=== PATIENT | female | born 2000 | race Caucasian/White ===

== ENCOUNTER 2022-06-19 21:09 | Emergency (ER) | payer MEDICAID, SELFPAY ==
[2022-06-19 21:15] VITALS: BP 120/84; PULSE 79; RESP 18; TEMP 36.2; O2SAT 97
--- NOTE | 2022-06-19 21:30 | DI.CT_ITS ---
Exam(s) CT HEAD WO EXAM: CT HEAD WO CLINICAL HISTORY: headache TECHNIQUE: COMPARISON: CT CT HEAD WO from 06/20/2022 FINDINGS: Noncontrast CT examination was performed at approximately 2200 hours followed by repeat noncontrast C T at 0400 hours. Initial examination showed question of discordant gaze although this may be artifac tual. Initial examine also showed question of left cerebellar hypodensity on thick cut images althou gh thin cut images do not show this abnormality. Follow-up CT shows normal concordance of gaze and n o evidence of intracranial hemorrhage, mass effect, or midline shift. Orbital and temporal bone structures appear intact. Mastoid air cells and visualized paranasal sinus es are clear. IMPRESSION: No evidence of acute intracranial process. RADIATION DOSE DELIVERED: 736.39mGy.cm Total DLP !Error CTDIvol RADIATION OPTIMIZATION: All CT scans at this facility use at least one of these dose optimization te chniques: automated exposure control; mA and/or kV adjustment per patient size (includes targeted exa ms where dose is matched to clinical indication); or iterative reconstruction.
--- NOTE | 2022-06-19 21:33 | ED.GENADUL_ITS ---
Discharge Plan Disposition Patient Disposition: HOME Condition: Stable Discharge Details Clinical Impression: Migraine Primary Care Provider: Luisito Messina ED Provider: Frederick Dias Home Meds and New Rx's Prescriptions: Continued clonazepam 1 mg Tablet 1 mg PO PRN PRN albuterol 90 mcg/actuation Aerosol 90 mcg INHALATION DAILY Discharge Instructions Instructions: Migraine Headache (ED) Additional Instructions: you had no evidence of bleeding on your second cat scan follow up with your primary care provider within a week if you feel more ill, have fevers or persistent vomiting return to the emergency department Medical Decision Making 22 yo female who denies chronic medical problems comes in with right side headache for a month. She states it started when her pcp put her on 90mg of cymbalta. She took the medicine and had headache and felt weakness and anxious, went to [facility] and diagnosed with med reaction and d/c'd. she has stopped the cymbalta but has continued to have a right sided headache, and has a history of migraines when she was younger. She has also had some visual changes including seeing floaters intermittent, seeing waves and double vision. She saw optho who did not find a structural abnormality with the eyes and so is scheduled to have an MRI at some point she is not sure when. She denies any fevers, chills, neck stiffness. She localizes the pain to the right parietal region. Her vision is 20/30 in both eyes, perrl, no afferent pupilarry defect, no conjunctival injection. no focal motor or sensation deficits, CN ii-xii intact. Suspect complex migraine but could also be MS. Will treat with compazine and toradol and given one month of symptoms obtain ct head to evaluate for space occupying lesion. She states headache slowly worsened not thunderclap so doubt subarachnoid hemorrhage. pt feels better, labs unremarkable, ct per vrad shows likely artifact in the left cerebellum but can't exclude sah. Also discordant gaze which is chronic for her. She remains stable, discussed findings with pt and though clinical suspicion for SAH is low she is willing to have a [address] repeat head ct negative, patient sleeping on reassessment. Discussed results with pt, suspect complex migraine but advised to f/u with pcp for mri and further testing and management, return precautions given Differential Diagnosis Differential Diagnosis: complex migraine, MS Imaging Data Radiologic Study: Attestation: I personally reviewed and interpreted this imaging study as follows: Imaging: CT Scan My impression: IMPRESSION: 1. Series 3, image 18 demonstrates a linear focus of hyperdensity in the left cerebellum. This is favored to represent artifact. However, a small focus of subarachnoid hemorrhage is not entirelyexcluded. Given the patient's history of headache, if there is concern for blood products, a 6 hour follow-up head CT scan is recommended Radiologic Study #2: Attestation: I personally reviewed and interpreted this imaging study as follows: Imaging: CT Scan Radiologist's impression: IMPRESSION: 1. No acute intracranial abnormality. 2. Area of previously noted irregularity in the left cerebellum likely artifactual. If persistent clinical concern for hemorrhage or other acute intracranial abnormality, consider MRI further evaluation. Lab Data Lab results reviewed: Yes I reviewed the patient's lab results. HPI General Mode of arrival: ambulatory . Date/Time Provider Initiated Documentation: 06/19/22 21:09 . Limitations to Documentation: no limitations . Information obtained by: patient and family . History of Present Illness 22 year old F presents to the emergency department with the chief complaint of headache, described as moderate, Patient started experiencing this month(s) (1) and it has been constant. No relieving factors improve symptom(s), No exacerbating factors reported . Patient notes other (vision changes). Patient did receive the following treatments prior to arrival, NSAID Related Data Home Medications Medication Instructions Recorded Confirmed albuterol 90 mcg/actuation aerosol 90 mcg inhalation DAILY 06/19/22 06/19/22 inhaler clonazepam 1 mg tablet 1 mg PO PRN PRN 06/19/22 06/19/22 Allergies Allergy/AdvReac Type Severity Reaction Status Date / Time No Known Allergies Allergy Unverified 06/19/22 21:33 General Stated Complaint: Headache ALEXX: 3 Review of Systems All systems reviewed & are unremarkable except as noted in HPI and below Constitutional Constitutional: Denies chills, Denies fever(s) and Denies weakness Eyes Eyes: Denies loss of vision Cardiovascular Cardiovascular: Denies chest pain and Denies dyspnea Respiratory Respiratory: Denies cough and Denies dyspnea Gastrointestinal Gastrointestinal: Denies abdominal pain, Denies nausea and Denies vomiting Musculoskeletal Musculoskeletal: Denies joint swelling Neurologic Neurologic: Denies loss of vision and Denies weakness PFSH All Active Problems (Updated 06/20/22 @ 05:00 by Frederick Dias MD) Migraine (Chronic) Social History Smoking/Tobacco Use Status: Never Smoking risk assessment performed?: Yes Alcohol Intake: never Do you feel safe at home: Yes Do you feel safe in your relationship?: Yes Exam Const General: no acute distress Orientation: alert HENMT Head: normal to inspection Ears: external ears normal General nose exam: external nose normal Mouth: moist mucous membranes Eyes General: appearance normal, both eyes and all related structures Neck Neck: normal visual inspection Resp Effort & Inspection: normal respiratory effort and able to speak in complete sentences Cardio Rate: regular rate Skin General skin exam: no rashes or lesions noted Neuro General: patient alert and patient oriented x3 Extrem General: normal to inspection Psych Mental Status: mental status grossly normal Course Vital Signs Vital signs: Vital Signs Temperature 36.2 C L 06/19/22 21:15 Pulse 79 06/19/22 21:15 Respiratory Rate 18 06/19/22 21:15 Blood Pressure 120/84 06/19/22 21:15 Pulse Oximetry 97 06/19/22 21:15 Temperature 36.2 C L 06/19/22 21:15 Temperature Source Temporal Artery Scan 06/19/22 21:15 Pulse 79 06/19/22 21:15 Respiratory Rate 18 06/19/22 21:15 Respiratory Effort Non-Labored 06/19/22 21:23 Blood Pressure 120/84 06/19/22 21:15 Blood Pressure Position Sitting 06/19/22 21:15 Pulse Oximetry 97 06/19/22 21:15 Oxygen Delivery Method Room Air 06/19/22 21:15 Oxygen Flow Rate 0 06/19/22 21:15 Pain Level 5 06/19/22 21:15
[2022-06-19 21:58] LABS: Abs Immature Grans 0.03 10^3/uL (0.0-0.06); Absolute Basophil Count 0.03 10^3/uL (0.0-0.2); Absolute Eosinophil Count 0.14 10^3/uL (0.0-0.7); Absolute Monocyte Count 0.57 10^3/uL (0.1-0.8); Absolute Neutrophil Count 7.23 10^3/uL (1.2-6.7); Basophils % 0.3; Eosinophils % 1.3; HCT 40.3 % (36.0-46.0); HGB 12.6 g/dL (11.2-15.7); Immature Grans % 0.3; Lymphocytes % 23.1; MCH 27.6 pg (27.0-33.0); MCHC 31.3 % (32.0-36.0); MCV 88 fL (80-95); MPV 10.2 fL (8.0-11.0); Monocytes % 5.5; Neutrophils % 69.5; Platelet Count 262 10^3/uL (130-400); RBC 4.57 10^6/uL (3.93-5.22); RDW 12.7 % (11.7-14.6); RDW-SD 40.8 fL
[2022-06-19] MEDS: Ketorolac 15 MG/ML VIAL IVP (21:59)
[2022-06-19] MEDS: Normal Saline 1,000 ML 1000 ML IV (22:00)
[2022-06-19 22:12] LABS: ALT 26 U/L (14-59); AST 15 U/L (15-37); Albumin 3.8 g/dL (3.4-5.0); Alkaline Phosphatase 83 U/L (46-116); Anion Gap 4.7 mmol/L (3-11); BUN 11 mg/dL (7-18); Bilirubin, Total 0.4 mg/dL (0.2-1.0); CO2 31.3 mmol/L (21.0-32.0); CREATININE 0.8 mg/dL (0.55-1.02); Calcium 9.2 mg/dL (8.5-10.1); Chloride 105 mmol/L (98-107); Glucose 97 mg/dL (74-106); Potassium 3.7 mmol/L (3.5-5.1); Sodium 141 mmol/L (136-145); Total Protein 7.6 g/dL (6.4-8.2)
--- NOTE | 2022-06-19 23:27 | DI.VRAD_ITS ---
Addendum created by Flor Solo MD on 06/19/2022 11:32:53 PM EDT: THIS REPORT CONTAINS FINDINGS THAT MAY BE CRITICAL TO PATIENT CARE. The findings were verbally communicated via telephone conference with Frederick Dias at 11:32 PM EDT on 06/19/2022. The findings were acknowledged and understood. Initial report created on 06/19/2022 11:27:19 PM EDT: PROCEDURE INFORMATION: Exam: CT Head Without Contrast Exam date and time: 06/19/2022 10:29 PM Age: 22 years old Clinical indication: Headache; Other: Right sided, pain in confucianist/forehead TECHNIQUE: Imaging protocol: Computed tomography of the head without contrast. Radiation optimization: All CT scans at this facility use at least one of these dose optimization techniques: automated exposure control; mA and/or kV adjustment per patient size (includes targeted exams where dose is matched to clinical indication); or iterative reconstruction. COMPARISON: No relevant prior studies available. FINDINGS: Brain: Series 3, image 18 demonstrates a linear focus of hyperdensity in the left cerebellum. This is favored to represent artifact. However, a small focus of subarachnoid hemorrhage is not entirely excluded. Given the patient's history of headache, if there is concern for blood products, a 6 hour follow-up head CT scan is recommended. Cerebral ventricles: No ventriculomegaly. Paranasal sinuses: No fluid levels. Mastoid air cells: Visualized mastoid air cells are well aerated. Bones/joints: Unremarkable. No acute fracture. Soft tissues: There is a discordant gaze with the right eye pointing laterally with respect to the left on series 3. Clinical correlation recommended. IMPRESSION: 1. Series 3, image 18 demonstrates a linear focus of hyperdensity in the left cerebellum. This is favored to represent artifact. However, a small focus of subarachnoid hemorrhage is not entirely excluded. Given the patient's history of headache, if there is concern for blood products, a 6 hour follow-up head CT scan is recommended. 2. There is a discordant gaze with the right eye pointing laterally with respect to the left on series 3. Clinical correlation recommended. Other findings/details as above. Dictated and Authenticated by: Flor Solo MD. Ordering:BEATRIS Mack MD
--- NOTE | 2022-06-20 04:54 | DI.VRAD_ITS ---
PROCEDURE INFORMATION: Exam: CT Head Without Contrast Exam date and time: 06/20/2022 4:22 AM Age: 22 years old Clinical indication: Other: 6 hour f/u per radiologist; Headache; Additional info: Headache, ? bleed on first CT TECHNIQUE: Imaging protocol: Computed tomography of the head without contrast. Radiation optimization: All CT scans at this facility use at least one of these dose optimization techniques: automated exposure control; mA and/or kV adjustment per patient size (includes targeted exams where dose is matched to clinical indication); or iterative reconstruction. Other technique: STROKE PROTOCOL was implemented. COMPARISON: CT HEAD WO 06/19/2022 10:29 PM FINDINGS: Brain: No acute hemorrhage identified. Area of previously noted irregularity in the left cerebellum likely artifactual. No large territorial areas of hypoattenuation concerning for ischemic infarct identified. No intracranial mass effect. Cerebral ventricles: The ventricles are within normal limits. Paranasal sinuses: The visualized sinuses are unremarkable. Mastoid air cells: The visualized mastoid air cells are well aerated. Bones/joints: The osseous structures are intact. Soft tissues: Unremarkable. IMPRESSION: 1. No acute intracranial abnormality. 2. Area of previously noted irregularity in the left cerebellum likely artifactual. If persistent clinical concern for hemorrhage or other acute intracranial abnormality, consider MRI further evaluation. ASSESSMENT: ASPECTS ([place] Stroke Program Early CT Score) is 10. Dictated and Authenticated by: Berny Torres MD. Ordering:BEATRIS Mack MD
== END 2022-06-20 05:17 | disposition home or self-care (01) ==
PROVIDERS: Emergency Provider Emergency Medicine; PCP Nurse Practitioner Family
DX: G43.909 Migraine, unspecified, not intractable, without status migrainosus (principal); H53.8 Other visual disturbances
CPT/HCPCS: 36415; 80053; 81025; 96361; 96374; 99284; 70450; 85025; 99283; J1885

== ENCOUNTER 2022-07-19 17:23 | Emergency (ER) | payer MEDICAID, SELFPAY ==
[2022-07-19 17:37] VITALS: BP 116/74; PULSE 90; RESP 18; TEMP 36.8; O2SAT 98
--- NOTE | 2022-07-19 18:41 | ED.GENADUL_ITS ---
Discharge Plan Disposition Patient Disposition: STILL A PATIENT Condition: Stable Discharge Details Clinical Impression: Headache, Nausea, Viral URI Primary Care Provider: Luisito Messina ED Provider: Helene Juarez Home Meds and New Rx's Prescriptions: No Action fluticasone propionate 110 mcg/actuation HFA aerosol inhaler 1 puff inhalation BID ibuprofen 600 mg tablet 600 mg PO Q6H PRN Mirena 20 mcg/24 hours (7 yrs) 52 mg intrauterine device 1 device intrauterine ONCE Rx Instructions: as a single dose loratadine [Allergy Relief (loratadine)] 10 mg tablet 10 mg PO DAILY omeprazole 40 mg capsule,delayed release(DR/EC) 40 mg PO DAILY clonazepam 1 mg Tablet 1 mg PO PRN PRN albuterol 90 mcg/actuation Aerosol 90 mcg INHALATION DAILY gabapentin 300 mg Capsule 300 mg PO HS Medical Decision Making 1814 -- 22-year-old female with a history of migraines, GERD, asthma, anxiety presents with left ear pain, difficulty swallowing, nasal congestion, headache, nausea for the past few days. She states her headache and nausea is bothering her most now. She denies any fever or currently any shortness of breath. Vitals within normal limits. Patient appears comfortable and nontoxic. She is speaking in full sentences without apparent distress. There is no drooling, trismus or submandibular swelling. Airway intact. Normal oropharynx. Left TM with effusion but no erythema. Right frontal and maxillary sinus tenderness. Lungs are clear bilaterally. No meningeal signs. No focal deficits. Differential diagnosis includes viral URI, COVID, migraine. History and presentation does not appear consistent with subarachnoid hemorrhage or menin gitis and do not see an indication for CT head imaging and patient is agreeable. Records note that patient had a CT head on 06/20/2022 which was unremarkable and patient agreed she would rather hold on exposure to radiation at this time. Will place an IV, bolus IV fluids, screening labs, IV Decadron, Tylenol, Toradol, Zofran, send out COVID swab and reassess. 1929 -- Pt was significantly anxious after IV placement due to bleeding around IV site and questioning whether she wants IV to remain in place. Initial IV unsuccessful and second attempt successful with bleeding around site. IV is se cured and appears functional and intact. Patient is now agreeable to IV fluids and meds. 1999 -- Case endorsed to Dr. June to reassess after meds. Medical Records Medical records reviewed: Yes I reviewed the patient's medical records. HPI General Mode of arrival: ambulatory . Date/Time Provider Initiated Documentation: 07/19/22 17:43 . Limitations to Documentation: no limitations . Information obtained by: patient . HPI Narrative: Patient is a 22-year-old female with a history of migraines who presents with left ear pain, sensation of throat tightness and difficulty swallowing, headache, facial pain, nasal congestion and nausea for the past 2 days. Patient states her headache feels similar to her usual migraine. She describes the headache as frontal and occipital and aching. She does admit to photophobia. She has not taken any medication for pain. She states 2 days ago she started with left ear pain but denies any decreased hearing or drainage from her left ear. She states she has been drinking water but has been eating less than usual and feels she may be dehydrated. She denies any significant sore throat or coughing. She states last night she felt she was short of breath but does admit to history of anxiety and denies any shortness of breath at present. She denies any fever, chest pain, abdominal pain, vomiting or diarrhea. She denies any known exposure to COVID. She states she took an at home COVID test today which was negative. Related Data Home Medications Medication Instructions Recorded Confirmed albuterol 90 mcg/actuation aerosol 90 mcg inhalation DAILY 06/19/22 07/19/22 inhaler clonazepam 1 mg tablet 1 mg PO PRN PRN 06/19/22 07/19/22 fluticasone propionate 110 1 puff inhalation BID 07/12/22 07/19/22 mcg/actuation HFA aerosol inhaler ibuprofen 600 mg tablet 600 mg PO Q6H PRN 07/12/22 07/19/22 levonorgestrel 20 mcg/24 hours (7 1 device intrauterine ONCE 07/12/22 07/19/22 yrs) 52 mg intrauterine device (Mirena) loratadine 10 mg tablet (Allergy 10 mg PO DAILY 07/12/22 07/19/22 Relief (loratadine)) omeprazole 40 mg capsule,delayed 40 mg PO DAILY 07/12/22 07/19/22 release gabapentin 300 mg capsule 300 mg PO HS 07/19/22 07/19/22 Allergies Allergy/AdvReac Type Severity Reaction Status Date / Time duloxetine [From Cymbalta] Allergy Severe Verified 07/12/22 09:58 grass pollen-perennial rye, Allergy Verified 07/12/22 09:50 standar pollen extracts Allergy Verified 07/12/22 09:50 General Stated Complaint: GenMedical ALEXX: 3 Review of Systems All systems reviewed & are unremarkable except as noted in HPI and below Constitutional Constitutional: Denies chills, Denies excessive sweating, Denies fatigue, Denies fever(s), Denies weakness and Denies weight loss Eyes Eyes: Reports system reviewed and no additional complaints, except as documented and Denies blurry vision ENT Ears, Nose, Mouth, and Throat: Denies vertigo, Denies dizziness, Denies otalgia, Denies nasal congestion, Denies sore throat and Denies throat swelling Cardiovascular Cardiovascular: Denies chest pain, Denies syncope, Denies rapid heart rate and Denies dyspnea Respiratory Respiratory: Denies chest congestion, Denies cough, Denies pain on inspiration and Denies dyspnea Gastrointestinal Gastrointestinal: Denies abdominal pain, Denies diarrhea and Denies vomiting Genitourinary Genitourinary: Denies hematuria, Denies dysuria and Denies flank pain Musculoskeletal Musculoskeletal: Denies back pain and Denies joint swelling Integumentary/Breasts Skin/Breast: Denies lesions and Denies rash Neurologic Neurologic: Denies behavioral changes, Denies confusion, Denies vertigo, Denies dizziness, Denies syncope, Denies localized weakness and Denies weakness Psychiatric Psychiatric: Denies behavioral changes, Denies confusion and Denies depression Endocrine Endocrine: Denies excessive sweating and Denies fatigue Hematologic/Lymphatic Hematologic/Lymphatic: Denies easy bruising and Denies lymphadenopathy Allergic/Immunologic Allergic/Immunologic: Denies throat swelling PFSH All Active Problems (Updated 07/19/22 @ 19:43 by Helene Juarez DO) Headache (Acute) Nausea (Acute) Viral URI (Acute) Migraine (Chronic) Medical History (Updated 07/19/22 @ 19:43 by Helene Juarez DO) Allergic rhinitis Alopecia Anemia Anxiety Asthma Cluster headache Double vision GERD (gastroesophageal reflux disease) Idiopathic scoliosis Inflammatory dermatosis Low back pain Menorrhagia Non-suppurative otitis media Pediculosis capitis Right upper quadrant pain Temporomandibular joint disorder Surgical History (Updated 07/12/22 @ 09:48 by Kandi Gaming) H/O Spinal surgery Hx laparoscopic cholecystectomy 08/09/2021 Family History (Updated 07/12/22 @ 09:50 by Kandi Gaming) Mother Breast cancer Father Diabetes Social History Smoking/Tobacco Use Status: Never Smoking risk assessment performed?: Yes Alcohol Intake: never Drug use: Never Substance use type: does not use Do you feel safe at home: Yes Do you feel safe in your relationship?: Yes Exam Const General: cooperative and healthy appearing Orientation: alert, awake and oriented x3 HENMT Head: normal to inspection Ears: hearing grossly normal bilaterally, external ears normal and TM abnormal with fluid behind the TM on the left General nose exam: external nose normal Face and sinus: normal facial exam and sinus tenderness frontal (right) and maxillary (frontal) Mouth: oral mucosae normal Teeth and gingiva: dentition normal Throat: posterior oropharynx normal Eyes General: appearance normal, both eyes and all related structures Eyelids: eyelids normal Pupils: PERRL EOM: EOM intact bilaterally Neck Neck: normal visual inspection Lymphatic: no lymphadenopathy noted Chest Chest: normal inspection of the chest Resp Effort & Inspection: normal respiratory effort and able to speak in complete sentences Auscultation: clear to auscultation bilaterally Cardio Rate: regular rate Rhythm: regular rhythm GI Inspection: normal to inspection Palpation: soft, not firm, no guarding, no hepatosplenomegaly, no masses and nontender Auscultation: normal bowel sounds Skin General skin exam: no rashes or lesions noted Neuro General: patient alert, patient awake, patient oriented x3, moves all extremities and no meningeal signs Cognition: normal cognition Speech: speech normal Gait: normal gait Motor: muscle tone normal throughout and strength 5/5 throughout Sensory Exam: no sensory deficits noted Extrem General: normal to inspection, full ROM and capillary refill normal Psych Appearance: grossly normal Mental Status: mental status grossly normal Speech and Movement: speech and movement normal Affect: normal affect Thought Process: normal Course Vital Signs Vital signs: Vital Signs Temperature 98.3 F 07/19/22 17:37 Pulse 90 07/19/22 17:37 Respiratory Rate 18 07/19/22 17:37 Blood Pressure 116/74 07/19/22 17:37 Pulse Oximetry 98 07/19/22 17:37 Temperature 98.3 F 07/19/22 17:37 Temperature Source Temporal Artery Scan 07/19/22 17:37 Pulse 90 07/19/22 17:37 Respiratory Rate 18 07/19/22 17:37 Respiratory Effort Non-Labored 07/19/22 17:40 Blood Pressure 116/74 07/19/22 17:37 Blood Pressure Position Sitting 07/19/22 17:37 Pulse Oximetry 98 07/19/22 17:37 Oxygen Delivery Method Room Air 07/19/22 17:37 Oxygen Flow Rate 0 07/19/22 17:37 Pain Level 5 07/19/22 17:37 Sign Out Sign Out Data: Sign Out Comment: Likely viral upper respiratory infection and associated migraine. Follow-up on patient response to medication and final disposition. If no improvement, consider additional IV fluids. Send out COVID swab obtained. Last updated by Helene Juarez DO at 07/19/22 19:49
[2022-07-19] MEDS: Normal Saline 1,000 ML 1000 ML IV (19:35)
[2022-07-19] MEDS: Dexamethasone 10 MG/ML VIAL IVP (19:40)
[2022-07-19] MEDS: Ketorolac 30 MG/ML VIAL IVP (19:43)
[2022-07-19] MEDS: diphenhydrAMINE 50 MG/ML VIAL 25 MG IVP (19:45)
[2022-07-19] MEDS: Prochlorperazine 10 MG/2 ML VIAL IVP (19:50)
[2022-07-19] MEDS: ACETAMINOPHEN 1,000 MG/100 ML BTL 400 MG IVPB (19:55)
[2022-07-19 20:31] VITALS: BP 114/77; PULSE 85; RESP 16; O2SAT 100
[2022-07-19 20:32] VITALS: RESP 16
--- NOTE | 2022-07-19 20:43 | W.EDPROG ---
Date of service: 07/19/22 Time of Service: 20:49 Medical Decision Making Patient signed out pending reevaluation after medications and fluids for migraine headache. Patient does report headache improved but she feels anxious and weird. May likely be related to combination of medications she received, specifically prochlorperazine and diphenhydramine. Vital signs are normal. She is neurologically nonfocal and intact. COVID swab is pending. Patient instructed to go home get some sleep and continue hydrating. Follow-up with primary care next couple of days if not improving. Return precautions provided. Exam Narrative Exam Narrative: Const: WDWN female in NAD. HEENT: NC/AT. Neck: Supple. Trachea midline. Lungs: Normal respiratory effort. Neuro: A+O x 3. Normal speech, mentation, gait. Cranial nerves II - XII grossly intact. No gross motor or sensory deficit. Ext: No C/C/E. Sign Out Sign Out Data: Sign Out Comment: Likely viral upper respiratory infection and associated migraine. Follow-up on patient response to medication and final disposition. If no improvement, consider additional IV fluids. Send out COVID swab obtained. Last updated by Helene Juarez DO at 07/19/22 19:49 Discharge Plan Disposition Patient Disposition: HOME Condition: Improving Discharge Details Clinical Impression: Headache, Nausea, Viral URI Primary Care Provider: Luisito Messina ED Provider: Jose June Home Meds and New Rx's Prescriptions: No Action fluticasone propionate 110 mcg/actuation HFA aerosol inhaler 1 puff inhalation BID ibuprofen 600 mg tablet 600 mg PO Q6H PRN Mirena 20 mcg/24 hours (7 yrs) 52 mg intrauterine device 1 device intrauterine ONCE Rx Instructions: as a single dose loratadine [Allergy Relief (loratadine)] 10 mg tablet 10 mg PO DAILY omeprazole 40 mg capsule,delayed release(DR/EC) 40 mg PO DAILY clonazepam 1 mg Tablet 1 mg PO PRN PRN albuterol 90 mcg/actuation Aerosol 90 mcg INHALATION DAILY gabapentin 300 mg Capsule 300 mg PO HS Discharge Instructions Instructions: Migraine Headache (ED), Upper Respiratory Infection (ED) Additional Instructions: You were seen and evaluated and felt to have viral URI with COVID swab pending with associated migraine headache with improvement after fluids and medications. Anxiety that you are feeling likely related to combination of some of the medications and should resolve over time. Recommend home for sleep and hydration, follow-up with PCP 2 to 3 days if not improving. Return to ED for severe worsening headache, focal neurologic changes, mental status changes, fever, persistent vomiting, chest pain, shortness of breath, or other concerns.
[2022-07-21 12:20] LABS: COVID-19 RT-PCR UVMMC Result Negative (Negative)
== END 2022-07-19 21:02 | disposition home or self-care (01) ==
PROVIDERS: Physician Assistant; Emergency Provider Emergency Medicine; PCP Nurse Practitioner Family
DX: J06.9 Acute upper respiratory infection, unspecified (principal); B97.89 Other viral agents as the cause of diseases classified elsewhere; Z20.822 Contact with and (suspected) exposure to COVID-19; G43.909 Migraine, unspecified, not intractable, without status migrainosus; H73.892 Other specified disorders of tympanic membrane, left ear; Z32.02 Encounter for pregnancy test, result negative
CPT/HCPCS: 81025; 96361; 96374; 96375; 99284; U0003; J0131; J0780; J1100; J1200; J1885

== ENCOUNTER 2022-09-07 14:48 | Outpatient (REF) | payer MEDICARE, MEDICAID, SELFPAY ==
[2022-09-07 19:46] LABS: Abs Immature Grans 0.01 10^3/uL (0.0-0.06); Absolute Basophil Count 0.03 10^3/uL (0.0-0.2); Absolute Lymphocyte Count 1.84 10^3/uL (1.2-3.4); Absolute Monocyte Count 0.38 10^3/uL (0.1-0.8); Absolute Neutrophil Count 3.95 10^3/uL (1.2-6.7); Basophils % 0.5; Eosinophils % 1.6; HCT 41.8 % (36.0-46.0); HGB 13.2 g/dL (11.2-15.7); Immature Grans % 0.2; Lymphocytes % 29.2; MCH 27.2 pg (27.0-33.0); MCHC 31.6 % (32.0-36.0); MCV 86 fL (80-95); Neutrophils % 62.5; Platelet Count 281 10^3/uL (130-400); RBC 4.85 10^6/uL (3.93-5.22); RDW 12.8 % (11.7-14.6); RDW-SD 40.1 fL; WBC 6.31 10^3/uL (4.4-10.8)
[2022-09-07 20:01] LABS: ALT 17 U/L (14-59); AST 19 U/L (15-37); Alkaline Phosphatase 78 U/L (46-116); Anion Gap 8.3 mmol/L (3-11); BUN 9 mg/dL (7-18); Bilirubin, Total 0.7 mg/dL (0.2-1.0); CO2 27.7 mmol/L (21.0-32.0); CREATININE 0.7 mg/dL (0.55-1.02); Calcium 9.3 mg/dL (8.5-10.1); Chloride 104 mmol/L (98-107); Glucose 87 mg/dL (74-106); Potassium 3.9 mmol/L (3.5-5.1); Sodium 140 mmol/L (136-145)
== END 2022-09-07 14:49 | disposition home or self-care (01) ==
LOC: NCHCN 14:48
PROVIDERS: PCP Nurse Practitioner Family; Visit Provider Nurse Practitioner Family
DX: R10.84 Generalized abdominal pain (principal)
CPT/HCPCS: 80053; 85025

== ENCOUNTER 2022-09-15 14:53 | Outpatient (REF) | payer MEDICARE, MEDICAID, SELFPAY ==
[2022-09-15 14:57] LABS: Bilirubin Small (Negative); Blood Negative (Negative); Clarity Clear (Clear); Glucose Negative (Negative); Ketones 15 mg/dL (Negative); Leukocyte Esterase Negative (Negative); Nitrite Negative (Negative); Specific Gravity >= 1.030 (1.005-1.025)
[2022-09-15 17:58] LABS: Abs Immature Grans 0.02 10^3/uL (0.0-0.06); Absolute Basophil Count 0.03 10^3/uL (0.0-0.2); Absolute Eosinophil Count 0.09 10^3/uL (0.0-0.7); Absolute Lymphocyte Count 1.94 10^3/uL (1.2-3.4); Absolute Monocyte Count 0.35 10^3/uL (0.1-0.8); Absolute Neutrophil Count 4.01 10^3/uL (1.2-6.7); Basophils % 0.5; Eosinophils % 1.4; HCT 41.3 % (36.0-46.0); HGB 12.8 g/dL (11.2-15.7); Immature Grans % 0.3; Lymphocytes % 30.1; MCH 27.1 pg (27.0-33.0); MCV 87 fL (80-95); MPV 10.2 fL (8.0-11.0); Monocytes % 5.4; Neutrophils % 62.3; Platelet Count 258 10^3/uL (130-400); RBC 4.73 10^6/uL (3.93-5.22); RDW 12.6 % (11.7-14.6); RDW-SD 40.1 fL; WBC 6.44 10^3/uL (4.4-10.8)
[2022-09-15 18:20] LABS: Amylase 53 U/L (25-115); Lipase 81 U/L (73-393)
[2022-09-15 21:22] LABS: ALT 18 U/L (14-59); AST 17 U/L (15-37); Albumin 4.1 g/dL (3.4-5.0); Alkaline Phosphatase 78 U/L (46-116); Anion Gap 8.1 mmol/L (3-11); BUN 9 mg/dL (7-18); Bilirubin, Total 0.8 mg/dL (0.2-1.0); CO2 27.9 mmol/L (21.0-32.0); CREATININE 0.7 mg/dL (0.55-1.02); Calcium 9.4 mg/dL (8.5-10.1); Chloride 104 mmol/L (98-107); Glucose 84 mg/dL (74-106); Potassium 3.8 mmol/L (3.5-5.1); Sodium 140 mmol/L (136-145); Total Protein 7.5 g/dL (6.4-8.2)
== END 2022-09-15 14:54 | disposition home or self-care (01) ==
LOC: NCHCN 14:53
PROVIDERS: PCP Nurse Practitioner Family; Visit Provider Nurse Practitioner Family
DX: R10.84 Generalized abdominal pain (principal); R39.89 Other symptoms and signs involving the genitourinary system; R82.998 Other abnormal findings in urine
CPT/HCPCS: 80053; 83690; 81003; 82150; 85025

== ENCOUNTER 2022-11-09 18:02 | Emergency (ER) | payer MEDICARE, MEDICAID, SELFPAY ==
[2022-11-09 18:06] VITALS: BP 119/66; PULSE 86; RESP 18; TEMP 37.5; O2SAT 99
[2022-11-09 18:19] VITALS: RESP 16
[2022-11-09] MEDS: Lidocaine 5% Patch 1 PATCH TP (20:10)
--- NOTE | 2022-11-09 20:20 | ED.GENADUL_ITS ---
Discharge Plan Disposition Patient Disposition: Home Condition: Stable Discharge Details Clinical Impression: Lumbar spine strain Primary Care Provider: OSCAR GRAY ED Provider: Stewart Vazquez Home Meds and New Rx's Prescriptions: New diclofenac potassium 50 mg tablet 50 mg PO TID PRN (Reason: pain) Qty: 15 0RF Continued fluticasone propionate [Flonase Allergy Relief] 50 mcg/actuation spray,suspension 2 spray intranasal DAILY 30 Days Qty: 16 6RF Rx Instructions: administer into each nostril Mirena 20 mcg/24 hours (7 yrs) 52 mg intrauterine device 1 device intrauterine ONCE Rx Instructions: as a single dose clonazepam 1 mg Tablet 0.25 mg PO PRN PRN albuterol 90 mcg/actuation Aerosol 90 mcg INHALATION DAILY Discharge Instructions Instructions: Low Back Strain (ED) Additional Instructions: If you develop any new or significant worsening of your symptoms feel free to return to the emergency department for reassessment. Otherwise minimize any heavy lifting bending or twisting motions and slowly advance your activity as tolerated by pain if not improving in the next 1 to 2 weeks please follow-up with your primary care provider for reassessment Referrals: OSCAR GRAY [Primary Care Provider] - 2 weeks Discharge Data Discharge Date/Time-TO BE ENTERED AT DEPARTURE: 11/09/22 20:43 Medical Decision Making Patient here for back pain. Patient unaware of any specific cause of event. Patient has severe and almost debilitating health anxiety and started researching back pain and emergent causes. That seems to have made symptoms worse . Physical exam is benign and I see no emergent findings. Patient has no findings of serious or emergent back pain. Patient is at LOW risk for ABDOMINAL AORTIC ANEURYSM, CAUDA EQUINA SYNDROME, EPIDURAL MASS LESION, SPINAL STENOSIS, OR HERNIATED DISK CAUSING SEVERE STENOSIS, thus I consider the discharge disposition reasonable. We have discussed the diagnosis and risks, and we agree with discharging home to follow-up with their primary doctor. We also discussed returning to the Emergency Department immediately if new or worsening symptoms occur. We have discussed the symptoms which are most concerning (e.g., saddle anesthesia, urinary or bowel incontinence or retention, changing or worsening pain) that necessitate immediate return. After discussion of diagnosis and plan of care patient has no further needs, questions, or concerns and states clear understanding to return to the emergency department for any worsening symptoms. This documentation was generated using Dragon dictation system, please disregard any oddities of phrase or misspellings. HPI General Mode of arrival: ambulatory . Date/Time Provider Initiated Documentation: 11/09/22 18:16 . Limitations to Documentation: no limitations . Information obtained by: patient, family and RN notes reviewed . History of P resent Illness 22 year old F presents to the emergency department with the chief complaint of Back pain, described as moderate, with intensity rated at 5. Quality is described as aching and sharp, and is localized to the back. Patient extremity. Patient started experiencing this day(s) (2) and it has been constant. No relieving factors improve symptom(s), Movement worsens symptoms . Patient notes no other symptoms.. Patient did receive the following treatments prior to arrival, NSAID Related Data Home Medications Medication Instructions Recorded Confirmed albuterol 90 mcg/actuation aerosol 90 mcg inhalation DAILY 06/19/22 11/09/22 inhaler clonazepam 1 mg tablet 0.25 mg PO PRN PRN 06/19/22 11/09/22 levonorgestrel 20 mcg/24 hours (8 1 device intrauterine ONCE 07/12/22 11/09/22 yrs) 52 mg intrauterine device (Mirena) fluticasone propionate 50 2 spray intranasal DAILY 30 days 07/28/22 11/09/22 mcg/actuation nasal #16 grams spray,suspension (Flonase Allergy Relief) diclofenac potassium 50 mg tablet 50 mg PO TID PRN pain #15 tabs 11/09/22 Previous Rx's Medication Instructions Recorded fluticasone propionate 50 2 spray intranasal DAILY 30 days 07/28/22 mcg/actuation nasal #16 grams spray,suspension (Flonase Allergy Relief) diclofenac potassium 50 mg tablet 50 mg PO TID PRN pain #15 tabs 11/09/22 Allergies Allergy/AdvReac Type Severity Reaction Status Date / Time duloxetine [From Cymbalta] Allergy Severe Verified 11/09/22 18:24 grass pollen-perennial rye, Allergy Verified 11/09/22 18:24 standar pollen extracts Allergy Verified 11/09/22 18:24 General Stated Complaint: GenMedical ALEXX: 3 Review of Systems Constitutional Constitutional: Denies chills and Denies fever(s) Cardiovascular Cardiovascular: Denies chest pain and Denies dyspnea on exertion Respiratory Respiratory: Denies cough and Denies dyspnea on exertion Gastrointestinal Gastrointestinal: Denies abdominal pain, Denies change in bowel habits, Denies diarrhea, Denies nausea and Denies vomiting Genitourinary Genitourinary: Denies urinary incontinence Musculoskeletal Musculoskeletal: Reports as per HPI, Reports back pain, Denies numbness and Denies tingling Neurologic Neurologic: Denies numbness and Denies tingling PFSH All Active Problems (Updated 11/09/22 @ 20:22 by Stewart Vazquez NP) Lumbar spine strain (Acute) Medical History Allergic rhinitis Alopecia Anemia Anxiety Asthma Cluster headache Double vision GERD (gastroesophageal reflux disease) Idiopathic scoliosis Inflammatory dermatosis Low back pain Menorrhagia Non-suppurative otitis media Pediculosis capitis Right upper quadrant pain Temporomandibular joint disorder Surgical History H/O Spinal surgery Hx laparoscopic cholecystectomy 08/09/2021 Family History Mother Breast cancer Father Diabetes Social History Smoking/Tobacco Use Status: Never Smoking risk assessment performed?: Yes Alcohol Intake: never Drug use: Never Substance use type: does not use Do you feel safe at home: Yes Do you feel safe in your relationship?: Yes Exam Const General: cooperative and no acute distress Orientation: alert, awake and oriented x3 Neck Neck: normal visual inspection, full ROM and no meningeal signs Resp Effort & Inspection: normal respiratory effort Auscultation: clear to auscultation bilaterally Cardio Rate: regular rate Rhythm: regular rhythm Heart Sounds: S1 normal and S2 normal GI Rectal Exam - female: visual inspection normal and normal sphincter tone External Female Exam: normal external appearance and other (Normal sensation to peritoneum) Back/Spine/Pelvis Thoracic/Lumbar Spine: pain with thoraco-lumbar ROM and thoraco-lumbar ROM limited Pelvis: no pain with anterior-posterior compression, no pain with lateral compression, buttock tenderness on the right and sciatic notch tenderness on the right Neuro General: patient alert, patient awake and patient oriented x3 DTR's: Rt Patellar: 2+, Lt Patellar: 2+, Rt Ankle: 2+ and Lt Ankle: 2+ Extrem Right lower extremity: hip/thigh Details: normal to inspection, knee Details: normal to inspection and lower leg Details: normal to inspection Course Vital Signs Vital signs: Vital Signs Temperature 37.5 C 11/09/22 18:06 Pulse 86 11/09/22 18:06 Respiratory Rate 18 11/09/22 18:06 Blood Pressure 119/66 11/09/22 18:06 Pulse Oximetry 99 11/09/22 18:06 Temperature 37.5 C 11/09/22 18:06 Temperature Source Tympanic 11/09/22 18:06 Pulse 86 11/09/22 18:06 Respiratory Rate 16 11/09/22 18:19 Respiratory Effort Non-Labored 11/09/22 18:19 Respiratory Depth Normal 11/09/22 18:19 Blood Pressure 119/66 11/09/22 18:06 Blood Pressure Position Supine 11/09/22 18:06 Pulse Oximetry 99 11/09/22 18:06 Oxygen Delivery Method Room Air 11/09/22 18:06 Oxygen Flow Rate 0 11/09/22 18:06 Pain Level 5 11/09/22 18:06 Lab/Test Results Lab/Test Results: POC- Test(urine) Negative
[2022-11-09] MEDS: Cyclobenzaprine 10 MG TAB, 3 TABS/BTL PO (20:27)
== END 2022-11-09 20:43 | disposition home or self-care (01) ==
PROVIDERS: Emergency Provider Nurse Practitioner Family; PCP Nurse Practitioner Family
DX: S39.012A Strain of muscle, fascia and tendon of lower back, initial encounter (principal); J45.909 Unspecified asthma, uncomplicated; Z79.899 Other long term (current) drug therapy; X58.XXXA Exposure to other specified factors, initial encounter
CPT/HCPCS: 81025; 99283; 99284

== ENCOUNTER 2023-01-10 19:56 | Emergency (ER) | payer MEDICARE, MEDICAID, SELFPAY ==
[2023-01-10] VITALS (22 sets, daily range): BP systolic 102–153; BP diastolic 47–135; PULSE 74–114; RESP 12–33; TEMP 37.1; O2SAT 97–100
--- NOTE | 2023-01-10 20:30 | DI.CT_ITS ---
Exam(s) CT HEAD WO EXAM: CT HEAD WO CLINICAL HISTORY: HEadache, weakness. TECHNIQUE: Imaging Protocol: Axial computed tomography images with coronal and sagittal reformatted images were created and reviewed COMPARISON: CT CT HEAD WO from 06/20/2022 FINDINGS: Ventricles and Extra axial spaces: Normal in size and morphology for the patient's age. Hemorrhage: None. Cerebral parenchyma: Normal. Midline shift: None. Brainstem/Cerebellum: Normal. Calvarium: Normal. Visualized Paranasal sinuses/Mastoids: Clear. Soft Tissues: Unremarkable. IMPRESSION: No acute intracranial process. RADIATION DOSE DELIVERED: 1,352.45mGy.cm Total DLP DATA REPOSITORY: All CT scans at this facility are submitted to the National Radiology Data Registry (NRDR) Dose Index Registry (DIR) with the [employer] (ACR). RADIATION OPTIMIZATION: All CT scans at this facility use at least one of these dose optimization te chniques: automated exposure control; mA and/or kV adjustment per patient size (includes targeted exa ms where dose is matched to clinical indication); or iterative reconstruction.
--- NOTE | 2023-01-10 20:42 | ED.GENADUL_ITS ---
Discharge Plan Disposition Patient Disposition: Home Condition: Improving Discharge Details Chief Complaint: GenMedical Clinical Impression: Dysesthesia of face Primary Care Provider: OSCAR GRAY ED Provider: Michele Maloney Discharge Instructions Additional Instructions: Home to rest this evening. Your CAT scan of the head did not show acute intracranial abnormality. Continue small, frequent sips of fluids to maintain hydration. Please follow-up with neurology at [facility] as planned. Return to the emergency department for any acute concern. Medical Decision Making 22-year-old female presents from home with her mother. States she has had 1 week of intermittent episodes of right face/arm/leg tingling. Has had a mild headache associated with this. Left AMA from the [facility] after 2- hour wait previously in the week. Mother states that they have an appointment with neurology this at [facility]. Patient has a history of migraine headaches, anxiety. Has been trialed on and off Cymbalta as well as clonazepam. Currently on no medications. Today her vital signs are reassuring. Note of postural tachycardia with approximate 25 point rise when standing. She does not have evidence of neurologic deficit on my exam. Differential gnosis would include sinusitis, intracranial mass, dehydration, electrolyte abnormality, globus hystericus, anxiety. Patient was given 1 L fluid, 1.5 mg of Ativan, referred for laboratory testing and CT scan of the head. Patient's laboratories are reassuring. CT scan of the head without acute intracranial abnormality. She is improved following fluids and anxiolytic. She has freestanding follow-up in neurology clinic. She is stable and improving at this time. [facility] General Mode of arrival: ambulatory . Date/Time Provider Initiated Documentation: 01/10/23 20:24 . Limitations to Documentation: no limitations . Information obtained by: patient and family . History of Present Illness 22 year old F presents to the emergency department with the chief complaint of Mild headache, history of migraines, right body dysaesthesia, described as mild and similar to prior episodes, and is localized to the face, right, upper extremity and lower extremity. Patient started experiencing this day(s) and it has been intermittent. No relieving factors improve symptom(s), No exacerbating factors reported . Patient notes headaches; denies chest pain, cough, fever/chills, seizure, syncope and weakness. Patient did receive the following treatments prior to arrival, none Related Data Allergies Allergy/AdvReac Type Severity Reaction Status Date / Time duloxetine [From Cymbalta] Allergy Severe Verified 01/10/23 20:11 grass pollen-perennial rye, Allergy Verified 01/10/23 20:11 standar pollen extracts Allergy Verified 01/10/23 20:11 Iodinated Contrast Media AdvReac Intermediate Skin Rash Unverified 01/10/23 20:21 General Stated Complaint: GenMedical ALEXX: 3 Review of Systems Narrative: Tightness in her throat, anxious. No recent febrile illness and denies cough, fever, chills, urinary changes. States they have pending follow up with neurology at [facility]. 8 systems were reviewed and otherwise negative. No difficulty with gait, no weakness. PFSH All Active Problems (Updated 01/10/23 @ 22:49 by Michele Maloney MD) Dysesthesia of face (Acute) Medical History Allergic rhinitis Alopecia Anemia Anxiety Asthma Cluster headache Double vision GERD (gastroesophageal reflux disease) Idiopathic scoliosis Inflammatory dermatosis Low back pain Menorrhagia Non-suppurative otitis media Pediculosis capitis Right upper quadrant pain Temporomandibular joint disorder Surgical History H/O Spinal surgery Hx laparoscopic cholecystectomy 08/09/2021 Family History Mother Breast cancer Father Diabetes Social History Smoking/Tobacco Use Status: Never Smoking risk assessment performed?: Yes Alcohol Intake: never Drug use: Never Substance use type: does not use Do you feel safe at home: Yes Do you feel safe in your relationship?: Yes Exam Narrative Exam Narrative: GEN: awake, alert, oriented 3. Pleasant, well groomed, interactive. HEAD: Normocephalic, atraumatic ENT: Mucous membranes moist, oropharynx unremarkable, External ear exam unremarkable EYES: PERRL, EOMI NECK: Full ROM, no DAVE, no menigismus CHEST/RESP: Nontender, clear to auscultation bilateral, no wheeze/rhonchi/rales CARDIOVASCULAR: RRR, no murmur, rub virgilio. 2+ Rad pulse bilateral ABDOMEN: Soft, nontender, no mass. +Bowel sounds EXT: Full ROM, no edema, no rash Neuro: Grossly normal neurologic exam, conversant, interactive. Cranial nerves II through XII are intact. [id number] intact. Romberg is negative. Normal motor and sensory function of both upper extremities including distribution of radial/median/ulnar nerves. Psych: Speech fluent, thoughts congruent, affect normal Course Vital Signs Vital signs: Vital Signs Temperature 37.1 C 01/10/23 20:05 Pulse 102 H 01/10/23 20:05 Respiratory Rate 24 01/10/23 20:05 Blood Pressure 133/80 01/10/23 20:05 Pulse Oximetry 99 01/10/23 20:05 Temperature 37.1 C 01/10/23 20:05 Temperature Source Temporal Artery Scan 01/10/23 20:05 Pulse 102 H 01/10/23 20:05 Respiratory Rate 24 01/10/23 20:05 Respiratory Effort Normal 01/10/23 20:10 Respiratory Depth Normal 01/10/23 20:10 Respiratory Pattern Normal 01/10/23 20:10 Blood Pressure 133/80 01/10/23 20:05 Blood Pressure Position Sitting 01/10/23 20:05 Pulse Oximetry 99 01/10/23 20:05 Oxygen Delivery Method Room Air 01/10/23 20:05 Oxygen Flow Rate 0 01/10/23 20:05
[2023-01-10] MEDS: Normal Saline 1,000 ML 1000 ML IV (20:45)
[2023-01-10 20:56] LABS: Abs Immature Grans 0.03 10^3/uL (0.0-0.06); Absolute Basophil Count 0.04 10^3/uL (0.0-0.2); Absolute Eosinophil Count 0.15 10^3/uL (0.0-0.7); Absolute Monocyte Count 0.54 10^3/uL (0.1-0.8); Absolute Neutrophil Count 6.62 10^3/uL (1.2-6.7); Basophils % 0.4; Eosinophils % 1.5; HCT 44.4 % (36.0-46.0); HGB 13.8 g/dL (11.2-15.7); Immature Grans % 0.3; Lymphocytes % 23.8; MCH 27.5 pg (27.0-33.0); MCHC 31.1 % (32.0-36.0); MCV 88 fL (80-95); MPV 10.4 fL (8.0-11.0); Monocytes % 5.6; Neutrophils % 68.4; Platelet Count 296 10^3/uL (130-400); RBC 5.02 10^6/uL (3.93-5.22); RDW 12.7 % (11.7-14.6); RDW-SD 41.5 fL; WBC 9.68 10^3/uL (4.4-10.8)
[2023-01-10] MEDS: LORazepam 0.5 MG TAB PO (21:08)
[2023-01-10 21:15] LABS: ALT 18 U/L (14-59); AST 11 U/L (15-37); Albumin 4.1 g/dL (3.4-5.0); Alkaline Phosphatase 96 U/L (46-116); Anion Gap 6.5 mmol/L (3-11); BUN 13 mg/dL (7-18); Bilirubin, Total 0.6 mg/dL (0.2-1.0); CO2 30.5 mmol/L (21.0-32.0); CREATININE 0.9 mg/dL (0.55-1.02); Calcium 9.3 mg/dL (8.5-10.1); Chloride 105 mmol/L (98-107); Estimated GFR 93.86 (mL/min/1.73m2); Glucose 87 mg/dL (74-106); Magnesium 1.9 mg/dL (1.8-2.4); Potassium 3.7 mmol/L (3.5-5.1); Sodium 142 mmol/L (136-145); Total Protein 8.3 g/dL (6.4-8.2)
[2023-01-10 21:38] LABS: Bilirubin Negative (Negative); Blood Negative (Negative); Clarity Sl Cloudy (Clear); Glucose Negative (Negative); Ketones Negative (Negative); Leukocyte Esterase Negative (Negative); Nitrite Negative (Negative); pH 8.5 (5-8)
--- NOTE | 2023-01-10 21:59 | DI.VRAD_ITS ---
PROCEDURE INFORMATION: Exam: CT Head Without Contrast Exam date and time: 01/10/2023 9:34 PM Age: 22 years old Clinical indication: Patient HX: Headache, weakness, TECHNIQUE: Imaging protocol: Computed tomography of the head without contrast. Radiation optimization: All CT scans at this facility use at least one of these dose optimization techniques: automated exposure control; mA and/or kV adjustment per patient size (includes targeted exams where dose is matched to clinical indication); or iterative reconstruction. COMPARISON: CT HEAD WO 06/20/2022 4:22 AM FINDINGS: Brain: Mild volume loss. No hemorrhage. Unremarkable white matter. No mass effect. Cerebral ventricles: No ventriculomegaly. Paranasal sinuses: Visualized sinuses are unremarkable. No fluid levels. Mastoid air cells: Visualized mastoid air cells are well aerated. Bones/joints: Unremarkable. No acute fracture. Soft tissues: Unremarkable. IMPRESSION: No acute intracranial abnormality. Dictated and Authenticated by: Luke Rivera MD. Ordering:MARY JANE Bautista MD
== END 2023-01-10 23:02 | disposition home or self-care (01) ==
PROVIDERS: Emergency Provider Emergency Medicine; PCP Nurse Practitioner Family
DX: R20.8 Other disturbances of skin sensation (principal); J45.909 Unspecified asthma, uncomplicated
CPT/HCPCS: 80053; 81025; 96361; 96374; 99284; 70450; 81003; 83735; 85025

== ENCOUNTER 2023-01-15 21:44 | Emergency (ER) | payer MEDICARE, MEDICAID, SELFPAY ==
[2023-01-15 21:48] VITALS: BP 122/74; PULSE 99; RESP 18; TEMP 36.9; O2SAT 98
--- NOTE | 2023-01-15 22:00 | RT.EKG_ITS ---
APPROVED REPORT Exam: Resting ECG Reason for Exam: Chest pain Patient Location: E HR:83 bpm ECG Measurements Heart Rate 83 AXIS DC 159 P 16 QRSd 77 QRS 14 QT 347 T -9 QTc 408 Conclusion Sinus rhythm...normal P axis, V-rate 60- 99 Borderline T abnormalities, diffuse leads...T flat/neg I have reviewed and interpreted ECG and agree with software generated interpretation.
--- NOTE | 2023-01-15 22:32 | ED.GENADUL_ITS ---
Discharge Plan Disposition Patient Disposition: Home Condition: Good Discharge Details Chief Complaint: GenMedical Clinical Impression: Tingling of right upper extremity, Heart palpitations, Fatigue, Trigeminal neuralgia Primary Care Provider: Sandip Ko ED Provider: Jackson Serrano Discharge Instructions Instructions: Paresthesia (ED) Additional Instructions: At this time your physical exam, EKG, and bedside ultrasound were all very reassuring. In regards to your facial tingling, I suspect there is mild irritation to your facial nerve. I would further discuss with your neurologist potentially restarting your gabapentin as this may be helpful. In regards to the tingling in your arm, please stretch your right neck and massage your right neck 2-3 times per day to help decrease the stress and strain on those muscle groups which I suspect is causing mild early thoracic outlet syndrome and nerve impingement. Please discuss with your neurologist potentially restarting your amitriptyline and venlafaxine. Please start taking the magnesium and riboflavin as prescribed by your neurologist. Please follow-up at your scheduled appointment tomorrow. Please drink 10 to 12 cups of water per day, as I do suspect mild dehydration is a component of your symptoms. If you notice any worsening of your symptoms, or any new symptoms such as vomiting, diarrhea, fever, chills, shortness of breath, chest pain, numbness, weakness, or fainting , please return immediately to the emergency department for reevaluation. Please follow up with your primary care provider as soon as possible for reassessment and reevaluation. As always, it was a pleasure participating in your medical care today. Referrals: [facility] [ [facility] STAFF PHYSICIAN] - Medical Decision Making 22-year-old female with a past medical history of scoliosis with multiple surgeries, migraines, anxiety, and depression, who presents today for recheck. Patient was seen by neurology at [facility] on 12/22/2022, with complaint of floaters, tingling in her right face, and increased anxiety. At that time it was recommended that she restart her venlafaxine, amitriptyline, magnesium and riboflavin. She has not done this yet. She was then seen here in the emergency department on 01/10/2023 which was 5 days ago. She had tingling in her right face at that time, and had a CT scan of the head and face which was negative for acute process. She was discharged with recommended outpatient neurology follow- up that had already been started. She does have a neurology appointment scheduled for tomorrow morning on Monday. She presents today for complaints of continued right face tingling, occasional right arm tingling and subjective weakness, and intermittent palpitations. The symptoms have been going on for the last 1.5 weeks, including when she was seen on her last visit here. In regards to the facial burning sensation she states that it comes and goes, it is made better with ice, it is over the distribution of the facial nerve. No other focal aggravating or relieving factors except she has noticed very clearly that it is worsened when she has anxiety or panic. In regards to the right arm and neck it also seems to be related to similar scenarios. She is right-hand dominant. Regards to her palpitations it is very intermittent and occasional. Not persistent, she denies any syncope. Review of systems is negative for fever, chills, profound weight loss, chest pain, shortness of breath, significant vision changes or severe headache. No family history in first- degree relatives of brain tumors. She did have a grandparent that had what sounds to be a benign brain tumor. Patient denies any family history of autoimmune conditions, including lupus or MS. She denies any drug use. She denies any trauma. She denies any recent vaccination, recent tick bite this fall or this summer, or rash to suggest shingles. She has not had chickenpox, but she has had her chickenpox vaccine. Patient also does complain of mild fatigue. She also states that she has been sleeping notably inconsistently, but will then take naps throughout the day and then not sleep at night because of this. No other complaints at this time. No other modifying factors. Physical exam demonstrates a notably well-appearing female. No evidence of wasting of the thenar eminence, no evidence of severe thoracic outlet syndrome. No focal neurologic deficits. No evidence of rash over the face, or suggestion of shingles, coronary syndrome, or Reilly's palsy. Symptoms inconsistent with a Pancoast tumor clinically. CT scan of the head reviewed and is negative. She has also had previous MRIs that were performed which were negative in an outpatient setting at [facility]. EKG is benign. In regards to her facial symptoms I suspect that there is a mild aspect of trigeminal neuralgia. She has been on gabapentin before and this may be beneficial moving forward. Family would like to discuss it with neurology prior to starting secondary to the concern for potential other medication interactions if she is to restart her amitriptyline and venlafaxine as recommended. I think this is reasonable. In regards to her arm I suspect there is a component of may be early thoracic outlet syndrome. Recommend daily/3 times per day stretching exercises of the right neck and shoulder area. No indication for emergent imaging at this time, but she will need follow-up with her PCP if symptoms do not improve. In regards to her fatigue it appears consistent with notably disrupted sleep patterns, h owever we did discuss other etiologies including thyroid dysfunction. Through shared decision-making process patient would like to hold off on additional IV/blood access as she states she does not like needles and did have a recent IV when she was here just a few days ago. She instead will prefer to follow-up with neurology to see if they have any additional blood work that they want and then get blood then. Patient otherwise looks notably stable. No clinical evidence of acute life-threatening etiology, no focal neurologic deficit to suggest acute intracranial neck or chest abnormality requiring additional emergent imaging at this time clinically. Patient will follow-up with her neurologist tomorrow at her scheduled appointment. Discussed red flags for which to return. I have extensively reviewed the treatment plan and discharge instructions with the patient and their family. I have addressed all patient concerns at this time. The patient and family was made aware of what symptoms to monitor for that would warrant a return to the emergency department. Discussed the plan with the patient and family, they demonstrate verbal understanding and agreement with our assessment and plan at this time. The documentation in this chart was dictated using [employer] dictation software. Please excuse any dictation errors. HPI General Date/Time Provider Initiated Documentation: 01/15/23 21:45 . HPI Narrative: 22-year-old female with a past medical history of scoliosis with multiple surgeries, migraines, anxiety, and depression, who presents today for recheck. Patient was seen by neurology at [facility] on 12/22/2022, with complaint of floaters, tingling in her right face, and increased anxiety. At that time it was recommended that she restart her venlafaxine, amitriptyline, magnesium and riboflavin. She has not done this yet. She was then seen here in the emergency department on 01/10/2023 which was 5 days ago. She had tingling in her right face at that time, and had a CT scan of the head and face which was negative for acute process. She was discharged with recommended outpatient neurology follow- up that had already been started. She does have a neurology appointment scheduled for tomorrow morning on Monday. She presents today for complaints of continued right face tingling, occasional right arm tingling and subjective weakness, and intermittent palpitations. The symptoms have been going on for the last 1.5 weeks, including when she was seen on her last visit here. In regards to the facial burning sensation she states that it comes and goes, it is made better with ice, it is over the distribution of the facial nerve. No other focal aggravating or relieving factors except she has noticed very clearly that it is worsened when she has anxiety or panic. In regards to the right arm and neck it also seems to be related to similar scenarios. She is right-hand dominant. Regards to her palpitations it is very intermittent and occasional. Not persistent, she denies any syncope. Review of systems is negative for fever, chills, profound weight loss, chest pain, shortness of breath, significant vision changes or severe headache. No family history in first- degree relatives of brain tumors. She did have a grandparent that had what sounds to be a benign brain tumor. Patient denies any family history of autoimmune conditions, including lupus or MS. She denies any drug use. She denies any trauma. She denies any recent vaccination, recent tick bite this fall or this summer, or rash to suggest shingles. She has not had chickenpox, but she has had her chickenpox vaccine. Patient also does complain of mild fatigue. She also states that she has been sleeping notably inconsistently, but will then take naps throughout the day and then not sleep at night because of this. No other complaints at this time. No other modifying factors. Related Data Allergies Allergy/AdvReac Type Severity Reaction Status Date / Time duloxetine [From Cymbalta] Allergy Severe Verified 01/10/23 20:11 grass pollen-perennial rye, Allergy Verified 01/10/23 20:11 standar pollen extracts Allergy Verified 01/10/23 20:11 Iodinated Contrast Media AdvReac Intermediate Skin Rash Unverified 01/10/23 20:21 General Stated Complaint: GenMedical ALEXX: 3 Review of Systems All systems reviewed & are unremarkable except as noted in HPI and below PFSH All Active Problems (Updated 01/15/23 @ 22:48 by Jackson Serrano DO) Dysesthesia of face (Acute) Tingling of right upper extremity (Acute) Heart palpitations (Acute) Fatigue (Acute) Trigeminal neuralgia (Acute) Medical History Allergic rhinitis Alopecia Anemia Anxiety Asthma Cluster headache Double vision GERD (gastroesophageal reflux disease) Idiopathic scoliosis Inflammatory dermatosis Low back pain Menorrhagia Non-suppurative otitis media Pediculosis capitis Right upper quadrant pain Temporomandibular joint disorder Surgical History H/O Spinal surgery Hx laparoscopic cholecystectomy 08/09/2021 Family History Mother Breast cancer Father Diabetes Social History Smoking/Tobacco Use Status: Never Smoking risk assessment performed?: Yes Alcohol Intake: never Drug use: Never Substance use type: does not use Do you feel safe at home: Yes Do you feel safe in your relationship?: Yes Exam Narrative Exam Narrative: 1.Const: Well-nourished, Well-developed, appearing stated age 2.Eyes: PERRL, no conjunctival injection, and symmetrical lids. 3.ENT: Atraumatic external nose and ears. Dry MM. Neck: Symmetric, trachea midline, No thyromegaly. No evidence of rash, otitis media, facial asymmetry, or other abnormality, cranial nerves II through XII are all intact. Visual exam is intact. No hyperesthesias on the right side of the face. No evidence of mass. No palpable tender temporal artery. 4.CVS: +S1/S2, No murmurs or gallops. Peripheral pulses 2+ and equal in all extremities. Brisk capillary refill in all extremities. 5.RESP: Unlabored respiratory effort. Clear to auscultation bilaterally. No wheezes rales or rhonchi 6.GI: Soft, Nontender/Nondistended, No hepatosplenomegaly. No guarding or rebound. 7.MSK: Normocephalic/Atraumatic, Extremities w/o deformity or ttp No cyanosis or clubbing, Normal movement of all extremities. Patient does demonstrate notable tenseness for her right neck musculature. No mass. No evidence of increased venous congestion. No JVD. 8.Skin: Warm, Dry. No rashes or lesions. 9.Neuro: sole cementer II-XII grossly intact. Sensation grossly intact, no focal neurologic deficits. All 6 cardinal planes of vision are fully intact. No evidence of rotatory or vertical nystagmus. The patient demonstrated a normal [id number], good dexterity. There was no evidence of dysdiadochokinesia. Patient was able to ambulate without difficulty. There was no wide-based gait. Romberg testing was normal. [id number] testing was normal. Sensation was intact bilaterally as well as muscle strength bilaterally for all extremities. Patient was able to verbalize butter cup with no slurring, or miss pronunciation. 10.Psych: (AAO) x3. Appropriate mood and affect Course Vital Signs Vital signs: Vital Signs Temperature 36.9 C 01/15/23 21:48 Pulse 99 H 01/15/23 21:48 Respiratory Rate 18 01/15/23 21:48 Blood Pressure 122/74 01/15/23 21:48 Pulse Oximetry 98 01/15/23 21:48 Temperature 36.9 C 01/15/23 21:48 Temperature Source Temporal Artery Scan 01/15/23 21:48 Pulse 99 H 01/15/23 21:48 Respiratory Rate 18 01/15/23 21:48 Respiratory Effort Normal, Non-Labored 01/15/23 21:58 Respiratory Depth Normal 01/15/23 21:55 Respiratory Pattern Normal 01/15/23 21:55 Blood Pressure 122/74 01/15/23 21:48 Blood Pressure Position Sitting 01/15/23 21:48 Pulse Oximetry 98 01/15/23 21:48 Oxygen Delivery Method Room Air 01/15/23 21:48 Oxygen Flow Rate 0 01/15/23 21:48 Pain Level 4 01/15/23 21:48
== END 2023-01-15 22:42 | disposition home or self-care (01) ==
PROVIDERS: Emergency Provider Student in an Organized Health Care Education/Training Program; PCP Family Medicine
DX: R20.2 Paresthesia of skin (principal); R53.1 Weakness; R00.2 Palpitations; G50.0 Trigeminal neuralgia; R07.9 Chest pain, unspecified
CPT/HCPCS: 93005; 93308; 99284; 93010

== ENCOUNTER 2023-02-02 22:31 | Emergency (ER) | payer MEDICARE, MEDICAID, SELFPAY ==
[2023-02-02 22:34] VITALS: BP 106/61; PULSE 103; RESP 18; TEMP 37; O2SAT 97
--- NOTE | 2023-02-02 23:00 | RT.EKG_ITS ---
APPROVED REPORT Exam: Resting ECG Reason for Exam: chest pain Patient Location: E HR:93 bpm ECG Measurements Heart Rate 93 AXIS [place] 146 P 20 QRSd 76 QRS 14 QT 332 T 2 QTc 412 Conclusion Sinus rhythm...normal P axis, V-rate 60- 99 sinus rhythm, norml axis, normal intervals, non ischemic
--- NOTE | 2023-02-02 23:00 | DI.RAD_ITS ---
Exam(s) XR CHEST 2V PA LATERAL EXAM: XR CHEST 2V PA LATERAL CLINICAL HISTORY: chest pain TECHNIQUE: 2D digital imaging was performed of the chest. Two images were obtained. PA and lateral views were obtained. COMPARISON: No exams were available for comparison FINDINGS: MEDIASTINUM: Normal. HEART: Normal. PULMONARY VASCULATURE: Normal. LUNGS: Clear. PLEURAL SPACE: No pleural effusion or pneumothorax. BONE:Within normal limits for the patient's age. Posterior spinal rods are seen the length of the th oracic and upper lumbar spine. OTHER FINDINGS:Normal. IMPRESSION: No acute pulmonary findings. DATA REPOSITORY: RADIATION DOSE DELIVERED:
--- NOTE | 2023-02-02 23:02 | ED.GENADUL_ITS ---
Discharge Plan Disposition Patient Disposition: Home Condition: Stable Discharge Details Chief Complaint: GenMedical Clinical Impression: Paresthesia Primary Care Provider: Sandip Ko ED Provider: Harshal Casper Home Meds and New Rx's Prescriptions: No Action clonidine 0.2 mg/24 hr Patch Weekly See Rx Instructions .ROUTE .COMPLEX Rx Instructions: 0.2 mg transdermally Discharge Instructions Instructions: Paresthesia (ED) Additional Instructions: Please follow-up with your primary care physician and neurologist. Medical Decision Making 22-year-old female presents with intermittent paresthesias of bilateral upper and lower extremities, intermittent anterior chest pain, fatigue over the past week. Negative COVID test at home. Mother endorses that she has also been urinating more frequently. Alert oriented interactive no neurodeficits. Consider hypothyroidism versus prediabetes with peripheral neuropathy versus electrolyte abnormality versus less likely ACS versus anxiety versus connective tissue disorder versus vasospasm. Will obtain basic labs EKG chest x-ray urinalysis urine test thyroid studies. Patient has an appointment with [facility] neurology within the coming weeks. Will encourage close follow-up. Likely discharge home with follow-up 00: 31 patient resting comfortably no acute distress. Labs and imaging unremarkable. Patient has close follow-up. HPI General Date/Time Provider Initiated Documentation: 02/02/23 22:32 . HPI Narrative: 22-year-old female presents with over 1 week of tingling paresthesias of bilateral upper extremities and lower extremities, sensation of feeling cold and then occasionally feeling hot, fatigue and intermittent anterior chest pain. Related Data Home Medications Medication Instructions Recorded Confirmed clonidine 0.2 mg/24 hr weekly See Rx Instructions .Route .COMPLEX 02/02/23 02/02/23 transdermal patch Allergies Allergy/AdvReac Type Severity Reaction Status Date / Time duloxetine [From Cymbalta] Allergy Severe Verified 01/10/23 20:11 grass pollen-perennial rye, Allergy Verified 01/10/23 20:11 standar pollen extracts Allergy Verified 01/10/23 20:11 Iodinated Contrast Media AdvReac Intermediate Skin Rash Unverified 01/10/23 20:21 General Stated Complaint: GenMedical ALEXX: 4 Review of Systems Narrative: Review of Systems Constitutional: Fatigue Eyes: negative ENT: negative Cardiovascular: Chest pain Respiratory: negative Gastrointestinal: negative : negative Musculoskeletal: negative Skin: negative Neurologic: Paresthesias Psych: negative PFSH All Active Problems (Updated 02/03/23 @ 00:31 by Harshal Casper MD) Dysesthesia of face (Acute) Tingling of right upper extremity (Acute) Heart palpitations (Acute) Fatigue (Acute) Trigeminal neuralgia (Acute) Paresthesia (Acute) Medical History Allergic rhinitis Alopecia Anemia Anxiety Asthma Cluster headache Double vision GERD (gastroesophageal reflux disease) Idiopathic scoliosis Inflammatory dermatosis Low back pain Menorrhagia Non-suppurative otitis media Pediculosis capitis Right upper quadrant pain Temporomandibular joint disorder Surgical History H/O Spinal surgery Hx laparoscopic cholecystectomy 08/09/2021 Family History Mother Breast cancer Father Diabetes Social History Smoking/Tobacco Use Status: Never Smoking risk assessment performed?: Yes Alcohol Intake: never Drug use: Never Substance use type: does not use Do you feel safe at home: Yes Do you feel safe in your relationship?: Yes Exam Narrative Exam Narrative: Physical Examination General: alert, awake, cooperative, resting comfortably, no acute distress HEENT: normocephalic, atraumatic; PERRL, EOM intact, conjunctiva normal; no nasal discharge; moist mucous membranes, oral and pharyngeal mucosa normal, tolerating secretions Neck: supple, trachea midline; full ROM Chest: normal to inspection Respiratory: normal respiratory effort, speaking in full sentences, clear to auscultation, no wheezing, rales or rhonchi Cardiac: regular rate, regular rhythm, S1S2 intact, no murmurs rubs or gallops GI: abdomen soft, non-tender, non-distended; no palpable mass or hepatosplenomegaly Skin: no lesions, rashes or trauma appreciated Neuro: AAOx3, normal speech, moving all extremities Psych: Appropriate mood and affect Course Vital Signs Vital signs: Vital Signs Temperature 37.0 C 02/02/23 22:34 Pulse 103 H 02/02/23 22:34 Respiratory Rate 18 02/02/23 22:34 Blood Pressure 106/61 02/02/23 22:34 Pulse Oximetry 97 02/02/23 22:34 Temperature 37.0 C 02/02/23 22:34 Temperature Source Temporal Artery Scan 02/02/23 22:34 Pulse 103 H 02/02/23 22:34 Respiratory Rate 18 02/02/23 22:34 Blood Pressure 106/61 02/02/23 22:34 Blood Pressure Position Sitting 02/02/23 22:34 Pulse Oximetry 97 02/02/23 22:34 Oxygen Delivery Method Room Air 02/02/23 22:34 Oxygen Flow Rate 0 02/02/23 22:34 Pain Level 4 02/02/23 22:34
[2023-02-02 23:21] LABS: Abs Immature Grans 0.03 10^3/uL (0.0-0.06); Absolute Basophil Count 0.04 10^3/uL (0.0-0.2); Absolute Eosinophil Count 0.12 10^3/uL (0.0-0.7); Absolute Lymphocyte Count 2.77 10^3/uL (1.2-3.4); Absolute Monocyte Count 0.57 10^3/uL (0.1-0.8); Absolute Neutrophil Count 7.41 10^3/uL (1.2-6.7); Basophils % 0.4; Eosinophils % 1.1; HCT 41.9 % (36.0-46.0); HGB 13.2 g/dL (11.2-15.7); Immature Grans % 0.3; Lymphocytes % 25.3; MCHC 31.5 % (32.0-36.0); MCV 86 fL (80-95); MPV 9.9 fL (8.0-11.0); Monocytes % 5.2; Neutrophils % 67.7; Platelet Count 301 10^3/uL (130-400); RBC 4.88 10^6/uL (3.93-5.22); RDW 12.5 % (11.7-14.6); RDW-SD 38.8 fL; WBC 10.95 10^3/uL (4.4-10.8)
[2023-02-02 23:30] LABS: Magnesium 1.8 mg/dL (1.8-2.4)
[2023-02-02 23:32] VITALS: RESP 18
[2023-02-02 23:33] LABS: Bilirubin Negative (Negative); Blood Negative (Negative); Clarity Clear (Clear); Glucose Negative (Negative); Ketones Negative (Negative); Leukocyte Esterase Negative (Negative); Nitrite Negative (Negative); Specific Gravity >= 1.030 (1.005-1.025)
[2023-02-02 23:44] LABS: ALT 12 U/L (14-59); AST 9 U/L (15-37); Albumin 3.9 g/dL (3.4-5.0); Alkaline Phosphatase 96 U/L (46-116); Anion Gap 6.4 mmol/L (3-11); BUN 17 mg/dL (7-18); Bilirubin, Total 0.4 mg/dL (0.2-1.0); CO2 28.6 mmol/L (21.0-32.0); CREATININE 0.8 mg/dL (0.55-1.02); Calcium 9.1 mg/dL (8.5-10.1); Chloride 102 mmol/L (98-107); Estimated GFR 108.11 (mL/min/1.73m2); Glucose 89 mg/dL (74-106); Potassium 3.5 mmol/L (3.5-5.1); Sodium 137 mmol/L (136-145); TSH (W/Ref FT4) 1.76 uIU/mL (0.36-3.74); Total Protein 8.3 g/dL (6.4-8.2)
--- NOTE | 2023-02-03 00:25 | DI.VRAD_ITS ---
PROCEDURE INFORMATION: Exam: XR Chest Exam date and time: 02/02/2023 11:37 PM Age: 22 years old Clinical indication: Chest wall pain; Prior surgery; Surgery date: 6+ months; Surgery type: Scoliosis; Additional info: Chest pain TECHNIQUE: Imaging protocol: Radiologic exam of the chest. Views: 2 views. COMPARISON: No relevant prior studies available. FINDINGS: Lungs: Lungs are adequately inflated and symmetric. No focal consolidation or pulmonary edema. Pleural spaces: No pleural effusion. No pneumothorax. Heart/Mediastinum: Cardiomediastinal contours within normal limits. Bones/joints: Prior extensive fixation of the thoracic spine. No discrete or displaced fracture. IMPRESSION: No acute findings. Dictated and Authenticated by: Francisco De León MD. Ordering:LUCIEN Caputo MD
[2023-02-03 00:44] VITALS: PULSE 85; RESP 18; O2SAT 98
== END 2023-02-03 00:46 | disposition home or self-care (01) ==
PROVIDERS: Emergency Provider Emergency Medicine; PCP Family Medicine
DX: R20.2 Paresthesia of skin (principal); R07.89 Other chest pain; J45.909 Unspecified asthma, uncomplicated; R53.83 Other fatigue
CPT/HCPCS: 80053; 81025; 93005; 99283; 71046; 81003; 83735; 84443; 85025; 93010; 99285

== ENCOUNTER 2023-02-13 18:22 | Emergency (ER) | payer MEDICARE, MEDICAID, SELFPAY ==
--- NOTE | 2023-02-13 18:15 | RT.EKG_ITS ---
APPROVED REPORT Exam: Resting ECG Reason for Exam: LIGHTHEADED Patient Location: E HR:80 bpm ECG Measurements Heart Rate 80 AXIS [place] 151 P 19 QRSd 73 QRS 14 QT 346 T -12 QTc 398 Conclusion Sinus rhythm...normal P axis, V-rate 60- 99 Borderline T abnormalities, diffuse leads...T flat/neg
[2023-02-13 18:28] VITALS: BP 112/62; PULSE 80; RESP 20; TEMP 36.5; O2SAT 97
--- NOTE | 2023-02-13 19:08 | W.ED.GENAD ---
Discharge Plan Disposition Patient Disposition: Home Discharge Details Clinical Impression: Tingling of right upper extremity, Heart palpitations, Fatigue, Paresthesia, Anxiety Primary Care Provider: Sandip Ko ED Provider: Ranjana Hedrick Discharge Instructions Instructions: Anxiety (ED) Additional Instructions: Your exam is reassuring here today. The work-up you have had completed here historically as well as the work-up you have had through your neurology team has been most concerned for anxiety driving a lot of your symptoms. I encourage you to begin the medications that you have been previously prescribed including the vitamin B12, magnesium and low-dose amitriptyline. Please keep your upcoming appointments. Please call your therapist tomorrow to schedule follow-up appointment as soon as possible. Please encourage hydration. Please consider beginning volunteering, part-time job or other ways to be active and get out of the house more involved in your community. If you develop any new or worsening symptoms please seek care urgently once again. Referrals: Sandip Ko [Primary Care Provider] - Discharge Data Discharge Date/Time-TO BE ENTERED AT DEPARTURE: 02/13/23 21:02 Medical Decision Making Patient is a pleasant 22 year old female, brought in by mom, with several c/c, all intermittent, including facial numbness, BUE weakness, fatigue, dizziness and several others. These are all transient with no precipitating factors. She reports that she has had multiple work-ups including [place] possible [place] other [place] [facility] [place] She is also been seen here multiple times and has had imaging as well as laboratory evaluation. All of these have been nondiagnostic. This year she was seen here for variations of the same 3 times. She is also been seen at [facility] and [facility]. Per patient and mom, the general consensus is that the patient suffering from anxiety. They have tried to encourage her to begin her anxiety lytics once again but she has been hesitant to because if poor reaction she had to Cymbalta last year. States that she has a large amount of medical anxiety because of this medication issue as well as having multiple surgeries for idiopathic scoliosis going up. Her reporting now and does not sound to be off of what she has been endorsing when she has been here previously. No acute change in this. Patient's not currently working, spends most of her time at home. Has not seen her therapist in a while. Is not endorsing suicidal ideations. On exam, patient appears nontoxic. She is no neurologic deficits at this time. Moving well. She is not having any hypotension. Patient is not having any increased symptoms when she goes from sitting to standing position. I had a lengthy chat with patient and mom regarding recurrent symptoms. I do feel the patient would benefit from being more involved socially as well as having more hobbies. Encouraged involvement, advised that she abstain from googling her medical symptoms as well. She self admits that she has been looking into her symptoms and can perceverate which then increases her anxiety. Patient, mom and I had a long chat around workup and plan. Her POC was negative. She has had MRI recently, has had several laboratory evaluations, CT scan. At this time, there is not an emergent change in her symptoms or evalution that must be completed tonight based on her continued chornic sytmpoms. They would like to hold off on further evalution today. She does not have acute neurologic deficit or significant change in symptoms from previous visits. After shared decision making, patient and mom would like to hold off on furtheer evaluation. Would like to be d/c to home with plan for her to engage with PCP, therapist, psychologist. Mom is helping to get her involved in local animal prison. We discussed again the prior suggestion by [place] [facility] [place] [place] to begin her medications. She is hestitant to begin but believes that she is ready to begin B12, magnesium supplementation. She has low does Amitryptiline, is going to consider that more. She is aware that she may return at any time for continued care, further evaluation. Return precautions discussion. All of her quesitons and concerns were addressed, she is in agreement with this plan. [facility] General Date/Time Provider Initiated Documentation: 02/13/23 18:24. Limitations to Documentation: no limitations. Information obtained by: patient, family, RN notes reviewed and old records reviewed. History of Present Illness 22 year old F presents to the emergency department with the chief complaint of several concerns including tingling, weakness, lightheadedness, anxiety, described as moderate and similar to prior episodes, and is localized to the face, chest, left, right, upper extremity and lower extremity. Patient started experiencing this month(s) and it has been intermittent. No relieving factors improve symptom(s), No exacerbating factors reported . Patient did receive the following treatments prior to arrival, none Related Data Allergies Allergy/AdvReac Type Severity Reaction Status Date / Time duloxetine [From Cymbalta] Allergy Severe Verified 02/13/23 18:38 grass pollen-perennial rye, Allergy Verified 02/13/23 18:38 standar pollen extracts Allergy Verified 02/13/23 18:38 Iodinated Contrast Media AdvReac Intermediate Skin Rash Unverified 02/13/23 18:38 General Stated Complaint: Dizzy/Sync ALEXX: 4 Review of Systems Constitutional Constitutional: Reports as per HPI, Denies chills, Denies fever(s) and Denies headache(s) Eyes Eyes: Denies change in vision ENT Ears, Nose, Mouth, and Throat: Denies headache(s) Cardiovascular Cardiovascular: Reports as per HPI, Denies dyspnea and Denies dyspnea on exertion Respiratory Respiratory: Reports as per HPI, Denies chest congestion, Denies cough, Denies dyspnea and Denies dyspnea on exertion Gastrointestinal Gastrointestinal: Reports as per HPI, Denies abdominal pain, Denies diarrhea, Denies nausea and Denies vomiting Musculoskeletal Musculoskeletal: Reports as per HPI and Denies back pain Integumentary/Breasts Skin/Breast: Reports as per HPI and Denies rash Neurologic Neurologic: Reports as per HPI and Denies headache(s) PFSH All Active Problems (Updated 02/13/23 @ 20:32 by HENOK Barbosa) Tingling of right upper extremity (Acute) Heart palpitations (Acute) Fatigue (Acute) Trigeminal neuralgia (Acute) Paresthesia (Acute) Anxiety (Chronic) Medical History Allergic rhinitis Alopecia Anemia Anxiety Asthma Cluster headache Double vision GERD (gastroesophageal reflux disease) Idiopathic scoliosis Inflammatory dermatosis Low back pain Menorrhagia Non-suppurative otitis media Pediculosis capitis Right upper quadrant pain Temporomandibular joint disorder Surgical History H/O Spinal surgery Hx laparoscopic cholecystectomy 08/09/2021 Family History Mother Breast cancer Father Diabetes Social History Smoking/Tobacco Use Status: Never Smoking risk assessment performed?: Yes Alcohol Intake: never Drug use: Never Substance use type: does not use Do you feel safe at home: Yes Do you feel safe in your relationship?: Yes Exam Const General: cooperative, healthy appearing, comfortable (playing on phone), no acute distress and well developed Nutritional Appearance: well nourished and overweight Orientation: alert, awake and oriented x3 HENMT Head: normal to inspection Ears: hearing grossly normal bilaterally General nose exam: external nose normal Mouth: moist mucous membranes Throat: posterior oropharynx normal Eyes General: appearance normal, both eyes and all related structures Alignment and Position: alignment normal Periorbital: periorbital findings normal Eyelids: eyelids normal Sclera: sclerae normal Cornea: corneas normal Pupils: PERRL EOM: EOM intact bilaterally Neck Neck: normal visual inspection and full ROM Chest Chest: no crepitus Resp Effort & Inspection: normal respiratory effort, able to speak in complete sentences and no respiratory distress Cardio Rate: regular rate Rhythm: regular rhythm Heart Sounds: S1 normal and S2 normal Back/Spine/Pelvis Thoracic/Lumbar Spine: No thoracic and lumbar spine normal to inspection (large surgical incision) Skin General skin exam: no rashes or lesions noted Trauma: no lacerations or abrasions Neuro General: patient alert, patient awake and patient oriented x3 Cranial Nerves: CN's II-XI intact bilaterally Cognition: normal cognition Speech: speech normal Gait: normal gait Motor: muscle tone normal throughout, strength 5/5 throughout, no pronator drift, no movement abnormalities noted and no fasciculations Sensory Exam: no sensory deficits noted Coordination: [id number] test normal and [id number] test normal Extrem General: normal to inspection and normal gait Psych Appearance: grossly normal and well kempt Mental Status: mental status grossly normal Speech and Movement: speech and movement normal Course Vital Signs Vital signs: Vital Signs Temperature 36.5 C 02/13/23 18:28 Pulse 80 02/13/23 18:28 Respiratory Rate 20 02/13/23 18:28 Blood Pressure 112/62 02/13/23 18:28 Pulse Oximetry 97 02/13/23 18:28 Temperature 36.5 C 02/13/23 18:28 Temperature Source Temporal Artery Scan 02/13/23 18:28 Pulse 80 02/13/23 18:28 Respiratory Rate 20 02/13/23 18:28 Blood Pressure 112/62 02/13/23 18:28 Blood Pressure Position Sitting 02/13/23 18:28 Pulse Oximetry 97 02/13/23 18:28 Oxygen Delivery Method Room Air 02/13/23 18:28 Oxygen Flow Rate 0 02/13/23 18:28 Pain Level 0 02/13/23 18:28
== END 2023-02-13 21:02 | disposition home or self-care (01) ==
PROVIDERS: Emergency Provider Physician Assistant; PCP Family Medicine
DX: R00.2 Palpitations (principal); R53.83 Other fatigue; R20.2 Paresthesia of skin; F41.9 Anxiety disorder, unspecified; R42 Dizziness and giddiness
CPT/HCPCS: 81025; 93005; 99282; 93010

== ENCOUNTER 2023-02-25 17:09 | Emergency (ER) | payer MEDICARE, MEDICAID, SELFPAY ==
[2023-02-25 17:15] VITALS: BP 93/71; PULSE 92; RESP 15; TEMP 36.4; O2SAT 98
--- NOTE | 2023-02-25 17:58 | ED.GENADUL_ITS ---
Discharge Plan Disposition Patient Disposition: Home Condition: Stable Discharge Details Clinical Impression: Memory changes Primary Care Provider: Sandip Ko ED Provider: Frederick Dias Home Meds and New Rx's Prescriptions: No Action No Known Home Meds Discharge Instructions Additional Instructions: your blood work does not show concerning findings at this time follow up with your primary care provider within 1 week [facility] services can be reached at [phone] if you feel more ill, have severe pain or persistent vomiting return to the emergency department Medical Decision Making 22 yo female with chronic issues with intermittent chest pain, memory issues, who has had numerous studies including MRIs which have been negative, comes in with cc of a year of intermittent brain fog and pressure sensation in the head. She denies fevers, chills, neck stiffness. She is anxious on exam but stable in no distress speaking clearly. She has a normal gait, no focal motor or sensation deficits, CN II-XII intact with clear speech. Unclear etilogy for her symptoms, offered to treat as possible atypical migraine but she declined. Will check cbc, cmp , tsh. She has no findings on history or exam to suggest intracranial hemorrhage or supplier relationship director infection, no meningismus, so do not feel imaging of the head indicated labs unremarkable, she is stable, no si/hi, discussed with her that I suspect this is likely underlying mental health as the cause of her symptoms primarily anxiety. Offered [facility] eval but she declined and will reach out to them herself, no si/hi so feel this is reasonable, advised to f/u with her pcp Differential Diagnosis Differential Diagnosis: anxiety, electrolyte abnormality, somatoform disorder Medical Records Medical records reviewed: Yes I reviewed the patient's medical records. Lab Data Lab results reviewed: Yes I reviewed the patient's lab results. HPI General Mode of arrival: ambulatory . Date/Time Provider Initiated Documentation: 02/25/23 17:12 . Limitations to Documentation: no limitations . Information obtained by: patient . History of Present Illness 22 year old F presents to the emergency department with the chief complaint of brain fog, described as moderate, Patient started experiencing this year(s) (1) and it has been intermittent. No relieving factors improve symptom(s), No exacerbating factors reported . Patient notes denies fever/chills. Patient did receive the following treatments prior to arrival, none Related Data Home Medications Medication Instructions Recorded Confirmed Unknown [No Known Home Meds] 02/25/23 02/25/23 Allergies Allergy/AdvReac Type Severity Reaction Status Date / Time duloxetine [From Cymbalta] Allergy Severe Verified 02/25/23 18:40 grass pollen-perennial rye, Allergy Verified 02/25/23 18:40 standar pollen extracts Allergy Verified 02/25/23 18:40 Iodinated Contrast Media AdvReac Intermediate Skin Rash Unverified 02/25/23 18:40 General Stated Complaint: Headache ALEXX: 4 Review of Systems All systems reviewed & are unremarkable except as noted in HPI and below Constitutional Constitutional: Denies chills and Denies fever(s) Cardiovascular Cardiovascular: Denies chest pain and Denies dyspnea Respiratory Respiratory: Denies cough and Denies dyspnea Gastrointestinal Gastrointestinal: Denies abdominal pain, Denies nausea and Denies vomiting Genitourinary Genitourinary: Denies dysuria Integumentary/Breasts Skin/Breast: Denies rash Psychiatric Psychiatric: Denies depression PFSH All Active Problems (Updated 02/25/23 @ 18:39 by Frederick Dias MD) Paresthesia (Acute) Anxiety (Chronic) Memory changes (Acute) Medical History Allergic rhinitis Alopecia Anemia Anxiety Asthma Cluster headache Double vision GERD (gastroesophageal reflux disease) Idiopathic scoliosis Inflammatory dermatosis Low back pain Menorrhagia Non-suppurative otitis media Pediculosis capitis Right upper quadrant pain Temporomandibular joint disorder Surgical History H/O Spinal surgery Hx laparoscopic cholecystectomy 08/09/2021 Family History Mother Breast cancer Father Diabetes Social History Smoking/Tobacco Use Status: Never Smoking risk assessment performed?: Yes Alcohol Intake: never Drug use: Never Substance use type: does not use Do you feel safe at home: Yes Do you feel safe in your relationship?: Yes Exam Const General: no acute distress and anxious Orientation: alert HENMT Head: normal to inspection Ears: external ears normal General nose exam: external nose normal Mouth: moist mucous membranes Eyes General: appearance normal, both eyes and all related structures Neck Neck: normal visual inspection Resp Effort & Inspection: normal respiratory effort and able to speak in complete sentences Cardio Rate: regular rate Skin General skin exam: no rashes or lesions noted Neuro General: patient alert and patient oriented x3 Cranial Nerves: CN's II-XI intact bilaterally Cognition: normal cognition Speech: speech normal Gait: normal gait Extrem General: normal to inspection Psych Mental Status: mental status grossly normal Course Vital Signs Vital signs: Vital Signs Temperature 36.4 C L 02/25/23 17:15 Pulse 92 H 02/25/23 17:15 Respiratory Rate 15 02/25/23 17:15 Blood Pressure 93/71 L 02/25/23 17:15 Pulse Oximetry 98 02/25/23 17:15 Temperature 36.4 C L 02/25/23 17:15 Temperature Source Oral 02/25/23 17:15 Pulse 92 H 02/25/23 17:15 Respiratory Rate 15 02/25/23 17:15 Blood Pressure 93/71 L 02/25/23 17:15 Blood Pressure Position Sitting 02/25/23 17:15 Pulse Oximetry 98 02/25/23 17:15 Oxygen Delivery Method Room Air 02/25/23 17:15 Oxygen Flow Rate 0 02/25/23 17:15 Pain Level 2 02/25/23 17:15
[2023-02-25 18:24] LABS: ALT 16 U/L (14-59); AST 21 U/L (15-37); Albumin 3.9 g/dL (3.4-5.0); Alkaline Phosphatase 85 U/L (46-116); Anion Gap 6.3 mmol/L (3-11); BUN 10 mg/dL (7-18); Bilirubin, Total 0.6 mg/dL (0.2-1.0); CO2 29.7 mmol/L (21.0-32.0); CREATININE 0.7 mg/dL (0.55-1.02); Calcium 9.4 mg/dL (8.5-10.1); Chloride 105 mmol/L (98-107); Glucose 104 mg/dL (74-106); Sodium 141 mmol/L (136-145)
[2023-02-25 18:33] LABS: TSH (W/Ref FT4) 0.93 uIU/mL (0.36-3.74)
[2023-02-25 18:35] LABS: Abs Immature Grans 0.02 10^3/uL (0.0-0.06); Absolute Basophil Count 0.02 10^3/uL (0.0-0.2); Absolute Lymphocyte Count 2.03 10^3/uL (1.2-3.4); Absolute Monocyte Count 0.42 10^3/uL (0.1-0.8); Absolute Neutrophil Count 6.16 10^3/uL (1.2-6.7); Basophils % 0.2; Eosinophils % 1.1; HCT 41.7 % (36.0-46.0); HGB 13.5 g/dL (11.2-15.7); Immature Grans % 0.2; Lymphocytes % 23.2; MCH 27.4 pg (27.0-33.0); MCHC 32.4 % (32.0-36.0); MCV 85 fL (80-95); MPV 9.8 fL (8.0-11.0); Monocytes % 4.8; Neutrophils % 70.5; Platelet Count 290 10^3/uL (130-400); RBC 4.92 10^6/uL (3.93-5.22); RDW 12.5 % (11.7-14.6); RDW-SD 38.3 fL; WBC 8.75 10^3/uL (4.4-10.8)
[2023-02-25 18:41] LABS: Bilirubin Negative (Negative); Blood Negative (Negative); Clarity Clear (Clear); Glucose Negative (Negative); Ketones Negative (Negative); Leukocyte Esterase Trace (Negative); Nitrite Negative (Negative); Specific Gravity 1.025 (1.005-1.025)
[2023-02-25 18:49] LABS: Bacteria Rare HPF (Negative); Crystals Negative HPF (Negative); Epithelial Cells Many HPF (Negative); Mucus Moderate (Negative); RBC Negative HPF (0-2)
[2023-02-25 18:50] LABS: C & S Indicated? No; Casts Negative LPF (Negative)
== END 2023-02-25 19:14 | disposition home or self-care (01) ==
PROVIDERS: Emergency Provider Emergency Medicine; PCP Family Medicine
DX: R41.3 Other amnesia (principal); R07.9 Chest pain, unspecified; G89.29 Other chronic pain; F41.9 Anxiety disorder, unspecified
CPT/HCPCS: 36415; 80053; 81025; 99283; 81003; 81015; 83735; 84443; 85025; 99284

== ENCOUNTER 2023-04-06 22:30 | Emergency (ER) | payer MEDICARE, MEDICAID, SELFPAY ==
[2023-04-06 22:34] VITALS: BP 124/70; PULSE 86; RESP 20; TEMP 36.8; O2SAT 100
--- OUTSIDE RECORDS SUMMARY | 2023-04-06 22:39 | XMS_ITS | Continuity of Care Document ---
Author Name Unknown Organization [facility] Address [address] [place] [address] Care Team Providers Care Shafting Cleaner Name Role Phone Luisito Messina Primary Care Physician [phone] [facility]counter [facility] Date(s): 10/15/22 - 10/15/[address] [address] Discharge Disposition: Home or Self Care Attending Physician: Jimmy Burt MD Admitting Physician: Jimmy Burt MD Allergies, Adverse Reactions, Alerts Substance Reaction Severity Status GRASS POLLEN-PERENNIAL RYE A ctive POLLEN EXTRACTS Unknown Active Cymbalta Headaches Nausea Vision changs Vertigo Blurry vision Hot flash Dialated pupils Severe Active Assessment and Plan Future Appointments Functional Status 10/15/22 Family Member Travel History No recent t ravel Recent Travel History No recent travel Other exposure to Infectious Disease Non e Immunizations Given and Recorded Vaccine Date Status Refusal Reason SARS-CoV-2 (COVID-19) mRNA-1883 vaccine 11/11/21 R ecorded influenza virus vaccine, live 1 10/29/19 Recorded influenza virus vaccine, live 09/14/18 Recorded meningococcal conjugate vaccine 09/14/18 Recorded meningococcal conjugate vaccine 02/10/15 Recorded HPV, unspecified formulation 02/02/17 Recorded HPV, unspecified formulation 07/28/16 Recorded influenza virus vaccine, inactivated 01/06/15 Clarence rded influenza virus vaccine, inactivated 11/21/12 Clarence rded influenza virus vaccine, inactivated 08/18/11 Clarence rded influenza virus vaccine, inactivated 09/23/10 Clarence rded influenza virus vaccine, inactivated 11/28/08 Clarence rded influenza virus vaccine, inactivated 09/29/08 Clarence rded tetanus/diphth/pertuss (Tdap) adult/adol 04/19/13 Recorded varicella virus vaccine 05/07/10 Recorded varicella virus vaccine 05/06/03 Recorded poliovirus vaccine, inactivated 04/20/07 Recorded poliovirus vaccine, inactivated 10/10/03 Recorded poliovirus vaccine, inactivated 02 Recorded poliovirus vaccine, inactivated 02 Recorded measles/mumps/rubella/varicella vaccine 04/20/07 R ecorded diphtheria/pertussis, acellular/tetanus 04/20/07 R ecorded diphtheria/pertussis, acellular/tetanus 07/22/03 R ecorded diphtheria/pertussis, acellular/tetanus 02 R ecorded diphtheria/pertussis, acellular/tetanus 02 R ecorded diphtheria/pertussis, acellular/tetanus 02 R ecorded pneumococcal 7-valent vaccine 10/10/03 Recorded pneumococcal 7-valent vaccine 03/21/03 Recorded pneumococcal 7-valent vaccine 02 Recorded pneumococcal 7-valent vaccine 02 Recorded haemophilus b conjugate (HbOC) vaccine 07/22/03 Re corded haemophilus b conjugate (HbOC) vaccine 02 Re corded haemophilus b conjugate (HbOC) vaccine 02 Re corded haemophilus b conjugate (HbOC) vaccine 02 Re corded measles/mumps/rubella virus vaccine 05/06/03 Recor ded hepatitis B pediatric vaccine 03/21/03 Recorded hepatitis B pediatric vaccine 02 Recorded hepatitis B pediatric vaccine 02 Recorded 1Result Comment: Tolerated well Medications Cepacol Extra Strength Sore Throat and Cough Mixed Saxena 7.5 mg-5 mg oral lozenge 1 lozenges, Oral, every 4 hr, # 18 EA, 0 Refill(s), Pharmacy: [facility], 160.02, cm, 09/13/22 21:01:00 EDT, Height/Length Dosing, 78.02, kg, 09/13/22 21:01:00 EDT, Weight Dosing Start Date: 10/14/22 Status: Ordered Claritin 10 mg oral tablet 10 mg = 1 tab, Oral, Daily, 0 Refill(s) Start Date: 04/04/22 Status: Ordered Flovent HFA 110 mcg/inh inhalation aerosol 1 puff, Inhale, BID, for 90 days, # 1 EA, 2 Refill(s), Pharmacy: [facility], 160, cm, 07/03/22 15:09:00 EDT, Height/Length Dosing, 78, kg, 07/03/22 15:09:00 EDT, Weight Dosing Start Date: 07/14/22 Status: Ordered hydrOXYzine hydrochloride 25 mg oral tablet 25 mg = 1 tab, Oral, Daily, # 30 tab, 0 Refill(s) Start Date: 08/15/22 Status: Ordered Mirena 52 mg intrauteral device 52 mg 1 EA, Intrauteral, As Directed, 20 mcg/24 hours (7 yrs), 0 Refill(s) Start Date: 04/04/22 Status: Ordered Mucinex 600 mg oral tablet, extended release 600 mg = 1 tab, Oral, every 12 hr, # 28 tab, 0 Refill(s), Pharmacy: [facility], 160.02, cm, 09/13/22 21:01:00 EDT, Height/Length Dosing, 78.02, kg, 09/13/22 21:01:00 EDT, Weight Dosing Start Date: 10/14/22 Stop Date: 10/28/22 Status: Ordered omeprazole 40 mg oral delayed release capsule 40 mg = 1 cap, Oral, Daily, for 30 days, # 90 cap, 3 Refill(s), Pharmacy: [facility] Start Date: 05/12/22 Status: Ordered ProAir HFA 90 mcg/inh inhalation aerosol 180 mcg 2 puffs, Inhale, As Directed, Take every 4-6 hours as needed for 30 days, # 18 g, 2 Refill(s), Pharmacy: [facility], 160, cm, 07/03/22 15:09:00 EDT, Height/Length Dosing, 78, kg, 07/03/22 15:09:00 EDT, Weight Dosing Start Date: 07/14/22 Status: Ordered Tylenol Extra Strength 500 mg oral tablet 500 mg = 1 tab, Oral, every 4 hr, PRN as needed for fever, # 24 tab, 0 Refill(s), Pharmacy: [facility], 160.02, cm, 09/13/22 21:01:00 EDT, Height/Length Dosing, 78.02, kg, 09/13/22 21:01:00EDT, Weight Dosing Start Date: 10/14/22 Status: Ordered venlafaxine 37.5 mg oral capsule, extended release 37.5 mg = 1 cap, Oral, Daily Start Date: 08/15/22 Status: Ordered Problem List Condition Confirmation Course Effective Dates Status Health Status Informant Acute non-suppurative otitis media- serous Confirmed Active Allergic rhinitis Confirmed Active Alopecia Confirmed Active Anemia Confirmed Active Anxiety Confirmed Active Asthma Confirmed 08/19/19 Active Chronic sinusitis Confirmed Active Cluster headache Confirmed 07/15/18 Active Constipation Confirmed Active Double vision Confirmed Active Gastroesophageal reflux disease Confirmed Active Idiopathic scoliosis Confirmed Active Low back pain Confirmed Active Menorrhagia Confirmed Active Migraine Confirmed 09/14/18 Active Migraines Confirmed Active Right upper quadrant pain Confirmed Active Clinical sinusitis Confirmed Active Temporomandibular joint disorder Confirmed Active Procedures Procedure Date Related Diagnosis Body Site Status Laparoscopic cholecystectomy 08/08/21 Completed Procedure on spine 1 08/18/13 Comp leted Operative procedure on spine 2 01/19/12 Completed Procedure on spine 3 06/21/08 Comp leted 1removal of growing rods/segmental posterior spinal fusion 2Lengthening of growing spinal instrumentation with exchange of instrumentation [facility]. 3debridement Vital Signs Most recent to oldest [Reference Range]: 1 Temperature Temporal Artery [36-38 Deg C ] 36.4 Deg C (10/15/22 1:53 PM) Peripheral Pulse Rate [60-100 bpm] 85 bp m (10/15/22 1:53 PM) Respiratory Rate [12-24 br/min] 18 br/mi n (10/15/22 1:53 PM) Blood Pressure [90-140/60-90 mmHg] 106/7 8mmHg (10/15/22 1:53 PM) Weight Dosing 79.00 kg (10/15/22 2:02 PM) Weight Estimated 79.00 kg (10/15/22 1:53 PM) Height/Length Dosing 158.000 cm (10/15/22 2:02 PM) Height/Length Estimated 158.000 cm (10/15/22 1:53 PM) Social History Social History Type Response Smoking Status Smoking tobacco use: Never tobacco user;Never entered on: 06/22/22 Sex Female Physician Emergency department Note * Michael Hooper MD: PERFORM Event Display: ED Note Physician Authored Date: [id number] ALIVIA WALKER :2000 Age:22 years Sex:Female Visit Date:10/15/2022 Primary Care Physician: Luisito Messina SUPERVISOR SAWING [employer] ASSEMBLY HPI 22-year-old female with significant medical history (noted below) presents for evaluation of approximately 3 days of mild foggy headedness, fatigue, and a poorly characterized sensation of dizziness.Patient notes that the remainder of the household have URI type symptoms with cough, sore throat, and nasal congestion/discharge. Patient endorses mild nausea but continues to take p.o. well. No recent head or neck trauma, no chiropractic manipulation. ?? Recent medical records reviewed and notable for: 1.??Office visit on 10/14/2022 with diagnosis of a URI with cough.??Patient prescribed Tylenol, Cepacol, and Mucinex. 2.??Office visit date 10/04/2022, OB evaluation of pressure while sitting.??Patient diagnosed with perineal pain without a clear gynecological cause. 3.??Office visit dated 09/26/2022 notable for evaluation of stomach and back pain, diagnosis of anxiety, low back pain likely due to deconditioning and severe scoliosis, constipation, and migraine. 4.??Office visit dated 09/19/2022 with EQUIPMENT MAINTENANCE ENGINEER, patient with unremarkable examination diagnosed withpain of female genitalia. 5.??Office visit dated 09/14/2022, OB evaluated and had an unremarkable physical exam for evaluation of pelvic discomfort. 6.??ER visit 09/13/2022, diagnosed with abdominal pain. 7.??Multiple outpatient and ER visits noted through 2021. ?? M/S/F/SocHx notable for:??Alopecia, anemia, anxiety, chronic sinusitis, cluster headaches, constipation, double vision, GERD, low back pain, migraines, TMJ disorder; remainder reviewed with patient and in chart.? ROS: Negative constitutional, eye, cardiovascular, pulmonary, GI, , MSK, skin, neurologic, psychiatric, endocrine unless noted in the HPI. ?? Exam HR 85, RR 18, BP 106/78, T 36.4?C, SaO2 99% on room air. Gen:??Pleasant, non-toxic appearing, resting comfortably. HEENT: NC, AT, PEERL, EOMI. Resp: Clear to auscultation bilaterally, normal work of breathing, no accessory muscle usage. Card: Regular rate and rhythm with no murmurs, rubs, or gallops, extremities warm and well perfused.?? GI: Non-tender to palpation throughout all quadrants, non-distended, no rebound or guarding. : No suprapubic tenderness to palpation. MSK: No visible deformities, strength and tone without visually appreciable deficit. Skin: Normal color with no visible lesions. Neuro: alert and oriented?3, no facial asymmetry, no gaze preference, no slurring of speech. CN II-III: pupils equal and reactive (4->2mm bilaterally); III, IV, : EOMI, V1-V3: sensation to touch bilaterally intact; VII: no facial asymmetry (frown / smile); VIII: no nystagmus; X: phonationintact, uvula midline; XI: trapezius 5/5 bilaterally, XII: tongue midline. Cerebellar: no pronator drift, efdyrd-bv-hyzf testing without dysmetria bilaterally. Gait: Ambulatory with a normal narrow based nonantalgic gait. Psych: Pleasant, however unusual mood and affect.. ?? MDM Previous chart, nursing note, labs, imaging, and vitals reviewed.?? A:??22-year-old female with significant medical history (noted below) presents for evaluation of approximately 3 days of mild foggy headedness, fatigue, and a poorly characterized sensation of dizziness. ?? Evaluation: Overall symptoms are strongly suggestive of a mild viral infection with brain fog, poorly described dizziness, and mild nausea as well as fatigue likely secondary to inflammatory cytokines, this is congruent with the remainder of the household having URIs at the present time. Recommend supportive care and watchful waiting at home, return to care if symptoms worsen. ?? The above evaluation is without features suggestive of meningitis, encephalitis, BPPV, posterior circulation CVA, cerebrovascular injury, M??ni??re's disease, tumor, idiopathic intracranial hypertension, or further acute clinically significant DIETITIAN CHIEF process. ?? Impression: Malaise. Electronically Signed on 10/15/22 02:24 PM Michael Hooper MD Emergency department Discharge instructions * Michael Hooper MD: PERFORM Event Display: ED Discharge Information Authored Date: [id number] ALIVIA WALKER :2000 Age:22 years Sex:Female Visit Date:10/15/2022 Primary Care Physician: Luisito Messina SUPERVISOR [employer]WING [employer] ASSEMBLY Discharge Instructions We would like to thank you for allowing us to assist you with your healthcare needs. The following includes patient education materials and information regarding your injury/illness. ?? You were seen at [facility] for evaluation for evaluation of??mild nausea, brain fog, dizziness, and fatigue. At the time of your evaluation your symptoms are tentatively believed to be due to a viral infection. Your symptoms should gradually resolve over the next 7 to 14 days. Should your symptoms worsen please return to the emergency department. Should your symptoms fail to significantly improve after 1 week, please follow-up with your primary care physician.??Please read and follow all of the instructions below. When calling for follow-up care, please make the office aware that this follow- up is from your recent emergency room visit.? Your care today was limited to identifying and treating emergent medical problems only. Many peoplehave subtle differences in their test results that require follow up with their outpatient physician(s) to correctly determine if this represents a normal variation or concerning abnormality with respect to your specific health.??The care given to you today was limited to identifying and treating emergent medical problems - you need to request a copy of all of your medical records from today's visit and follow up with your outpatient physician(s) to review both today's visit and your overall health. If you have any new symptoms or if you are at all concerned about your health please return immediately to the emergency department. ?? Prescriptions: If you are uninsured or have financial difficulties with filling your prescription(s), you may consider using a free pharmacy discount service such as GoodRx ([employer]) or [employer] ([employer]). These services allow you to search for a medication on your phone (or computer) and obtain a coupon that usually has a significant discount from the list [place] at a pharmacy. Your physician does not have a financial relationship with either of these services. You may also wish to speak with your physician to determine if lower cost prescriptions are possible. ?? Viral Syndrome You are believed to have a viral infection of the respiratory tract. These infections may cause chills, fever, cough, headache, body aches, and sore throat. Depending upon the virus, you may have mild to more severe symptoms. The worst symptoms typically last a 2-5 days. Cough and fatigue may continue for as long as 7 to 10 days. Viral respiratory infections are highly contagious. Symptoms will not be reduced or improved by taking an antibiotic. Antibiotics are medications that kill bacteria, not viruses. Rarely these infections can lead to an infection of the sinuses, lungs, or middle ear. However antibiotics at this point in your illness antibiotics will not help prevent these uncommon complications.? Home Care Instructions:?Care for viral infections will not shorten your illness but can help reduce your symptoms. ?Please stay well hydrated and attempt to get plenty of sleep. ?You may take both ibuprofen and acetaminophen as directed on the bottle for relief of fever, chills, and muscle aches.?If you have a severe cough you may take an [id number] cough medication containing dextromethorphan. ?Continue to cover your cough and wash your hands often. ?Read the package instructions and warnings on any medication that you are taking. ?? Return to the Emergency Department if you have: ?Fast breathing, trouble breathing, or shortness of breath ?Bluish or crowder skin color?Not drinking enough fluids?Severe or persistent vomiting?Not waking up or not interacting?Pain or pressure in the chest or abdomen?Sudden dizziness?Confusion?Or if you are otherwise concerned about your health ?? Please follow-up your primary care provider or return to the emergency department if: ?Your symptoms fail to improve over the next 4-5 days. ?Your symptoms improve but then significantly worsen - this may be a sign of a bacterial infection which will need to be treated. You are otherwise concerned about your health. You make take over the counter Acetaminophen (Tylenol) and Ibuprofen (Motrin or Aleve) as directed below for relief of pain.?Take 600 mg of ibuprofen (three 200 mg tablets) with a glass of water every 6-8 hours as neededfor pain or fever. Do not take if you have ulcers, GI bleeding, are , or are allergic to ibuprofen. ?Take 1,000 mg of acetaminophen (two 500 mg tablets) with a glass of water every 6-8 hours as needed for pain. Do not take if you are allergic to acetaminophen. If you have liver disease, please reduce your dose to a maximum of 2,000 mg per day. ?You can take these medications at the same time or on separate schedules.?Do not take for more than 10 days. ?Do not take with alcohol or other acetaminophen containing medications.?This medication may cause a mildly upset stomach, if so take it with a small snack. Stop takingit if you have persistent abdominal pain, heartburn, or any stomach pain. Do not take this medication if you have known ulcers.?Please read the warnings at the end of this document regarding these medications.? IBUPROFEN WARNING: This drug may infrequently cause serious (rarely fatal) bleeding from the stomach or intestines. Also, related drugs rarely have caused blood clots to form, resulting in heart attacks and strokes. This medication might also rarely cause similar problems. Talk to your doctor or pharmacist about the benefits and risks of treatment, as well as other possible medication choices. Ifyou notice any of the following rare but very serious side effects, stop taking ibuprofen and seek immediate medical attention: black stools, persistent stomach/abdominal pain, vomit that looks like coffee grounds, chest pain, weakness on one side of the body, sudden vision changes, slurred speech.? IBUPROFEN SIDE EFFECTS: Upset stomach, nausea, vomiting, heartburn, headache, diarrhea, constipation, drowsiness, and dizziness may occur. If any of these effects persist or worsen, notify your doctor or pharmacist promptly. If your doctor has directed you to use this medication, remember that he or she has judged that the benefit to you is greater than the risk of side effects. Many people usingthis medication do not have serious side effects. Tell your doctor immediately if any of these serious side effects occur: stomach pain, swelling of the hands or feet, sudden or unexplained weight gain, ringing in the ears (tinnitus). Tell your doctor immediately if any of these unlikely but serious side effects occur: vision changes, rapid or pounding heartbeat, easy bruising or bleeding, difficult/painful swallowing. Tell your doctor immediately if any of these highly unlikely but very serious side effects occur: change in amount of urine, severe headache, very stiff neck, mental/mood changes, persistent sore throat or fever. This drug may rarely cause serious (possibly fatal) liver disease. If you notice any of the following highly unlikely but very serious side effects, stop taking ibuprofen and consult your doctor or pharmacist immediately: yellowing eyes and skin, dark urine, unusual/extreme tiredness. An allergic reaction to this drug is unlikely, but seek immediate medical attention if it occurs. Symptoms of an allergic reaction include: rash, itching/swelling (especially ofthe face/tongue/throat), severe dizziness, trouble breathing. This is not a complete list of possible side effects.? ACETAMINOPHEN SIDE EFFECTS: This drug usually has no side effects. If you do not have liver problems, the maximum dose of acetaminophen for adults is 4 grams per day (4000 milligrams). Taking more than the maximum daily amount may cause serious (possibly fatal) liver damage. Get medical help right away if you have any of the following symptoms of liver damage: persistent nausea/vomiting, extreme tiredness, stomach/abdominal pain, yellowing eyes/skin, dark urine. If you have liver problems, consult your doctor or pharmacist for a safe dosage of this medication. A very serious allergic reactionto this drug is rare. However, get medical help right away if you notice any symptoms of a serious allergic reaction, including: rash, itching/swelling (especially of the face/tongue/throat), severe dizziness, trouble breathing. This is not a complete list of possible side effects. If you notice other effects not listed above, contact your doctor or pharmacist. ?? DRUG INTERACTIONS: Your healthcare professionals (e.g., doctor or pharmacist) may already be aware of any possible drug interactions and may be monitoring you for it. Do not start, stop or change thedosage of any medicine before checking with them first. This drug should not be used with the following medications because very serious interactions may occur: cidofovir, ketorolac. If you are currently using any of these medications listed above, tell your doctor or pharmacist before starting ibuprofen. Before using this medication, tell your doctor or pharmacist of all prescription and nonprescription/herbal products you may use, especially of: anti-platelet drugs (e.g., cilostazol, clopidogrel), oral bisphosphonates (e.g., alendronate), other medications for arthritis (e.g., aspirin, methotrexate), blood thinners (e.g., enoxaparin, heparin, warfarin), corticosteroids (e.g., prednisone), cyclosporine, desmopressin, high blood pressure drugs (including IDALIA inhibitors such as captopril, angiotensin II receptor antagonists such as losartan, and beta-blockers such as metoprolol), lithium, pemetrexed, water pills (diuretics such as furosemide, hydrochlorothiazide, triamterene). Check all prescription and nonprescription medicine labels carefully for other pain/fever drugs (NSAIDs such as aspirin, celecoxib, naproxen). These drugs are similar to ibuprofen, so taking one of these drugs while also taking ibuprofen may increase your risk of side effects. Consult your doctor or pharmacist for more details. However, if your doctor has prescribed low doses of aspirin to prevent heart attack or stroke (usually at dosages of 81-325 milligrams a day), you should continue to take theaspirin. Daily use of ibuprofen may decrease aspirin's ability to prevent heart attack/stroke. Talkto your doctor about using a different medication (e.g., acetaminophen) to treat pain/fever. If youmust take ibuprofen, talk to your doctor about possibly taking immediate-release aspirin (not enteric-coated) while also taking the ibuprofen dose apart from your aspirin dose. Do not increase your daily dose of aspirin or change the way you take aspirin/other medications without your doctor's approval. This document does not contain all possible interactions. Therefore, before using this product, tell your doctor or pharmacist of all the products you use. Keep a list of all your medications with you, and share the list with your doctor and pharmacist. ?? Discharge Vitals Temperature??(Temporal Artery) 97.5 ??F (36.4 ??C) Heart Rate??(Peripheral) 85 Respiratory Rate?? 18 Blood Pressure?? 106/78?? Height?? 62.20 in (158.000 cm) Weight??(Estimated) 174.20 lb (79.00 kg) Allergies Cymbalta??(Headaches, Nausea, Vision changs, Vertigo, Blurry vision, Hot flash, Dialated pupils) POLLEN EXTRACTS GRASS POLLEN-PERENNIAL RYE What to Do Next Upcoming Scheduled Appointments Monday 9:20 AM EST ?? You were treated today on an emergency basis; it may be julio to contact your primary care provider to notify them of your visit today. You may have been referred to your regular doctor or a specialist, please follow up as instructed. If your condition worsens or you can't get in to see the doctor, contact the Emergency Department. Medications What How Much When Instructions Next Dose Unchanged acetaminophen (Tylenol Extra Strength 500 mg oral tablet) 1 tab Oral (given by mouth) Every 4 hours as needed for as needed for fever Unchanged albuterol (ProAir HFA 90 mcg/ inh inhalation aerosol) 2 Puffs Inhale (breathe in) As Directed Take every 4-6 hours as needed for 30 days ?? Unchanged benzocaine-dextromethorphan (Cepacol Extra Strength Sore Throat and Cough Mixed Saxena 7.5mg-5 mg oral lozenge) 1 Lozenges Oral (given by mouth) Every 4 hours Unchanged fluticasone (Flovent HFA 110 mcg/ inh inhalation aerosol) 1 puff Inhale (breathe in) 2 times a day for 90 days ?? Unchanged guaiFENesin (Mucinex 600 mg oral tablet, extended release) 1 tab Oral (given by mouth) Every 12 hours Duration: 14 Days Unchanged hydrOXYzine (hydrOXYzine hydrochloride 25 mg oral tablet) 1 tab Oral (given by mouth) Every day Unchanged levonorgestrel (Mirena 52 mg intrauteral device) 1 Each Intrauteral As Directed 20 mcg/ 24 hours (7 yrs) ?? Unchanged loratadine (Claritin 10 mg oral tablet) 1 tab Oral (given by mouth) Every day Unchanged omeprazole (omeprazole 40 mg oral delayed release capsule) 1 Capsules Oral (given by mouth) Every day for 30 days ?? Unchanged venlafaxine (venlafaxine 37.5 mg oral capsule, extended release) 1 Capsules Oral (given by mouth) Every day Patient/Fibreglass Laminator Signature Patient Name:ALIVIA WALKER I have received this information and my questions have been answered. Patient/Fibreglass Laminator Name: Patient/Fibreglass Laminator Signature: Relationship to Patient: Witness Name/Signature: Date: Electronically Signed on: 10/15/2022 14:24 ESTSigned by:MICHAEL Patient Care team information Personnel Name: Luisito Messina NP Address: Address: [address] [address]- [place]
--- OUTSIDE RECORDS SUMMARY | 2023-04-06 22:39 | XMS_ITS | Continuity of Care Document ---
Author Name Unknown Organization [facility] Address [address] [place] [address] Care Team Providers Care Map Colorer Name Role Phone Sandip Ko Primary Care Physician Encounter ON [facility] OF [facility] Date(s): 03/11/23 - 03/12/[address] [address] Encounter Diagnosis Paresthesia(Discharge Diagnosis) - 03/11/23 Vision changes(Discharge Diagnosis) - 03/11/23 Discharge Disposition: Home or Self Care Attending Physician: Lani Barahona MD Admitting Physician: Lani Barahona MD Allergies, Adverse Reactions, Alerts Substance Reaction Severity Status GRASS POLLEN-PERENNIAL RYE A ctive POLLEN EXTRACTS Unknown Active Cymbalta Headaches Nausea Vision changs Vertigo Blurry vision Hot flash Dialated pupils Severe Active Assessment and Plan Diagnostic Tests Pending * HIV 1/2 Ag and Ab, 4th Generation UV 03/12/23 * Tick-Borne Panel PCR, [facility] 03/12/23 * Generic Orderable [facility] 03/12/23 Future Scheduled Tests Laboratory* Hemoglobin A1c 01/20/23 Functional Status 03/11/23 Other exposure to Infectious Disease Non e Immunizations Given and Recorded Vaccine Date Status Refusal Reason SARS-CoV-2 (COVID-19) mRNA-1273 vaccine 11/11/21 R ecorded influenza virus vaccine, [...] 02 Recorded 1Result Comment: Tolerated well Medications acetaminophen 500 mg oral tablet 1 Refill(s), as needed., 0 Refill(s) Start Date: 01/16/23 Status: Ordered Flovent HFA 110 mcg/inh inhalation aerosol 1 puff, Inhale, BID, for 90 days, # 1 EA, 2 Refill(s), Pharmacy: [id number], 160, cm, 07/03/22 15:09:00 EDT, Height/Length Dosing, 78, kg, 07/03/22 15:09:00 EDT, Weight Dosing Start Date: 07/14/22 Status: Ordered hydrOXYzine hydrochloride 25 mg oral tablet 25 mg = 1 tab, Oral, Daily, # 30 tab, 0 Refill(s) Start Date: 08/15/22 Status: Ordered loratadine 10 mg oral tablet Oral, 10 Unknown, 1 Refill(s), Take 10 mg by mouth as needed., 0 Refill(s) Start Date: 01/16/23 Status: Ordered Mirena 52 mg intrauteral device 52 mg 1 EA, Intrauteral, As Directed, 20 mcg/24 hours (7 yrs), 0 Refill(s) Start Date: 04/04/22 Status: Ordered montelukast 10 mg oral tablet Oral, 10 Unknown, 1 Refill(s), Take 10 mg by mouth., 0 Refill(s) Start Date: 01/16/23 Status: Ordered omeprazole 40 mg oral delayed release capsule 40 mg = 1 cap, Oral, Daily, for 30 days, # 90 cap, 3 Refill(s), Pharmacy: [id number] Start Date: 05/12/22 Status: Ordered ondansetron 4 mg oral tablet 4 mg = 1 tab, Oral, every 8 hr, # 10 tab, 0 Refill(s), Pharmacy: [id number], 160.02, cm, 12/14/22 16:13:00 EST, Height/Length Dosing, 79.39, kg, 12/14/22 16:13:00 EST, Weight Dosing Start Date: 12/19/22 Status: Ordered ProAir HFA 90 mcg/inh inhalation aerosol 180 mcg 2 puffs, Inhale, As Directed, Take every 4-6 hours as needed for 30 days, # 18 g, 2 Refill(s), Pharmacy: [id number], 160, cm, 07/03/22 15:09:00 EDT, Height/Length Dosing, 78, kg, 07/03/22 15:09:00 EDT, Weight Dosing Start Date: 07/14/22 Status: Ordered Problem List Condition Confirmation Course Effective Dates Status Health Status Informant Acute non-suppurative otitis media- serous Confirmed Active Allergic rhinitis Confirmed Active Alopecia Confirmed Active Anemia Confirmed Active Anxiety Confirmed Active Asthma Confirmed 08/19/19 Active Chronic sinusitis Confirmed Active Cluster headache Confirmed 07/15/18 Active Constipation Confirmed Active Depressive disorder Confirmed 02/04/21 Active Double vision Confirmed Active Gastroesophageal reflux disease Confirmed Active Idiopathic scoliosis Confirmed Active Low back pain Confirmed Active Menorrhagia Confirmed Active Migraine Confirmed 09/14/18 Active Migraines Confirmed Active Right upper quadrant pain Confirmed Active Clinical sinusitis Confirmed Active Temporomandibular joint disorder Confirmed Active Viral URI Confirmed Active Procedures Procedure Date Related Diagnosis Body Site Status Laparoscopic cholecystectomy 08/08/21 Completed Procedure on spine 1 08/18/13 Comp leted Operative procedure on spine 2 01/19/12 Completed Procedure on spine 3 06/21/08 Comp leted 1removal of growing rods/segmental posterior spinal fusion 2Lengthening of growing spinal instrumentation with exchange of instrumentation [facility]. 3debridement Results Laboratory List Name Date C-Reactive Protein High Sensitivity (CRP HS) 03/12/23 CBC w/ Diff 03/12/23 Comprehensive Metabolic Panel (CMP) 03/12 Creatine Kinase 03/12/23 Folate Level 03/12/23 Hemoglobin A1c 03/12/23 Sedimentation Rate (ESR) 03/12/23 Thyroid Stimulating Hormone (TSH) 3 Vitamin B12 Level 03/12/23 Automated Diff 03/11/23 Most recent to oldest [Reference Range]: 1 WBC [5.0-10.0 x10^3/mcL] 9.0 x10^3/mcL (03/12/23 12:10 AM) RBC [4.1-5.3 x10^6/mcL] 5.0 x10^6/mcL (03/12/23 12:10 AM) Neutro Auto [40.0-75.0 %] 66.9 % (03/12/23 12:10 AM) Lymph Auto [20.0-50.0 %] 26.6 % (03/12/23 12:10 AM) [place] Auto [2.0-15.0 %] 4.8 % (03/12/23 12:10 AM) Basophil Auto [0.0-1.0 %] 0.4 % (03/12/23 12:10 AM) BUN [7-18 mg/dL] 9 mg/dL (03/12/23 12:10 AM) Glucose Level [74-106 mg/dL] 84 mg/dL (03/12/23 12:10 AM) Potassium Level [3.5-5.1 mmol/L] 3.3 mmo l/L *LOW* (03/12/23 12:10 AM) MCV [80.0-96.0] 87.7 (03/12/23 12:10 AM) AST [15-37 unit/L] 12 unit/L *LOW* (03/12/23 12:10 AM) ALT [14-59 unit/L] 14 unit/L (03/12/23 12:10 AM) MCHC [31.0-35.0 g/dL] 31.0 g/dL (03/12/23 12:10 AM) Sodium Level [136-145 mmol/L] 138 mmol/L (03/12/23 12:10 AM) Folate Level [8.6-58.9 ng/mL] 3.4 ng/mL *LOW* (03/12/23 12:10 AM) Hct [37.0-47.0 %] 43.6 % (03/12/23 12:10 AM) Calcium Level [8.5-10.1 mg/dL] 9.1 mg/dL (03/12/23 12:10 AM) Albumin Level [3.4-5.0 g/dL] 4.1 g/dL (03/12/23 12:10 AM) Protein Total [6.4-8.2 g/dL] 8.1 g/dL (03/12/23 12:10 AM) MCH [26.0-32.0 pg] 27.2 pg (03/12/23 12:10 AM) Neutro Absolute 6.0 x10^3/mcL *NA* (03/12/23 12:10 AM) Bilirubin Total [0.2-1.0 mg/dL] 0.6 mg/d L (03/12/23 12:10 AM) Hgb [12.0-16.0 g/dL] 13.5 g/dL (03/12/23 12:10 AM) B12 Level [193-986 pg/mL] 289 pg/mL (03/12/23 12:10 AM) Alk Phos [46-146 unit/L] 90 unit/L (03/12/23 12:10 AM) Platelets [130-450 x10^3/mcL] 291 x10^3/ mcL (03/12/23 12:10 AM) CO2 [21-32 mmol/L] 27 mmol/L (03/12/23 12:10 AM) TSH [0.358-3.740 mcIntlUnit/mL] 1.414 mc IntlUnit/mL (03/12/23 12:10 AM) eGFR Non-AA [>=60] 125 (03/12/23 12:10 AM) eGFR AA [>=60] 125 (03/12/23 12:10 AM) Hemoglobin A1c [4.0-6.0 %] Sent to [facility] % *NA* (03/12/23 12:10 AM) Chloride Level [98-107 mmol/L] 102 mmol/ L (03/12/23 12:10 AM) RDW-CV [11.7-17.0 %] 12.7 % (03/12/23 12:10 AM) Imm Gran Auto [0.0-0.9 %] 0.2 % (03/12/23 12:10 AM) CRP High Sens [0.00-3.00 mg/L] 13.09 mg/ L *HI* (03/12/23 12:10 AM) Creatinine Level [0.55-1.02 mg/dL] 0.71 mg/dL (03/12/23 12:10 AM) Eos, Auto [1.0-6.0 %] 1.1 % (03/12/23 12:10 AM) CK [26-192 unit/L] 37 unit/L (03/12/23 12:10 AM) ESR, W[place]gren [0-30 mm/hr] 14 mm/hr (03/12/23 12:10 AM) Vital Signs Most recent to oldest [Reference Range]: 1 Temperature Temporal Artery [36-38 Deg C ] 36.5 Deg C (03/11/23 9:45 PM) Peripheral Pulse Rate [60-100 bpm] 71 bp m (03/11/23 9:45 PM) Respiratory Rate [12-24 br/min] 16 br/mi n (03/11/23 9:45 PM) Blood Pressure [90-140/60-90 mmHg] 99/67 mmHg (03/11/23 9:45 PM) Weight Dosing 80.00 kg (03/11/23 9:59 PM) Weight Estimated 80.00 kg (03/11/23 9:45 PM) Height/Length Dosing 160.000 cm (03/11/23 9:59 PM) Height/Length Estimated 160.000 cm (03/11/23 9:45 PM) Social History Social History Type Response Smoking Status Smoking tobacco use: Never tobacco user;Never entered on: 06/22/22 Sex Female Hospital Discharge Instructions Patient Education 03/11/2023 23:00:03 Paresthesia Paresthesia Paresthesia is an abnormal burning or prickling sensation. It is usually felt in the hands, arms, legs, or feet. However, it may occur in any part of the body. Usually, paresthesia is not painful. Itmay feel like: ??? Tingling or numbness. ??? Buzzing. ??? Itching. Paresthesia may occur without any clear cause, or it may be caused by: ??? Breathing too quickly (hyperventilation). ??? Pressure on a nerve. ??? An underlying medical condition. ??? Side effects of a medication. ??? Nutritional deficiencies. ??? Exposure to toxic chemicals. Most people experience temporary (transient) paresthesia at some time in their lives. For some people, it may be long-lasting (chronic) because of an underlying medical condition. If you have paresthesia that lasts a long time, you need to be evaluated by your health care provider. Follow these instructions at home: Alcohol use ??? Do not drink alcohol if: ??? Your health care provider tells you not to drink. ??? You are , may be , or are planning to become . ??? If you drink alcohol: ??? Limit how much you use to: ??? 0???1 drink a day for women. ??? 0???2 drinks a day for men. ??? Be aware of how much alcohol is in your drink. In the [place] one drink equals one 12 oz bottle of beer (355 mL), one 5 oz glass of wine (148 mL), or one 1?? oz glass of hard liquor (44 mL). Nutrition ??? Eat a healthy diet. This includes: ??? Eating foods that are high in fiber, such as fresh fruits and vegetables, whole grains, and beans. ??? Limiting foods that are high in fat and processed sugars, such as fried or sweet foods. General instructions ??? Take [id number]-[id number] and prescription medicines only as told by your health care provider. ??? Do not use any products that contain nicotine or tobacco, such as cigarettes and e-cigarettes. These can keep blood from reaching damaged nerves. If you need help quitting, ask your health care provider. ??? If you have diabetes, work closely with your health care provider to keep your blood sugar under control. ??? If you have numbness in your feet: ??? Check every day for signs of injury or infection. Watch for redness, warmth, and swelling. ??? Wear padded socks and comfortable shoes. These help protect your feet. ??? Keep all follow-up visits as told by your health care provider. This is important. Contact a health care provider if you: ??? Have paresthesia that gets worse or does not go away. ??? Have numbness after an injury. ??? Have a burning or prickling feeling that gets worse when you walk. ??? Have pain, cramps, or dizziness, or you faint. ??? Develop a rash. Get help right away if you: ??? Feel muscle weakness. ??? Develop new weakness in an arm or leg. ??? Have trouble walking or moving. ??? Have problems with speech, understanding, or vision. ??? Feel confused. ??? Cannot control your bladder or bowel movements. Summary ??? Paresthesia is an abnormal burning or prickling sensation that is usually felt in the hands, arms, legs, or feet. It may also occur in other parts of the body. ??? Paresthesia may occur without any clear cause, or it may be caused by breathing too quickly (hyperventilation), pressure on a nerve, an underlying medical condition, side effects of a medication,nutritional deficiencies, or exposure to toxic chemicals. ??? If you have paresthesia that lasts a long time, you need to be evaluated by your health care provider. This information is not intended to replace advice given to you by your health care provider. Make sure you discuss any questions you have with your health care provider. Document Revised: 08/17/2021 Document Reviewed: 08/17/2021 Elsevier Patient Education ?? 2021 [employer]. Follow Up Care 03/11/2023 21:45:08 With:Follow up with primary care provider Address: When:1 to 2 weeks Physician Emergency department Note * Lani Barahona MD: PERFORM Event Display: ED Note Physician Authored Date: [id number] ALIVIA WALKER :2000 Age:22 years Sex:Female Visit Date:03/11/2023 Primary Care Physician: Sandip Ko MD Basic Information Time Seen: Lani Barahona MD / 03/11/2023 23:08 Chief Complaint Patient states for a couple of days has had heavy, achy arms and legs and chest discomfort, burningsensation in face, and vision has been bad as well. ??Denies fever. Has taken nothing for symptoms History Of Present Illness: Patient reports that she has worsening symptoms of??tingling of her face??vision issues??body achesand pains??that have been worse over the last 3 days??but states they have been going on for??up toa year for the vision issues??and??months for the other issues.?? Patient reports she was seen at [facility]emergency department??on Monday. ??Patient reports that her vision in her head are??wonky??she does not quite describe that her head issues as a headache??she denies??having takenany Tylenol or ibuprofen??or other medications stating that her stomach has bothered bothering her.??She has not taken anything for her stomach.?? Patient reports a year ago she had been on Prilosecbut she has not gotten a refill.?? No ear nose or throat pain??no??chest discomfort other than??epigastric and just above epigastric??she reports is her stomach??no vomiting no diarrhea no urinary issues??no extremity edema she does report that she feels like her legs??are heavy. ??Patient reports that??[facility] told her she should see her spine doctor in [place] she has an appointment this coming Monday.?? Patient is here with her mother.?? I reviewed??ED??attending note from [facility] from??March 06, 2023??MRI that she had done on March 07, 2023 was??unremarkable this is an MRI head with and without Review of Systems: see hpi for ros Physical Exam Vitals & Measurements T:??36.5?C ??(Temporal Artery)?? HR:??71??(Peripheral)?? RR:??16?? BP:??99/67?? SpO2:??98%?? HT:??160.000??cm?? WT:??80.00??kg??(Estimated)?? Pain Score:??3?? O2 Therapy:??Room air?? General: Alert and oriented, well nourished,?No??acute distress Eye: PERRL??no nystagmus extraocular muscles are intact normal??conjunctiva,??No??scleral icterus HENT: Normocephalic,??nontraumatic??Normal hearing??no significant erythema posterior pharynx Neck: Supple, non-tender,?No??JVD,?No??lymphadenopathy Lungs: Clear to auscultation,?Non-labored?? respiration Heart:?Normal?? rate,?Regular??rhythm,?No??murmur,?No??gallop,?No??edema Chest: wall excursion wnl no abnormal movements no obvious deformities Abdomen: Soft, with epigastric area tenderness??no rebound, non- distended,?Normal?? bowel sounds,?No??masses Musculoskeletal:?Normal?? range of motion and strength,?No??tenderness,?No??swelling, patient is swinging her legs??around while sitting on the ED stretcher Skin: Skin is warm, dry and pink,?No??rashes,?No??lesions Neurologic: Awake, alert and oriented X4 Psychiatric: Cooperative, appropriate mood and affect Mental status/cognitive: Awake alert, answers questions appropriately alert to self, time and month, able to recall current events Cranial nerves CN II-vision grossly intact, PERRL CN III, IV, -EOMI CN V-V1-3 dermatomes intact to light touch CN VII-no facial asymmetry CN IX, X-uvula midline CN XII-normal tongue movement, no atrophy, no fasciculations, no weakness Motor: Normal muscle bulk, normal tone, no pronator drift. Strength 5/5 throughout all muscle groups in all 4 extremities. Able to move all extremities without difficulty Sensory: Sensation grossly intact to light touch in all 4 extremities Gait: Able to stand without assistance, normal gait Cerebellar:?? normal gait Medical Decision Making: For MDM please see under assessment and plan Procedure No Qualifying Data Assessment/Plan 1.??Paresthesia??R20.2 This seems to be ongoing longstanding??patient with multiple??complaints??we will get a CRP sed rate CBC CMP??and tickborne panel??patient is aware she needs to follow-up with her spine doctor and she should follow-up with her primary care provider.?? Patient did not want to wait for lab results tocome back so she was discharged??and instructed to make sure she follows up. Ordered: Discharge Patient, 03/11/23 23:59:00 EDT, Home Independently, Constant Indicator ?? 2.??Vision changes??H53.9 These have been ongoing for a year??although patient does report that these are worse??patient is to follow-up with her eye doctor again.?? With patient's MRI with and without contrast of her head??it is unlikely that this is a demyelinating disease??for the patient. Ordered: Discharge Patient, 03/11/23 23:59:00 EDT, Home Independently, Constant Indicator ?? Orders: C-Reactive Protein High Sensitivity, Blood, Routine, 03/11/23 23:48:00 EDT, Once, Nurse collect CBC w/ Diff, Blood, Routine, 03/11/23 23:44:00 EDT, Once, Lab Collect Comprehensive Metabolic Panel, Blood, Stat, 03/11/23 23:44:00 EDT, Once, Lab Collect Creatine Kinase, Blood, Stat, 03/11/23 23:48:00 EDT, Once, Nurse collect Sedimentation Rate (ESR), Blood, Stat, 03/11/23 23:48:00 EDT, Once, Nurse collect Tick-Borne Panel PCR, WB BULL, Blood, Stat, 03/11/23 23:55:00 EDT, Once, Nurse collect Patient Education Paresthesia Follow Up With When Contact Information Follow up with primary care provider Within 1 to 2 weeks Additional Instructions: Medication Reconciliation Unchanged acetaminophen (acetaminophen 500 mg oral tablet)1 Refill(s), as needed.. ?? albuterol (ProAir HFA 90 mcg/inh inhalation aerosol)2 Puffs Inhale (breathe in) As Directed. Take every 4-6 hours as needed for 30 days. Refills: 2. ?? fluticasone (Flovent HFA 110 mcg/inh inhalation aerosol)1 puff Inhale (breathe in) 2 times a day. for 90 days. Refills: 2. ?? hydrOXYzine (hydrOXYzine hydrochloride 25 mg oral tablet)1 tab Oral (given by mouth) every day. ?? levonorgestrel (Mirena 52 mg intrauteral device)1 Each Intrauteral As Directed. 20 mcg/24 hours (7 yrs). ?? loratadine (loratadine 10 mg oral tablet)Oral (given by mouth). 10 Unknown, 1 Refill(s), Take 10 mgby mouth as needed.. ?? montelukast (montelukast 10 mg oral tablet)Oral (given by mouth). 10 Unknown, 1 Refill(s), Take 10 mg by mouth.. ?? omeprazole (omeprazole 40 mg oral delayed release capsule)1 Capsules Oral (given by mouth) every day. for 30 days. Refills: 3. ?? ondansetron (ondansetron 4 mg oral tablet)1 tab Oral (given by mouth) every 8 hours. Refills: 0. Problem List/Past Medical History Ongoing Acute non-suppurative otitis media- serous Allergic rhinitis Alopecia Anemia Anxiety Asthma Chronic sinusitis Clinical sinusitis Cluster headache Constipation Depressive disorder Double vision Gastroesophageal reflux disease Idiopathic scoliosis Low back pain Menorrhagia Migraine Migraines Right upper quadrant pain Temporomandibular joint disorder Viral URI Historical Backache Inflammatory dermatosis Pediculosis capitis Procedure/Surgical History ???Laparoscopic cholecystectomy (08/09/2021)???Procedure on spine (08/19/2013)???Operative procedure on spine (01/20/2012)???Procedure on spine (06/22/2008) Medication Administration Given calcium (as carbonate) 500 mg oral tablet, 1000 mg, Oral Allergies Cymbalta??(Headaches, Nausea, Vision changs, Vertigo, Blurry vision, Hot flash, Dialated pupils) POLLEN EXTRACTS GRASS POLLEN-PERENNIAL RYE Social History Alcohol Never Electronic Cigarette/Vaping Electronic Cigarette Use: Never. Employment/School Unemployed Exercise Home/Environment Lives with Father, Mother, Siblings. Nutrition/Health Type of diet: not eating much lately due to no appetite. Diet: Regular. Caffeine intake amount: 1-2times per week. Sexual Other sexual concerns: Mirena. Substance Use Never Tobacco Never tobacco user Tobacco Use:. Never Smokeless Tobacco use:. Family History Breast cancer: Mother. Chronic congestive heart failure: Grandfather (M). Congestive heart failure: Grandfather (P). Diabetes mellitus: Father. Family Member(s): ?? GPARENT, at age: Unknown. Cause of : Electronically Signed on 03/12/23 12:02 AM Lani Barahona MD Emergency department Discharge instructions * Lani Barahona MD: PERFORM Event Display: ED Discharge Information Authored Date: [id number] ALIVIA WALKER :2000 Age:22 years Sex:Female Visit Date:03/11/2023 Primary Care Physician: Sandip Ko MD Discharge Instructions We would like to thank you for allowing us to assist you with your healthcare needs. The following includes patient education materials and information regarding your injury/illness. Diagnosis from Today's Visit Paresthesia Vision changes Discharge Vitals Temperature??(Temporal Artery) 97.7 ??F (36.5 ??C) Heart Rate??(Peripheral) 71 Respiratory Rate?? 16 Blood Pressure?? 99/67?? Height?? 62.99 in (160.000 cm) Weight??(Estimated) 176.40 lb (80.00 kg) Allergies Cymbalta??(Headaches, Nausea, Vision changs, Vertigo, Blurry vision, Hot flash, Dialated pupils) POLLEN EXTRACTS GRASS POLLEN-PERENNIAL RYE What to Do Next Instructions from Your Care Team Keep your appointment for this coming week with her spine doctor. ??Call to schedule a follow-up with your primary care provider. ??Please see your eye doctor again. You Need to Schedule the Following Appointments Follow Up with??Follow up with primary care provider When:??Within 1 to 2 weeks You were treated today on an emergency [...] Emergency Department. Medications What How Much When Why Instructions Next Dose Unchanged acetaminophen (acetaminophen 500 mg oral tablet) 1 Refill(s), as needed. ?? Unchanged albuterol (ProAir HFA 90 mcg/ inh inhalation aerosol) 2 Puffs Inhale (breathe in) As Directed Take every 4-6 hours as needed for 30 days ?? Unchanged fluticasone (Flovent HFA 110 mcg/ inh inhalation aerosol) 1 puff Inhale (breathe in) 2 times a day for 90 days ?? Unchanged hydrOXYzine (hydrOXYzine hydrochloride 25 mg oral tablet) 1 tab Oral (given by mouth) Every day Unchanged levonorgestrel (Mirena 52 mg intrauteral device) 1 Each Intrauteral As Directed 20 mcg/ 24 hours (7 yrs) ?? Unchanged loratadine (loratadine 10 mg oral tablet) Oral (given by mouth) 10 Unknown, 1 Refill(s), Take 10 mg by mouth as needed. ?? Unchanged montelukast (montelukast 10 mg oral tablet) Oral (given by mouth) 10 Unknown, 1 Refill(s), Take 10 mg by mouth. ?? Unchanged omeprazole (omeprazole 40 mg oral delayed release capsule) 1 Capsules Oral (given by mouth) Every day for 30 days ?? Unchanged ondansetron (ondansetron 4 mg oral tablet) 1 tab Oral (given by mouth) Every 8 hours Nausea Epigastric pain Education Materials Paresthesia Paresthesia is an abnormal burning or prickling sensation. It is usually felt in the hands, arms, legs, or feet. However, it may occur in any part of the body. Usually, paresthesia is not painful. Itmay feel like: ? Tingling or numbness. ? Buzzing. ? Itching. Paresthesia may occur without any clear cause, or it may be caused by: ? Breathing too quickly (hyperventilation). ? Pressure on a nerve. ? An underlying medical condition. ? Side effects of a medication. ? Nutritional deficiencies. ? Exposure to toxic chemicals. Most people experience temporary (transient) paresthesia at some time in their lives. For some people, it may be long-lasting (chronic) because of an underlying medical condition. If you have paresthesia that lasts a long time, you need to be evaluated by your health care provider. Follow these instructions at home: Alcohol use ? Do not drink alcohol if: ? Your health care provider tells you not to drink. ? You are , may be , or are planning to become . ? If you drink alcohol: ? Limit how much you use to: ? 0???1 drink a day for women. ? 0???2 drinks a day for men. ? Be aware of how much alcohol is in your drink. In the [place] one drink equals one 12 oz bottle of beer (355 mL), one 5 oz glass of wine (148 mL), or one 1?? oz glass of hard liquor (44 mL). Nutrition ? Eat a healthy diet. This includes: ? Eating foods that are high in fiber, such as fresh fruits and vegetables, whole grains, and beans. ? Limiting foods that are high in fat and processed sugars, such as fried or sweet foods. General instructions ? Take [id number] and prescription medicines only as told by your health care provider. ? Do not use any products that contain nicotine or tobacco, such as cigarettes and e-cigarettes. These can keep blood from reaching damaged nerves. If you need help quitting, ask your health care provider. ? If you have diabetes, work closely with your health care provider to keep your blood sugar under control. ? If you have numbness in your feet: ? Check every day for signs of injury or infection. Watch for redness, warmth, and swelling. ? Wear padded socks and comfortable shoes. These help protect your feet. ? Keep all follow-up visits as told by your health care provider. This is important. Contact a health care provider if you: ? Have paresthesia that gets worse or does not go away. ? Have numbness after an injury. ? Have a burning or prickling feeling that gets worse when you walk. ? Have pain, cramps, or dizziness, or you faint. ? Develop a rash. Get help right away if you: ? Feel muscle weakness. ? Develop new weakness in an arm or leg. ? Have trouble walking or moving. ? Have problems with speech, understanding, or vision. ? Feel confused. ? Cannot control your bladder or bowel movements. Summary ? Paresthesia is an abnormal burning or prickling sensation that is usually felt in the hands, arms, legs, or feet. It may also occur in other parts of the body. ? Paresthesia may occur without any clear cause, or it may be caused by breathing too quickly (hyperventilation), pressure on a nerve, an underlying medical condition, side effects of a medication, nutritional deficiencies, or exposure to toxic chemicals. ? If you have paresthesia that lasts a long time, you need to be evaluated by your health care provider. This information is not intended to replace advice given to you by your health care provider. Make sure you discuss any questions you have with your health care provider. Document Revised: 08/17/2021 Document Reviewed: 08/17/2021 Elsevier Patient Education ?? 2021 Elsevier Inc. Tests Performed Medications and Immunizations Administered Given calcium (as carbonate) 500 mg oral tablet, 1000 mg, Oral Patient/Propellant Charge Loader Signature Patient Name:ALIVIA WALKER I have received this information and my questions have been answered. Patient/Propellant Charge Loader Name: Patient/Propellant Charge Loader Signature: Relationship to Patient: Witness Name/Signature: Date: Electronically Signed on: 03/12/2023 00:00 EDTSigned by:[facility] Patient Care team information Care Team Personnel Name: Sandip Ko MD Position: Physician Member Role: Informed Provider Address: Address: [facility] [address] [place] [address]- [place] Name: Cristy Jimenes Position: No Access Member Role: Nurse Practitioner Address: Address: [address] [place] [address] [place] Name: Jackson Gallego RN Position: Nurse Member Role: ED Nurse Name: Lani Barahona MD Position: Physician Member Role: Ordering Physician Address: Address: [address] [place] [address]- [place] Care Team Related Persons Name: ROLANDOTAMEKA CHAKRABORTY Address: Home [address] [place], [phone] Name: WON WALKER Address: Home [address] [place], [phone] Name: HOLLY HALL Name: HOLLY MEJIA
--- OUTSIDE RECORDS SUMMARY | 2023-04-06 22:39 | XMS_ITS | Continuity of Care Document ---
Author Name Unknown Organization [facility] Address [address] [place] [address] Care Team Providers Care Shoe Folder Name Role Phone Luisito Messina Primary Care Physician [facility] Date(s): 09/07/22 - 09/07/[address] [address] Encounter Diagnosis Sciatica(Discharge Diagnosis) - 09/07/22 Discharge Disposition: Home or Self Care Attending Physician: Jimmy Burt MD Admitting Physician: Jimmy Burt MD Allergies, Adverse Reactions, Alerts Substance Reaction Severity Status GRASS POLLEN-PERENNIAL RYE A ctive POLLEN EXTRACTS Unknown Active Cymbalta Headaches Nausea Vision changs Vertigo Blurry vision Hot flash Dialated pupils Severe Active Assessment and Plan Future Appointments Functional Status 09/07/22 Family Member Travel History No recent t [...] 02 Recorded 1Result Comment: Tolerated well Medications Claritin 10 mg oral tablet 10 mg = 1 tab, Oral, Daily, 0 Refill(s) Start Date: 04/04/22 Status: Ordered Flovent HFA 110 mcg/inh inhalation aerosol 1 puff, Inhale, BID, for 90 days, # 1 EA, 2 Refill(s), Pharmacy: [id number], 160, cm, 07/03/22 15:09:00 EDT, Height/Length [...] 0 Refill(s) Start Date: 04/04/22 Status: Ordered omeprazole 40 mg oral delayed release capsule 40 mg = 1 cap, Oral, Daily, for 30 days, # 90 cap, 3 Refill(s), Pharmacy: [id number] Start Date: 05/12/22 Status: Ordered ProAir HFA 90 mcg/inh inhalation aerosol 180 mcg 2 puffs, Inhale, As Directed, Take every 4-6 hours as needed for 30 days, # 18 g, 2 Refill(s), Pharmacy: [id number], 160, cm, 07/03/22 15:09:00 EDT, Height/Length Dosing, 78, kg, 07/03/22 15:09:00 EDT, Weight Dosing Start Date: 07/14/22 Status: Ordered venlafaxine 37.5 mg oral capsule, [...] Confirmed Active Cluster headache Confirmed 07/15/18 Active Double vision Confirmed Active Gastroesophageal reflux [...] growing spinal instrumentation with exchange of instrumentation [facility]. 3debridement Vital Signs Most recent to oldest [Reference Range]: 1 Temperature Temporal Artery [36-38 Deg C ] 36.6 Deg C (09/07/22 4:14 AM) Peripheral Pulse Rate [60-100 bpm] 77 bp m (09/07/22 4:14 AM) Blood Pressure [90-140/60-90 mmHg] 96/83 mmHg (09/07/22 4:14 AM) Weight 78.00 kg (09/07/22 4:14 AM) Weight Dosing 78.00 kg (09/07/22 4:31 AM) Height 158.000 cm (09/07/22 4:14 AM) Height/Length Dosing 158.000 cm (09/07/22 4:31 AM) Social History Social History Type Response Smoking Status Smoking tobacco use: Never tobacco user;Never entered on: 06/22/22 Sex Female Hospital Discharge Instructions Patient Education 09/07/2022 04:11:41 Sciatica, Ftcr-[id number] Sciatica Sciatica is pain, weakness, tingling, or loss of feeling (numbness) along the sciatic nerve. The sciatic nerve starts in the lower back and goes down the back of each leg. Sciatica usually goes away on its own or with treatment. Sometimes, sciatica may come back (recur). What are the causes? This condition happens when the sciatic nerve is pinched or has pressure put on it. This may be theresult of: ??? A disk in between the bones of the spine bulging out too far (herniated disk). ??? Changes in the spinal disks that occur with aging. ??? A condition that affects a muscle in the butt. ??? Extra bone growth near the sciatic nerve. ??? A break (fracture) of the area between your hip bones (pelvis). ??? . ??? Tumor. This is rare. What increases the risk? You are more likely to develop this condition if you: ??? Play sports that put pressure or stress on the spine. ??? Have poor strength and ease of movement (flexibility). ??? Have had a back injury in the past. ??? Have had back surgery. ??? Sit for long periods of time. ??? Do activities that involve bending or lifting over and over again. ??? Are very overweight (obese). What are the signs or symptoms? Symptoms can vary from mild to very bad. They may include: ??? Any of these problems in the lower back, leg, hip, or butt: ??? Mild tingling, loss of feeling, or dull aches. ??? Burning sensations. ??? Sharp pains. ??? Loss of feeling in the back of the calf or the sole of the foot. ??? Leg weakness. ??? Very bad back pain that makes it hard to move. These symptoms may get worse when you cough, sneeze, or laugh. They may also get worse when you sitor stand for long periods of time. How is this treated? This condition often gets better without any treatment. However, treatment may include: ??? Changing or cutting back on physical activity when you have pain. ??? Doing exercises and stretching. ??? Putting ice or heat on the affected area. ??? Medicines that help: ??? To relieve pain and swelling. ??? To relax your muscles. ??? Shots (injections) of medicines that help to relieve pain, irritation, and swelling. ??? Surgery. Follow these instructions at home: Medicines ??? Take rbvw-oks-[id number] and prescription medicines only as told by your doctor. ??? Ask your doctor if the medicine prescribed to you: ??? Requires you to avoid driving or using heavy machinery. ??? Can cause trouble pooping (constipation). You may need to take these steps to prevent or treat trouble pooping: ??? Drink enough fluids to keep your pee (urine) pale yellow. ??? Take mocj-bml-rhqkyhm or prescription medicines. ??? Eat foods that are high in fiber. These include beans, whole grains, and fresh fruits and vegetables. ??? Limit foods that are high in fat and sugar. These include fried or sweet foods. Managing pain ??? If told, put ice on the affected area. ??? Put ice in a plastic bag. ??? Place a towel between your skin and the bag. ??? Leave the ice on for 20 minutes, 2???3 times a day. ??? If told, put heat on the affected area. Use the heat source that your doctor tells you to use, such as a moist heat pack or a heating pad. ??? Place a towel between your skin and the heat source. ??? Leave the heat on for 20???30 minutes. ??? Remove the heat if your skin turns bright red. This is very important if you are unable to feelpain, heat, or cold. You may have a greater risk of getting burned. Activity ??? Return to your normal activities as told by your doctor. Ask your doctor what activities are safe for you. ??? Avoid activities that make your symptoms worse. ??? Take short rests during the day. ??? When you rest for a long time, do some physical activity or stretching between periods of rest. ??? Avoid sitting for a long time without moving. Get up and move around at least one time each hour. ??? Exercise and stretch regularly, as told by your doctor. ??? Do not lift anything that is heavier than 10 lb (4.5 kg) while you have symptoms of sciatica. ??? Avoid lifting heavy things even when you do not have symptoms. ??? Avoid lifting heavy things over and over. ??? When you lift objects, always lift in a way that is safe for your body. To do this, you should: ??? Bend your knees. ??? Keep the object close to your body. ??? Avoid twisting. General instructions ??? Stay at a healthy weight. ??? Wear comfortable shoes that support your feet. Avoid wearing high heels. ??? Avoid sleeping on a mattress that is too soft or too hard. You might have less pain if you sleep on a mattress that is firm enough to support your back. ??? Keep all follow-up visits as told by your doctor. This is important. Contact a doctor if: ??? You have pain that: ??? Wakes you up when you are sleeping. ??? Gets worse when you lie down. ??? Is worse than the pain you have had in the past. ??? Lasts longer than 4 weeks. ??? You lose weight without trying. Get help right away if: ??? You cannot control when you pee (urinate) or poop (have a bowel movement). ??? You have weakness in any of these areas and it gets worse: ??? Lower back. ??? The area between your hip bones. ??? Butt. ??? Legs. ??? You have redness or swelling of your back. ??? You have a burning feeling when you pee. Summary ??? Sciatica is pain, weakness, tingling, or loss of feeling (numbness) along the sciatic nerve. ??? This condition happens when the sciatic nerve is pinched or has pressure put on it. ??? Sciatica can cause pain, tingling, or loss of feeling (numbness) in the lower back, legs, hips,and butt. ??? Treatment often includes rest, exercise, medicines, and putting ice or heat on the affected area. This information is not intended to replace advice given to you by your health care provider. Make sure you discuss any questions you have with your health care provider. Document Revised: 11/25/2019 Document Reviewed: 11/25/2019 [employer] Patient Education ?? 2021 [employer] 09/07/2022 04:11:39 Back Exercises Back Exercises The following exercises strengthen the muscles that help to support the trunk (torso) and back. They also help to keep the lower back flexible. Doing these exercises can help to prevent or lessen existing low back pain. ??? If you have back pain or discomfort, try doing these exercises 2???3 times each day or as told by your health care provider. ??? As your pain improves, do them once each day, but increase the number of times that you repeat the steps for each exercise (do more repetitions). ??? To prevent the recurrence of back pain, continue to do these exercises once each day or as toldby your health care provider. Do exercises exactly as told by your health care provider and adjust them as directed. It is normalto feel mild stretching, pulling, tightness, or discomfort as you do these exercises, but you should stop right away if you feel sudden pain or your pain gets worse. Exercises Single knee to chest Repeat these steps 3???5 times for each le. Lie on your back on a firm bed or the floor with your legs extended. 2. Bring one knee to your chest. Your other leg should stay extended and in contact with the floor. 3. Hold your knee in place by grabbing your knee or thigh with both hands and hold. 4. Pull on your knee until you feel a gentle stretch in your lower back or buttocks. 5. Hold the stretch for 10???30 seconds. 6. Slowly release and straighten your leg. Pelvic tilt Repeat these steps 5???10 times: 1. Lie on your back on a firm bed or the floor with your legs extended. 2. Bend your knees so they are pointing toward the ceiling and your feet are flat on the floor. 3. Tighten your lower abdominal muscles to press your lower back against the floor. This motion will tilt your pelvis so your tailbone points up toward the ceiling instead of pointing to your feet orthe floor. 4. With gentle tension and even breathing, hold this position for 5???10 seconds. Cat-cow Repeat these steps until your lower back becomes more flexible: 1. Get into a zahde-tgp-kvxhk position on a firm bed or the floor. Keep your hands under your shoulders, and keep your knees under your hips. You may place padding under your knees for comfort. 2. Let your head hang down toward your chest. Contract your abdominal muscles and point your tailbone toward the floor so your lower back becomes rounded like the back of a cat. 3. Hold this position for 5 seconds. 4. Slowly lift your head, let your abdominal muscles relax, and point your tailbone up toward the ceiling so your back forms a sagging arch like the back of a cow. 5. Hold this position for 5 seconds. Press-ups Repeat these steps 5???10 times: 1. Lie on your abdomen (face-down) on a firm bed or the floor. 2. Place your palms near your head, about shoulder-width apart. 3. Keeping your back as relaxed as possible and keeping your hips on the floor, slowly straighten your arms to raise the top half of your body and lift your shoulders. Do not use your back muscles toraise your upper torso. You may adjust the placement of your hands to make yourself more comfortable. 4. Hold this position for 5 seconds while you keep your back relaxed. 5. Slowly return to lying flat on the floor. Bridges Repeat these steps 10 times: 1. Lie on your back on a firm bed or the floor. 2. Bend your knees so they are pointing toward the ceiling and your feet are flat on the floor. Your arms should be flat at your sides, next to your body. 3. Tighten your buttocks muscles and lift your buttocks off the floor until your waist is at almostthe same height as your knees. You should feel the muscles working in your buttocks and the back ofyour thighs. If you do not feel these muscles, slide your feet 1???2 inches (2.5???5 cm) farther away from your buttocks. 4. Hold this position for 3???5 seconds. 5. Slowly lower your hips to the starting position, and allow your buttocks muscles to relax completely. If this exercise is too easy, try doing it with your arms crossed over your chest. Abdominal crunches Repeat these steps 5???10 times: 1. Lie on your back on a firm bed or the floor with your legs extended. 2. Bend your knees so they are pointing toward the ceiling and your feet are flat on the floor. 3. Cross your arms over your chest. 4. Tip your chin slightly toward your chest without bending your neck. 5. Tighten your abdominal muscles and slowly raise your torso high enough to lift your shoulder blades a tiny bit off the floor. Avoid raising your torso higher than that because it can put too much stress on your lower back and does not help to strengthen your abdominal muscles. 6. Slowly return to your starting position. Back lifts Repeat these steps 5???10 times: 1. Lie on your abdomen (face-down) with your arms at your sides, and rest your forehead on the floor. 2. Tighten the muscles in your legs and your buttocks. 3. Slowly lift your chest off the floor while you keep your hips pressed to the floor. Keep the back of your head in line with the curve in your back. Your eyes should be looking at the floor. 4. Hold this position for 3???5 seconds. 5. Slowly return to your starting position. Contact a health care provider if: ??? Your back pain or discomfort gets much worse when you do an exercise. ??? Your worsening back pain or discomfort does not lessen within 2 hours after you exercise. If you have any of these problems, stop doing these exercises right away. Do not do them again unless your health care provider says that you can. Get help right away if: ??? You develop sudden, severe back pain. If this happens, stop doing the exercises right away. Do not do them again unless your health care provider says that you can. This information is not intended to replace advice given to you by your health care provider. Make sure you discuss any questions you have with your health care provider. Document Revised: 01/19/2022 Document Reviewed: 01/19/2022 Elsevier Patient Education ?? 2021 [employer] Inc. Follow Up Care 09/07/2022 04:13:57 With:Luisito Messina NP Address: [place] [address]- When:1 month Patient Care team information Personnel Name: Luisito Messina NP Address: Address: [address]
--- OUTSIDE RECORDS SUMMARY | 2023-04-06 22:39 | XMS_ITS | Continuity of Care Document ---
Author Name Unknown Organization [facility] Address [address] [place] [address] Care Team Providers Care Dispatcher Service Name Role Phone Sandip Ko Primary Care Physician [facility] Date(s[facility] 01/03/23 - 01/03/[address] [address] Encounter Diagnosis Pressure in head(Discharge Diagnosis) - 01/03/23 Throat tightness(Discharge Diagnosis) - 01/03/23 Discharge Disposition: Home or Self Care Attending Physician: Tl Ahmadi MD Admitting Physician: Tl Ahmadi MD Allergies, Adverse Reactions, Alerts Substance Reaction Severity Status GRASS POLLEN-PERENNIAL RYE A ctive POLLEN EXTRACTS Unknown Active Cymbalta Headaches Nausea Vision changs Vertigo Blurry vision Hot flash Dialated pupils Severe Active Assessment and Plan Future Appointments Functional Status 01/03/23 Family Member Travel History No recent t [...] days, # 1 EA, 2 Refill(s), Pharmacy: [facility], 160, cm, 07/03/22 15:09:00 EDT, Height/Length [...] days, # 90 cap, 3 Refill(s), Pharmacy: [id number] Start Date: 05/12/22 Status: Ordered ondansetron 4 mg oral tablet 4 mg = 1 tab, Oral, every 8 hr, # 10 tab, 0 Refill(s), Pharmacy: [facility], 160.02, cm, 12/14/22 16:13:00 EST, Height/Length Dosing, 79.39, kg, 12/14/22 16:13:00 EST, Weight Dosing Start Date: 12/19/22 Status: Ordered ProAir HFA 90 mcg/inh inhalation aerosol 180 mcg 2 puffs, Inhale, As Directed, Take every 4-6 hours as needed for 30 days, # 18 g, 2 Refill(s), Pharmacy: [facility], 160, cm, 07/03/22 15:09:00 EDT, Height/Length [...] growing spinal instrumentation with exchange of instrumentation [facility]. 3debridement Vital Signs Most recent to oldest [Reference Range]: 1 Temperature Temporal Artery [36-38 Deg C ] 36.2 Deg C (01/03/23 9:04 PM) Peripheral Pulse Rate [60-100 bpm] 101 b pm *HI* (01/03/23 9:04 PM) Respiratory Rate [12-24 br/min] 20 br/mi n (01/03/23 9:04 PM) Blood Pressure [90-140/60-90 mmHg] 110/6 6mmHg (01/03/23 9:04 PM) Weight Dosing 78.60 kg (01/03/23 9:16 PM) Weight Estimated 78.60 kg (01/03/23 9:04 PM) Height/Length Dosing 158.000 cm (01/03/23 9:16 PM) Height/Length Estimated 158.000 cm (01/03/23 9:04 PM) Social History Social History Type Response Smoking Status Smoking tobacco use: Never tobacco user;Never entered on: 06/22/22 Sex Female Hospital Discharge Instructions Patient Education 01/03/2023 20:32:32 General Headache Without Cause General Headache Without Cause A headache is pain or discomfort felt around the head or neck area. The specific cause of a headache may not be found. There are many causes and types of headaches. A few common ones are: ??? Tension headaches. ??? Migraine headaches. ??? Cluster headaches. ??? Chronic daily headaches. Follow these instructions at home: Watch your condition for any changes. Let your health care provider know about them. Take these steps to help with your condition: Managing pain ??? Take gtjc-mgi-ihbxift and prescription medicines only as told by your health care provider. ??? Lie down in a dark, quiet room when you have a headache. ??? If directed, put ice on your head and neck area: ??? Put ice in a plastic bag. ??? Place a towel between your skin and the bag. ??? Leave the ice on for 20 minutes, 2???3 times per day. ??? If directed, apply heat to the affected area. Use the heat source that your health care provider recommends, such as a moist heat pack or a heating pad. ??? Place a towel between your skin and the heat source. ??? Leave the heat on for 20???30 minutes. ??? Remove the heat if your skin turns bright red. This is especially important if you are unable to feel pain, heat, or cold. You may have a greater risk of getting burned. ??? Keep lights dim if bright lights bother you or make your headaches worse. Eating and drinking ??? Eat meals on a regular schedule. ??? If you drink alcohol: ??? Limit [...] oz glass of hard liquor (44 mL). ??? Stop drinking caffeine, or decrease the amount of caffeine you drink. General instructions ??? Keep a headache journal to help find out what may trigger your headaches. For example, write down: ??? What you eat and drink. ??? How much sleep you get. ??? Any change to your diet or medicines. ??? Try massage or other relaxation techniques. ??? Limit stress. ??? Sit up straight, and do not tense your muscles. ??? Do not use any products that contain nicotine or tobacco, such as cigarettes, e-cigarettes, andchewing tobacco. If you need help quitting, ask your health care provider. ??? Exercise regularly as told by your health care provider. ??? Sleep on a regular schedule. Get 7???9 hours of sleep each night, or the amount recommended by your health care provider. ??? Keep all follow-up visits as told by your health care provider. This is important. Contact a health care provider if: ??? Your symptoms are not helped by medicine. ??? You have a headache that is different from the usual headache. ??? You have nausea or you vomit. ??? You have a fever. Get help right away if: ??? Your headache becomes severe quickly. ??? Your headache gets worse after moderate to intense physical activity. ??? You have repeated vomiting. ??? You have a stiff neck. ??? You have a loss of vision. ??? You have problems with speech. ??? You have pain in the eye or ear. ??? You have muscular weakness or loss of muscle control. ??? You lose your balance or have trouble walking. ??? You feel faint or pass out. ??? You have confusion. ??? You have a seizure. Summary ??? A headache is pain or discomfort felt around the head or neck area. ??? There are many causes and types of headaches. In some cases, the cause may not be found. ??? Keep a headache journal to help find out what may trigger your headaches. Watch your condition for any changes. Let your health care provider know about them. ??? Contact a health care provider if you have a headache that is different from the usual headache, or if your symptoms are not helped by medicine. ??? Get help right away if your headache becomes severe, you vomit, you have a loss of vision, you lose your balance, or you have a seizure. This information is not intended to replace advice given to you by your health care provider. Make sure you discuss any questions you have with your health care provider. Document Revised: 05/27/2019 Document Reviewed: 05/27/2019 [employer] Patient Education ?? 2021 [employer]. Follow Up Care 01/03/2023 21:04:26 With:Sandip Ko MD Address: [address] [id number] When:1 week only if needed Physician Emergency department Note * Tl Ahmadi MD: PERFORM Event Display: ED Note Physician Authored Date: [id number] KENDELLALIVIA HOLMAN Loree :2000 Age:22 years Sex:Female Visit Date:01/03/2023 Primary Care Physician: Sandip Ko MD Basic Information Time Seen: Tl Ahmadi MD / 01/03/2023 21:06 Chief Complaint Pt. with 4-5 dasy of vision problems and head discomfort, feeling off, now with right sided face numbness with some pain. As well as some throat and face numbness. Pt. with pressured speech. continues to list additional head symptoms of numb/ tingle. History Of Present Illness: Patient has had some tightness in her head and tightness in her throat. ??She also??over the last few weeks has had some visual changes with floaters and flashes although she has seen an eye doctor and had normal visual acuity.?? She does admit to some anxiety and has anxiety about her health as well.?? No overall headache. ??No fever. ??No cough or shortness of breath. Review of Systems: No fever chills or sweats. ??No ear pain runny nose or sore throat or exudate. ??No cough chest pain or shortness of breath. ??No abdominal pain vomiting or diarrhea??no urinary symptoms. Physical Exam Vitals & Measurements T:??36.2?C ??(Temporal Artery)?? HR:??101??(Peripheral)?? RR:??20?? BP:??110/66?? SpO2:??98%?? HT:??158.000??cm?? WT:??78.60??kg??(Estimated)?? Alert pleasant cooperative well-appearing. ??Overweight. ??HEENT normocephalic atraumatic. ??Extraocular movements are intact no conjunctivitis. ??Nose is clear. ??Oropharynx shows no erythema or exudate. ??Neck is supple without lymphadenopathy. ??Lungs are clear. ??Heart is regular rate and rhythm. ??Skin is warm and dry. ??No ecchymosis or petechiae.?? Strength and coordination??no pronator drift. ??Finger-nose is normal.?? Sensation is intact to light touch throughout.?? Normal heel and toewalking. Medical Decision Making: Normal exam. ??Her symptoms are not??concerning for any??serious pathology. ??Imaging??of the head such as CT discussed and??rejected??due to normal neurological exam and??no true headache.?? No signs of strep??or mono.?? Although she??complains of some numbness in her face she has normal sensationto light touch.?? She agrees to just follow her symptoms over the next few days and report any new concerning??worsening. Procedure No Qualifying Data Assessment/Plan 1.??Pressure in head??R51.9 Ordered: Discharge Patient, 01/03/23 21:33:00 EST, Home Independently, Constant Indicator ?? 2.??Throat tightness??R09.89 Ordered: Discharge Patient, 01/03/23 21:33:00 EST, Home Independently, Constant Indicator ?? Patient Education General Headache Without Cause Follow Up With When Contact Information Sandip Ko MD Within 1 week, only if needed [facility] [place] [address]- Additional Instructions: Medication Reconciliation Unchanged albuterol (ProAir HFA 90 mcg/inh inhalation aerosol)2 [...] 20 mcg/24 hours (7 yrs). ?? loratadine (Claritin 10 mg oral tablet)1 tab Oral (given by mouth) every day. ?? omeprazole (omeprazole 40 mg oral delayed [...] procedure on spine (01/20/2012)???Procedure on spine (06/22/2008) Allergies Cymbalta??(Headaches, Nausea, Vision changs, Vertigo, Blurry [...] Unknown. Cause of : Electronically Signed on 01/03/23 09:36 PM Tl Ahmadi MD Emergency department Discharge instructions * Tl Ahmadi MD: PERFORM Event Display: ED Discharge Information Authored Date: [id number] ALIVIA WALKER :2000 Age:22 years Sex:Female Visit Date:01/03/2023 Primary Care Physician: Sandip Ko MD Discharge Instructions We would like to thank you for allowing us to assist you with your healthcare needs. The following includes patient education materials and information regarding your injury/illness. Diagnosis from Today's Visit Pressure in head Throat tightness Discharge Vitals Temperature??(Temporal Artery) 97.2 ??F (36.2 ??C) Heart Rate??(Peripheral) 101 Respiratory Rate?? 20 Blood Pressure?? 110/66?? Height?? 62.20 in (158.000 cm) Weight??(Estimated) 173.31 lb (78.60 kg) Allergies Cymbalta??(Headaches, Nausea, Vision changs, Vertigo, Blurry vision, Hot flash, Dialated pupils) POLLEN EXTRACTS GRASS POLLEN-PERENNIAL RYE What to Do Next You Need to Schedule the Following Appointments Follow Up with??Sandip Ko MD When:??Within 1 week, only if needed Where: [facility] [address] [address]- Upcoming Scheduled Appointments 2022 2:20 PM EST ?? You were treated today on [...] Much When Why Instructions Next Dose Unchanged albuterol (ProAir HFA 90 mcg/ inh [...] 8 hours Nausea Epigastric pain Education Materials General Headache Without Cause A headache is pain or discomfort felt around the head or neck area. The specific cause of a headache may not be found. There are many causes and types of headaches. A few common ones are: ? Tension headaches. ? Migraine headaches. ? Cluster headaches. ? Chronic daily headaches. Follow these instructions at home: Watch your condition for any changes. Let your health care provider know about them. Take these steps to help with your condition: Managing pain ? Take vogs-ydc-riqveaq and prescription medicines only as told by your health care provider. ? Lie down in a dark, quiet room when you have a headache. ? If directed, put ice on your head and neck area: ? Put ice in a plastic bag. ? Place a towel between your skin and the bag. ? Leave the ice on for 20 minutes, 2???3 times per day. ? If directed, apply heat to the affected area. Use the heat source that your health care provider recommends, such as a moist heat pack or a heating pad. ? Place a towel between your skin and the heat source. ? Leave the heat on for 20???30 minutes. ? Remove the heat if your skin turns bright red. This is especially important if you are unable to feel pain, heat, or cold. You may have a greater risk of getting burned. ? Keep lights dim if bright lights bother you or make your headaches worse. Eating and drinking ? Eat meals on a regular schedule. ? If you drink alcohol: ? Limit [...] oz glass of hard liquor (44 mL). ? Stop drinking caffeine, or decrease the amount of caffeine you drink. General instructions ? Keep a headache journal to help find out what may trigger your headaches. For example, write down: ? What you eat and drink. ? How much sleep you get. ? Any change to your diet or medicines. ? Try massage or other relaxation techniques. ? Limit stress. ? Sit up straight, and do not tense your muscles. ? Do not use any products that contain nicotine or tobacco, such as cigarettes, e- cigarettes, and chewing tobacco. If you need help quitting, ask your health care provider. ? Exercise regularly as told by your health care provider. ? Sleep on a regular schedule. Get 7???9 hours of sleep each night, or the amount recommended by yourhealth care provider. ? Keep all follow-up visits as told by your health care provider. This is important. Contact a health care provider if: ? Your symptoms are not helped by medicine. ? You have a headache that is different from the usual headache. ? You have nausea or you vomit. ? You have a fever. Get help right away if: ? Your headache becomes severe quickly. ? Your headache gets worse after moderate to intense physical activity. ? You have repeated vomiting. ? You have a stiff neck. ? You have a loss of vision. ? You have problems with speech. ? You have pain in the eye or ear. ? You have muscular weakness or loss of muscle control. ? You lose your balance or have trouble walking. ? You feel faint or pass out. ? You have confusion. ? You have a seizure. Summary ? A headache is pain or discomfort felt around the head or neck area. ? There are many causes and types of headaches. In some cases, the cause may not be found. ? Keep a headache journal to help find out what may trigger your headaches. Watch your condition for any changes. Let your health care provider know about them. ? Contact a health care provider if you have a headache that is different from the usual headache, orif your symptoms are not helped by medicine. ? Get help right away if your headache becomes severe, you vomit, you have a loss of vision, you loseyour balance, or you have a seizure. This information is not intended to replace advice given to you by your health care provider. Make sure you discuss any questions you have with your health care provider. Document Revised: 05/27/2019 Document Reviewed: 05/27/2019 Elsevier Patient Education ?? 2021 [employer] Patient/Luster Applicator Signature Patient Name:ALIVIA WALKER I have received this information and my questions have been answered. Patient/Luster Applicator Name: Patient/Luster Applicator Signature: Relationship to Patient: Witness Name/Signature: Date: Electronically Signed on: 01/03/2023 21:33 ESTSigned by:PMN Emergency department Note * Marian Flores: PERFORM Event Display: ED Notes Authored Date: [id number] Patient Care team information Care Team Personnel Name: Luisito Messina NP Position: Physician Member Role: Informed Provider Address: Address: [address] Name: Sandip Ko MD Position: Physician Member Role: Primary Care Physician Address: Address: [address] [address]- Name: Cristy Jimenes Position: No Access Member Role: Nurse Practitioner Address: Address: [address] [place] [id number] Name: Frederick Whiteside Position: Nurse Member Role: ED Nurse Name: Tl Ahmadi MD Position: Physician Member Role: Attending Physician Address: Address: [address] [address]- Care Team Related Persons Name: TAMEKA WALKER Address: Home [address] [place], [phone] Name: WON WALKER Address: Home [address] [place], [phone] Name: HOLLY HALL
--- OUTSIDE RECORDS SUMMARY | 2023-04-06 22:39 | XMS_ITS | Continuity of Care Document ---
Author Name Unknown Organization [facility] Address [address] [place] [address] Care Team Providers Care Checker Stocker Name Role Phone Luisito Messina Primary Care Physician Encounter [facility] Date(s): 09/06/22 - 09/06/[address] [address] Encounter Diagnosis TMJ tenderness(Discharge Diagnosis) - 09/06/22 Discharge Disposition: Home or Self Care Attending Physician: Jimmy Burt MD Admitting Physician: Jimmy Burt MD Allergies, Adverse Reactions, Alerts Substance Reaction Severity Status GRASS POLLEN-PERENNIAL RYE A ctive POLLEN EXTRACTS Unknown Active Cymbalta Headaches Nausea Vision changs Vertigo Blurry vision Hot flash Dialated pupils Severe Active Assessment and Plan Future Appointments Functional Status 09/06/22 Family Member Travel History No recent t [...] days, # 1 EA, 2 Refill(s), Pharmacy: [facility], 160, cm, 07/03/22 15:09:00 EDT, Height/Length [...] days, # 90 cap, 3 Refill(s), Pharmacy: [facility] Start Date: 05/12/22 Status: Ordered ProAir HFA 90 mcg/inh inhalation aerosol 180 mcg 2 puffs, Inhale, As Directed, Take every 4-6 hours as needed for 30 days, # 18 g, 2 Refill(s), Pharmacy: [facility], 160, cm, 07/03/22 15:09:00 EDT, Height/Length [...] growing spinal instrumentation with exchange of instrumentation [facility]. 3debridement Results Laboratory List Name Date Glucose POCT 09/06/22 Blood Glucose Monitoring POC 09/06/22 Test Urine Qual 09/06/22 Urinalysis with Micro if Indicated and C ulture if Indicated 09/06/22 Urinalysis Microscopic 09/06/22 Most recent to oldest [Reference Range]: 1 Glucose POC [74-106 mg/dL] 108 mg/dL *HI* (09/06/22 10:49 PM) UA Color Yellow (09/06/22 10:15 PM) UA WBC [0-3] 0-3 (09/06/22 10:15 PM) Whole Blood Glucose - Manual Entry [74-1 06 mmol/L] 108 mmol/L *HI* (09/06/22 10:32 PM) UA Urobilinogen Positive *ABN* (09/06/22 10:15 PM) UA Bili [Negative] Negative (09/06/22 10:15 PM) UA Ketones Trace *ABN* (09/06/22 10:15 PM) UA RBC [0-2] 3-5 (09/06/22 10:15 PM) UA Leuk Est Negative (09/06/22 10:15 PM) UA Nitrite Negative (09/06/22 10:15 PM) UA Glucose [Negative] Negative (09/06/22 10:15 PM) UA Bacteria Rare /HPF (09/06/22 10:15 PM) UA Protein Negative (09/06/22 10:15 PM) UA Blood Negative (09/06/22 10:15 PM) UA Mucous Rare /HPF *ABN* (09/06/22 10:15 PM) UA Spec Grav 1.020 *NA* (09/06/22 10:15 PM) UA Squam Epithelial [None Seen] Few *ABN* (09/06/22 10:15 PM) UA pH 7.0 *NA* (09/06/22 10:15 PM) UA Appear Hazy *ABN* (09/06/22 10:15 PM) UA Culture Ind?. Not Indicated (09/06/22 10:15 PM) U hCG Ql Negative (09/06/22 10:15 PM) Vital Signs Most recent to oldest [Reference Range]: 1 Temperature Temporal Artery [36-38 Deg C ] 36.9 Deg C (09/06/22 9:30 PM) Peripheral Pulse Rate [60-100 bpm] 96 bp m (09/06/22 9:30 PM) Respiratory Rate [12-24 br/min] 18 br/mi n (09/06/22 9:30 PM) Blood Pressure [90-140/60-90 mmHg] 111/7 8mmHg (09/06/22 9:30 PM) Weight Dosing 79.83 kg (09/06/22 10:04 PM) Weight Estimated 79.83 kg (09/06/22 9:30 PM) Height/Length Dosing 160.020 cm (09/06/22 10:04 PM) Height/Length Estimated 160.020 cm (09/06/22 9:30 PM) Social History Social History Type Response Smoking Status Smoking tobacco use: Never tobacco user;Never entered on: 06/22/22 Sex Female Hospital Discharge Instructions Patient Education 09/06/2022 21:44:04 Temporomandibular Joint Syndrome Temporomandibular Joint Syndrome Temporomandibular joint syndrome (TMJ syndrome) is a condition that causes pain in the temporomandibular joints. These joints are located near your ears and allow your jaw to open and close. For people with TMJ syndrome, chewing, biting, or other movements of the jaw can be difficult or painful. TMJ syndrome is often mild and goes away within a few weeks. However, sometimes the condition becomes a long-term (chronic) problem. What are the causes? This condition may be caused by: ??? Grinding your teeth or clenching your jaw. Some people do this when they are under stress. ??? Arthritis. ??? Injury to the jaw. ??? Head or neck injury. ??? Teeth or dentures that are not aligned well. In some cases, the cause of TMJ syndrome may not be known. What are the signs or symptoms? The most common symptom of this condition is an aching pain on the side of the head in the area of the TMJ. Other symptoms may include: ??? Pain when moving your jaw, such as when chewing or biting. ??? Being unable to open your jaw all the way. ??? Making a clicking sound when you open your mouth. ??? Headache. ??? Earache. ??? Neck or shoulder pain. How is this diagnosed? This condition may be diagnosed based on: ??? Your symptoms and medical history. ??? A physical exam. Your health care provider may check the range of motion of your jaw. ??? Imaging tests, such as X-rays or an MRI. You may also need to see your dentist, who will determine if your teeth and jaw are lined up correctly. How is this treated? TMJ syndrome often goes away on its own. If treatment is needed, the options may include: ??? Eating soft foods and applying ice or heat. ??? Medicines to relieve pain or inflammation. ??? Medicines or massage to relax the muscles. ??? A splint, bite plate, or mouthpiece to prevent teeth grinding or jaw clenching. ??? Relaxation techniques or counseling to help reduce stress. ??? A therapy for pain in which an electrical current is applied to the nerves through the skin (transcutaneous electrical nerve stimulation). ??? Acupuncture. This is sometimes helpful to relieve pain. ??? Jaw surgery. This is rarely needed. Follow these instructions at home: Eating and drinking ??? Eat a soft diet if you are having trouble chewing. ??? Avoid foods that require a lot of chewing. Do not chew gum. General instructions ??? Take slzq-kol-cepvevo and prescription medicines only as told by your health care provider. ??? If directed, put ice on the painful area. ??? Put ice in a plastic bag. ??? Place a towel between your skin and the bag. ??? Leave the ice on for 20 minutes, 2???3 times a day. ??? Apply a warm, wet cloth (warm compress) to the painful area as directed. ??? Massage your jaw area and do any jaw stretching exercises as told by your health care provider. ??? If you were given a splint, bite plate, or mouthpiece, wear it as told by your health care provider. ??? Keep all follow-up visits as told by your health care provider. This is important. Contact a health care provider if: ??? You are having trouble eating. ??? You have new or worsening symptoms. Get help right away if: ??? Your jaw locks open or closed. Summary ??? Temporomandibular joint syndrome (TMJ syndrome) is a condition that causes pain in the temporomandibular joints. These joints are located near your ears and allow your jaw to open and close. ??? TMJ syndrome is often mild and goes away within a few weeks. However, sometimes the condition becomes a long-term (chronic) problem. ??? Symptoms include an aching pain on the side of the head in the area of the TMJ, pain when chewing or biting, and being unable to open your jaw all the way. You may also make a clicking sound whenyou open your mouth. ??? TMJ syndrome often goes away on its own. If treatment is needed, it may include medicines to relieve pain, reduce inflammation, or relax the muscles. A splint, bite plate, or mouthpiece may also be used to prevent teeth grinding or jaw clenching. This information is not intended to replace advice given to you by your health care provider. Make sure you discuss any questions you have with your health care provider. Document Revised: 02/16/2022 Document Reviewed: 12/18/2018 Elsevier Patient Education ?? 2021 [employer] Follow Up Care 09/06/2022 21:29:58 With:Follow up with primary care provider Address:Unknown When:1 month Patient Care team information Personnel Name: Luisito Messina NP Address: Address: [id number] [place] [address]
--- OUTSIDE RECORDS SUMMARY | 2023-04-06 22:39 | XMS_ITS | Continuity of Care Document ---
Author Name Unknown Organization [facility] Address [address] [place] [address] Care Team Providers Care Steel Grinder Name Role Phone Sandip Ko Primary Care Physician [facility] Date[facility]s): 01/09/23 - 01/09/[address] [address] Encounter Diagnosis Numbness(Discharge Diagnosis) - 01/09/23 Discharge Disposition: Home or Self Care Attending Physician: Enoch Monique MD Admitting Physician: Enoch Monique MD Allergies, Adverse Reactions, Alerts Substance Reaction Severity Status GRASS POLLEN-PERENNIAL RYE A ctive POLLEN EXTRACTS Unknown Active Cymbalta Headaches Nausea Vision changs Vertigo Blurry vision Hot flash Dialated pupils Severe Active Assessment and Plan Future Appointments Functional Status 01/09/23 Family Member Travel History No recent t ravel Recent Travel History No recent travel Other exposure to Infectious Disease Non e Immunizations Given and Recorded Vaccine Date Status Refusal Reason SARS-CoV-2 (COVID-19) mRNA-1277 vaccine 11/11/21 R ecorded influenza virus vaccine, [...] 02 Recorded 1Result Comment: Tolerated well Medications carBAMazepine 100 mg oral tablet, chewable 100 mg = 1 tab, Chewed, BID, # 28 tab, 0 Refill(s), Pharmacy: [id number], 158, cm, 01/03/23 21:16:00 EST, Height/Length Dosing, 78.6, kg, 01/03/23 21:16:00 EST, Weight Dosing Start Date: 01/05/23 Stop Date: 01/19/23 Status: Ordered Claritin 10 mg oral tablet 10 mg = 1 tab, Oral, Daily, 0 Refill(s) Start Date: 04/04/22 Status: Ordered Flovent HFA 110 mcg/inh inhalation aerosol 1 puff, Inhale, BID, for 90 days, # 1 EA, 2 Refill(s), Pharmacy: [facility], 160, cm, 07/03/22 15:09:00 EDT, Height/Length [...] days, # 90 cap, 3 Refill(s), Pharmacy: [facility] Start Date: 05/12/22 Status: Ordered ondansetron 4 mg oral tablet 4 mg = 1 tab, Oral, every 8 hr, # 10 tab, 0 Refill(s), Pharmacy: [facility], 160.02, cm, 12/14/22 16:13:00 EST, Height/Length Dosing, 79.39, kg, 12/14/22 16:13:00 EST, Weight Dosing Start Date: 12/19/22 Status: Ordered ProAir HFA 90 mcg/inh inhalation aerosol 180 mcg 2 puffs, Inhale, As Directed, Take every 4-6 hours as needed for 30 days, # 18 g, 2 Refill(s), Pharmacy: [facility], 160, cm, 07/03/22 15:09:00 EDT, Height/Length [...] growing spinal instrumentation with exchange of instrumentation [facility]. 3debridement Vital Signs Most recent to oldest [Reference Range]: 1 Temperature Temporal Artery [36-38 Deg C ] 36.4 Deg C (01/09/23 9:23 PM) Peripheral Pulse Rate [60-100 bpm] 90 bp m (01/09/23 9:23 PM) Respiratory Rate [12-24 br/min] 18 br/mi n (01/09/23 9:23 PM) Blood Pressure [90-140/60-90 mmHg] 113/7 1mmHg (01/09/23 9:23 PM) Weight Dosing 81.00 kg (01/09/23 9:36 PM) Weight Estimated 81.00 kg (01/09/23 9:23 PM) Height/Length Dosing 158.000 cm (01/09/23 9:36 PM) Height/Length Estimated 158.000 cm (01/09/23 9:23 PM) Social History Social History Type Response Smoking Status Smoking tobacco use: Never tobacco user;Never entered on: 06/22/22 Sex Female Hospital Discharge Instructions Follow Up Care 01/09/2023 21:23:07 With:Sandip Ko MD Address: [address] [address]- When:1 month Physician Emergency department Note * Jimmy Burt MD: PERFORM Event Display: ED Note Physician Authored Date: [id number] ALIVIA WALKER :2000 Age:22 years Sex:Female Visit Date:01/09/2023 Primary Care Physician: Sandip Ko MD Basic Information Time Seen: Jimmy Burt MD / 01/09/2023 21:44 Chief Complaint 1 week tingling/numbness/burning sensation in right arm, right leg right side of face. slight pain,weakness. Feeling off balance. states ability to swollow has been aweful. Face and neck feel tight. c/o myriad of myalgias in triage. Seen here for this. History Of Present Illness: 22-year-old female past medical history??depression, asthma, reflux, migraines presents with numbness and tingling of her??right lower extremity/right big toe and right upper extremity that started aweek ago coming and going without warning nothing seems to make it better or worse. ??No outright weakness of the extremities. ??No history of stroke or head trauma. ??No neck trauma??recently. ??No significant neck pain??at this time. ??Otherwise asymptomatic. Review of Systems: Numbness??upper and lower extremity Physical Exam Vitals & Measurements T:??36.4?C ??(Temporal Artery)?? HR:??90??(Peripheral)?? RR:??18?? BP:??113/71?? SpO2:??98%?? HT:??158.000??cm?? WT:??81.00??kg??(Estimated)?? General: Alert and oriented, well nourished,?No??acute distress Eye: PERRL, EOMI,?Normal??conjunctiva HENT: Normocephalic Lungs: Clear to auscultation and percussion,?Non-labored?? respiration Heart:?Normal?? rate,?Regular??rhythm,?No??murmur,?No??gallop,?No??edema Abdomen: Soft, non-tender, non-distended Musculoskeletal:?Normal?? range of motion and strength,?No??tenderness,?No??swelling Neurologic: Awake, alert and oriented X4, CN II-XII intact Mental status/cognitive: Awake alert, answers questions appropriately alert to self, time and month, able to recall current events, recall of words 3/3 Cranial nerves CN II-vision grossly intact, PERRLA CN III, IV, -EOMI CN V-V1-3 dermatomes intact to light touch CN VII-no facial asymmetry CN IX, X-uvula midline CN XI-shoulder shrug 5/5 bilaterally, head turning equally bilaterally against resistance CN XII-normal tongue movement, no atrophy, no fasciculations, no weakness Motor: Normal muscle bulk, normal tone, no pronator drift. Strength 5/5 throughout all muscle groups in all 4 extremities. Able to move all extremities without difficulty Sensory: Sensation grossly intact to light touch in all 4 extremities Gait: Able to stand without assistance, normal gait Cerebellar: No nystagmus, normal cyuvya-iw-lbki and finger to finger test (no dysmetria), normal rapid alternating movements (no dysdiadochokenesia, normal ovxp-tr-keks test, normal gait Psychiatric: Cooperative, appropriate mood and affect Medical Decision Makin-year-old female presents with multiple complaints including??numbness and tingling of the right toe and the right upper extremity.?? Vitals are stable. ??Neurologic exam is normal.?? She is havinga little neck discomfort with range of motion to the right and left, this may reflect radiculopathyas a cause of her symptoms,??however otherwise no exact??medical etiology of her symptoms. ??I offered a CT of the head here, however??she states that she had a CT of the head at [facility] within the last year that she states was normal, and we discussed the risk and benefits of??radiation versus her current presentation??and ultimately was decided to not obtain this in the ER. ??Shehas neurology appointment tomorrow.?? I do believe anxiety??and psychosomatic??etiology of her presentation??are at least in part??causing her symptoms.?? She does have neurology and primary care follow-up. ??Discharged stable condition return precautions to the ED. Procedure No Qualifying Data Assessment/Plan 1.??Numbness??R20.0 Ordered: Discharge Patient, 01/09/23 22:12:00 EST, Home Independently, Constant Indicator ?? Follow Up With When Contact Information Sandip Ko MD Within [address] [place] [address]- Additional Instructions: Medication Reconciliation Unchanged albuterol (ProAir HFA 90 mcg/inh inhalation aerosol)2 Puffs Inhale (breathe in) As Directed. Take every 4-6 hours as needed for 30 days. Refills: 2. ?? carBAMazepine (carBAMazepine 100 mg oral tablet, chewable)1 tab Chewed 2 times a day for 14 Days. Refills: 0. ?? fluticasone (Flovent HFA 110 mcg/inh inhalation [...] Unknown. Cause of : Electronically Signed on 01/09/23 10:12 PM Jimmy Burt MD Emergency department Discharge instructions * Jimmy Burt MD: PERFORM Event Display: ED Discharge Information Authored Date: [id number] ALIVIA WALKER :2000 Age:22 years Sex:Female Visit Date:01/09/2023 Primary Care Physician: Sandip Ko MD Discharge Instructions We would like to thank you for allowing us to assist you with your healthcare needs. The following includes patient education materials and information regarding your injury/illness. Diagnosis from Today's Visit Numbness Discharge Vitals Temperature??(Temporal Artery) 97.5 ??F (36.4 ??C) Heart Rate??(Peripheral) 90 Respiratory Rate?? 18 Blood Pressure?? 113/71?? Height?? 62.20 in (158.000 cm) Weight??(Estimated) 178.61 lb (81.00 kg) Allergies Cymbalta??(Headaches, Nausea, Vision changs, Vertigo, Blurry vision, Hot flash, Dialated pupils) POLLEN EXTRACTS GRASS POLLEN-PERENNIAL RYE What to Do Next You Need to Schedule the Following Appointments Follow Up with??Sandip Ko MD When:??Within 1 month Where: [place] [phone]- Upcoming Scheduled Appointments Monday 2:40 PM EST ?? You were treated today [...] as needed for 30 days ?? Unchanged carBAMazepine (carBAMazepine 100 mg oral tablet, chewable) 1 tab Chewed 2 times a day Tic douloureux Duration: 14 Days Unchanged fluticasone (Flovent HFA 110 mcg/ inh [...] mouth) Every 8 hours Nausea Epigastric pain Patient/Glass Frame Fitter Signature Patient Name:ALIVIA WALKER I have received this information and my questions have been answered. Patient/Glass Frame Fitter Name: Patient/Glass Frame Fitter Signature: Relationship to Patient: Witness Name/Signature: Date: Electronically Signed on: 01/09/2023 22:12 ESTSigned by:[facility] Emergency department Note * Marilu Mccloud H: PERFORM Event Display: ED Notes Authored Date: Patient Care team information Care Team Personnel Name: Sandip Ko MD Position: Physician Member Role: Informed Provider Address: Address: [address] [address]- [place] Name: Cristy Jimenes-Omar Position: No Access Member Role: Nurse Practitioner Address: Address: [address] [place] [id number] Name: Juventino Ramos RN Position: Nurse Member Role: ED Nurse Name: Jimmy Burt MD Position: Physician Member Role: ED Physician Address: Address: [facility] [address] [place], [place] [address] Care Team Related Persons Name: TAMEKA WALKER Address: Home [address] [facility] [place], [phone] Name: AARON WON Address: Home [address] [facility] [place], [id number] Name: HOLLY HALL Name: HOLLY MEJIA
--- OUTSIDE RECORDS SUMMARY | 2023-04-06 22:39 | XMS_ITS | Continuity of Care Document ---
Author Name Unknown Organization [facility] Address [address] [place] [address] Care Team Providers Care Personal Care Worker Name Role Phone Luisito Messina Primary Care Physician Encounter [facility] Date(s): 11/05/22 - 11/05/[address] [id number] Encounter Diagnosis Malaise(Discharge Diagnosis) - 11/05/22 Discharge Disposition: Home or Self Care Attending Physician: Lani Barahona MD Admitting Physician: Lani Barahona MD Allergies, Adverse Reactions, Alerts Substance Reaction Severity Status GRASS POLLEN-PERENNIAL RYE A ctive POLLEN EXTRACTS Unknown Active Cymbalta Headaches Nausea Vision changs Vertigo Blurry vision Hot flash Dialated pupils Severe Active Functional Status 11/05/22 Other exposure to Infectious Disease Non e Immunizations Given and Recorded Vaccine Date Status Refusal Reason SARS-CoV-2 (COVID-19) mRNA-2927 vaccine 11/11/21 R ecorded influenza virus vaccine, [...] 0 Refill(s) Start Date: 04/04/22 Status: Ordered clonazePAM 0.5 mg oral tablet 0 Refill(s) Start Date: 11/05/22 Status: Ordered Flovent HFA 110 mcg/inh inhalation aerosol 1 puff, Inhale, BID, for 90 days, # 1 EA, 2 Refill(s), Pharmacy: [id number], 160, cm, 07/03/22 15:09:00 EDT, Height/Length [...] days, # 90 cap, 3 Refill(s), Pharmacy: [id number] Start Date: 05/12/22 Status: Ordered ProAir HFA 90 mcg/inh inhalation aerosol 180 mcg 2 puffs, Inhale, As Directed, Take every 4-6 hours as needed for 30 days, # 18 g, 2 Refill(s), Pharmacy: [id number], 160, cm, 07/03/22 15:09:00 EDT, Height/Length [...] growing spinal instrumentation with exchange of instrumentation [facility]. 3debridement Results Laboratory List Name Date Test Urine Qual 11/05/22 Urinalysis with Micro if Indicated and C ulture if Indicated 11/05/22 CBC w/ Diff 11/05/22 Comprehensive Metabolic Panel (CMP) 10/20 06/10 Respiratory Panel 2.1 ([employer]) 11/05/22 Automated Diff 11/05/22 Most recent to oldest [Reference Range]: 1 WBC [5.0-10.0 x10^3/mcL] 7.9 x10^3/mcL (11/05/22 3:25 PM) RBC [4.1-5.3 x10^6/mcL] 4.8 x10^6/mcL (11/05/22 3:25 PM) Neutro Auto [40.0-75.0 %] 68.9 % (11/05/22 3:25 PM) Lymph Auto [20.0-50.0 %] 23.0 % (11/05/22 3:25 PM) Telfair Auto [2.0-15.0 %] 6.2 % (11/05/22 3:25 PM) Basophil Auto [0.0-1.0 %] 0.4 % (11/05/22 3:25 PM) BUN [7-18 mg/dL] 10 mg/dL (11/05/22 3:25 PM) UA Color Yellow (11/05/22 4:23 PM) Glucose Level [74-106 mg/dL] 100 mg/dL (11/05/22 3:25 PM) Potassium Level [3.5-5.1 mmol/L] 3.6 mmo l/L (11/05/22 3:25 PM) MCV [80.0-96.0] 88.0 (11/05/22 3:25 PM) UA Urobilinogen Normal (11/05/22 4:23 PM) UA Bili [Negative] Negative (11/05/22 4:23 PM) UA Ketones Negative (11/05/22 4:23 PM) AST [15-37 unit/L] 13 unit/L *LOW* (11/05/22 3:25 PM) ALT [14-59 unit/L] 14 unit/L (11/05/22 3:25 PM) MCHC [31.0-35.0 g/dL] 31.7 g/dL (11/05/22 3:25 PM) Sodium Level [136-145 mmol/L] 139 mmol/L (11/05/22 3:25 PM) UA Leuk Est Negative (11/05/22 4:23 PM) UA Nitrite Negative (11/05/22:23 PM) UA Glucose [Negative] Negative (11/05/22:23 PM) Hct [37.0-47.0 %] 41.9 % (11/05/22 3:25 PM) Calcium Level [8.5-10.1 mg/dL] 9.1 mg/dL (11/05/22 3:25 PM) Albumin Level [3.4-5.0 g/dL] 3.8 g/dL (11/05/22 3:25 PM) Protein Total [6.4-8.2 g/dL] 8.0 g/dL (11/05/22 3:25 PM) UA Protein Negative (11/05/22:23 PM) MCH [26.0-32.0 pg] 27.9 pg (11/05/22 3:25 PM) Neutro Absolute 5.4 x10^3/mcL *NA* (11/05/22 3:25 PM) Bilirubin Total [0.2-1.0 mg/dL] 0.5 mg/d L (11/05/22 3:25 PM) Hgb [12.0-16.0 g/dL] 13.3 g/dL (11/05/22 3:25 PM) Alk Phos [46-146 unit/L] 84 unit/L (11/05/22 3:25 PM) UA Blood Negative (11/05/22:23 PM) UA Spec Grav 1.010 *NA* (11/05/22:23 PM) Platelets [130-450 x10^3/mcL] 271 x10^3/ mcL (11/05/22 3:25 PM) CO2 [21-32 mmol/L] 31 mmol/L (11/05/22 3:25 PM) UA pH 6.5 *NA* (11/05/22:23 PM) eGFR Non-AA [>=60] 117 (11/05/22 3:25 PM) eGFR AA [>=60] 117 (11/05/22 3:25 PM) UA Appear Clear (11/05/22 4:23 PM) Chloride Level [98-107 mmol/L] 104 mmol/ L (11/05/22 3:25 PM) RDW-CV [11.7-17.0 %] 12.6 % (11/05/22 3:25 PM) Adenovirus RespP-BFire [Not Detected] No t Detected (11/05/22 3:25 PM) Bordetella parapertussis RespP-BFire [No t Detected] Not Detected (11/05/22 3:25 PM) Bordetella pertussis RespP-BFire [Not De tected] Not Detected (11/05/22 3:25 PM) Chlamydophila pneumoniae RespP-BFire [No t Detected] Not Detected (11/05/22 3:25 PM) Coronavirus 229E (Not COVID-19) RP-BFire [Not Detected] Not Detected (11/05/22 3:25 PM) Coronavirus HKU1 (Not COVID-19) RP-BFire [Not Detected] Not Detected (11/05/22 3:25 PM) Coronavirus NL63 (Not COVID-19) RP-BFire [Not Detected] Not Detected (11/05/22 3:25 PM) Coronavirus OC43 (Not COVID-19) RP-BFire [Not Detected] Not Detected (11/05/22 3:25 PM) Human Metapneumonovirus RespP-BFire [Not Detected] Not Detected (11/05/22 3:25 PM) Human Rhinovirus/Enterovirus RespP-BFir [Not Detected] Not Detected (11/05/22 3:25 PM) Influenza A (no subtype) RespP-BFire [No t Detected] Not Detected (11/05/22 3:25 PM) Influenza A H1-2009 RespP-BFire [Not Det ected] Not Detected (11/05/22 3:25 PM) Influenza A H1 RespP-BFire [Not Detected ] Not Detected (11/05/22 3:25 PM) Influenza A H3 RespP-BFire [Not Detected ] Not Detected (11/05/22 3:25 PM) Influenza A RespP-BFire [Not Detected] N ot Detected (11/05/22 3:25 PM) Influenza B RespP-BFire [Not Detected] N ot Detected (11/05/22 3:25 PM) Mycomplasma pneumoniae RespP-BFire [Not Detected] Not Detected (11/05/22 3:25 PM) Parainfluenza Virus 1 RespP-BFire [Not D etected] Not Detected (11/05/22 3:25 PM) Parainfluenza Virus 2 RespP-BFire [Not D etected] Not Detected (11/05/22 3:25 PM) Parainfluenza Virus 3 RespP-BFire [Not D etected] Not Detected (11/05/22 3:25 PM) Parainfluenza Virus 4 RespP-BFire [Not D etected] Not Detected (11/05/22 3:25 PM) Respiratory Syncytial Virus RespP-BFire [Not Detected] Not Detected (11/05/22 3:25 PM) Imm Gran Auto [0.0-0.9 %] 0.4 % (11/05/22 3:25 PM) Creatinine Level [0.55-1.02 mg/dL] 0.75 mg/dL (11/05/22 3:25 PM) SARS-CoV-2 (COVID-19) RP-BFire [Not Dete cted] Not Detected (11/05/22 3:25 PM) Employed in healthcare? Unknown (11/05/22 3:25 PM) Symptomatic as defined by CDC? Unknown (11/05/22 3:25 PM) In ICU? Unknown (11/05/22 3:25 PM) Group care resident? Unknown (11/05/22 3:25 PM) status? Unknown (11/05/22 3:25 PM) Eos, Auto [1.0-6.0 %] 1.1 % (11/05/22 3:25 PM) U hCG Ql Negative (11/05/22 4:23 PM) Vital Signs Most recent to oldest [Reference Range]: 1 Temperature Temporal Artery [36-38 Deg C ] 36.3 Deg C (11/05/22 1:10 PM) Peripheral Pulse Rate [60-100 bpm] 95 bp m (11/05/22 1:10 PM) Respiratory Rate [12-24 br/min] 18 br/mi n (11/05/22 1:10 PM) Blood Pressure [90-140/60-90 mmHg] 108/8 1mmHg (11/05/22 1:10 PM) Weight Dosing 78.00 kg (11/05/22 1:35 PM) Weight Estimated 78.00 kg (11/05/22 1:10 PM) Height/Length Dosing 158.000 cm (11/05/22 1:35 PM) Height/Length Estimated 158.000 cm (11/05/22 1:10 PM) Social History Social History Type Response Smoking Status Smoking tobacco use: Never tobacco user;Never entered on: 06/22/22 Sex Female Hospital Discharge Instructions Patient Education 11/05/2022 16:19:00 Weakness Weakness Weakness is a lack of strength. You may feel weak all over your body (generalized), or you may feelweak in one specific part of your body (focal). Common causes of weakness include: ??? Infection and immune system disorders. ??? Physical exhaustion. ??? Internal bleeding or other blood loss that results in a lack of red blood cells (anemia). ??? Dehydration. ??? An imbalance in mineral (electrolyte) levels, such as potassium. ??? Heart disease, circulation problems, or stroke. Other causes include: ??? Some medicines or cancer treatment. ??? Stress, anxiety, or depression. ??? Nervous system disorders. ??? Thyroid disorders. ??? Loss of muscle strength because of age or inactivity. ??? Poor sleep quality or sleep disorders. The cause of your weakness may not be known. Some causes of weakness can be serious, so it is important to see your health care provider. Follow these instructions at home: Activity ??? Rest as needed. ??? Try to get enough sleep. Most adults need 7???8 hours of quality sleep each night. Talk to yourhealth care provider about how much sleep you need each night. ??? Do exercises, such as arm curls and leg raises, for 30 minutes at least 2 days a week or as told by your health care provider. This helps build muscle strength. ??? Consider working with a physical therapist or agency trainer who can develop an exercise plan to help you gain muscle strength. General instructions ??? Take thzn-lpo-[id number] and prescription medicines only as told by your health care provider. ??? Eat a healthy, well-balanced diet. This includes: ??? Proteins to build muscles, such as lean meats and fish. ??? Fresh fruits and vegetables. ??? Carbohydrates to boost energy, such as whole grains. ??? Drink enough fluid to keep your urine pale yellow. ??? Keep all follow-up visits as told by your health care provider. This is important. Contact a health care provider if your weakness: ??? Does not improve or gets worse. ??? Affects your ability to think clearly. ??? Affects your ability to do your normal daily activities. Get help right away if you: ??? Develop sudden weakness, especially on one side of your face or body. ??? Have chest pain. ??? Have trouble breathing or shortness of breath. ??? Have problems with your vision. ??? Have trouble talking or swallowing. ??? Have trouble standing or walking. ??? Are light-headed or lose consciousness. Summary ??? Weakness is a lack of strength. You may feel weak all over your body or just in one specific part of your body. ??? Weakness can be caused by a variety of things. In some cases, the cause may be unknown. ??? Rest as needed, and try to get enough sleep. Most adults need 7???8 hours of quality sleep eachnight. ??? Eat a healthy, well-balanced diet. This information is not intended to replace advice given to you by your health care provider. Make sure you discuss any questions you have with your health care provider. Document Revised: 06/12/2019 Document Reviewed: 06/12/2019 [employer] Patient Education ?? 2021 [employer]. Follow Up Care 11/05/2022 13:10:04 With:Follow up with primary care provider Address: When:1 to 2 weeks Physician Emergency department Note * Maria Victoria George MD: PERFORM Event Display: ED Note Physician Authored Date: [id number] KENDELLMANDAALIVIA :2000 Age:22 years Sex:Female Visit Date:11/05/2022 Primary Care Physician: Luisito Messina NP Basic Information Time Seen: Maria Victoria George MD / 11/05/2022 14:42 Chief Complaint Generalized body aches, weakness, lightheaded, nausea x3 days. Denies vomiting, cough, SOB. History Of Present Illness: 22-year-old female with history of anemia, anxiety,??chronic sinusitis,??cluster headaches, constipation, GERD,??scoliosis, low back pain,??migraine headaches,??menorrhagia,??TMJ disorder,??who presents to the emergency department complaining of 1 day of muscle aches, joint pain, dizziness, and robert ise. Pt reports?? feeling unwell most of the??day and most days of the week.??However in the past week she had been better, so she is not sure why she is sick again. She denies fever/chills. She has had no n/v/c/d. Pt appears to be semi compliant with all medications but she says she has been verygood at taking her anxiety medications. Pt says she feels very worried that she is sick and may not be able to go on a trip because of that. ??She had an appointment with neurology??but says she hadto reschedule it??and will now be seen in February. Review of Systems: In addition to the ROS embedded in the HPI, the patient has no Const: fever, chills,?? CV: chest pain or palpitations Pulm: shortness of breath GI: n/v/c/d or abd pain Physical Exam Vitals & Measurements T:??36.3?C ??(Temporal Artery)?? HR:??95??(Peripheral)?? RR:??18?? BP:??108/81?? SpO2:??98%?? HT:??158.000??cm?? WT:??78.00??kg??(Estimated)?? Pain Score:??6?? O2 Therapy:??Room air?? General: A&Ox3, Calm, no apparent distress, well developed, pleasant and cooperative ?? HEENT: Head ATNC. Eyes: MAR. Extraocular Mobility: intact and symmetrical. Conjunctiva: non-injected, anicteric, no discharge. Oral Cavity: moist. Neck: no masses, no crepitus. Lymph Nodes: no cervical lymphadenopathy? Respiratory: CTA bilaterally, no wheezing, no rales/crackles? CV: RRR, normal S1, normal S2, no murmurs, rubs or gallops ?? Abdomen : soft, non-tender, non-distended, no rebound or guarding, no hepatosplenomegaly ?? Extremities: no le swelling, warm and well-perfused, no cyanosis, capillary refill <2 seconds? Skin: no rash, no lesions, no bruising? Neuro: normal tone, normal strength in all 4 extremities, sensation intact?? Medical Decision Makin-year-old female with history of anemia, anxiety,??chronic sinusitis,??cluster headaches, constipation, GERD,??scoliosis, low back pain,??migraine headaches,??menorrhagia,??TMJ disorder,??who presents to the emergency department complaining of 1 day of muscle aches, joint pain, dizziness, and robert ise. Pt with chronic symptoms, she has had an extensive work up in our hospital system, had an MRI of the brain in Jun which was normal. She has a f/u appointment scheduled with Neurology in February She is neurovascularly intact today and her exam in general is very reassuring Pt may have an early viral illness that has precipitated her with symptoms again. Unlikely electrolyte abnormality. Unlikely anemic. In a shared decision making process, she was in agreement with checking labs, urine, and respiratory panel ? Procedure No Qualifying Data Assessment/Plan 1.??Malaise??R53.81 Reassuring labs, urine, and viral resp panel Pt will f/u with her pcp in 1-2 weeks for reevaluation and with Neurology as scheduled Discharge instructions and return precautions discussed, all questions answered. Ordered: Discharge Patient, 11/05/22 17:21:00 EST, Constant Indicator ?? Patient Education Weakness Follow Up With When Contact Information Follow up with primary care provider Within 1 to 2 weeks Additional Instructions: Medication Reconciliation Unchanged albuterol (ProAir HFA 90 mcg/inh inhalation aerosol)2 Puffs Inhale (breathe in) As Directed. Take every 4-6 hours as needed for 30 days. Refills: 2. ?? clonazePAM (clonazePAM 0.5 mg oral tablet) ?? fluticasone (Flovent HFA 110 mcg/inh inhalation [...] every day. for 30 days. Refills: 3. Problem List/Past Medical History Ongoing Acute non-suppurative otitis media- serous Allergic rhinitis Alopecia Anemia Anxiety Asthma Chronic sinusitis Clinical sinusitis Cluster headache Constipation Double vision Gastroesophageal reflux disease Idiopathic scoliosis Low back pain Menorrhagia Migraine Migraines Right upper quadrant pain Temporomandibular joint disorder Historical Backache Inflammatory dermatosis Pediculosis capitis Procedure/Surgical [...] Regular. Caffeine intake amount: 1-2times per week. Substance Use Never Tobacco Never tobacco user Tobacco Use:. Never Smokeless Tobacco use:. Family History Breast cancer: Mother. Chronic congestive heart failure: Grandfather (M). Congestive heart failure: Grandfather (P). Diabetes mellitus: Father. Family Member(s): ?? GPARENT, at age: Unknown. Cause of : Lab Results CBC and Differential?? LATEST RESULTS?? HISTORICAL RESULTS?? WBC?? 11/05/22 15:25?? 7.9?? 08/11/22?? 10.5 ??High?? RBC?? 11/05/22 15:25?? 4.8?? 08/11/22?? 4.6?? Hgb?? 11/05/22 15:25?? 13.3?? 08/11/22?? 12.8?? Hct?? 11/05/22 15:25?? 41.9?? 08/11/22?? 40.7?? MCV?? 11/05/22 15:25?? 88.0?? 08/11/22?? 88.5?? MCH?? 11/05/22 15:25?? 27.9?? 08/11/22?? 27.8?? MCHC?? 11/05/22 15:25?? 31.7?? 08/11/22?? 31.4?? RDW-CV?? 11/05/22 15:25?? 12.6?? 08/11/22?? 12.9?? Platelets?? 11/05/22 15:25?? 271?? 08/11/22?? 280?? Neutro Auto?? 11/05/22 15:25?? 68.9?? 08/11/22?? 71.2?? Lymph Auto?? 11/05/22 15:25?? 23.0?? 08/11/22?? 21.5?? T[place]air Auto?? 11/05/22 15:25?? 6.2?? 08/11/22?? 5.4?? Eos, Auto?? 11/05/22 15:25?? 1.1?? 08/11/22?? 1.2?? Basophil Auto?? 11/05/22 15:25?? 0.4?? 08/11/22?? 0.4?? Imm Gran Auto?? 11/05/22 15:25?? 0.4?? 08/11/22?? 0.3?? Neutro Absolute?? 11/05/22 15:25?? 5.4?? 08/11/22?? 7.5? Routine Chemistry?? LATEST RESULTS?? HISTORICAL RESULTS?? Sodium Level?? 11/05/22 15:25?? 139?? 08/11/22?? 138?? Potassium Level?? 11/05/22 15:25?? 3.6?? 08/11/22?? 3.7?? Chloride Level?? 11/05/22 15:25?? 104?? 08/11/22?? 104?? CO2?? 11/05/22 15:25?? 31?? 08/11/22?? 29?? Alk Phos?? 11/05/22 15:25?? 84?? 05/30/22?? 76?? AST?? 11/05/22 15:25?? 13 ??Low?? 05/30/22?? 9 ??Low?? ALT?? 11/05/22 15:25?? 14?? 05/30/22?? 17?? BUN?? 11/05/22 15:25?? 10?? 08/11/22?? 9?? Glucose Level?? 11/05/22 15:25?? 100?? 08/11/22?? 92?? Creatinine Level?? 11/05/22 15:25?? 0.75?? 08/11/22?? 0.78?? eGFR AA?? 11/05/22 15:25?? 117?? 08/11/22?? 111?? eGFR Non-AA?? 11/05/22 15:25?? 117?? 08/11/22?? 111?? Calcium Level?? 11/05/22 15:25?? 9.1?? 08/11/22?? 8.6?? Protein Total?? 11/05/22 15:25?? 8.0?? 05/30/22?? 7.6?? Albumin Level?? 11/05/22 15:25?? 3.8?? 05/30/22?? 3.9?? Bilirubin Total?? 11/05/22 15:25?? 0.5?? 05/30/22?? 0.3? Testing?? LATEST RESULTS?? HISTORICAL RESULTS?? U hCG Ql?? 11/05/22 16:23?? Negative?? 09/13/22?? Negative? UA Macroscopic?? LATEST RESULTS?? HISTORICAL RESULTS?? UA Color?? 11/05/22 16:23?? Yellow?? 09/13/22?? Yellow?? UA Appear?? 11/05/22 16:23?? Clear?? 09/13/22?? Clear?? UA Glucose?? 11/05/22 16:23?? Negative?? 09/13/22?? Negative?? UA Bili?? 11/05/22 16:23?? Negative?? 09/13/22?? Negative?? UA Ketones?? 11/05/22 16:23?? Negative?? 09/13/22?? Negative?? UA Spec Grav?? 11/05/22 16:23?? 1.010?? 09/13/22?? 1.015?? UA Blood?? 11/05/22 16:23?? Negative?? 09/13/22?? Negative?? UA pH?? 11/05/22 16:23?? 6.5?? 09/13/22?? 7.0?? UA Protein?? 11/05/22 16:23?? Negative?? 09/13/22?? Negative?? UA Urobilinogen?? 11/05/22 16:23?? Normal?? 09/13/22?? Positive Abnormal?? UA Nitrite?? 11/05/22 16:23?? Negative?? 09/13/22?? Negative?? UA Leuk Est?? 11/05/22 16:23?? Negative?? 09/13/22?? Negative? Infectious Disease?? LATEST RESULTS?? Adenovirus RespP-BFire?? 11/05/22 15:25?? Not Detected?? Bordetella parapertussis RespP-BFire?? 11/05/22 15:25?? Not Detected?? Bordetella pertussis RespP-BFire?? 11/05/22 15:25?? Not Detected?? Chlamydophila pneumoniae RespP-BFire?? 11/05/22 15:25?? Not Detected?? Coronavirus 229E (Not COVID-19) RP-BFire?? 11/05/22 15:25?? Not Detected?? Coronavirus HKU1 (Not COVID-19) RP-BFire?? 11/05/22 15:25?? Not Detected?? Coronavirus NL63 (Not COVID-19) RP-BFire?? 11/05/22 15:25?? Not Detected?? Coronavirus OC43 (Not COVID-19) RP-BFire?? 11/05/22 15:25?? Not Detected?? SARS-CoV-2 (COVID-19) RP-BFire?? 11/05/22 15:25?? Not Detected?? Human Metapneumonovirus RespP-BFire?? 11/05/22 15:25?? Not Detected?? Human Rhinovirus/Enterovirus RespP-BFir?? 11/05/22 15:25?? Not Detected?? Influenza A (no subtype) RespP-BFire?? 11/05/22 15:25?? Not Detected?? Influenza A H1 RespP-BFire?? 11/05/22 15:25?? Not Detected?? Influenza A H1-2009 RespP-BFire?? 11/05/22 15:25?? Not Detected?? Influenza A H3 RespP-BFire?? 11/05/22 15:25?? Not Detected?? Influenza A RespP-BFire?? 11/05/22 15:25?? Not Detected?? Influenza B RespP-BFire?? 11/05/22 15:25?? Not Detected?? Mycomplasma pneumoniae RespP-BFire?? 11/05/22 15:25?? Not Detected?? Parainfluenza Virus 1 RespP-BFire?? 11/05/22 15:25?? Not Detected?? Parainfluenza Virus 2 RespP-BFire?? 11/05/22 15:25?? Not Detected?? Parainfluenza Virus 3 RespP-BFire?? 11/05/22 15:25?? Not Detected?? Parainfluenza Virus 4 RespP-BFire?? 11/05/22 15:25?? Not Detected?? Respiratory Syncytial Virus RespP-BFire?? 11/05/22 15:25?? Not Detected?? Employed in healthcare??? 11/05/22 15:25?? Unknown?? Symptomatic as defined by CDC??? 11/05/22 15:25?? Unknown?? In ICU??? 11/05/22 15:25?? Unknown?? Group care resident??? 11/05/22 15:25?? Unknown?? status??? 11/05/22 15:25?? Unknown? Electronically Signed on 11/05/22 05:47 PM Maria Victoria George MD Emergency department Discharge instructions * Maria Victoria George MD: PERFORM Event Display: ED Discharge Information Authored Date: [id number] ALIVIA WALKER :2000 Age:22 years Sex:Female Visit Date:11/05/2022 Primary Care Physician: Luisito Messina BOLT HEADER Discharge Instructions We would like to thank you for allowing us to assist you with your healthcare needs. The following includes patient education materials and information regarding your injury/illness. Diagnosis from Today's Visit Malaise Discharge Vitals Temperature??(Temporal Artery) 97.3 ??F (36.3 ??C) Heart Rate??(Peripheral) 95 Respiratory Rate?? 18 Blood Pressure?? 108/81?? Height?? 62.20 in (158.000 cm) Weight??(Estimated) 171.99 lb (78.00 kg) Allergies Cymbalta??(Headaches, Nausea, Vision changs, Vertigo, Blurry vision, Hot flash, Dialated pupils) POLLEN EXTRACTS GRASS POLLEN-PERENNIAL RYE What to Do Next Instructions from Your Care Team Your blood work and urine tests were normal today. Your respiratory panel was negative for the viruses that we test. There are many other viruses that could be affecting you at the moment and that wedon't test for. Please drink plenty of fluids, take Tylenol for aches and pains. Follow up with your primary care provider for reevaluation in 1-2 weeks and with Neurology as scheduled or earlier if you can get an earlier appointment. Please return to the ED for any new or worsening symptoms. You Need to Schedule the Following Appointments [...] How Much When Instructions Next Dose Unchanged albuterol (ProAir HFA 90 mcg/ inh inhalation aerosol) 2 Puffs Inhale (breathe in) As Directed Take every 4-6 hours as needed for 30 days ?? Unchanged clonazePAM (clonazePAM 0.5 mg oral tablet) Unchanged fluticasone (Flovent HFA 110 mcg/ inh [...] mouth) Every day for 30 days ?? Education Materials Weakness Weakness is a lack of strength. You may feel weak all over your body (generalized), or you may feelweak in one specific part of your body (focal). Common causes of weakness include: ? Infection and immune system disorders. ? Physical exhaustion. ? Internal bleeding or other blood loss that results in a lack of red blood cells (anemia). ? Dehydration. ? An imbalance in mineral (electrolyte) levels, such as potassium. ? Heart disease, circulation problems, or stroke. Other causes include: ? Some medicines or cancer treatment. ? Stress, anxiety, or depression. ? Nervous system disorders. ? Thyroid disorders. ? Loss of muscle strength because of age or inactivity. ? Poor sleep quality or sleep disorders. The cause of your weakness may not be known. Some causes of weakness can be serious, so it is important to see your health care provider. Follow these instructions at home: Activity ? Rest as needed. ? Try to get enough sleep. Most adults need 7???8 hours of quality sleep each night. Talk to your health care provider about how much sleep you need each night. ? Do exercises, such as arm curls and leg raises, for 30 minutes at least 2 days a week or as told byyour health care provider. This helps build muscle strength. ? Consider working with a physical therapist or agency trainer who can develop an exercise plan to help you gain muscle strength. General instructions ? Take osfe-zwy-czfdcot and prescription medicines only as told by your health care provider. ? Eat a healthy, well-balanced diet. This includes: ? Proteins to build muscles, such as lean meats and fish. ? Fresh fruits and vegetables. ? Carbohydrates to boost energy, such as whole grains. ? Drink enough fluid to keep your urine pale yellow. ? Keep all follow-up visits as told by your health care provider. This is important. Contact a health care provider if your weakness: ? Does not improve or gets worse. ? Affects your ability to think clearly. ? Affects your ability to do your normal daily activities. Get help right away if you: ? Develop sudden weakness, especially on one side of your face or body. ? Have chest pain. ? Have trouble breathing or shortness of breath. ? Have problems with your vision. ? Have trouble talking or swallowing. ? Have trouble standing or walking. ? Are light-headed or lose consciousness. Summary ? Weakness is a lack of strength. You may feel weak all over your body or just in one specific part of your body. ? Weakness can be caused by a variety of things. In some cases, the cause may be unknown. ? Rest as needed, and try to get enough sleep. Most adults need 7???8 hours of quality sleep each night. ? Eat a healthy, well-balanced diet. This information is not intended to replace advice given to you by your health care provider. Make sure you discuss any questions you have with your health care provider. Document Revised: 06/12/2019 Document Reviewed: 06/12/2019 [employer] Patient Education ?? 2021 [employer] Tests Performed Lab Test Name Test Result Date/Time WBC 7.9 x10^3/mcL 11/05/2022 15:25 EST RBC 4.8 x10^6/mcL 11/05/2022 15:25 EST Hgb 13.3 g/dL 11/05/2022 15:25 EST Hct 41.9 % 11/05/2022 15:25 EST MCV 88.0 11/05/2022 15:25 EST MCH 27.9 pg 11/05/2022 15:25 EST MCHC 31.7 g/dL 11/05/2022 15:25 EST RDW-CV 12.6 % 11/05/2022 15:25 EST Platelets 271 x10^3/mcL 11/05/2022 15:25 EST Neutro Auto 68.9 % 11/05/2022 15:25 EST Lymph Auto 23.0 % 11/05/2022 15:25 EST [place] Auto 6.2 % 11/05/2022 15:25 EST Eos, Auto 1.1 % 11/05/2022 15:25 EST Basophil Auto 0.4 % 11/05/2022 15:25 EST Imm Gran Auto 0.4 % 11/05/2022 15:25 EST Neutro Absolute 5.4 x10^3/mcL 11/05/2022 15:25 EST Sodium Level 139 mmol/L 11/05/2022 15:25 EST Potassium Level 3.6 mmol/L 11/05/2022 15:25 EST Chloride Level 104 mmol/L 11/05/2022 15:25 EST CO2 31 mmol/L 11/05/2022 15:25 EST Alk Phos 84 unit/L 11/05/2022 15:25 EST AST 13 unit/L 11/05/2022 15:25 EST ALT 14 unit/L 11/05/2022 15:25 EST BUN 10 mg/dL 11/05/2022 15:25 EST Glucose Level 100 mg/dL 11/05/2022 15:25 EST Creatinine Level 0.75 mg/dL 11/05/2022 15:25 EST eGFR AA 117 11/05/2022 15:25 EST eGFR Non-AA 117 11/05/2022 15:25 EST Calcium Level 9.1 mg/dL 11/05/2022 15:25 EST Protein Total 8.0 g/dL 11/05/2022 15:25 EST Albumin Level 3.8 g/dL 11/05/2022 15:25 EST Bilirubin Total 0.5 mg/dL 11/05/2022 15:25 EST U hCG Ql NEGATIVE 11/05/2022 16:23 EST UA Color YELLOW. 11/05/2022 16:23 EST UA Appear CLEAR. 11/05/2022 16:23 EST UA Glucose NEGATIVE 11/05/2022 16:23 EST UA Bili NEGATIVE 11/05/2022 16:23 EST UA Ketones NEGATIVE 11/05/2022 16:23 EST UA Spec Grav 1.010 11/05/2022 16:23 EST UA Blood NEGATIVE 11/05/2022 16:23 EST UA pH 6.5 11/05/2022 16:23 EST UA Protein NEGATIVE 11/05/2022 16:23 EST UA Urobilinogen 0.2 Uro 11/05/2022 16:23 EST UA Nitrite NEGATIVE 11/05/2022 16:23 EST UA Leuk Est NEGATIVE 11/05/2022 16:23 EST Adenovirus RespP-BFire Not Detected BF 11/05/2022 15:25 EST Bordetella parapertussis RespP-BFire Not Detected BF 11/05/2022 15:25 EST Bordetella pertussis RespP-BFire Not Detected BF 11/05/2022 15:25 EST Chlamydophila pneumoniae RespP-BFire Not Detected BF 11/05/2022 15:25 EST Coronavirus 229E (Not COVID-19) RP-BFire Not Detected BF 11/05/2022 15:25 EST Coronavirus HKU1 (Not COVID-19) RP-BFire Not Detected BF 11/05/2022 15:25 EST Coronavirus NL63 (Not COVID-19) RP-BFire Not Detected BF 11/05/2022 15:25 EST Coronavirus OC43 (Not COVID-19) RP-BFire Not Detected BF 11/05/2022 15:25 EST SARS-CoV-2 (COVID-19) RP-BFire Not Detected BF 11/05/2022 15:25 EST Human Metapneumonovirus RespP-BFire Not Detected BF 11/05/2022 15:25 EST Human Rhinovirus/Enterovirus RespP-BFir Not Detected BF 11/05/2022 15:25 EST Influenza A (no subtype) RespP-BFire Not Detected BF 11/05/2022 15:25 EST Influenza A H1 RespP-BFire Not Detected BF 11/05/2022 15:25 EST Influenza A H1-2009 RespP-BFire Not Detected BF 11/05/2022 15:25 EST Influenza A H3 RespP-BFire Not Detected BF 11/05/2022 15:25 EST Influenza A RespP-BFire Not Detected BF 11/05/2022 15:25 EST Influenza B RespP-BFire Not Detected BF 11/05/2022 15:25 EST Mycomplasma pneumoniae RespP-BFire Not Detected BF 11/05/2022 15:25 EST Parainfluenza Virus 1 RespP-BFire Not Detected BF 11/05/2022 15:25 EST Parainfluenza Virus 2 RespP-BFire Not Detected BF 11/05/2022 15:25 EST Parainfluenza Virus 3 RespP-BFire Not Detected BF 11/05/2022 15:25 EST Parainfluenza Virus 4 RespP-BFire Not Detected BF 11/05/2022 15:25 EST Respiratory Syncytial Virus RespP-BFire Not Detected BF 11/05/2022 15:25 EST Employed in healthcare? Unknown 11/05/2022 15:25 EST Symptomatic as defined by CDC? Unknown 11/05/2022 15:25 EST In ICU? Unknown 11/05/2022 15:25 EST Group care resident? Unknown 11/05/2022 15:25 EST status? Unknown 11/05/2022 15:25 EST Patient/House Worker General Signature Patient Name:ALIVIA WALKER I have received this information and my questions have been answered. Patient/House Worker General Name: Patient/House Worker General Signature: Relationship to Patient: Witness Name/Signature: Date: Electronically Signed on: 11/05/2022 17:21 ESTSigned by:[facility] Emergency department Note * Selene Rose M: PERFORM Event Display: ED Notes Authored Date: [id number] Patient Care team information Personnel Name: Luisito Messina NP Address: Address: [address] [address]- [place]
--- OUTSIDE RECORDS SUMMARY | 2023-04-06 22:39 | XMS_ITS | Continuity of Care Document ---
Author Name Unknown Organization [facility] Address [address] [place] [address] Care Team Providers Care Mental Health Program Specialist Name Role Phone Sandip Ko Primary Care Physician Encounter [facility] Date(s): 03/22/23 - 03/22/[address] [id number] Encounter Diagnosis Body aches(Discharge Diagnosis) - 03/22/23 Viral illness(Discharge Diagnosis) - 03/22/23 Discharge Disposition: Home or Self Care Attending Physician: Miguel Baca MD Admitting Physician: Miguel Baca MD Allergies, Adverse Reactions, Alerts Substance Reaction Severity Status GRASS POLLEN-PERENNIAL RYE A ctive POLLEN EXTRACTS Unknown Active Cymbalta Headaches Nausea Vision changs Vertigo Blurry vision Hot flash Dialated pupils Severe Active Assessment and Plan Future Scheduled Tests Laboratory* SARS-CoV-2 Jesus Ab, Semi-Qnt [place] 03/16/23 * Folate Level 03/14/23 * Hemoglobin A1c 01/20/23 Functional Status 03/22/23 Recent Travel History No recent travel Other exposure to Infectious Disease Exp osure to respiratory illness of unknown etiology Immunizations Given and Recorded Vaccine Date Status [...] days, # 1 EA, 2 Refill(s), Pharmacy: [facility], 160, cm, 07/03/22 15:09:00 EDT, Height/Length Dosing, 78, kg, 07/03/22 15:09:00 EDT, Weight Dosing Start Date: 07/14/22 Status: Ordered folic acid 1 mg oral tablet 1 mg = 1 tab, Oral, Daily, # 90 tab, 0 Refill(s), Pharmacy: [facility], 160, cm, 03/11/2321:59:00 EDT, Height/Length Dosing, 80, kg, 03/11/23 21:59:00 EDT, Weight Dosing Start Date: 03/14/23 Status: Ordered hydrOXYzine hydrochloride 25 mg oral [...] days, # 90 cap, 3 Refill(s), Pharmacy: [facility] Start Date: 05/12/22 Status: Ordered ondansetron 4 mg oral tablet 4 mg = 1 tab, Oral, every 8 hr, # 10 tab, 0 Refill(s), Pharmacy: [facility], 160.02, cm, 12/14/22 16:13:00 EST, Height/Length Dosing, 79.39, kg, 12/14/22 16:13:00 EST, Weight Dosing Start Date: 12/19/22 Status: Ordered ProAir HFA 90 mcg/inh inhalation aerosol 180 mcg 2 puffs, Inhale, As Directed, Take every 4-6 hours as needed for 30 days, # 18 g, 2 Refill(s), Pharmacy: [facility], 160, cm, 07/03/22 15:09:00 EDT, Height/Length Dosing, 78, kg, 07/03/22 15:09:00 EDT, Weight Dosing Start Date: 07/14/22 Status: Ordered Mental Status 03/22/23 Eye Opening Response Sol Spontaneous ly Best Verbal Response [place] Oriented Best Motor Response [place] Obeys comman ds Sol Coma Score 15 Problem List Condition Confirmation Course Effective Dates [...] growing spinal instrumentation with exchange of instrumentation [facility]. 3debridement Results Laboratory List Name Date CBC w/ Diff 03/22/23 Comprehensive Metabolic Panel 03/22/23 Creatine Kinase 03/22/23 SARS-CoV-2 (COVID-19)/Flu/RSV ([facility]pert ) 03/22/23 Automated Diff 03/22/23 Most recent to oldest [Reference Range]: 1 WBC [5.0-10.0 x10^3/mcL] 7.8 x10^3/mcL (03/22/23 10:34 PM) RBC [4.1-5.3 x10^6/mcL] 4.6 x10^6/mcL (03/22/23 10:34 PM) Neutro Auto [40.0-75.0 %] 67.3 % (03/22/23 10:34 PM) Lymph Auto [20.0-50.0 %] 24.7 % (03/22/23 10:34 PM) [place] Auto [2.0-15.0 %] 6.3 % (03/22/23 10:34 PM) Basophil Auto [0.0-1.0 %] 0.4 % (03/22/23 10:34 PM) BUN [7-18 mg/dL] 8 mg/dL (03/22/23 10:34 PM) Glucose Level [74-106 mg/dL] 106 mg/dL (03/22/23 10:34 PM) Potassium Level [3.5-5.1 mmol/L] 3.6 mmo l/L (03/22/23 10:34 PM) MCV [80.0-96.0 fL] 87.0 fL (03/22/23 10:34 PM) AST [15-37 unit/L] 11 unit/L *LOW* (03/22/23 10:34 PM) ALT [14-59 unit/L] 13 unit/L *LOW* (03/22/23 10:34 PM) MCHC [31.0-35.0 g/dL] 31.4 g/dL (03/22/23 10:34 PM) Sodium Level [136-145 mmol/L] 141 mmol/L (03/22/23 10:34 PM) Hct [37.0-47.0 %] 40.1 % (03/22/23 10:34 PM) Calcium Level [8.5-10.1 mg/dL] 8.9 mg/dL (03/22/23 10:34 PM) Albumin Level [3.4-5.0 g/dL] 3.7 g/dL (03/22/23 10:34 PM) Protein Total [6.4-8.2 g/dL] 7.5 g/dL (03/22/23 10:34 PM) MCH [26.0-32.0 pg] 27.3 pg (03/22/23 10:34 PM) Neutro Absolute 5.3 x10^3/mcL *NA* (03/22/23 10:34 PM) Bilirubin Total [0.2-1.0 mg/dL] 0.6 mg/d L (03/22/23 10:34 PM) Hgb [12.0-16.0 g/dL] 12.6 g/dL (03/22/23 10:34 PM) Alk Phos [46-146 unit/L] 77 unit/L (03/22/23 10:34 PM) Platelets [130-450 x10^3/mcL] 247 x10^3/ mcL (03/22/23 10:34 PM) CO2 [21-32 mmol/L] 30 mmol/L (03/22/23 10:34 PM) eGFR Non-AA [>=60] 108 (03/22/23 10:34 PM) eGFR AA [>=60] 108 (03/22/23 10:34 PM) Chloride Level [98-107 mmol/L] 106 mmol/ L (03/22/23 10:34 PM) RDW-CV [11.7-17.0 %] 12.4 % (03/22/23 10:34 PM) Imm Gran Auto [0.0-0.9 %] 0.1 % (03/22/23 10:34 PM) Creatinine Level [0.55-1.02 mg/dL] 0.80 mg/dL (03/22/23 10:34 PM) Employed in healthcare? Unknown *NA* (03/22/23 10:34 PM) Symptomatic as defined by CDC? Unknown *NA* (03/22/23 10:34 PM) Hospitalized due to COVID-19? Unknown *NA* (03/22/23 10:34 PM) In ICU? Unknown *NA* (03/22/23 10:34 PM) Group care resident? Unknown *NA* (03/22/23 10:34 PM) status? Unknown *NA* (03/22/23 10:34 PM) SARS-CoV-2(Covid19)PCR([facility]Xpert COVFLURSV) [Negative] Negative (03/22/23 10:34 PM) Flu A ([facility]Xpert COVFLURSV) [Negative] Nega tive (03/22/23 10:34 PM) RSV ([facility]Xpert COVFLURSV) [Negative] Negati ve (03/22/23 10:34 PM) Flu B (GXpert COVFLURSV) [Negative] Nega tive (03/22/23 10:34 PM) Eos, Auto [1.0-6.0 %] 1.2 % (03/22/23 10:34 PM) CK [26-192 unit/L] 44 unit/L (03/22/23 10:34 PM) Vital Signs Most recent to oldest [Reference Range]: 1 Temperature Tympanic [36.6-37.9 Deg C] 3 6.3 Deg C *LOW* (03/22/23 9:31 PM) Peripheral Pulse Rate [60-100 bpm] 71 bp m (03/22/23 9:31 PM) Respiratory Rate [12-24 br/min] 18 br/mi n (03/22/23 9:31 PM) Blood Pressure [90-140/60-90 mmHg] 108/7 3mmHg (03/22/23 9:31 PM) Weight Dosing 80.00 kg (03/22/23 9:47 PM) Weight Estimated 80.00 kg (03/22/23 9:31 PM) Height/Length Dosing 158.000 cm (03/22/23 9:47 PM) Height/Length Estimated 158.000 cm (03/22/23 9:31 PM) Social History Social History Type Response Smoking Status Smoking tobacco use: Never tobacco user;Never entered on: 06/22/22 Sex Female Hospital Discharge Instructions Patient Education 03/22/2023 22:38:04 Viral Illness, Adult Viral Illness, Adult Viruses are tiny germs that can get into a person's body and cause illness. There are many different types of viruses, and they cause many types of illness. Viral illnesses can range from mild to severe. They can affect various parts of the body. Short-term conditions that are caused by a virus include colds and the flu (influenza). Long-term conditions that are caused by a virus include herpes, shingles, and HIV (human immunodeficiency virus) infection. A few viruses have been linked to certain cancers. What are the causes? Many types of viruses can cause illness. Viruses invade cells in your body, multiply, and cause theinfected cells to work abnormally or . When these cells , they release more of the virus. When this happens, you develop symptoms of the illness, and the virus continues to spread to other cells. If the virus takes over the function of the cell, it can cause the cell to divide and grow out ofcontrol. This happens when a virus causes cancer. Different viruses get into the body in different ways. You can get a virus by: ??? Swallowing food or water that has come in contact with the virus (is contaminated). ??? Breathing in droplets that have been coughed or sneezed into the air by an infected person. ??? Touching a surface that has been contaminated with the virus and then touching your eyes, nose,or mouth. ??? Being bitten by an insect or animal that carries the virus. ??? Having sexual contact with a person who is infected with the virus. ??? Being exposed to blood or fluids that contain the virus, either through an open cut or during atransfusion. If a virus enters your body, your body's defense system (immune system) will try to fight the virus. You may be at higher risk for a viral illness if your immune system is weak. What are the signs or symptoms? You may have these symptoms, depending on the type of virus and the location of the cells that it invades: ??? Cold and flu viruses: ??? Fever. ??? Headache. ??? Sore throat. ??? Muscle aches. ??? Stuffy nose (nasal congestion). ??? Cough. ??? Digestive system (gastrointestinal) viruses: ??? Fever. ??? Pain in the abdomen. ??? Nausea. ??? Diarrhea. ??? Liver viruses (hepatitis): ??? Loss of appetite. ??? Tiredness. ??? Skin or the white parts of your eyes turning yellow (jaundice). ??? Brain and spinal cord viruses: ??? Fever. ??? Headache. ??? Stiff neck. ??? Nausea and vomiting. ??? Confusion or sleepiness. ??? Skin viruses: ??? Warts. ??? Itching. ??? Rash. ??? Sexually transmitted viruses: ??? Discharge. ??? Swelling. ??? Redness. ??? Rash. How is this diagnosed? This condition may be diagnosed based on one or more of the following: ??? Symptoms. ??? Medical history. ??? Physical exam. ??? Blood test, sample of mucus from your lungs (sputum sample), stool sample, or a swab of body fluids or a skin sore (lesion). How is this treated? Viruses can be hard to treat because they live within cells. Antibiotic medicines do not treat viruses because these medicines do not get inside cells. Treatment for a viral illness may include: ??? Resting and drinking plenty of fluids. ??? Medicines to relieve symptoms. These can include vfmp-pif-[id number] medicine for pain and fever, medicines for cough or congestion, and medicines to relieve diarrhea. ??? Antiviral medicines. These medicines are available only for certain types of viruses. Some viral illnesses can be prevented with vaccinations. A common example is the flu shot. Follow these instructions at home: Medicines ??? Take egkj-mrx-vjgdwmn and prescription medicines only as told by your health care provider. ??? If you were prescribed an antiviral medicine, take it as told by your health care provider. Do not stop taking the antiviral even if you start to feel better. ??? Be aware of when antibiotics are needed and when they are not needed. Antibiotics do not treat viruses. You may get an antibiotic if your health care provider thinks that you may have, or are at risk for, a bacterial infection and you have a viral infection. ??? Do not ask for an antibiotic prescription if you have been diagnosed with a viral illness. Antibiotics will not make your illness go away faster. ??? Frequently taking antibiotics when they are not needed can lead to antibiotic resistance. When this develops, the medicine no longer works against the bacteria that it normally fights. General instructions ??? Drink enough fluids to keep your urine pale yellow. ??? Rest as much as possible. ??? Return to your normal activities as told by your health care provider. Ask your health care provider what activities are safe for you. ??? Keep all follow-up visits as told by your health care provider. This is important. How is this prevented? To reduce your risk of viral illness: ??? Wash your hands often with soap and water for at least 20 seconds. If soap and water are not available, use hand guardian ad litem. ??? Avoid touching your nose, eyes, and mouth, especially if you have not washed your hands recently. ??? If anyone in your household has a viral infection, clean all household surfaces that may have been in contact with the virus. Use soap and hot water. You may also use bleach that you have added water to (diluted). ??? Stay away from people who are sick with symptoms of a viral infection. ??? Do not share items such as toothbrushes and water bottles with other people. ??? Keep your vaccinations up to date. This includes getting a yearly flu shot. ??? Eat a healthy diet and get plenty of rest. Contact a health care provider if: ??? You have symptoms of a viral illness that do not go away. ??? Your symptoms come back after going away. ??? Your symptoms get worse. Get help right away if you have: ??? Trouble breathing. ??? A severe headache or a stiff neck. ??? Severe vomiting or pain in your abdomen. These symptoms may represent a serious problem that is an emergency. Do not wait to see if the symptoms will go away. Get medical help right away. Call your local emergency services (911 in the [place] Do not drive yourself to the hospital. Summary ??? Viruses are types of germs that can get into a person's body and cause illness. Viral illnessescan range from mild to severe. They can affect various parts of the body. ??? Viruses can be hard to treat. There are medicines to relieve symptoms, and there are some antiviral medicines. ??? If you were prescribed an antiviral medicine, take it as told by your health care provider. Do not stop taking the antiviral even if you start to feel better. ??? Contact a health care provider if you have symptoms of a viral illness that do not go away. This information is not intended to replace advice given to you by your health care provider. Make sure you discuss any questions you have with your health care provider. Document Revised: 03/22/2021 Document Reviewed: 09/15/2020 [employer] Patient Education ?? 2021 [employer]. Follow Up Care 03/22/2023 21:31:07 With:Follow up with primary care provider Address: When: only if needed Physician Emergency department Note * Miguel Baca MD: PERFORM Event Display: ED Note Physician Authored Date: [id number] ALIVIA WALKER :2000 Age:22 years Sex:Female Visit Date:03/22/2023 Primary Care Physician: Sandip oK MD Basic Information Time Seen: Miguel Baca MD / 03/22/2023 22:06 Chief Complaint Endorses several days insomnia, intermittent headaches and body aches. Unknown COVID exposure. Maskapplid to pt. Took IBU @ 600 without relief. History Of Present Illness: 22-year-old??female presents because of many symptoms.?? Patient states that for the last for 5 days she has not been able to sleep, no specific reason.?? Also has had some ringing in her ears, she has chronic migraines,??actually had an MRI at [facility] on 06 March when she went to the ER for this.?? Has had some diarrhea 3 times today and has had generalized body aches.?? No cough or shortness of breath or sore throat or runny nose.?? No outstanding abdominal pain or urinary symptoms.?? She took some ibuprofen today.?? She tested for COVID at home and it was negative. Review of Systems: Per HPI Physical Exam Vitals & Measurements T:??36.3?C ??(Tympanic)?? HR:??71??(Peripheral)?? RR:??18?? BP:??108/73?? SpO2:??98%?? HT:??158.000??cm?? WT:??80.00??kg??(Estimated)?? Pain Score:??2?? O2 Therapy:??Room air?? General:??alert,??no acute distress.?? Does not look septic or toxic, skin is warm and dry,??normalmentation, Skin:??warm,??dry. Head:??no??trauma,??normocephalic. Neck:??trachea??midline,??supple with no meningeal signs, Eye:??normal??conjunctiva, sclera??clear.?? Pupils are equal and reactive, external eye movements are normal. Cardiovascular:??regular??rate and rhythm,??normal??peripheral perfusion. Respiratory: lungs??CTA, respirations??non-labored. Chest wall:??no??deformity. Gastrointestinal:??soft,??non distended,??no??tenderness,??no??guarding. Extremities:??no??deformity,??no??trauma.?? Well-perfused. Neurological:??oriented??x 4, LOC??appropriate for age,?? , speech??normal. Psychiatric:??cooperative, affect??appropriate for age,?? Medical Decision Making: Medical Decision-Making: Clinical lab tests: ordered and reviewed -??Yes ?? Decide to obtain previous medical records or to obtain history from someone other than the patient:-??Yes??I reviewed visit from [facility] couple weeks ago where she had an MRI of her head that was unremarkable. Obtain history from someone other than the patient -??Yes, parents Review and summarize past medical records -??Yes ?? Differential diagnosis includes viral illness,??tendinitis,??no signs of a bacterial infection,??does not look septic here,??appears to have chronic migraines,??overall??exam is reassuring here lab work??also unremarkable. ??She has an appointment with her neurologist tomorrow.?? To help her sleep tonight I did suggest she try some Benadryl.?? She is discharged in stable condition. ?? Procedure No Qualifying Data Assessment/Plan 1.??Body aches??R52 2.??Viral illness??B34.9 Patient Education Viral Illness, Adult Follow Up With When Contact Information Follow up with primary care provider Only if needed Additional Instructions: Medication Reconciliation Unchanged acetaminophen (acetaminophen 500 mg oral tablet)1 Refill(s), as needed.. ?? albuterol (ProAir HFA 90 mcg/inh inhalation aerosol)2 Puffs Inhale (breathe in) As Directed. Take every 4-6 hours as needed for 30 days. Refills: 2. ?? fluticasone (Flovent HFA 110 mcg/inh inhalation aerosol)1 puff Inhale (breathe in) 2 times a day. for 90 days. Refills: 2. ?? folic acid (folic acid 1 mg oral tablet)1 tab Oral (given by mouth) every day. Refills: 0. ?? hydrOXYzine (hydrOXYzine hydrochloride 25 mg oral [...] and Differential?? LATEST RESULTS?? HISTORICAL RESULTS?? WBC?? 03/22/23 22:34?? 7.8?? 03/12/23?? 9.0?? RBC?? 03/22/23 22:34?? 4.6?? 03/12/23?? 5.0?? Hgb?? 03/22/23 22:34?? 12.6?? 03/12/23?? 13.5?? Hct?? 03/22/23 22:34?? 40.1?? 03/12/23?? 43.6?? MCV?? 03/22/23 22:34?? 87.0?? 03/12/23?? 87.7?? MCH?? 03/22/23 22:34?? 27.3?? 03/12/23?? 27.2?? MCHC?? 03/22/23 22:34?? 31.4?? 03/12/23?? 31.0?? RDW-CV?? 03/22/23 22:34?? 12.4?? 03/12/23?? 12.7?? Platelets?? 03/22/23 22:34?? 247?? 03/12/23?? 291?? Neutro Auto?? 03/22/23 22:34?? 67.3?? 03/12/23?? 66.9?? Lymph Auto?? 03/22/23 22:34?? 24.7?? 03/12/23?? 26.6?? [place] Auto?? 03/22/23 22:34?? 6.3?? 03/12/23?? 4.8?? Eos, Auto?? 03/22/23 22:34?? 1.2?? 03/12/23?? 1.1?? Basophil Auto?? 03/22/23 22:34?? 0.4?? 03/12/23?? 0.4?? Imm Gran Auto?? 03/22/23 22:34?? 0.1?? 03/12/23?? 0.2?? Neutro Absolute?? 03/22/23 22:34?? 5.3?? 03/12/23?? 6.0? Routine Chemistry?? LATEST RESULTS?? HISTORICAL RESULTS?? Sodium Level?? 03/22/23 22:34?? 141?? 03/12/23?? 138?? Potassium Level?? 03/22/23 22:34?? 3.6?? 03/12/23?? 3.3 ??Low?? Chloride Level?? 03/22/23 22:34?? 106?? 03/12/23?? 102?? CO2?? 03/22/23 22:34?? 30?? 03/12/23?? 27?? Alk Phos?? 03/22/23 22:34?? 77?? 03/12/23?? 90?? AST?? 03/22/23 22:34?? 11 ??Low?? 03/12/23?? 12 ??Low?? ALT?? 03/22/23 22:34?? 13 ??Low?? 03/12/23?? 14?? BUN?? 03/22/23 22:34?? 8?? 03/12/23?? 9?? Glucose Level?? 03/22/23 22:34?? 106?? 03/12/23?? 84?? Creatinine Level?? 03/22/23 22:34?? 0.80?? 03/12/23?? 0.71?? eGFR AA?? 03/22/23 22:34?? 108?? 03/12/23?? 125?? eGFR Non-AA?? 03/22/23 22:34?? 108?? 03/12/23?? 125?? Calcium Level?? 03/22/23 22:34?? 8.9?? 03/12/23?? 9.1?? Protein Total?? 03/22/23 22:34?? 7.5?? 03/12/23?? 8.1?? Albumin Level?? 03/22/23 22:34?? 3.7?? 03/12/23?? 4.1?? Bilirubin Total?? 03/22/23 22:34?? 0.6?? 03/12/23?? 0.6? Cardiac Isoenzymes?? LATEST RESULTS?? HISTORICAL RESULTS?? CK?? 03/22/23 22:34?? 44?? 03/12/23?? 37? Infectious Disease?? LATEST RESULTS?? HISTORICAL RESULTS?? Employed in healthcare??? 03/22/23 22:34?? Unknown?? 11/29/22?? No?? Symptomatic as defined by CDC??? 03/22/23 22:34?? Unknown?? 11/29/22?? No?? Hospitalized due to COVID-19??? 03/22/23 22:34?? Unknown?? 11/29/22?? No?? In ICU??? 03/22/23 22:34?? Unknown?? 11/29/22?? No?? Group care resident??? 03/22/23 22:34?? Unknown?? 11/29/22?? No?? status??? 03/22/23 22:34?? Unknown?? 11/29/22?? Not ?? SARS-CoV-2(Covid19)PCR(GXpert COVFLURSV)?? 03/22/23 22:34?? Negative?? 11/29/22?? Negative?? Flu A (GXpert COVFLURSV)?? 03/22/23 22:34?? Negative?? 11/29/22?? Negative?? Flu B (GXpert COVFLURSV)?? 03/22/23 22:34?? Negative?? 11/29/22?? Negative?? RSV (GXpert COVFLURSV)?? 03/22/23 22:34?? Negative?? 11/29/22?? Negative? Electronically Signed on 03/22/23 11:38 PM Miguel Baca MD Emergency department Discharge instructions * Miguel Baca MD: PERFORM Event Display: ED Discharge Information Authored Date: [id number] ALIVIA WALKER :2000 Age:22 years Sex:Female Visit Date:03/22/2023 Primary Care Physician: Sandip Ko MD Discharge Instructions We would like to thank you for allowing us to assist you with your healthcare needs. The following includes patient education materials and information regarding your injury/illness. Diagnosis from Today's Visit Body aches Viral illness Discharge Vitals Temperature??(Tympanic) 97.3 ??F (36.3 ??C) Heart Rate??(Peripheral) 71 Respiratory Rate?? 18 Blood Pressure?? 108/73?? Height?? 62.20 in (158.000 cm) Weight??(Estimated) 176.40 lb (80.00 kg) Allergies Cymbalta??(Headaches, Nausea, Vision changs, Vertigo, Blurry vision, Hot flash, Dialated pupils) POLLEN EXTRACTS GRASS POLLEN-PERENNIAL RYE What to Do Next Instructions from Your Care Team At this time the work-up??shows no significant anomaly on the blood test,??COVID??flu and RSV are negative.?? He can take some Benadryl to help sleep at night, follow-up with your neurologist tomorrow,??for body aches he can use some Tylenol ibuprofen,??may take some Imodium as needed for diarrhea. You Need to Schedule the Following Appointments Follow Up with??Follow up with primary care provider When:??Only if needed You were treated today on an emergency [...] a day for 90 days ?? Unchanged folic acid (folic acid 1 mg oral tablet) 1 tab Oral (given by mouth) Every day Folate deficiency Unchanged hydrOXYzine (hydrOXYzine hydrochloride 25 mg oral [...] 8 hours Nausea Epigastric pain Education Materials Viral Illness, Adult Viruses are tiny germs that can get into a person's body and cause illness. There are many different types of viruses, and they cause many types of illness. Viral illnesses can range from mild to severe. They can affect various parts of the body. Short-term conditions that are caused by a virus include colds and the flu (influenza). Long-term conditions that are caused by a virus include herpes, shingles, and HIV (human immunodeficiency virus) infection. A few viruses have been linked to certain cancers. What are the causes? Many types of viruses can cause illness. Viruses invade cells in your body, multiply, and cause theinfected cells to work abnormally or . When these cells , they release more of the virus. When this happens, you develop symptoms of the illness, and the virus continues to spread to other cells. If the virus takes over the function of the cell, it can cause the cell to divide and grow out ofcontrol. This happens when a virus causes cancer. Different viruses get into the body in different ways. You can get a virus by: ? Swallowing food or water that has come in contact with the virus (is contaminated). ? Breathing in droplets that have been coughed or sneezed into the air by an infected person. ? Touching a surface that has been contaminated with the virus and then touching your eyes, nose, or mouth. ? Being bitten by an insect or animal that carries the virus. ? Having sexual contact with a person who is infected with the virus. ? Being exposed to blood or fluids that contain the virus, either through an open cut or during a transfusion. If a virus enters your body, your body's defense system (immune system) will try to fight the virus. You may be at higher risk for a viral illness if your immune system is weak. What are the signs or symptoms? You may have these symptoms, depending on the type of virus and the location of the cells that it invades: ? Cold and flu viruses: ? Fever. ? Headache. ? Sore throat. ? Muscle aches. ? Stuffy nose (nasal congestion). ? Cough. ? Digestive system (gastrointestinal) viruses: ? Fever. ? Pain in the abdomen. ? Nausea. ? Diarrhea. ? Liver viruses (hepatitis): ? Loss of appetite. ? Tiredness. ? Skin or the white parts of your eyes turning yellow (jaundice). ? Brain and spinal cord viruses: ? Fever. ? Headache. ? Stiff neck. ? Nausea and vomiting. ? Confusion or sleepiness. ? Skin viruses: ? Warts. ? Itching. ? Rash. ? Sexually transmitted viruses: ? Discharge. ? Swelling. ? Redness. ? Rash. How is this diagnosed? This condition may be diagnosed based on one or more of the following: ? Symptoms. ? Medical history. ? Physical exam. ? Blood test, sample of mucus from your lungs (sputum sample), stool sample, or a swab of body fluidsor a skin sore (lesion). How is this treated? Viruses can be hard to treat because they live within cells. Antibiotic medicines do not treat viruses because these medicines do not get inside cells. Treatment for a viral illness may include: ? Resting and drinking plenty of fluids. ? Medicines to relieve symptoms. These can include upmo-vfw-tnniktp medicine for pain and fever, medicines for cough or congestion, and medicines to relieve diarrhea. ? Antiviral medicines. These medicines are available only for certain types of viruses. Some viral illnesses can be prevented with vaccinations. A common example is the flu shot. Follow these instructions at home: Medicines ? Take lvcv-aqq-dfhvhmx and prescription medicines only as told by your health care provider. ? If you were prescribed an antiviral medicine, take it as told by your health care provider. Do not stop taking the antiviral even if you start to feel better. ? Be aware of when antibiotics are needed and when they are not needed. Antibiotics do not treat viruses. You may get an antibiotic if your health care provider thinks that you may have, or are at riskfor, a bacterial infection and you have a viral infection. ? Do not ask for an antibiotic prescription if you have been diagnosed with a viral illness. Antibiotics will not make your illness go away faster. ? Frequently taking antibiotics when they are not needed can lead to antibiotic resistance. When thisdevelops, the medicine no longer works against the bacteria that it normally fights. General instructions ? Drink enough fluids to keep your urine pale yellow. ? Rest as much as possible. ? Return to your normal activities as told by your health care provider. Ask your health care provider what activities are safe for you. ? Keep all follow-up visits as told by your health care provider. This is important. How is this prevented? To reduce your risk of viral illness: ? Wash your hands often with soap and water for at least 20 seconds. If soap and water are not available, use hand guardian ad litem. ? Avoid touching your nose, eyes, and mouth, especially if you have not washed your hands recently. ? If anyone in your household has a viral infection, clean all household surfaces that may have been in contact with the virus. Use soap and hot water. You may also use bleach that you have added waterto (diluted). ? Stay away from people who are sick with symptoms of a viral infection. ? Do not share items such as toothbrushes and water bottles with other people. ? Keep your vaccinations up to date. This includes getting a yearly flu shot. ? Eat a healthy diet and get plenty of rest. Contact a health care provider if: ? You have symptoms of a viral illness that do not go away. ? Your symptoms come back after going away. ? Your symptoms get worse. Get help right away if you have: ? Trouble breathing. ? A severe headache or a stiff neck. ? Severe vomiting or pain in your abdomen. These symptoms may represent a serious problem that is an emergency. Do not wait to see if the symptoms will go away. Get medical help right away. Call your local emergency services (911 in the [place] Do not drive yourself to the hospital. Summary ? Viruses are types of germs that can get into a person's body and cause illness. Viral illnesses canrange from mild to severe. They can affect various parts of the body. ? Viruses can be hard to treat. There are medicines to relieve symptoms, and there are some antiviralmedicines. ? If you were prescribed an antiviral medicine, take it as told by your health care provider. Do not stop taking the antiviral even if you start to feel better. ? Contact a health care provider if you have symptoms of a viral illness that do not go away. This information is not intended to replace advice given to you by your health care provider. Make sure you discuss any questions you have with your health care provider. Document Revised: 03/22/2021 Document Reviewed: 09/15/2020 [employer] Patient Education ?? 2021 [employer] Tests Performed Lab Test Name Test Result Date/Time WBC 7.8 x10^3/mcL 03/22/2023 22:34 EDT RBC 4.6 x10^6/mcL 03/22/2023 22:34 EDT Hgb 12.6 g/dL 03/22/2023 22:34 EDT Hct 40.1 % 03/22/2023 22:34 EDT MCV 87.0 fL 03/22/2023 22:34 EDT MCH 27.3 pg 03/22/2023 22:34 EDT MCHC 31.4 g/dL 03/22/2023 22:34 EDT RDW-CV 12.4 % 03/22/2023 22:34 EDT Platelets 247 x10^3/mcL 03/22/2023 22:34 EDT Neutro Auto 67.3 % 03/22/2023 22:34 EDT Lymph Auto 24.7 % 03/22/2023 22:34 EDT [place] Auto 6.3 % 03/22/2023 22:34 EDT Eos, Auto 1.2 % 03/22/2023 22:34 EDT Basophil Auto 0.4 % 03/22/2023 22:34 EDT Imm Gran Auto 0.1 % 03/22/2023 22:34 EDT Neutro Absolute 5.3 x10^3/mcL 03/22/2023 22:34 EDT Sodium Level 141 mmol/L 03/22/2023 22:34 EDT Potassium Level 3.6 mmol/L 03/22/2023 22:34 EDT Chloride Level 106 mmol/L 03/22/2023 22:34 EDT CO2 30 mmol/L 03/22/2023 22:34 EDT Alk Phos 77 unit/L 03/22/2023 22:34 EDT AST 11 unit/L 03/22/2023 22:34 EDT ALT 13 unit/L 03/22/2023 22:34 EDT BUN 8 mg/dL 03/22/2023 22:34 EDT Glucose Level 106 mg/dL 03/22/2023 22:34 EDT Creatinine Level 0.80 mg/dL 03/22/2023 22:34 EDT eGFR AA 108 03/22/2023 22:34 EDT eGFR Non-AA 108 03/22/2023 22:34 EDT Calcium Level 8.9 mg/dL 03/22/2023 22:34 EDT Protein Total 7.5 g/dL 03/22/2023 22:34 EDT Albumin Level 3.7 g/dL 03/22/2023 22:34 EDT Bilirubin Total 0.6 mg/dL 03/22/2023 22:34 EDT CK 44 unit/L 03/22/2023 22:34 EDT Employed in healthcare? Unknown 03/22/2023 22:34 EDT Symptomatic as defined by CDC? Unknown 03/22/2023 22:34 EDT Hospitalized due to COVID-19? Unknown 03/22/2023 22:34 EDT In ICU? Unknown 03/22/2023 22:34 EDT Group care resident? Unknown 03/22/2023 22:34 EDT status? Unknown 03/22/2023 22:34 EDT SARS-CoV-2(Covid19)PCR(GXpert COVFLURSV) NEGATIVE 03/22/2023 22:34 EDT Flu A (GXpert COVFLURSV) NEGATIVE 03/22/2023 22:34 EDT Flu B (GXpert COVFLURSV) Neg-GeneXPert 03/22/2023 22:34 EDT RSV (GXpert COVFLURSV) Neg-GeneXPert 03/22/2023 22:34 EDT Patient/Dry Heat Cabinet Attendant Signature Patient Name:ALIVIA WALKER Loree I have received this information and my questions have been answered. Patient/Dry Heat Cabinet Attendant Name: Patient/Dry Heat Cabinet Attendant Signature: Relationship to Patient: Witness Name/Signature: Date: Electronically Signed on: 03/22/2023 23:38 EDTSigned by:RICARDO Emergency department Note * Ange Carson: PERFORM Event Display: ED Notes Authored Date: [id number] Patient Care team information Care Team Personnel Name: Sandip Ko MD Position: Physician Member Role: Informed Provider Address: Address: [facility] [address] Name: Cristy Jimenes Position: No Access Member Role: Nurse Practitioner Address: Address: [address] [place] [id number] Name: Miguel Baca MD Position: Physician Member Role: ED Physician Address: Address: [address] [place] [address] Name: Lamar Lomeli RN Position: Nurse Member Role: ED Nurse Care Team Related Persons Name: TAMEKA WALKER Address: Home [address] [place], [phone] Name: WON WALKER Address: Home [address] [place], [phone] Name: HOLLY HALL Name: HOLLY MEJIA
--- OUTSIDE RECORDS SUMMARY | 2023-04-06 22:39 | XMS_ITS | Continuity of Care Document ---
Author Name Unknown Organization [facility] Address [address] [place] [address] Care Team Providers Care Steward/Stewardess Economy Class Name Role Phone Luisito Messina Primary Care Physician [phone] [facility]counter [facility] Date(s): 08/15/22 - 08/15/[address] [address] Encounter Diagnosis Cervicalgia(Discharge Diagnosis) - 08/15/22 Discharge Disposition: Home or Self Care Attending Physician: Luisito Messina TRAINING DEVELOPMENT MANAGER Admitting Physician: Luisito Messina NP Referring Physician: Luisito Messina TRAINING DEVELOPMENT MANAGER Allergies, Adverse Reactions, Alerts Substance Reaction Severity Status GRASS POLLEN-PERENNIAL RYE A ctive POLLEN EXTRACTS Unknown Active Cymbalta Headaches Nausea Vision changs Vertigo Blurry vision Hot flash Dialated pupils Severe Active Assessment and Plan Future Appointments Immunizations Given and Recorded Vaccine Date Status Refusal Reason SARS-CoV-2 (COVID-19) mRNA-1561 vaccine 11/11/21 R ecorded influenza virus vaccine, [...] Refill(s) Start Date: 04/04/22 Status: Ordered clonazePAM 0 Refill(s) Start Date: 07/24/22 Status: Ordered Flovent HFA 110 mcg/inh inhalation aerosol 1 puff, Inhale, BID, for 90 days, # 1 EA, 2 Refill(s), Pharmacy: [facility], 160, cm, 07/03/22 15:09:00 EDT, Height/Length [...] days, # 90 cap, 3 Refill(s), Pharmacy: [facility] Start Date: 05/12/22 Status: Ordered ProAir HFA 90 mcg/inh inhalation aerosol 180 mcg 2 puffs, Inhale, As Directed, Take every 4-6 hours as needed for 30 days, # 18 g, 2 Refill(s), Pharmacy: [facility]58, 160, cm, 07/03/22 15:09:00 EDT, Height/Length Dosing, 78, kg, 07/03/22 15:09:00 EDT, Weight Dosing Start Date: 07/14/22 Status: Ordered venlafaxine 37.5 mg oral capsule, extended release 37.5 mg = 1 cap, Oral, Daily Start Date: 08/15/22 Status: Ordered Problem List Condition Effective Dates Status Health Status Inform ant Acute non-suppurative otitis media- serous(Confirmed) Active Allergic rhinitis(Confirmed) Active Alopecia(Confirmed) Active Anemia(Confirmed) Active Anxiety(Confirmed) Active Asthma(Confirmed) 08/19/19 Active Chronic sinusitis(Confirmed) Active Cluster headache(Confirmed) 07/15/18 Active Double vision(Confirmed) Active Gastroesophageal reflux disease(Confirmed) Active Idiopathic scoliosis(Confirmed) Active Low back pain(Confirmed) Active Menorrhagia(Confirmed) Active Migraine(Confirmed) 09/14/18 Active Migraines(Confirmed) Active Right upper quadrant pain(Confirmed) Active Clinical sinusitis(Confirmed) Active Temporomandibular joint disorder(Confirmed) Active Procedures Procedure Date Related Diagnosis Body Site Status Laparoscopic cholecystectomy 08/08/21 Completed Procedure on spine 1 08/18/13 Comp leted Operative procedure on spine 2 01/19/12 Completed Procedure on spine 3 06/21/08 Comp leted 1removal of growing rods/segmental posterior spinal fusion 2Lengthening of growing spinal instrumentation with exchange of instrumentation [facility]. 3debridement Social History Social History Type Response Smoking Status Smoking tobacco use: Never tobacco user;Never entered on: 06/22/22 Sex Female Patient Care team information Personnel Name: Luisito Messina NP Address: Address: [address]
--- OUTSIDE RECORDS SUMMARY | 2023-04-06 22:39 | XMS_ITS | Continuity of Care Document ---
Author Name Unknown Organization [facility] Address [address] [place] [address] Encounter [facility] Date(s): 08/29/22 - 08/29/[address] [address] Encounter Diagnosis Migraine(Discharge Diagnosis) - 08/29/22 Discharge Disposition: Home or Self Care Attending Physician: Jose Owens MD Admitting Physician: Jose Owens MD Allergies, Adverse Reactions, Alerts Substance Reaction Severity Status GRASS POLLEN-PERENNIAL RYE A ctive POLLEN EXTRACTS Unknown Active Cymbalta Headaches Nausea Vision changs Vertigo Blurry vision Hot flash Dialated pupils Severe Active Assessment and Plan Future Appointments Functional Status 08/29/22 Family Member Travel History No recent t [...] days, # 1 EA, 2 Refill(s), Pharmacy: [facility], 160, cm, 07/03/22 15:09:00 EDT, Height/Length [...] days, # 90 cap, 3 Refill(s), Pharmacy: [facility] Start Date: 05/12/22 Status: Ordered ProAir HFA 90 mcg/inh inhalation aerosol 180 mcg 2 puffs, Inhale, As Directed, Take every 4-6 hours as needed for 30 days, # 18 g, 2 Refill(s), Pharmacy: [facility], 160, cm, 07/03/22 15:09:00 EDT, Height/Length [...] growing spinal instrumentation with exchange of instrumentation [facility]. 3debridement Results Laboratory List Name Date Test Urine Qual 08/29/22 Most recent to oldest [Reference Range]: 1 U hCG Ql Negative (08/29/22 4:06 PM) Vital Signs Most recent to oldest [Reference Range]: 1 Temperature Temporal Artery [36-38 Deg C ] 36.1 Deg C (08/29/22 2:17 PM) Peripheral Pulse Rate [60-100 bpm] 86 bp m (08/29/22 2:17 PM) Respiratory Rate [12-24 br/min] 14 br/mi n (08/29/22 2:17 PM) Blood Pressure [90-140/60-90 mmHg] 113/8 1mmHg (08/29/22 2:17 PM) Weight Dosing 78.00 kg (08/29/22 2:34 PM) Weight Estimated 78.00 kg (08/29/22 2:17 PM) Height/Length Dosing 160.000 cm (08/29/22 2:34 PM) Height/Length Estimated 160.000 cm (08/29/22 2:17 PM) Social History Social History Type Response Smoking Status Smoking tobacco use: Never tobacco user;Never entered on: 06/22/22 Sex Female Hospital Discharge Instructions Patient Education 08/29/2022 15:25:38 Migraine Headache Migraine Headache A migraine headache is an intense, throbbing pain on one side or both sides of the head. Migraine headaches may also cause other symptoms, such as nausea, vomiting, and sensitivity to light and noise. A migraine headache can last from 4 hours to 3 days. Talk with your doctor about what things may bring on (trigger) your migraine headaches. What are the causes? The exact cause of this condition is not known. However, a migraine may be caused when nerves in the brain become irritated and release chemicals that cause inflammation of blood vessels. This inflammation causes pain. This condition may be triggered or caused by: ??? Drinking alcohol. ??? Smoking. ??? Taking medicines, such as: ??? Medicine used to treat chest pain (nitroglycerin). ??? control pills. ??? Estrogen. ??? Certain blood pressure medicines. ??? Eating or drinking products that contain nitrates, glutamate, aspartame, or tyramine. Aged cheeses, chocolate, or caffeine may also be triggers. ??? Doing physical activity. Other things that may trigger a migraine headache include: ??? Menstruation. ??? . ??? Hunger. ??? Stress. ??? Lack of sleep or too much sleep. ??? Weather changes. ??? Fatigue. What increases the risk? The following factors may make you more likely to experience migraine headaches: ??? Being a certain age. This condition is more common in people who are 25???55 years old. ??? Being female. ??? Having a family history of migraine headaches. ??? Being . ??? Having a mental health condition, such as depression or anxiety. ??? Being obese. What are the signs or symptoms? The main symptom of this condition is pulsating or throbbing pain. This pain may: ??? Happen in any area of the head, such as on one side or both sides. ??? Interfere with daily activities. ??? Get worse with physical activity. ??? Get worse with exposure to bright lights or loud noises. Other symptoms may include: ??? Nausea. ??? Vomiting. ??? Dizziness. ??? General sensitivity to bright lights, loud noises, or smells. Before you get a migraine headache, you may get warning signs (an aura). An aura may include: ??? Seeing flashing lights or having blind spots. ??? Seeing bright spots, halos, or zigzag lines. ??? Having tunnel vision or blurred vision. ??? Having numbness or a tingling feeling. ??? Having trouble talking. ??? Having muscle weakness. Some people have symptoms after a migraine headache (postdromal phase), such as: ??? Feeling tired. ??? Difficulty concentrating. How is this diagnosed? A migraine headache can be diagnosed based on: ??? Your symptoms. ??? A physical exam. ??? Tests, such as: ??? CT scan or an MRI of the head. These imaging tests can help rule out other causes of headaches. ??? Taking fluid from the spine (lumbar puncture) and analyzing it (cerebrospinal fluid analysis, or CSF analysis). How is this treated? This condition may be treated with medicines that: ??? Relieve pain. ??? Relieve nausea. ??? Prevent migraine headaches. Treatment for this condition may also include: ??? Acupuncture. ??? Lifestyle changes like avoiding foods that trigger migraine headaches. ??? Biofeedback. ??? Cognitive behavioral therapy. Follow these instructions at home: Medicines ??? Take cxvz-zqc-hqkfbud and prescription medicines only as told by your health care provider. ??? Ask your health care provider if the medicine prescribed to you: ??? Requires you to avoid driving or using heavy machinery. ??? Can cause constipation. You may need to take these actions to prevent or treat constipation: ??? Drink enough fluid to keep your urine pale yellow. ??? Take tggl-ekm-retopyk or prescription medicines. ??? Eat foods that are high in fiber, such as beans, whole grains, and fresh fruits and vegetables. ??? Limit foods that are high in fat and processed sugars, such as fried or sweet foods. Lifestyle ??? Do not drink alcohol. ??? Do not use any products that contain nicotine or tobacco, such as cigarettes, e-cigarettes, andchewing tobacco. If you need help quitting, ask your health care provider. ??? Get at least 8 hours of sleep every night. ??? Find ways to manage stress, such as meditation, deep breathing, or yoga. General instructions ??? Keep a journal to find out what may trigger your migraine headaches. For example, write down: ??? What you eat and drink. ??? How much sleep you get. ??? Any change to your diet or medicines. ??? If you have a migraine headache: ??? Avoid things that make your symptoms worse, such as bright lights. ??? It may help to lie down in a dark, quiet room. ??? Do not drive or use heavy machinery. ??? Ask your health care provider what activities are safe for you while you are experiencing symptoms. ??? Keep all follow-up visits as told by your health care provider. This is important. Contact a health care provider if: ??? You develop symptoms that are different or more severe than your usual migraine headache symptoms. ??? You have more than 15 headache days in one month. Get help right away if: ??? Your migraine headache becomes severe. ??? Your migraine headache lasts longer than 72 hours. ??? You have a fever. ??? You have a stiff neck. ??? You have vision loss. ??? Your muscles feel weak or like you cannot control them. ??? You start to lose your balance often. ??? You have trouble walking. ??? You faint. ??? You have a seizure. Summary ??? A migraine headache is an intense, throbbing pain on one side or both sides of the head. Migraines may also cause other symptoms, such as nausea, vomiting, and sensitivity to light and noise. ??? This condition may be treated with medicines and lifestyle changes. You may also need to avoid certain things that trigger a migraine headache. ??? Keep a journal to find out what may trigger your migraine headaches. ??? Contact your health care provider if you have more than 15 headache days in a month or you develop symptoms that are different or more severe than your usual migraine headache symptoms. This information is not intended to replace advice given to you by your health care provider. Make sure you discuss any questions you have with your health care provider. Document Revised: 02/28/2020 Document Reviewed: 12/19/2019 [employer] Patient Education ?? 2021 [employer] Follow Up Care 08/29/2022 14:17:26 With:Follow up with primary care provider Address:Unknown When:1 month
--- OUTSIDE RECORDS SUMMARY | 2023-04-06 22:39 | XMS_ITS | Continuity of Care Document ---
Author Name Unknown Organization [facility] Address [address] [place] [address] Care Team Providers Care Millinery Blocker Name Role Phone Luisito Messina Primary Care Physician [phone] Encounter [facility] Date(s): 09/14/22 - 09/14/[address] [address] Discharge Disposition: Home or Self Care Attending Physician: Tatiana Workman MD Admitting Physician: Tatiana Workman MD Allergies, Adverse Reactions, Alerts Substance Reaction Severity Status GRASS POLLEN-PERENNIAL RYE A ctive POLLEN EXTRACTS Unknown Active Cymbalta Headaches Nausea Vision changs Vertigo Blurry vision Hot flash Dialated pupils Severe Active Assessment and Plan Future Appointments Diagnostic Tests Pending * Chlamydia/N. gonorrhoeae Amp RNA [facility] 09/14/22 Immunizations Given and Recorded Vaccine Date Status [...] days, # 1 EA, 2 Refill(s), Pharmacy: [facility]58, 160, cm, 07/03/22 15:09:00 EDT, Height/Length [...] days, # 90 cap, 3 Refill(s), Pharmacy: [facility] Start Date: 05/12/22 Status: Ordered ProAir HFA 90 mcg/inh inhalation aerosol 180 mcg 2 puffs, Inhale, As Directed, Take every 4-6 hours as needed for 30 days, # 18 g, 2 Refill(s), Pharmacy: [facility]58, 160, cm, 07/03/22 15:09:00 EDT, Height/Length [...] growing spinal instrumentation with exchange of instrumentation [facility]. 3debridement Social History Social History Type Response Smoking Status Smoking tobacco use: Never tobacco user;Never entered on: 06/22/22 Sex Female Patient Care team information Personnel Name: Luisito Messina NP Address: Address: [address] [address] [place]
--- OUTSIDE RECORDS SUMMARY | 2023-04-06 22:39 | XMS_ITS | Continuity of Care Document ---
Author Name Unknown Organization [facility] Address [address] [place] [address] Care Team Providers Care Shoulder Boner Name Role Phone Sandip Ko Primary Care Physician Encounter [facility] Date(s): 04/02/23 - 04/02/[address] [address] Encounter Diagnosis Seasonal allergic reaction(Discharge Diagnosis) - 04/02/23 Discharge Disposition: Home or Self Care Attending Physician: Jimmy Burt MD Admitting Physician: Jimmy Burt MD Allergies, Adverse Reactions, Alerts Substance Reaction Severity Status GRASS POLLEN-PERENNIAL RYE A ctive POLLEN EXTRACTS Unknown Active Cymbalta Headaches Nausea Vision changs Vertigo Blurry vision Hot flash Dialated pupils Severe Active Assessment and Plan Future Scheduled Tests Laboratory* SARS-CoV-2 Jesus [facility], Semi-Qnt [place] 03/16/23 * Folate Level 03/14/23 * Hemoglobin A1c 01/20/23 Functional Status 04/02/23 Other exposure to Infectious Disease Non e [...] 0 Refill(s) Start Date: 01/16/23 Status: Ordered Claritin 10 mg oral tablet 10 mg = 1 tab, Oral, Daily, # 15 tab, 0 Refill(s), 04/17/23 2:45:00 EDT, Pharmacy: [facility], 160, cm, 04/02/23 2:18:00 EDT, Height/Length Dosing, 80, kg, 04/02/23 2:18:00 EDT, Weight Dosing Start Date: 04/02/23 Stop Date: 04/17/23 Status: Ordered Flovent HFA 110 mcg/inh inhalation aerosol 1 puff, Inhale, BID, for 90 days, # 1 EA, 2 Refill(s), Pharmacy: [facility], 160, cm, 07/03/22 15:09:00 EDT, Height/Length Dosing, 78, kg, 07/03/22 15:09:00 EDT, Weight Dosing Start Date: 07/14/22 Status: Ordered folic acid 1 mg oral tablet 1 mg = 1 tab, Oral, Daily, # 90 tab, 0 Refill(s), Pharmacy: [facility], 160, cm, 03/11/2321:59:00 EDT, Height/Length Dosing, [...] days, # 90 cap, 3 Refill(s), Pharmacy: [facility] Start Date: 05/12/22 Status: Ordered ondansetron 4 mg oral tablet 4 mg = 1 tab, Oral, every 8 hr, # 10 tab, 0 Refill(s), Pharmacy: [facility], 160.02, cm, 12/14/22 16:13:00 EST, Height/Length Dosing, 79.39, kg, 12/14/22 16:13:00 EST, Weight Dosing Start Date: 12/19/22 Status: Ordered ProAir HFA 90 mcg/inh inhalation aerosol 180 mcg 2 puffs, Inhale, As Directed, Take every 4-6 hours as needed for 30 days, # 18 g, 2 Refill(s), Pharmacy: [facility], 160, cm, 07/03/22 15:09:00 EDT, Height/Length [...] growing spinal instrumentation with exchange of instrumentation [facility]. 3debridement Vital Signs Most recent to oldest [Reference Range]: 1 Temperature Temporal Artery [36-38 Deg C ] 36.6 Deg C (04/02/23 2:08 AM) Peripheral Pulse Rate [60-100 bpm] 75 bp m (04/02/23 2:08 AM) Respiratory Rate [12-24 br/min] 18 br/mi n (04/02/23 2:08 AM) Blood Pressure [90-140/60-90 mmHg] 105/7 4mmHg (04/02/23 2:08 AM) Weight Dosing 80.00 kg (04/02/23 2:18 AM) Weight Estimated 80.00 kg (04/02/23 2:08 AM) Height/Length Dosing 160.000 cm (04/02/23 2:18 AM) Height/Length Estimated 160.000 cm (04/02/23 2:08 AM) Social History Social History Type Response Smoking Status Smoking tobacco use: Never tobacco user;Never entered on: 06/22/22 Sex Female Hospital Discharge Instructions Patient Education 04/02/2023 01:45:34 Allergies, Adult Allergies, Adult An allergy is a condition in which the body's defense system (immune system) comes in contact with an allergen and reacts to it. An allergen is anything that causes an allergic reaction. Allergens cause the immune system to make proteins for fighting infections (antibodies). These antibodies cause cells to release chemicals called histamines that set off the symptoms of an allergic reaction. Allergies often affect the nasal passages (allergic rhinitis), eyes (allergic conjunctivitis), skin(atopic dermatitis), and stomach. Allergies can be mild, moderate, or severe. They cannot spread from person to person. Allergies can develop at any age and may be outgrown. What are the causes? This condition is caused by allergens. Common allergens include: ??? Outdoor allergens, such as pollen, car fumes, and mold. ??? Indoor allergens, such as dust, smoke, mold, and pet dander. ??? Other allergens, such as foods, medicines, scents, insect bites or stings, and other skin irritants. What increases the risk? You are more likely to develop this condition if you have: ??? Family members with allergies. ??? Family members who have any condition that may be caused by allergens, such as asthma. This maymake you more likely to have other allergies. What are the signs or symptoms? Symptoms of this condition depend on the severity of the allergy. Mild to moderate symptoms ??? Runny nose, stuffy nose (nasal congestion), or sneezing. ??? Itchy mouth, ears, or throat. ??? A feeling of mucus dripping down the back of your throat (postnasal drip). ??? Sore throat. ??? Itchy, red, watery, or puffy eyes. ??? Skin rash, or itchy, red, swollen areas of skin (hives). ??? Stomach cramps or bloating. Severe symptoms Severe allergies to food, medicine, or insect bites may cause anaphylaxis, which can be life-threatening. Symptoms include: ??? A red (flushed) face. ??? Wheezing or coughing. ??? Swollen lips, tongue, or mouth. ??? Tight or swollen throat. ??? Chest pain or tightness, or rapid heartbeat. ??? Trouble breathing or shortness of breath. ??? Pain in the abdomen, vomiting, or diarrhea. ??? Dizziness or fainting. How is this diagnosed? This condition is diagnosed based on your symptoms, your family and medical history, and a physicalexam. You may also have tests, including: ??? Skin tests to see how your skin reacts to allergens that may be causing your symptoms. Tests include: ??? Skin prick test. For this test, an allergen is introduced to your body through a small opening in the skin. ??? Intradermal skin test. For this test, a small amount of allergen is injected under the first layer of your skin. ??? Patch test. For this test, a small amount of allergen is placed on your skin. The area is covered and then checked after a few days. ??? Blood tests. ??? A challenge test. For this test, you will eat or breathe in a small amount of allergen to see if you have an allergic reaction. You may also be asked to: ??? Keep a food diary. This is a record of all the foods, drinks, and symptoms you have in a day. ??? Try an elimination diet. To do this: ??? Remove certain foods from your diet. ??? Add those foods back one by one to find out if any foods cause an allergic reaction. How is this treated? Treatment for allergies depends on your symptoms. Treatment may include: ??? Cold, wet cloths (cold compresses) to soothe itching and swelling. ??? Eye drops or nasal sprays. ??? Nasal irrigation to help clear your mucus or keep the nasal passages moist. ??? A humidifier to add moisture to the air. ??? Skin creams to treat rashes or itching. ??? Oral antihistamines or other medicines to block the reaction or to treat inflammation. ??? Diet changes to remove foods that cause allergies. ??? Being exposed again and again to tiny amounts of allergens to help you build a defense against it (tolerance). This is called immunotherapy. Examples include: ??? Allergy shot. You receive an injection that contains an allergen. ??? Sublingual immunotherapy. You take a small dose of allergen under your tongue. ??? Emergency injection for anaphylaxis. You give yourself a shot using a syringe (auto-injector) that contains the amount of medicine you need. Your health care provider will teach you how to give yourself an injection. Follow these instructions at home: Medicines ??? Take or apply vloa-rgs-xrzcigv and prescription medicines only as told by your health care provider. ??? Always carry your auto-injector pen if you are at risk of anaphylaxis. Give yourself an injection as told by your health care provider. Eating and drinking ??? Follow instructions from your health care provider about eating or drinking restrictions. ??? Drink enough fluid to keep your urine pale yellow. General instructions ??? Wear a medical alert bracelet or necklace to let others know that you have had anaphylaxis before. ??? Avoid known allergens whenever possible. ??? Keep all follow-up visits as told by your health care provider. This is important. Contact a health care provider if: ??? Your symptoms do not get better with treatment. Get help right away if: ??? You have symptoms of anaphylaxis. These include: ??? Swollen mouth, tongue, or throat. ??? Pain or tightness in your chest. ??? Trouble breathing or shortness of breath. ??? Dizziness or fainting. ??? Severe abdominal pain, vomiting, or diarrhea. These symptoms may represent a serious problem that is an emergency. Do not wait to see if the symptoms will go away. Get medical help right away. Call your local emergency services (911 in the [place] Do not drive yourself to the hospital. Summary ??? Take or apply gtra-fxw-esvijmc and prescription medicines only as told by your health care provider. ??? Avoid known allergens when possible. ??? Always carry your auto-injector pen if you are at risk of anaphylaxis. Give yourself an injection as told by your health care provider. ??? Wear a medical alert bracelet or necklace to let others know that you have had anaphylaxis before. ??? Anaphylaxis is a life-threatening emergency. Get help right away. This information is not intended to replace advice given to you by your health care provider. Make sure you discuss any questions you have with your health care provider. Document Revised: 07/05/2021 Document Reviewed: 09/16/2020 Elsevier Patient Education ?? 2021 Consumer Agent Portal (CAP). Follow Up Care 04/02/2023 02:08:44 With:Sandip Ko MD Address: [address] [address]- When:1 month Physician Emergency department Note * Jimmy Burt MD: PERFORM Event Display: ED Note Physician Authored Date: [id number] ALIVIA WALKER :2000 Age:22 years Sex:Female Visit Date:04/02/2023 Primary Care Physician: Sandip Ko MD Basic Information Time Seen: Jimmy Burt MD / 04/02/2023 02:13 Chief Complaint Patient c/o numbness and tingling in mouth, throat and lips for last 3-4 days with tightness in throat. ??Right side of face felt numb tonight. ??Also for a few days feels right arm itching but no rash there. My chest feels achy. ??I have had cold chills for History Of Present Illness: 22-year-old female past medical history anxiety,??reflux presents with perioral numbness??and??throat tightening??and some intermittent dyspnea over the past 4 days. ??No known sick contacts. ??She presents with her boyfriend who??flew in and they have been together for the past week, however boyfriend has no symptoms.?? No other recent upper respiratory known infection or fever recently. ??No nausea vomiting??or abdominal pain. Review of Systems: Tightness, perioral numbness Physical Exam Vitals & Measurements T:??36.6?C ??(Temporal Artery)?? HR:??75??(Peripheral)?? RR:??18?? BP:??105/74?? SpO2:??99%?? HT:??160.000??cm?? WT:??80.00??kg??(Estimated)?? O2 Therapy:??Room air?? General: Alert and oriented, well nourished,?No??acute distress Eye: PERRL, EOMI,?Normal?conjunctiva HENT: Normocephalic, posterior oropharynx unremarkable Lungs: Clear to auscultation and percussion,?Non-labored?? respiration Heart:?Normal? rate,?Regular??rhythm Skin: Skin is warm, dry and pink,?No??rashes,?No??lesions Psychiatric: Cooperative, appropriate mood and affect Medical Decision Makin-year-old female presents with??perioral numbness and some throat tightening and intermittent dyspnea over the past 4 days. ??No known sick contacts. ??Vitals are normal. ??Patient in no acute distress clinically. ??She is phonating normally. ??Posterior oropharynx unremarkable uvula midline no edema. ??Lung sounds clear bilaterally. ??Patient is not presenting with??an acute??emergent allergicreaction.?? Discussed the possibility of??seasonal allergies coming into play given??that??seasons are changing at this time. ??Recommended Claritin??as needed symptoms. ??Otherwise??etiology of??her symptoms is not entirely clear.?? Discharged stable condition return precautions to the ED and primary care follow-up. Procedure No Qualifying Data Assessment/Plan 1.??Seasonal allergic reaction??J30.2 Ordered: Claritin 10 mg oral tablet, 10 mg = 1 tab, Oral, Daily, # 15 tab, 0 Refill(s), 04/17/23 2:45:00 EDT, Pharmacy: [facility], 160, cm, 04/02/23 2:18:00 EDT, Height/Length Dosing, 80, kg, 04/02/23 2:18:00 EDT, Weight Dosing Discharge Patient, 04/02/23 2:44:00 EDT, Home Independently, Constant Indicator ?? Patient Education Allergies, Adult Follow Up With When Contact Information Sandip Ko MD Within 1 month [place] [phone] Additional Instructions: Medication Reconciliation Changed loratadine (Claritin 10 mg oral tablet)1 tab Oral (given by mouth) every day. Refills: 0. ?? loratadine (loratadine 10 mg oral tablet)Oral (given by mouth). 10 Unknown, 1 Refill(s), Take 10 mgby mouth as needed.. ?? Unchanged acetaminophen (acetaminophen 500 mg oral tablet)1 [...] Directed. 20 mcg/24 hours (7 yrs). ?? montelukast (montelukast 10 mg oral tablet)Oral [...] Unknown. Cause of : Electronically Signed on 04/02/23 02:45 AM Jimmy Burt MD Emergency department Discharge instructions * Jimmy Burt MD: PERFORM Event Display: ED Discharge Information Authored Date: [id number] ALIVIA WALKER Loree :2000 Age:22 years Sex:Female Visit Date:04/02/2023 Primary Care Physician: Sandip Ko MD Discharge Instructions We would like to thank you for allowing us to assist you with your healthcare needs. The following includes patient education materials and information regarding your injury/illness. Diagnosis from Today's Visit Seasonal allergic reaction Discharge Vitals Temperature??(Temporal Artery) 97.9 ??F (36.6 ??C) Heart Rate??(Peripheral) 75 Respiratory Rate?? 18 Blood Pressure?? 105/74?? Height?? 62.99 in (160.000 cm) Weight??(Estimated) 176.40 lb (80.00 kg) Allergies Cymbalta??(Headaches, Nausea, Vision changs, Vertigo, Blurry vision, Hot flash, Dialated pupils) POLLEN EXTRACTS GRASS POLLEN-PERENNIAL RYE What to Do Next You Need to Schedule the Following Appointments Follow Up with??Sandip Ko MD When:??Within 1 month Where: [address] [address]- You were treated today on an emergency [...] How Much When Why Instructions Next Dose Changed loratadine (Claritin 10 mg oral tablet) 1 tab Oral (given by mouth) Every day Seasonal allergic reaction Pickup at [facility] Changed loratadine (loratadine 10 mg oral tablet) Oral (given by mouth) 10 Unknown, 1 Refill(s), Take 10 mg by mouth as needed. ?? Unchanged acetaminophen (acetaminophen 500 mg oral tablet) [...] mcg/ 24 hours (7 yrs) ?? Unchanged montelukast (montelukast 10 mg oral tablet) Oral (given by mouth) 10 Unknown, 1 Refill(s), Take 10 mg by mouth. ?? Unchanged omeprazole (omeprazole 40 mg oral delayed release capsule) 1 Capsules Oral (given by mouth) Every day for 30 days ?? Unchanged ondansetron (ondansetron 4 mg oral tablet) 1 tab Oral (given by mouth) Every 8 hours Nausea Epigastric pain Pharmacy Information [facility]: [address], [place] [id number] [phone] [employer] Allergies, Adult An allergy is a condition in which the body's defense system (immune system) comes in contact with an allergen and reacts to it. An allergen is anything that causes an allergic reaction. Allergens cause the immune system to make proteins for fighting infections (antibodies). These antibodies cause cells to release chemicals called histamines that set off the symptoms of an allergic reaction. Allergies often affect the nasal passages (allergic rhinitis), eyes (allergic conjunctivitis), skin(atopic dermatitis), and stomach. Allergies can be mild, moderate, or severe. They cannot spread from person to person. Allergies can develop at any age and may be outgrown. What are the causes? This condition is caused by allergens. Common allergens include: ? Outdoor allergens, such as pollen, car fumes, and mold. ? Indoor allergens, such as dust, smoke, mold, and pet dander. ? Other allergens, such as foods, medicines, scents, insect bites or stings, and other skin irritants. What increases the risk? You are more likely to develop this condition if you have: ? Family members with allergies. ? Family members who have any condition that may be caused by allergens, such as asthma. This may make you more likely to have other allergies. What are the signs or symptoms? Symptoms of this condition depend on the severity of the allergy. Mild to moderate symptoms ? Runny nose, stuffy nose (nasal congestion), or sneezing. ? Itchy mouth, ears, or throat. ? A feeling of mucus dripping down the back of your throat (postnasal drip). ? Sore throat. ? Itchy, red, watery, or puffy eyes. ? Skin rash, or itchy, red, swollen areas of skin (hives). ? Stomach cramps or bloating. Severe symptoms Severe allergies to food, medicine, or insect bites may cause anaphylaxis, which can be life-threatening. Symptoms include: ? A red (flushed) face. ? Wheezing or coughing. ? Swollen lips, tongue, or mouth. ? Tight or swollen throat. ? Chest pain or tightness, or rapid heartbeat. ? Trouble breathing or shortness of breath. ? Pain in the abdomen, vomiting, or diarrhea. ? Dizziness or fainting. How is this diagnosed? This condition is diagnosed based on your symptoms, your family and medical history, and a physicalexam. You may also have tests, including: ? Skin tests to see how your skin reacts to allergens that may be causing your symptoms. Tests include: ? Skin prick test. For this test, an allergen is introduced to your body through a small opening in the skin. ? Intradermal skin test. For this test, a small amount of allergen is injected under the first layer of your skin. ? Patch test. For this test, a small amount of allergen is placed on your skin. The area is covered and then checked after a few days. ? Blood tests. ? A challenge test. For this test, you will eat or breathe in a small amount of allergen to see if you have an allergic reaction. You may also be asked to: ? Keep a food diary. This is a record of all the foods, drinks, and symptoms you have in a day. ? Try an elimination diet. To do this: ? Remove certain foods from your diet. ? Add those foods back one by one to find out if any foods cause an allergic reaction. How is this treated? Treatment for allergies depends on your symptoms. Treatment may include: ? Cold, wet cloths (cold compresses) to soothe itching and swelling. ? Eye drops or nasal sprays. ? Nasal irrigation to help clear your mucus or keep the nasal passages moist. ? A humidifier to add moisture to the air. ? Skin creams to treat rashes or itching. ? Oral antihistamines or other medicines to block the reaction or to treat inflammation. ? Diet changes to remove foods that cause allergies. ? Being exposed again and again to tiny amounts of allergens to help you build a defense against it (tolerance). This is called immunotherapy. Examples include: ? Allergy shot. You receive an injection that contains an allergen. ? Sublingual immunotherapy. You take a small dose of allergen under your tongue. ? Emergency injection for anaphylaxis. You give yourself a shot using a syringe (auto-injector) that contains the amount of medicine you need. Your health care provider will teach you how to give yourself an injection. Follow these instructions at home: Medicines ? Take or apply mjpl-ges-ymucmjm and prescription medicines only as told by your health care provider. ? Always carry your auto-injector pen if you are at risk of anaphylaxis. Give yourself an injection as told by your health care provider. Eating and drinking ? Follow instructions from your health care provider about eating or drinking restrictions. ? Drink enough fluid to keep your urine pale yellow. General instructions ? Wear a medical alert bracelet or necklace to let others know that you have had anaphylaxis before. ? Avoid known allergens whenever possible. ? Keep all follow-up visits as told by your health care provider. This is important. Contact a health care provider if: ? Your symptoms do not get better with treatment. Get help right away if: ? You have symptoms of anaphylaxis. These include: ? Swollen mouth, tongue, or throat. ? Pain or tightness in your chest. ? Trouble breathing or shortness of breath. ? Dizziness or fainting. ? Severe abdominal pain, vomiting, or diarrhea. These symptoms may represent a serious problem that is an emergency. Do not wait to see if the symptoms will go away. Get medical help right away. Call your local emergency services (911 in the [place] Do not drive yourself to the hospital. Summary ? Take or apply usve-mpv-blcufpn and prescription medicines only as told by your health care provider. ? Avoid known allergens when possible. ? Always carry your auto-injector pen if you are at risk of anaphylaxis. Give yourself an injection as told by your health care provider. ? Wear a medical alert bracelet or necklace to let others know that you have had anaphylaxis before. ? Anaphylaxis is a life-threatening emergency. Get help right away. This information is not intended to replace advice given to you by your health care provider. Make sure you discuss any questions you have with your health care provider. Document Revised: 07/05/2021 Document Reviewed: 09/16/2020 Elsevier Patient Education ?? 2021 Elsevier Inc. Patient/Air Quality Manager Signature Patient Name:ALIVIA WALKER I have received this information and my questions have been answered. Patient/Air Quality Manager Name: Patient/Air Quality Manager Signature: Relationship to Patient: Witness Name/Signature: Date: Electronically Signed on: 04/02/2023 02:45 EDTSigned by:TRM Patient Care team information Care Team Personnel Name: Sandip Ko MD Position: Physician Member Role: Informed Provider Address: Address: [address] [address] Name: rCisty Jimenes Position: No Access Member Role: Nurse Practitioner Address: Address: [address] [place] [id number] Name: Jimmy Burt MD Position: Physician Member Role: Attending Physician Address: Address: [facility] [address] [place] [address]- Name: Kristine Parks Position: Nurse Member Role: ED Nurse Care Team Related Persons Name: TAMEKA WALKER Address: Home [address] [place], [phone] Name: WON WALKER Address: Home [address] [place], [phone] Name: HOLLY HALL Name: HOLLY MEJIA
--- OUTSIDE RECORDS SUMMARY | 2023-04-06 22:39 | XMS_ITS | Continuity of Care Document ---
Author Name Unknown Organization [facility] Address [address] [place] [address] Care Team Providers Care Nurses' Association Counselor Name Role Phone Luisito Messina Primary Care Physician [facility] Date[facility] 09/13/22 - 09/13/[address] [address] Encounter Diagnosis Pain in the abdomen(Discharge Diagnosis) - 09/13/22 Discharge Disposition: Home or Self Care Attending Physician: Jimmy Burt MD Admitting Physician: Jimmy Burt MD Allergies, Adverse Reactions, Alerts Substance Reaction Severity Status GRASS POLLEN-PERENNIAL RYE A ctive POLLEN EXTRACTS Unknown Active Cymbalta Headaches Nausea Vision changs Vertigo Blurry vision Hot flash Dialated pupils Severe Active Assessment and Plan Future Appointments Functional Status 09/13/22 Other exposure to Infectious Disease Non e Immunizations Given and Recorded Vaccine Date Status Refusal Reason SARS-CoV-2 (COVID-19) [id number] vaccine 11/11/21 R ecorded influenza virus vaccine, live 1 10/29/19 Recorded influenza virus vaccine, live 09/14/18 Recorded meningococcal conjugate vaccine 09/14/18 Recorded meningococcal conjugate vaccine 02/10/15 Recorded HPV, unspecified formulation 02/02/17 Recorded HPV, unspecified formulation 07/28/16 Recorded influenza virus vaccine, inactivated 01/06/15 Clarenec rded influenza virus vaccine, inactivated 11/21/12 Clarence [...] days, # 1 EA, 2 Refill(s), Pharmacy: [facility], 160, cm, 07/03/22 15:09:00 EDT, Height/Length [...] days, # 90 cap, 3 Refill(s), Pharmacy: [facility] Start Date: 05/12/22 Status: Ordered ProAir HFA 90 mcg/inh inhalation aerosol 180 mcg 2 puffs, Inhale, As Directed, Take every 4-6 hours as needed for 30 days, # 18 g, 2 Refill(s), Pharmacy: [facility], 160, cm, 07/03/22 15:09:00 EDT, Height/Length [...] growing spinal instrumentation with exchange of instrumentation [facility]. 3debridement Results Laboratory List Name Date Test Urine Qual 09/13/22 Urinalysis with Micro if Indicated and C ulture if Indicated 09/13/22 Most recent to oldest [Reference Range]: 1 UA Color Yellow (09/13/22 9:20 PM) UA Urobilinogen Positive *ABN* (09/13/22 9:20 PM) UA Bili [Negative] Negative (09/13/22 9:20 PM) UA Ketones Negative (09/13/22 9:20 PM) UA Leuk Est Negative (09/13/22 9:20 PM) UA Nitrite Negative (09/13/22 9:20 PM) UA Glucose [Negative] Negative (09/13/22 9:20 PM) UA Protein Negative (09/13/22 9:20 PM) UA Blood Negative (09/13/22 9:20 PM) UA Spec Grav 1.015 *NA* (09/13/22 9:20 PM) UA pH 7.0 *NA* (09/13/22 9:20 PM) UA Appear Clear (09/13/22 9:20 PM) U hCG Ql Negative (09/13/22 9:20 PM) Vital Signs Most recent to oldest [Reference Range]: 1 Temperature Temporal Artery [36-38 Deg C ] 36.7 Deg C (09/13/22 8:57 PM) Peripheral Pulse Rate [60-100 bpm] 101 b pm *HI* (09/13/22 8:57 PM) Respiratory Rate [12-24 br/min] 18 br/mi n (09/13/22 8:57 PM) Blood Pressure [90-140/60-90 mmHg] 111/9 2mmHg (09/13/22 8:57 PM) Weight Dosing 78.02 kg (09/13/22 9:01 PM) Weight Estimated 78.02 kg (09/13/22 8:57 PM) Height/Length Dosing 160.020 cm (09/13/22 9:01 PM) Height/Length Estimated 160.020 cm (09/13/22 8:57 PM) Social History Social History Type Response Smoking Status Smoking tobacco use: Never tobacco user;Never entered on: 06/22/22 Sex Female Hospital Discharge Instructions Patient Education 09/13/2022 21:59:03 Abdominal Pain, Adult Abdominal Pain, Adult Pain in the abdomen (abdominal pain) can be caused by many things. Often, abdominal pain is not serious and it gets better with no treatment or by being treated at home. However, sometimes abdominal pain is serious. Your health care provider will ask questions about your medical history and do a physical exam to try to determine the cause of your abdominal pain. Follow these instructions at home: Medicines ??? Take wyts-cqb-jmzzvvx and prescription medicines only as told by your health care provider. ??? Do not take a laxative unless told by your health care provider. General instructions ??? Watch your condition for any changes. ??? Drink enough fluid to keep your urine pale yellow. ??? Keep all follow-up visits as told by your health care provider. This is important. Contact a health care provider if: ??? Your abdominal pain changes or gets worse. ??? You are not hungry or you lose weight without trying. ??? You are constipated or have diarrhea for more than 2???3 days. ??? You have pain when you urinate or have a bowel movement. ??? Your abdominal pain wakes you up at night. ??? Your pain gets worse with meals, after eating, or with certain foods. ??? You are vomiting and cannot keep anything down. ??? You have a fever. ??? You have blood in your urine. Get help right away if: ??? Your pain does not go away as soon as your health care provider told you to expect. ??? You cannot stop vomiting. ??? Your pain is only in areas of the abdomen, such as the right side or the left lower portion of the abdomen. Pain on the right side could be caused by appendicitis. ??? You have bloody or black stools, or stools that look like tar. ??? You have severe pain, cramping, or bloating in your abdomen. ??? You have signs of dehydration, such as: ??? Dark urine, very little urine, or no urine. ??? Cracked lips. ??? Dry mouth. ??? Sunken eyes. ??? Sleepiness. ??? Weakness. ??? You have trouble breathing or chest pain. Summary ??? Often, abdominal pain is not serious and it gets better with no treatment or by being treated at home. However, sometimes abdominal pain is serious. ??? Watch your condition for any changes. ??? Take secb-ype-xcskvtn and prescription medicines only as told by your health care provider. ??? Contact a health care provider if your abdominal pain changes or gets worse. ??? Get help right away if you have severe pain, cramping, or bloating in your abdomen. This information is not intended to replace advice given to you by your health care provider. Make sure you discuss any questions you have with your health care provider. Document Revised: 12/25/2020 Document Reviewed: 03/16/2020 Elsevier Patient Education ?? 2021 [employer] Follow Up Care 09/13/2022 20:57:03 With:uLisito Messina NP Address: [address] [address]- When:1 month Patient Care team information Personnel Name: Luisito Messina NP Address: Address: [id number] [place] [address]
--- OUTSIDE RECORDS SUMMARY | 2023-04-06 22:40 | XMS_ITS | Continuity of Care Document ---
Author Name Unknown Organization [facility] Address [address] [place] [address] Care Team Providers Care Food Inspector Name Role Phone Sandip Ko Primary Care Physician [facility] Date[facility] 12[facility] - 12/14/[address] [address] Encounter Diagnosis Lower abdominal pain(Discharge Diagnosis) - 12/14/22 Discharge Disposition: Home or Self Care Attending Physician: Lani Barahona MD Admitting Physician: Lani Barahona MD Allergies, Adverse Reactions, Alerts Substance Reaction Severity Status GRASS POLLEN-PERENNIAL RYE A ctive POLLEN EXTRACTS Unknown Active Cymbalta Headaches Nausea Vision changs Vertigo Blurry vision Hot flash Dialated pupils Severe Active Assessment and Plan Future Appointments Immunizations Given and Recorded Vaccine Date Status Refusal Reason SARS-CoV-2 (COVID-19) mRNA-[id number] vaccine 11/11/21 R ecorded influenza virus vaccine, [...] 02 Recorded 1Result Comment: Tolerated well Medications amitriptyline 10 mg oral tablet 60 EA, TAKE ONE TABLET BY MOUTH EVERY EVENING FOR 7 DAYS THEN 2 EVERY EVENING, 0 Refill(s) Start Date: 12/01/22 Status: Ordered busPIRone 5 mg oral tablet 60 EA, TAKE ONE TABLET BY MOUTH TWICE A DAY WITH BREAKFAST AND LUNCH, 0 Refill(s) Start Date: 12/01/22 Status: Ordered Claritin 10 mg oral tablet 10 mg = 1 tab, Oral, Daily, 0 Refill(s) Start Date: 04/04/22 Status: Ordered clonazePAM 0.5 mg oral tablet 0 Refill(s) Start Date: 11/05/22 Status: Ordered Flovent HFA 110 mcg/inh inhalation aerosol 1 puff, Inhale, BID, for 90 days, # 1 EA, 2 Refill(s), Pharmacy: [facility], 160, cm, 07/03/22 15:09:00 EDT, Height/Length [...] days, # 90 cap, 3 Refill(s), Pharmacy: [facility] Start Date: 05/12/22 Status: Ordered ProAir HFA 90 mcg/inh inhalation aerosol 180 mcg 2 puffs, Inhale, As Directed, Take every 4-6 hours as needed for 30 days, # 18 g, 2 Refill(s), Pharmacy: [facility], 160, cm, 07/03/22 15:09:00 EDT, Height/Length [...] growing spinal instrumentation with exchange of instrumentation [facility]. 3debridement Results Laboratory List Name Date Test Urine Qual 12/14/22 CBC w/ Diff 12/14/22 Comprehensive Metabolic Panel 12/14/22 Lipase Level 12/14/22 Automated Diff 12/14/22 Urinalysis Microscopic 12/14/22 Urinalysis with Micro if Indicated and C ulture if Indicated 12/14/22 Most recent to oldest [Reference Range]: 1 WBC [5.0-10.0 x10^3/mcL] 8.8 x10^3/mcL (12/14/22 5:45 PM) RBC [4.1-5.3 x10^6/mcL] 5.0 x10^6/mcL (12/14/22 5:45 PM) Neutro Auto [40.0-75.0 %] 70.7 % (12/14/22 5:45 PM) Lymph Auto [20.0-50.0 %] 22.0 % (12/14/22 5:45 PM) [place] Auto [2.0-15.0 %] 5.9 % (12/14/22 5:45 PM) Basophil Auto [0.0-1.0 %] 0.2 % (12/14/22 5:45 PM) BUN [7-18 mg/dL] 9 mg/dL (12/14/22 5:45 PM) UA Color Yellow (12/14/22 5:00 PM) UA WBC [0-3] 0-3 (12/14/22 5:00 PM) Glucose Level [74-106 mg/dL] 87 mg/dL (12/14/22 5:45 PM) Potassium Level [3.5-5.1 mmol/L] 3.7 mmo l/L (12/14/22 5:45 PM) MCV [80.0-96.0] 85.5 (12/14/22 5:45 PM) UA Urobilinogen Positive *ABN* (12/14/22 5:00 PM) UA Bili [Negative] 1+ *ABN* (12/14/22 5:00 PM) UA Ketones Negative (12/14/22 5:00 PM) AST [15-37 unit/L] 17 unit/L (12/14/22 5:45 PM) ALT [14-59 unit/L] 18 unit/L (12/14/22 5:45 PM) MCHC [31.0-35.0 g/dL] 32.3 g/dL (12/14/22 5:45 PM) Sodium Level [136-145 mmol/L] 140 mmol/L (12/14/22 5:45 PM) UA RBC [0-2] 0-2 (12/14/22 5:00 PM) UA Leuk Est Negative (12/14/22 5:00 PM) UA Nitrite Negative (12/14/22 5:00 PM) UA Glucose [Negative] Negative (12/14/22 5:00 PM) Hct [37.0-47.0 %] 43.1 % (12/14/22 5:45 PM) UA Bacteria Rare /HPF (12/14/22 5:00 PM) Lipase Level [16-77 unit/L] 39 unit/L (12/14/22 5:45 PM) Calcium Level [8.5-10.1 mg/dL] 9.4 mg/dL (12/14/22 5:45 PM) Albumin Level [3.4-5.0 g/dL] 3.9 g/dL (12/14/22 5:45 PM) Protein Total [6.4-8.2 g/dL] 8.4 g/dL *HI* (12/14/22 5:45 PM) UA Protein Trace *ABN* (12/14/22 5:00 PM) MCH [26.0-32.0 pg] 27.6 pg (12/14/22 5:45 PM) Neutro Absolute 6.2 x10^3/mcL *NA* (12/14/22 5:45 PM) Bilirubin Total [0.2-1.0 mg/dL] 0.5 mg/d L (12/14/22 5:45 PM) Hgb [12.0-16.0 g/dL] 13.9 g/dL (12/14/22 5:45 PM) Alk Phos [46-146 unit/L] 83 unit/L (12/14/22 5:45 PM) UA Blood Negative (12/14/22 5:00 PM) UA Mucous None Seen /HPF (12/14/22 5:00 PM) UA Spec Grav >=1.030 *NA* (12/14/22 5:00 PM) Platelets [130-450 x10^3/mcL] 292 x10^3/ mcL (12/14/22 5:45 PM) CO2 [21-32 mmol/L] 29 mmol/L (12/14/22 5:45 PM) UA Squam Epithelial [None Seen] Rare (12/14/22 5:00 PM) UA pH 5.5 *NA* (12/14/22 5:00 PM) eGFR Non-AA [>=60] 119 (12/14/22 5:45 PM) eGFR AA [>=60] 119 (12/14/22 5:45 PM) UA Appear Cloudy *ABN* (12/14/22 5:00 PM) Chloride Level [98-107 mmol/L] 102 mmol/ L (12/14/22 5:45 PM) RDW-CV [11.7-17.0 %] 12.4 % (12/14/22 5:45 PM) Imm Gran Auto [0.0-0.9 %] 0.2 % (12/14/22 5:45 PM) UA Culture Ind?. Not Indicated (12/14/22 5:00 PM) UA Amorph Moderate /HPF (12/14/22 5:00 PM) Creatinine Level [0.55-1.02 mg/dL] 0.74 mg/dL (12/14/22 5:45 PM) Eos, Auto [1.0-6.0 %] 1.0 % (12/14/22 5:45 PM) U hCG Ql Negative (12/14/22 6:15 PM) Vital Signs Most recent to oldest [Reference Range]: 1 Temperature Temporal Artery [36-38 Deg C ] 36.3 Deg C (12/14/22 4:03 PM) Peripheral Pulse Rate [60-100 bpm] 91 bp m (12/14/22 4:03 PM) Respiratory Rate [12-24 br/min] 16 br/mi n (12/14/22 4:03 PM) Blood Pressure [90-140/60-90 mmHg] 110/8 9mmHg (12/14/22 4:03 PM) Weight Dosing 79.39 kg (12/14/22 4:13 PM) Weight Estimated 79.39 kg (12/14/22 4:03 PM) Height/Length Dosing 160.020 cm (12/14/22 4:13 PM) Height/Length Estimated 160.020 cm (12/14/22 4:03 PM) Social History Social History Type Response Smoking Status Smoking tobacco use: Never tobacco user;Never entered on: 06/22/22 Sex Female Hospital Discharge Instructions Patient Education 12/14/2022 19:11:02 Abdominal Pain, Adult Abdominal Pain, Adult Pain [...] these instructions at home: Medicines ??? Take ofzi-wuj-lbddnrk and prescription medicines only as told by [...] your condition for any changes. ??? Take fgof-xhv-zlljkmd and prescription medicines only as told by [...] Reviewed: 03/16/2020 Elsevier Patient Education ?? 2021 [employer]. Follow Up Care 12/14/2022 16:03:46 With:Sandip Ko MD Address: [address] [address]- When:2 to 4 days Emergency department Discharge instructions * Enoch Monique MD: PERFORM Event Display: ED Discharge Information Authored Date: ALIVIA WALKER oLree :2000 Age:22 years Sex:Female Visit Date:12/14/2022 Primary Care Physician: Sandip Ko MD Discharge Instructions We would like to thank you for allowing us to assist you with your healthcare needs. The following includes patient education materials and information regarding your injury/illness. Diagnosis from Today's Visit Lower abdominal pain Discharge Vitals Temperature??(Temporal Artery) 97.3 ??F (36.3 ??C) Heart Rate??(Peripheral) 91 Respiratory Rate?? 16 Blood Pressure?? 110/89?? Height?? 63.00 in (160.020 cm) Weight??(Estimated) 175.05 lb (79.39 kg) Allergies Cymbalta??(Headaches, Nausea, Vision changs, Vertigo, Blurry vision, Hot flash, Dialated pupils) POLLEN EXTRACTS GRASS POLLEN-PERENNIAL RYE What to Do Next Instructions from Your Care Team Thank you for coming to the emergency department tonight, it has been a pleasure to take care of you. ??As we discussed, thankfully your CT scan and labs tonight were generally reassuring. ??They didnot see signs of??an obvious issue with the ovary or signs of appendicitis.?? We have placed an order for a pelvic ultrasound tomorrow to further evaluate your symptoms. ??Please follow-up with your primary doctor soon as you are left of test for results.?? Please return to the emergency departmentif you have any new or concerning symptoms including any worsening or uncontrolled pain,??fever,??significant nausea or vomiting, or if you have any other symptoms or concerns. You Need to Schedule the Following Appointments Follow Up with??Sandip Ko MD When:??Within 2 to 4 days Where: [facility] [place] [phone]- Upcoming Scheduled Appointments Monday 1:30 PM EST ?? 2022 2:40 PM EST ?? You were treated [...] as needed for 30 days ?? Unchanged amitriptyline (amitriptyline 10 mg oral tablet) 60 EA, TAKE ONE TABLET BY MOUTH EVERY EVENING FOR 7 DAYS THEN 2 EVERY EVENING ?? Unchanged busPIRone (busPIRone 5 mg oral tablet) 60 EA, TAKE ONE TABLET BY MOUTH TWICE A DAY WITH BREAKFAST AND LUNCH ?? Unchanged clonazePAM (clonazePAM 0.5 mg oral [...] day for 30 days ?? Education Materials Abdominal Pain, Adult Pain in the abdomen [...] pain. Follow these instructions at home: Medicines ? Take tzbq-rkv-nxcyfbx and prescription medicines only as told by your health care provider. ? Do not take a laxative unless told by your health care provider. General instructions ? Watch your condition for any changes. ? Drink enough fluid to keep your urine pale yellow. ? Keep all follow-up visits as told by your health care provider. This is important. Contact a health care provider if: ? Your abdominal pain changes or gets worse. ? You are not hungry or you lose weight without trying. ? You are constipated or have diarrhea for more than 2???3 days. ? You have pain when you urinate or have a bowel movement. ? Your abdominal pain wakes you up at night. ? Your pain gets worse with meals, after eating, or with certain foods. ? You are vomiting and cannot keep anything down. ? You have a fever. ? You have blood in your urine. Get help right away if: ? Your pain does not go away as soon as your health care provider told you to expect. ? You cannot stop vomiting. ? Your pain is only in areas of the abdomen, such as the right side or the left lower portion of the abdomen. Pain on the right side could be caused by appendicitis. ? You have bloody or black stools, or stools that look like tar. ? You have severe pain, cramping, or bloating in your abdomen. ? You have signs of dehydration, such as: ? Dark urine, very little urine, or no urine. ? Cracked lips. ? Dry mouth. ? Sunken eyes. ? Sleepiness. ? Weakness. ? You have trouble breathing or chest pain. Summary ? Often, abdominal pain is not serious and it gets better with no treatment or by being treated at home. However, sometimes abdominal pain is serious. ? Watch your condition for any changes. ? Take aoir-ojc-sphchjx and prescription medicines only as told by your health care provider. ? Contact a health care provider if your abdominal pain changes or gets worse. ? Get help right away if you have severe pain, cramping, or bloating in your abdomen. This information is not intended to replace advice given to you by your health care provider. Make sure you discuss any questions you have with your health care provider. Document Revised: 12/25/2020 Document Reviewed: 03/16/2020 [place] Patient Education ?? 2021 [employer]. Tests Performed Lab Test Name Test Result Date/Time WBC 8.8 x10^3/mcL 12/14/2022 17:45 EST RBC 5.0 x10^6/mcL 12/14/2022 17:45 EST Hgb 13.9 g/dL 12/14/2022 17:45 EST Hct 43.1 % 12/14/2022 17:45 EST MCV 85.5 12/14/2022 17:45 EST MCH 27.6 pg 12/14/2022 17:45 EST MCHC 32.3 g/dL 12/14/2022 17:45 EST RDW-CV 12.4 % 12/14/2022 17:45 EST Platelets 292 x10^3/mcL 12/14/2022 17:45 EST Neutro Auto 70.7 % 12/14/2022 17:45 EST Lymph Auto 22.0 % 12/14/2022 17:45 EST [place] Auto 5.9 % 12/14/2022 17:45 EST Eos, Auto 1.0 % 12/14/2022 17:45 EST Basophil Auto 0.2 % 12/14/2022 17:45 EST Imm Gran Auto 0.2 % 12/14/2022 17:45 EST Neutro Absolute 6.2 x10^3/mcL 12/14/2022 17:45 EST Sodium Level 140 mmol/L 12/14/2022 17:45 EST Potassium Level 3.7 mmol/L 12/14/2022 17:45 EST Chloride Level 102 mmol/L 12/14/2022 17:45 EST CO2 29 mmol/L 12/14/2022 17:45 EST Alk Phos 83 unit/L 12/14/2022 17:45 EST AST 17 unit/L 12/14/2022 17:45 EST ALT 18 unit/L 12/14/2022 17:45 EST BUN 9 mg/dL 12/14/2022 17:45 EST Glucose Level 87 mg/dL 12/14/2022 17:45 EST Creatinine Level 0.74 mg/dL 12/14/2022 17:45 EST eGFR AA 119 12/14/2022 17:45 EST eGFR Non-AA 119 12/14/2022 17:45 EST Calcium Level 9.4 mg/dL 12/14/2022 17:45 EST Protein Total 8.4 g/dL 12/14/2022 17:45 EST Albumin Level 3.9 g/dL 12/14/2022 17:45 EST Bilirubin Total 0.5 mg/dL 12/14/2022 17:45 EST Lipase Level 39 unit/L 12/14/2022 17:45 EST U hCG Ql NEGATIVE 12/14/2022 18:15 EST UA Color YELLOW. 12/14/2022 17:00 EST UA Appear CLOUDY. 12/14/2022 17:00 EST UA Glucose NEGATIVE 12/14/2022 17:00 EST UA Bili 1+ 12/14/2022 17:00 EST UA Ketones NEGATIVE 12/14/2022 17:00 EST UA Spec Grav >=1.030 12/14/2022 17:00 EST UA Blood NEGATIVE 12/14/2022 17:00 EST UA pH 5.5 12/14/2022 17:00 EST UA Protein TRACE. 12/14/2022 17:00 EST UA Urobilinogen 1.0 Uro 12/14/2022 17:00 EST UA Nitrite NEGATIVE 12/14/2022 17:00 EST UA Leuk Est NEGATIVE 12/14/2022 17:00 EST UA Culture Ind?. Not Indicated 12/14/2022 17:00 EST UA WBC 0-3 12/14/2022 17:00 EST UA RBC 0-2 12/14/2022 17:00 EST UA Squam Epithelial Rare 12/14/2022 17:00 EST UA Mucous None Seen 12/14/2022 17:00 EST UA Bacteria Rare 12/14/2022 17:00 EST UA Amorph Moderate 12/14/2022 17:00 EST Patient/Solid Propellant Processor Signature Patient Name:ALIVIA WALKER I have received this information and my questions have been answered. Patient/Solid Propellant Processor Name: Patient/Solid Propellant Processor Signature: Relationship to Patient: Witness Name/Signature: Date: Electronically Signed on: 12/14/2022 20:12 ESTSigned by:ROME Emergency department Note * Marian Flores A: PERFORM Event Display: ED Notes Authored Date: * Marian Flores A: PERFORM Event Display: ED Notes Authored Date: Patient Care team information Personnel Name: Sandip Ko MD Address: Address: [address]
--- OUTSIDE RECORDS SUMMARY | 2023-04-06 22:40 | XMS_ITS | Continuity of Care Document ---
Author Name Unknown Organization [facility] Address [address] [place] [address] Care Team Providers Care Death Claim Clerk Name Role Phone Luisito Messina Primary Care Physician Encounter [facility] Date(s): 11/29/22 - 11/29/[address] [address] Discharge Disposition: Home or Self Care Attending Physician: Maria Victoria George MD Admitting Physician: Maria Victoria George MD Allergies, Adverse Reactions, Alerts Substance Reaction Severity Status GRASS POLLEN-PERENNIAL RYE A ctive POLLEN EXTRACTS Unknown Active Cymbalta Headaches Nausea Vision changs Vertigo Blurry vision Hot flash Dialated pupils Severe Active Assessment and Plan Future Appointments Functional Status 11/29/22 Recent Travel History Last travel within 7 days Other exposure to Infectious Disease COV ID-19 Symptoms Present Immunizations Given and Recorded Vaccine Date Status [...] days, # 1 EA, 2 Refill(s), Pharmacy: [facility], 160, cm, 07/03/22 15:09:00 EDT, Height/Length [...] days, # 90 cap, 3 Refill(s), Pharmacy: [facility] Start Date: 05/12/22 Status: Ordered ProAir HFA 90 mcg/inh inhalation aerosol 180 mcg 2 puffs, Inhale, As Directed, Take every 4-6 hours as needed for 30 days, # 18 g, 2 Refill(s), Pharmacy: [facility], 160, cm, 07/03/22 15:09:00 EDT, Height/Length [...] growing spinal instrumentation with exchange of instrumentation [facility]. 3debridement Results Laboratory List Name Date CBC w/o Diff (CBC) 11/29/22 SARS-CoV-2 (COVID-19)/Flu/RSV (GeneXpert ) (COVID-19/Flu/RSV (GeneXpert)) 11/29/22 Strep A (ID NOW) 11/29/22 Most recent to oldest [Reference Range]: 1 WBC [5.0-10.0 x10^3/mcL] 9.6 x10^3/mcL (11/29/22 7:57 PM) RBC [4.1-5.3 x10^6/mcL] 4.7 x10^6/mcL (11/29/22 7:57 PM) MCV [80.0-96.0] 87.9 (11/29/22 7:57 PM) MCHC [31.0-35.0 g/dL] 31.7 g/dL (11/29/22 7:57 PM) Hct [37.0-47.0 %] 41.6 % (11/29/22 7:57 PM) MCH [26.0-32.0 pg] 27.9 pg (11/29/22 7:57 PM) Hgb [12.0-16.0 g/dL] 13.2 g/dL (11/29/22 7:57 PM) Platelets [130-450 x10^3/mcL] 279 x10^3/ mcL (11/29/22 7:57 PM) RDW-CV [11.7-17.0 %] 12.7 % (11/29/22 7:57 PM) Strep A -IDNOW [Not Detected] Not Detect ed (11/29/22 7:55 PM) Employed in healthcare? No *NA* (11/29/22 7:55 PM) Symptomatic as defined by CDC? No *NA* (11/29/22 7:55 PM) Hospitalized due to COVID-19? No *NA* (11/29/22 7:55 PM) In ICU? No *NA* (11/29/22 7:55 PM) Group care resident? No *NA* (11/29/22 7:55 PM) status? Not *NA* (11/29/22 7:55 PM) SARS-CoV-2(Covid19)PCR(GXpert COVFLURSV) [Negative] Negative (11/29/22 7:55 PM) Flu A (GXpert COVFLURSV) [Negative] Nega tive (11/29/22 7:55 PM) RSV (GXpert COVFLURSV) [Negative] Negati ve (11/29/22 7:55 PM) Flu B (GXpert COVFLURSV) [Negative] Nega tive (11/29/22 7:55 PM) Vital Signs Most recent to oldest [Reference Range]: 1 Temperature Temporal Artery [36-38 Deg C ] 36.1 Deg C (11/29/22 7:09 PM) Peripheral Pulse Rate [60-100 bpm] 88 bp m (11/29/22 7:09 PM) Respiratory Rate [12-24 br/min] 16 br/mi n (11/29/22 7:09 PM) Blood Pressure [90-140/60-90 mmHg] 125/8 9mmHg (11/29/22 7:09 PM) Weight Dosing 81.00 kg (11/29/22 7:15 PM) Weight Estimated 81.00 kg (11/29/22 7:09 PM) Height/Length Dosing 165.000 cm (11/29/22 7:15 PM) Height/Length Estimated 165.000 cm (11/29/22 7:09 PM) Social History Social History Type Response Smoking Status Smoking tobacco use: Never tobacco user;Never entered on: 06/22/22 Sex Female Physician Emergency department Note * Jose Owens MD: PERFORM Event Display: ED Note Physician Authored Date: [id number] MARILYN WALKER :2000 Age:22 years Sex:Female Visit Date:11/29/2022 Primary Care Physician: Luisito Messina BROADCASTER Name: Marilyn Walker CC: Illness HPI: Patient has been ill x3 to 4 days. ??Symptoms are sore throat, ear discomfort, dizziness, leg discomfort, feeling shaky, visual disturbance, fear. Independent History:?? Med/Surg/Fam/Soc Hx: Medical history is positive for temporomandibular joint syndrome, anxiety, visual disturbances. External Notes: Medications: No current prescription medications. ??Stop clonazepam 3 weeks ago. ROS: Negative for fever, chest pain, cough, shortness of breath patient patient does endorse some lower abdominal discomfort. ?? Exam: Patient is anxious. ??She is in no acute distress. ??She converses normally. ??She avoids direct eye contact. ??Respirations are normal chest auscultation is normal. ??Heart auscultation is normal. ??Tympanic membranes show mild fullness. ??Posterior pharynx is normal. ??Finger-nose testing is normal. ??Visual manuel are intact. ??Extraocular motions are normal. ??Patient's gait is normal. Labs: Negative RSV, influenza A, influenza B, COVID, strep. ??Normal CBC. Imaging:?? Independent Test Interpretatiion: ?? Medical Decision Making: ?Problem Complexity: Self-limited minor ?Data Complexity: Low ?Risk of Management: Minimal codin Diff Dx and Evaluation: Patient symptoms are all consistent with a minor viral illness. ED Course:?? Discussion:?? Disposition: Discharge home Impression: Viral syndrome Electronically Signed on 11/29/22 09:03 PM Jose Owens MD * Jose Owens MD: PERFORM Event Display: ED Note Physician Authored Date: [id number] MARILYN WALKER :2000 Age:22 years Sex:Female Visit Date:11/29/2022 Primary Care Physician: Luisito Messina BROADCASTER Name: Marilyn Walker CC: Illness HPI: Patient has been ill x3 to 4 days. ??Symptoms are sore throat, ear discomfort, dizziness, leg discomfort, feeling shaky, visual disturbance, fear. Independent History:?? Med/Surg/Fam/Soc Hx: Medical history is positive for temporomandibular joint syndrome, anxiety, visual disturbances. External Notes: Medications: No current prescription medications. ??Stop clonazepam 3 weeks ago. ROS: Negative for fever, chest pain, cough, shortness of breath patient patient does endorse some lower abdominal discomfort. ?? Exam: Patient is anxious. ??She is in no acute distress. ??She converses normally. ??She avoids direct eye contact. ??Respirations are normal chest auscultation is normal. ??Heart auscultation is normal. ??Tympanic membranes show mild fullness. ??Posterior pharynx is normal. ??Finger-nose testing is normal. ??Visual manuel are intact. ??Extraocular motions are normal. ??Patient's gait is normal. Labs:?? Imaging:?? Independent Test Interpretatiion: ?? Medical Decision Making: ?Problem Complexity: Self-limited minor ?Data Complexity: Low ?Risk of Management: Minimal codin Diff Dx and Evaluation: Patient symptoms are all consistent with a minor viral illness. ED Course:?? Discussion:?? Disposition: Discharge home Impression: Viral syndrome Electronically Signed on 11/29/22 09:00 PM Jose Owens MD Emergency department Discharge instructions * Jose Owens MD: PERFORM Event Display: ED Discharge Information Authored Date: [id number] ROLANDOMYLENE MARILYN Loree :2000 Age:22 years Sex:Female Visit Date:11/29/2022 Primary Care Physician: Luisito Messina BROADCASTER Discharge Instructions We would like to thank you for allowing us to assist you with your healthcare needs. The following includes patient education materials and information regarding your injury/illness. Discharge Vitals Temperature??(Temporal Artery) 97.0 ??F (36.1 ??C) Heart Rate??(Peripheral) 88 Respiratory Rate?? 16 Blood Pressure?? 125/89?? Height?? 64.96 in (165.000 cm) Weight??(Estimated) 178.61 lb (81.00 kg) Allergies Cymbalta??(Headaches, Nausea, Vision changs, Vertigo, Blurry vision, Hot flash, Dialated pupils) POLLEN EXTRACTS GRASS POLLEN-PERENNIAL RYE What to Do Next Instructions from Your Care Team There is??no evidence of a significant infection.?? You do not have COVID, influenza??a, influenza B,??RSV,??strep infection. ??Your white blood cell count is normal indicating??no significant??infection. ?? You do have some??congestion in your ears??which can give you a sense of??dizziness.?? It is best addressed with an iith-sqv-dclmuyb decongestion. ?? The achiness in your legs is best addressed with some Tylenol and/or ibuprofen??and rest. ?? There should be gradual improvement. ?? Jose Owens MD Upcoming Scheduled Appointments Monday 2:00 PM EST ?? Monday 1:40 PM EST ?? You were treated today [...] mouth) Every day for 30 days ?? Tests Performed Lab Test Name Test Result Date/Time WBC 9.6 x10^3/mcL 11/29/2022 19:57 EST RBC 4.7 x10^6/mcL 11/29/2022 19:57 EST Hgb 13.2 g/dL 11/29/2022 19:57 EST Hct 41.6 % 11/29/2022 19:57 EST MCV 87.9 11/29/2022 19:57 EST MCH 27.9 pg 11/29/2022 19:57 EST MCHC 31.7 g/dL 11/29/2022 19:57 EST RDW-CV 12.7 % 11/29/2022 19:57 EST Platelets 279 x10^3/mcL 11/29/2022 19:57 EST Strep A -IDNOW Not Detected 11/29/2022 19:55 EST Employed in healthcare? No 11/29/2022 19:55 EST Symptomatic as defined by CDC? No 11/29/2022 19:55 EST Hospitalized due to COVID-19? No 11/29/2022 19:55 EST In ICU? No 11/29/2022 19:55 EST Group care resident? No 11/29/2022 19:55 EST status? Not 11/29/2022 19:55 EST SARS-CoV-2(Covid19)PCR(GXpert COVFLURSV) NEGATIVE 11/29/2022 19:55 EST Flu A (GXpert COVFLURSV) NEGATIVE 11/29/2022 19:55 EST Flu B (GXpert COVFLURSV) Neg-GeneXPert 11/29/2022 19:55 EST RSV (GXpert COVFLURSV) Neg-GeneXPert 11/29/2022 19:55 EST Patient/Field Servicer Signature Patient Name:MARILYN WALKER I have received this information and my questions have been answered. Patient/Field Servicer Name: Patient/Field Servicer Signature: Relationship to Patient: Witness Name/Signature: Date: Electronically Signed on: 11/29/2022 21:02 ESTSigned by:[facility] Emergency department Note * Marilu Mccloud H: PERFORM Event Display: ED Notes Authored Date: [id number] Patient Care team information Personnel Name: Luisito Messina NP Address: Address: [address] [address]- [place]
--- OUTSIDE RECORDS SUMMARY | 2023-04-06 22:40 | XMS_ITS | Continuity of Care Document ---
Author Name Unknown Organization [facility] Address [address] [place] [address] Care Team Providers Care Pin Attacher Name Role Phone Luisito Messina Primary Care Physician [phone] Encounter [facility] Date(s): 08/11/22 - 08/11/[address] [address] Encounter Diagnosis Trapezius muscle spasm(Discharge Diagnosis) - 08/11/22 Lightheaded(Discharge Diagnosis) - 08/11/22 Discharge Disposition: Home Attending Physician: Lani Barahona MD Admitting Physician: Lani Barahona MD Allergies, Adverse Reactions, Alerts Substance Reaction Severity Status GRASS POLLEN-PERENNIAL RYE A ctive POLLEN EXTRACTS Unknown Active Cymbalta Headaches Nausea Vision changs Vertigo Blurry vision Hot flash Dialated pupils Severe Active Assessment and Plan Future Appointments Functional Status 08/11/22 Family Member Travel History No recent t [...] days, # 1 EA, 2 Refill(s), Pharmacy: [facility], 160, cm, 07/03/22 15:09:00 EDT, Height/Length Dosing, 78, kg, 07/03/22 15:09:00 EDT, Weight Dosing Start Date: 07/14/22 Status: Ordered Mirena 52 mg intrauteral device 52 mg 1 EA, Intrauteral, As Directed, 20 mcg/24 hours (7 yrs), 0 Refill(s) Start Date: 04/04/22 Status: Ordered omeprazole 40 mg oral delayed release capsule 40 mg = 1 cap, Oral, Daily, for 30 days, # 90 cap, 3 Refill(s), Pharmacy: [facility] Start Date: 05/12/22 Status: Ordered ProAir HFA 90 mcg/inh inhalation aerosol 180 mcg 2 puffs, Inhale, As Directed, Take every 4-6 hours as needed for 30 days, # 18 g, 2 Refill(s), Pharmacy: [facility], 160, cm, 07/03/22 15:09:00 EDT, Height/Length Dosing, 78, kg, 07/03/22 15:09:00 EDT, Weight Dosing Start Date: 07/14/22 Status: Ordered Mental Status 08/11/22 Eye Opening Response [place] Spontaneous ly Best Verbal Response [place] Oriented Best Motor Response [place] Obeys comman ds Sol Coma Score 15 Problem List Condition Effective Dates Status Health [...] growing spinal instrumentation with exchange of instrumentation [facility]. 3debridement Results Laboratory List Name Date Basic Metabolic Panel (BMP) 08/11/22 CBC w/ Diff 08/11/22 Automated Diff 08/11/22 Most recent to oldest [Reference Range]: 1 WBC [5.0-10.0 x10^3/mcL] 10.5 x10^3/mcL *HI* (08/11/22 10:37 PM) RBC [4.1-5.3 x10^6/mcL] 4.6 x10^6/mcL (08/11/22 10:37 PM) Neutro Auto [40.0-75.0 %] 71.2 % (08/11/22 10:37 PM) Lymph Auto [20.0-50.0 %] 21.5 % (08/11/22 10:37 PM) [place] Auto [2.0-15.0 %] 5.4 % (08/11/22 10:37 PM) Basophil Auto [0.0-1.0 %] 0.4 % (08/11/22 10:37 PM) BUN [7-18 mg/dL] 9 mg/dL (08/11/22 10:37 PM) Glucose Level [74-106 mg/dL] 92 mg/dL (08/11/22 10:37 PM) Potassium Level [3.5-5.1 mmol/L] 3.7 mmo l/L (08/11/22 10:37 PM) MCV [80.0-103.0 fL] 88.5 fL (08/11/22 10:37 PM) MCHC [31.0-35.0 g/dL] 31.4 g/dL (08/11/22 10:37 PM) Sodium Level [136-145 mmol/L] 138 mmol/L (08/11/22 10:37 PM) Hct [37.0-47.0 %] 40.7 % (08/11/22 10:37 PM) Calcium Level [8.5-10.1 mg/dL] 8.6 mg/dL (08/11/22 10:37 PM) MCH [26.0-32.0 pg] 27.8 pg (08/11/22 10:37 PM) Neutro Absolute 7.5 x10^3/mcL *NA* (08/11/22 10:37 PM) Hgb [12.0-16.0 g/dL] 12.8 g/dL (08/11/22 10:37 PM) Platelets [130-450 x10^3/mcL] 280 x10^3/ mcL (08/11/22 10:37 PM) CO2 [21-32 mmol/L] 29 mmol/L (08/11/22 10:37 PM) eGFR Non-AA [>=60] 111 (08/11/22 10:37 PM) eGFR AA [>=60] 111 (08/11/22 10:37 PM) Chloride Level [98-107 mmol/L] 104 mmol/ L (08/11/22 10:37 PM) RDW-CV [11.7-17.0 %] 12.9 % (08/11/22 10:37 PM) Imm Gran Auto [0.0-0.9 %] 0.3 % (08/11/22 10:37 PM) Creatinine Level [0.55-1.02 mg/dL] 0.78 mg/dL (08/11/22 10:37 PM) Anion Gap [8-16 mmol/L] 5 mmol/L *LOW* (08/11/22 10:37 PM) Eos, Auto [1.0-6.0 %] 1.2 % (08/11/22 10:37 PM) Vital Signs Most recent to oldest [Reference Range]: 1 2 Temperature Tympanic [36.6-37.9 Deg C] 3 6.5 Deg C *LOW* (08/11/22 11:30 PM) 36.4 Deg C *LOW* (08/11/22 9:37 PM) Peripheral Pulse Rate [60-100 bpm] 69 bp m (08/11/22 11:30 PM) 97 bpm (08/11/22 9:37 PM) Respiratory Rate [12-24 br/min] 18 br/mi n (08/11/22 11:30 PM) 20 br/min (08/11/22 9:37 PM) Blood Pressure [90-140/60-90 mmHg] 110/7 0mmHg (08/11/22 11:30 PM) 126/79mmHg (08/11/22 9:37 PM) Weight Dosing 79.40 kg (08/11/22 9:50 PM) Weight Estimated 79.40 kg (08/11/22 9:37 PM) Height/Length Dosing 160.000 cm (08/11/22 9:50 PM) Height/Length Estimated 160.000 cm (08/11/22 9:37 PM) Social History Social History Type Response Smoking Status Smoking tobacco use: Never tobacco user;Never entered on: 06/22/22 Sex Female Hospital Discharge Instructions Patient Education 08/11/2022 22:24:23 Dizziness Dizziness Dizziness is a common problem. It is a feeling of unsteadiness or light- headedness. You may feel like you are about to faint. Dizziness can lead to injury if you stumble or fall. Anyone can become dizzy, but dizziness is more common in older adults. This condition can be caused by a number of things, including medicines, dehydration, or illness. Follow these instructions at home: Eating and drinking ??? Drink enough fluid to keep your urine pale yellow. This helps to keep you from becoming dehydrated. Try to drink more clear fluids, such as water. ??? Do not drink alcohol. ??? Limit your caffeine intake if told to do so by your health care provider. Check ingredients andnutrition facts to see if a food or beverage contains caffeine. ??? Limit your salt (sodium) intake if told to do so by your health care provider. Check ingredients and nutrition facts to see if a food or beverage contains sodium. Activity ??? Avoid making quick movements. ??? Rise slowly from chairs and steady yourself until you feel okay. ??? In the morning, first sit up on the side of the bed. When you feel okay, stand slowly while youhold onto something until you know that your balance is good. ??? If you need to pairer substandard one place for a long time, move your legs often. Tighten and relax the muscles in your legs while you are standing. ??? Do not drive or use machinery if you feel dizzy. ??? Avoid bending down if you feel dizzy. Place items in your home so that they are easy for you toreach without leaning over. Lifestyle ??? Do not use any products that contain nicotine or tobacco. These products include cigarettes, chewing tobacco, and vaping devices, such as e-cigarettes. If you need help quitting, ask your health care provider. ??? Try to reduce your stress level by using methods such as yoga or meditation. Talk with your health care provider if you need help to manage your stress. General instructions ??? Watch your dizziness for any changes. ??? Take bevg-odm-btajwuq and prescription medicines only as told by your health care provider. Talk with your health care provider if you think that your dizziness is caused by a medicine that you are taking. ??? Tell a friend or a family member that you are feeling dizzy. If he or she notices any changes in your behavior, have this person call your health care provider. ??? Keep all follow-up visits. This is important. Contact a health care provider if: ??? Your dizziness does not go away or you have new symptoms. ??? Your dizziness or light-headedness gets worse. ??? You feel nauseous. ??? You have reduced hearing. ??? You have a fever. ??? You have neck pain or a stiff neck. ??? Your dizziness leads to an injury or a fall. Get help right away if: ??? You vomit or have diarrhea and are unable to eat or drink anything. ??? You have problems talking, walking, swallowing, or using your arms, hands, or legs. ??? You feel generally weak. ??? You have any bleeding. ??? You are not thinking clearly or you have trouble forming sentences. It may take a friend or family member to notice this. ??? You have chest pain, abdominal pain, shortness of breath, or sweating. ??? Your vision changes or you develop a severe headache. These symptoms may represent a serious problem that is an emergency. Do not wait to see if the symptoms will go away. Get medical help right away. Call your local emergency services (911 in the [place] Do not drive yourself to the hospital. Summary ??? Dizziness is a feeling of unsteadiness or light-headedness. This condition can be caused by a number of things, including medicines, dehydration, or illness. ??? Anyone can become dizzy, but dizziness is more common in older adults. ??? Drink enough fluid to keep your urine pale yellow. Do not drink alcohol. ??? Avoid making quick movements if you feel dizzy. Monitor your dizziness for any changes. This information is not intended to replace advice given to you by your health care provider. Make sure you discuss any questions you have with your health care provider. Document Revised: 10/11/2021 Document Reviewed: 10/11/2021 Elsevier Patient Education ?? 2021 [employer] Follow Up Care 08/11/2022 21:37:37 With:Follow up with primary care provider Address: When:1 to 2 weeks Patient Care team information Personnel Name: Luisito Messina NP Address: Address: [address] [address]- [place]
--- OUTSIDE RECORDS SUMMARY | 2023-04-06 22:40 | XMS_ITS | Continuity of Care Document ---
Author Name Unknown Organization [facility] Address [address] [place] [address] Care Team Providers Care [employer]ric[employer] Supervisor Name Role Phone Sandip Ko Primary Care Physician [phone] Encounter [facility] Date(s): 12/15/22 - 12/15/[address] [address] Discharge Disposition: Home or Self Care Attending Physician: Enoch Monique MD Admitting Physician: Enoch Monique MD Referring Physician: Enoch Monique MD Allergies, Adverse Reactions, [...] days, # 1 EA, 2 Refill(s), Pharmacy: [facility], 160, cm, 07/03/22 15:09:00 EDT, Height/Length [...] days, # 90 cap, 3 Refill(s), Pharmacy: [facility] Start Date: 05/12/22 Status: Ordered ProAir HFA 90 mcg/inh inhalation aerosol 180 mcg 2 puffs, Inhale, As Directed, Take every 4-6 hours as needed for 30 days, # 18 g, 2 Refill(s), Pharmacy: [facility], 160, cm, 07/03/22 15:09:00 EDT, Height/Length [...] spinal instrumentation with exchange of instrumentation [facility]. 3debridement Social History Social History Type Response Smoking Status Smoking tobacco use: Never tobacco user;Never entered on: 06/22/22 Sex Female Patient Care team information Personnel Name: Sandip Ko MD Address: Address: [address]
--- OUTSIDE RECORDS SUMMARY | 2023-04-06 22:40 | XMS_ITS | Continuity of Care Document ---
Author Name Unknown Organization [facility] Address [address] [place] [address] Care Team Providers Care Flatwork Washer Name Role Phone Luisito Messina Primary Care Physician [phone] Encounter [facility] Date(s): 10/20/22 - 10/21/[address] [address] Encounter Diagnosis Malaise(Discharge Diagnosis) - 10/20/22 Headache(Discharge Diagnosis) - 10/20/22 Discharge Disposition: Home or Self Care Attending Physician: Miguel Baca MD Admitting Physician: Miguel Baca MD Allergies, Adverse Reactions, Alerts Substance Reaction Severity Status GRASS POLLEN-PERENNIAL RYE A ctive POLLEN EXTRACTS Unknown Active Cymbalta Headaches Nausea Vision changs Vertigo Blurry vision Hot flash Dialated pupils Severe Active Functional Status 10/20/22 Family Member Travel History No recent t [...] days, # 1 EA, 2 Refill(s), Pharmacy: [id number], 160, cm, 07/03/22 15:09:00 EDT, Height/Length [...] days, # 90 cap, 3 Refill(s), Pharmacy: [id number] Start Date: 05/12/22 Status: Ordered ProAir HFA 90 mcg/inh inhalation aerosol 180 mcg 2 puffs, Inhale, As Directed, Take every 4-6 hours as needed for 30 days, # 18 g, 2 Refill(s), Pharmacy: [id number], 160, cm, 07/03/22 15:09:00 EDT, Height/Length [...] exchange of instrumentation [facility]. 3debridement Vital Signs Most recent to oldest [Reference Range]: 1 Temperature Temporal Artery [36-38 Deg C ] 36.8 Deg C (10/20/22 10:09 PM) Peripheral Pulse Rate [60-100 bpm] 60 bp m (10/20/22 10:09 PM) Respiratory Rate [12-24 br/min] 16 br/mi n (10/20/22 10:09 PM) Blood Pressure [90-140/60-90 mmHg] 106/6 7mmHg (10/20/22 10:09 PM) Weight Dosing 78.00 kg (10/20/22 11:17 PM) Weight Estimated 78.00 kg (10/20/22 10:09 PM) Height/Length Dosing 158.000 cm (10/20/22 11:17 PM) Height/Length Estimated 158.000 cm (10/20/22 10:09 PM) Social History Social History Type Response Smoking Status Smoking tobacco use: Never tobacco user;Never entered on: 06/22/22 Sex Female Hospital Discharge Instructions Patient Education 10/20/2022 21:58:09 General Headache Without Cause, Vpar-mz-Mvwf General Headache Without Cause A headache is pain or discomfort that is felt around the head or neck area. There are many causes and types of headaches. In some cases, the cause may not be found. Follow these instructions at home: Watch your condition for any changes. Let your doctor know about them. Take these steps to help with your condition: Managing pain ??? Take fmvg-jxs-fluqegx and prescription medicines only as told by your doctor. ??? Lie down in a dark, quiet room when you have a headache. ??? If told, put ice on your head and neck area: ??? Put ice in a plastic bag. ??? Place a towel between your skin and the bag. ??? Leave the ice on for 20 minutes, 2???3 times per day. ??? If told, put heat on the affected area. Use the heat source that your doctor recommends, such as a moist heat pack [...] (44 mL). ??? Stop drinking caffeine, or reduce how much caffeine you drink. General instructions ??? Keep a journal to find out if certain things bring on headaches. For example, write down: ??? What you eat and drink. ??? How much sleep you get. ??? Any change to your diet or medicines. ??? Get a massage or try other ways to relax. ??? Limit stress. ??? Sit up straight. Do not tighten (tense) your muscles. ??? Do not use any products that contain nicotine or tobacco. This includes cigarettes, e-cigarettes, and chewing tobacco. If you need help quitting, ask your doctor. ??? Exercise regularly as told by your doctor. ??? Get enough sleep. This often means 7???9 hours of sleep each night. ??? Keep all follow-up visits as told by your doctor. This is important. Contact a doctor if: ??? Your symptoms are not helped by medicine. ??? You have a headache that feels different than the other headaches. ??? You feel sick to your stomach (nauseous) or you throw up (vomit). ??? You have a fever. Get help right away if: ??? Your headache gets very bad quickly. ??? Your headache gets worse after a lot of physical activity. ??? You keep throwing up. ??? You have a stiff neck. ??? You have trouble seeing. ??? You have trouble speaking. ??? You have pain in the eye or ear. ??? Your muscles are weak or you lose muscle control. ??? You lose your balance or have trouble walking. ??? You feel like you will pass out (faint) or you pass out. ??? You are mixed up (confused). ??? You have a seizure. Summary ??? A headache is pain or discomfort that is felt around the head or neck area. ??? There are many causes and types of headaches. In some cases, the cause may not be found. ??? Keep a journal to help find out what causes your headaches. Watch your condition for any changes. Let your doctor know about them. ??? Contact a doctor if you have a headache that is different from usual, or if your headache is not helped by medicine. ??? Get help right away if your headache gets very bad, you throw up, you have trouble seeing, you lose your balance, or you have a seizure. This information is not intended to replace advice given to you by your health care provider. Make sure you discuss any questions you have with your health care provider. Document Revised: 05/27/2019 Document Reviewed: 05/27/2019 [employer] Patient Education ?? 2021 [employer]. Follow Up Care 10/20/2022 22:09:20 With:neurologist Address: When:5 to 7 days Physician Emergency department Note * Miguel Baca MD: PERFORM Event Display: ED Note Physician Authored Date: [id number] ALIVIA WALKER Loree :2000 Age:22 years Sex:Female Visit Date:10/20/2022 Primary Care Physician: Luisito Messina NP Basic Information Time Seen: Miguel Baca MD / 10/20/2022 22:11 Chief Complaint Pt. FU from last week fro weird feeling in head. PCP said didn;t think it was viral. Nurologist said to go to ED for general concerns. See additional note for rest of triage narrative. History Of Present Illness: 22-year-old female comes to the ER for evaluation of multiple symptoms. ??The patient has had a weird feeling in her head sometimes a pulsatile ??or throbbing feeling. ??Sometimes her vision feels heavy, this has been going on for days. ??She has a history of migraines for which she has seen neurology at [facility],??they have tried different meds but right now she is only on clonazepam twice a day. ??She has hesitated to start the amitriptyline that was recommended.?? No fever or chills or URI symptoms described.?? At times she did mention some tingling in her arms. ??Her right arm has been achy and feeling heavy.?? No reported??amaurosis symptoms or aphasia symptoms or left lower extremitysymptoms.?? She saw her primary care provider on 09 October she was here last week in the ER??on 15 October. ??She was supposed to have an appointment with another primary care provider??in [facility] yesterday but that got postponed or canceled. ??She has been djuc-nvq-xipqh on the phone with her neurologist at [facility] and ultimately suggested she come in??to be evaluated at the ER. ??Shehad a??MRI of her head last June for ongoing symptoms which was normal.?? Ultimately wants to make sure there is nothing bad happening tonight.?? She also endorses at times having achiness in her chest. ??No reported shortness of breath or new abdominal pain. ??Does have a history of scoliosis??and has had multiple surgeries. Review of Systems: Constitutional:??no??fever,? Skin:??no??Jaundice,??no??rash,??no??lesions,??no??petechiae ENMT:??no??ear pain,??no??sore throat,??no??congestion,??no??hoarseness Respiratory:?cough,? Cardiovascular:??mild??chest pain,??no??palpitations,??no??edema Gastrointestinal: No new abdominal pain Genitourinary:??No new complaints Musculoskeletal:??No new??complaints Neurologic:??moderate??headache,??see HPI Psychiatric:??no??sleeping problems,? Physical Exam Vitals & Measurements T:??36.8?C ??(Temporal Artery)?? HR:??60??(Peripheral)?? RR:??16?? BP:??106/67?? SpO2:??97%?? HT:??158.000??cm?? WT:??78.00??kg??(Estimated)?? General:??alert,??no acute distress.?? She is not looking??septic, she is not encephalopathic, normal mentation, GCS is 15. ??Skin is warm and dry. Skin:??warm,??dry. Head:??no??trauma,??normocephalic. Neck:??trachea??midline,??no??adenopathy,??no??tenderness.? No meningismus. Eye:??normal??conjunctiva, sclera??clear.?? Pupils are equal and reactive, external eye movements are normal Cardiovascular:??regular??rate and rhythm,??normal??peripheral perfusion. Respiratory: lungs??CTA, respirations??non-labored. Chest wall:??no??deformity. Gastrointestinal:??soft,??non distended,??no??tenderness,??no??guarding. Extremities:??no??deformity,??no??trauma. Neurological:??oriented??x 4, LOC?? speech??normal.?? No outstanding pronator drift, no facial dissymmetry, Romberg is negative.?? Strength testing to the right upper extremity is normal for flexion and extension at the elbow grasp and finger abduction.?? She has normal??biceps tendon reflex. Psychiatric:??cooperative, affect??appropriate for age,?? Medical Decision Making: The patient was stable and in no acute distress.?? Exam overall benign with no red flag signs of??new intracranial condition such as meningitis??or bleed. ??Nevertheless I did offer a CT scan and labwork-up for further peace of mind.?? Explained the rationale,??she ultimately states that she is??satisfied with physical exam??being normal and will follow up with her neurologist and primary care physician. ??She was discharged in stable condition. Procedure No Qualifying Data Assessment/Plan 1.??Malaise??R53.81 Ordered: Discharge Patient, 10/20/22 22:58:00 EST, Home Independently, Constant Indicator ?? 2.??Headache??R51.9 Ordered: Discharge Patient, 10/20/22 22:58:00 EST, Home Independently, Constant Indicator ?? Patient Education General Headache Without Cause, [id number] Follow Up With When Contact Information neurologist Within 5 to 7 days Additional Instructions: Medication Reconciliation Unchanged albuterol (ProAir [...] Unknown. Cause of : Electronically Signed on 10/20/22 11:27 PM Miguel Baca MD Emergency department Discharge instructions * Miguel Baca MD: PERFORM Event Display: ED Discharge Information Authored Date: [id number] ALIVIA WALKER :2000 Age:22 years Sex:Female Visit Date:10/20/2022 Primary Care Physician: Luisito Messina REFLESHER Discharge Instructions We would like to thank you for allowing us to assist you with your healthcare needs. The following includes patient education materials and information regarding your injury/illness. Diagnosis from Today's Visit Malaise Headache Discharge Vitals Temperature??(Temporal Artery) 98.2 ??F (36.8 ??C) Heart Rate??(Peripheral) 60 Respiratory Rate?? 16 Blood Pressure?? 106/67?? Allergies Cymbalta??(Headaches, Nausea, Vision changs, Vertigo, Blurry vision, Hot flash, Dialated pupils) POLLEN EXTRACTS GRASS POLLEN-PERENNIAL RYE What to Do Next Instructions from Your Care Team tonight I do not see any red flag signs of??new conditions explaining your symptoms.?? Continue your usual??meds and follow-up with your neurologist.?? May take ibuprofen as needed for headache. You Need to Schedule the Following Appointments Follow Up with??neurologist When:??Within 5 to 7 days You were treated today on an emergency [...] day for 30 days ?? Education Materials General Headache Without Cause A headache is pain or discomfort that is felt around the head or neck area. There are many causes and types of headaches. In some cases, the cause may not be found. Follow these instructions at home: Watch your condition for any changes. Let your doctor know about them. Take these steps to help with your condition: Managing pain ? Take waoa-pey-fynucwp and prescription medicines only as told by your doctor. ? Lie down in a dark, quiet room when you have a headache. ? If told, put ice on your head and neck area: ? Put ice in a plastic bag. ? Place a towel between your skin and the bag. ? Leave the ice on for 20 minutes, 2???3 times per day. ? If told, put heat on the affected area. Use the heat source that your doctor recommends, such as a moist heat pack or a heating pad. ? Place a towel between your skin and the heat source. ? Leave the heat on for 20???30 minutes. ? Remove the heat if your skin turns bright red. This is very important if you are unable to feel [...] (44 mL). ? Stop drinking caffeine, or reduce how much caffeine you drink. General instructions ? Keep a journal to find out if certain things bring on headaches. For example, write down: ? What you eat and drink. ? How much sleep you get. ? Any change to your diet or medicines. ? Get a massage or try other ways to relax. ? Limit stress. ? Sit up straight. Do not tighten (tense) your muscles. ? Do not use any products that contain nicotine or tobacco. This includes cigarettes, e-cigarettes, and chewing tobacco. If you need help quitting, ask your doctor. ? Exercise regularly as told by your doctor. ? Get enough sleep. This often means 7???9 hours of sleep each night. ? Keep all follow-up visits as told by your doctor. This is important. Contact a doctor if: ? Your symptoms are not helped by medicine. ? You have a headache that feels different than the other headaches. ? You feel sick to your stomach (nauseous) or you throw up (vomit). ? You have a fever. Get help right away if: ? Your headache gets very bad quickly. ? Your headache gets worse after a lot of physical activity. ? You keep throwing up. ? You have a stiff neck. ? You have trouble seeing. ? You have trouble speaking. ? You have pain in the eye or ear. ? Your muscles are weak or you lose muscle control. ? You lose your balance or have trouble walking. ? You feel like you will pass out (faint) or you pass out. ? You are mixed up (confused). ? You have a seizure. Summary ? A headache is pain or discomfort that is felt around the head or neck area. ? There are many causes and types of headaches. In some cases, the cause may not be found. ? Keep a journal to help find out what causes your headaches. Watch your condition for any changes. Let your doctor know about them. ? Contact a doctor if you have a headache that is different from usual, or if your headache is not helped by medicine. ? Get help right away if your headache gets very bad, you throw up, you have trouble seeing, you loseyour balance, or you have a seizure. This information is not intended to replace advice given to you by your health care provider. Make sure you discuss any questions you have with your health care provider. Document Revised: 05/27/2019 Document Reviewed: 05/27/2019 [employer] Patient Education ?? 2021 [employer] Patient/Coil Cutter Signature Patient Name:ALIVIA WALKER Loree I have received this information and my questions have been answered. Patient/Coil Cutter Name: Patient/Coil Cutter Signature: Relationship to Patient: Witness Name/Signature: Date: Electronically Signed on: 10/20/2022 22:58 ESTSigned by:RICARDO Patient Care team information Personnel Name: Luisito Messina NP Address: Address: [address] [address]
--- NOTE | 2023-04-06 23:01 | W.ED.GENAD ---
Discharge Plan Disposition Patient Disposition: Home Discharge Details Clinical Impression: Urinary tract bacterial infections Primary Care Provider: Sandip Ko ED Provider: Urban John Meds and New Rx's Prescriptions: New amoxicillin-pot clavulanate [Augmentin] 500-125 mg tablet 1 tab PO BID Qty: 14 0RF phenazopyridine 99.5 mg tablet 99.5 mg PO TID PRNQty: 7 0RF No Action clonazepam 0.5 mg tablet 0.25 mg BID Patient Comments: TAKE ONE-HALF TABLET BY MOUTH TWICE A DAY fluoxetine 10 mg tablet See Rx Instructions .ROUTE .COMPLEX Patient Comments: Take 1 tablet by mouth once a day take one tablet by for two weeks and then take two daily 20mg Rx Instructions: 10 mg folic acid 1 mg tablet 1 mg QDAY Patient Comments: TAKE ONE TABLET BY MOUTH EVERY DAY Discharge Instructions Instructions: Urinary Tract Infection in Women (ED) Discharge Data Discharge Physician: Urban John Medical Decision Making Patient who was having chills fever although she is afebrile here with urinary frequency and urgency who has a urinalysis that has 10-20 white blood cells per high-power field compatible with UTI. Patient will be giving an antibiotic and analgesic and will be discharged home dose of the blood work is negative including COVID and influenza test. Differential Diagnosis Differential Diagnosis: 1. UTI 2. Pyelonephritis 3. COVID infection Medical Records Medical records reviewed: Yes I reviewed the patient's medical records. Lab Data Lab results reviewed: Yes I reviewed the patient's lab results. Labs: DERED: CBC/Diff Test Result Flag Reference Verified WBC 9.41 4.4-10.8 10^3/uL 04/06/23 RBC 4.65 3.93-5.22 10^6/uL 04/06/23 HGB 12.7 11.2-15.7 g/dL 04/06/23 HCT 40.2 36.0-46.0 % 04/06/23 MCV 87 80-95 fL 04/06/23 MCH 27.3 27.0-33.0 pg 04/06/23 MCHC 31.6 L 32.0-36.0 % 04/06/23 RDW 12.7 11.7-14.6 % 04/06/23 Platelet Count 276 130-400 10^3/uL 04/06/23 MPV 10.0 8.0-11.0 fL 04/06/23 Neutrophils % 64.5 04/06/23 Lymphocytes % 28.7 04/06/23 Monocytes % 4.9 04/06/23 Eosinophils % 1.4 04/06/23 Basophils % 0.3 04/06/23 Immature Grans % 0.2 04/06/23 Nucleated RBC 0.0 0.0-0.3 % 04/06/23 Absolute Neutrophil Count 6.07 1.2-6.7 10^3/uL 04/06/23 Absolute Lymphocyte Count 2.70 1.2-3.4 10^3/uL 04/06/23 Absolute Monocyte Count 0.46 0.1-0.8 10^3/uL 04/06/23 Absolute Eosinophil Count 0.13 0.0-0.7 10^3/uL 04/06/23 Absolute Basophil Count 0.03 0.0-0.2 10^3/uL 04/06/23 8.9 8.5-10.1 mg/dL 04/07/23 Glucose 93 74-106 mg/dL 04/07/23 BUN 8 7-18 mg/dL 04/07/23 Creatinine 0.7 0.55-1.02 mg/dL 04/07/23 Estimated GFR 126.90 mL/min/1.73m2 04/07/23 The eGFR is calculated from a serum creatinine using the CKD-EPI 202 equation. Other variables required for the equation are gender and age; this equation does not include a race coefficient. This equation has similar overall performance to previous equations except values may differ, in particular, in patients with higher values of eGFR and younger-aged adults. Total Protein 7.9 6.4-8.2 g/dL 04/07/23 Albumin 4.0 3.4-5.0 g/dL 04/07/23 Bilirubin, Total 0.4 0.2-1.0 mg/dL 04/07/23 Alk Phos 89 46-116 U/L 04/07/23 Sodium 142 136-145 mmol/L 04/07/23 Potassium 3.5 3.5-5.1 mmol/L 04/07/23 Chloride 104 98-107 mmol/L 04/07/23 CO2 27.3 21.0-32.0 mmol/L 04/07/23 Anion Gap 10.7 3-11 mmol/L 04/07/23 AST 14 L 15-37 U/L 04/07/23 ALT 12 L 14-59 U/L 04/07/23 Magnesium 1.8 1.8-2.4 mg/dL 04/07/23 Test Result Flag Reference Verified Color Yellow Yellow 04/06/23 Clarity Clear Clear 04/06/23 Specific Pioneer 1.025 1.005-1.025 04/06/23 pH 7.0 5-8 04/06/23 Leukocyte Esterase Trace H Negative 04/06/23 Nitrite Negative Negative 04/06/23 Protein Trace H Negative mg/dL 04/06/23 Glucose Negative Negative mg/dL 04/06/23 Ketones Negative Negative mg/dL 04/06/23 Urobilinogen 2.0 H Up to 0.2 mg/dL 04/06/23 Bilirubin Negative Negative 04/06/23 Blood Negative Negative 04/06/23 WBC 10-20 H 0-5 HPF 04/06/23 RBC Negative 0-2 HPF 04/06/23 Epithelial Cells Many Negative HPF 04/06/23 Bacteria Few Negative HPF 04/06/23 Crystals Negative Negative HPF 04/06/23 Mucus Negative Negative 04/06/23 Casts Negative Negative LPF 04/06/23 C & S Indicated? No/Sq. C HPI General Date/Time Provider Initiated Documentation: 04/06/23 23:01. HPI Narrative: Patient presents to the emergency department complaining of feeling well for last 2 days with body aches chills also urinary frequency and urgency. Denies any sore throat denies any cough denies any shortness of breath. Related Data Home Medications Medication Instructions Recorded Confirmed clonazepam 0.5 mg tablet 0.25 mg BID 04/06/23 04/06/23 fluoxetine 10 mg tablet See Rx Instructions .Route .COMPLEX 04/06/23 04/06/23 folic acid 1 mg tablet 1 mg QDAY 04/06/23 04/06/23 amoxicillin 500 mg-potassium 1 tab PO BID #14 tabs 04/07/23 clavulanate 125 mg tablet (Augmentin) phenazopyridine 99.5 mg tablet 99.5 mg PO TID PRN 6 doses #7 tabs 04/07/23 Previous Rx's Medication Instructions Recorded amoxicillin 500 mg-potassium 1 tab PO BID #14 tabs 04/07/23 clavulanate 125 mg tablet (Augmentin) phenazopyridine 99.5 mg tablet 99.5 mg PO TID PRN 6 doses #7 tabs 04/07/23 Allergies Allergy/AdvReac Type Severity Reaction Status Date / Time duloxetine [From Cymbalta] Allergy Severe Verified 04/06/23 22:41 grass pollen-perennial rye, Allergy Verified 04/06/23 22:41 standar pollen extracts Allergy Verified 04/06/23 22:41 Iodinated Contrast Media AdvReac Intermediate Skin Rash Unverified 04/06/23 22:41 General Stated Complaint: GenMedical ALEXX: 3 Review of Systems All systems reviewed & are unremarkable except as noted in HPI and below Constitutional Constitutional: Reports body ache(s) and Reports fever(s) Eyes Eyes: Reports as per HPI ENT Ears, Nose, Mouth, and Throat: Reports system reviewed and no additional complaints, except as documented Cardiovascular Cardiovascular: Reports system reviewed and no additional complaints, except as documented Respiratory Respiratory: Reports system reviewed and no additional complaints, except as documented Genitourinary Genitourinary: Reports post void dribbling PFSH All Active Problems (Updated 04/07/23 @ 00:30 by Urban John MD) Urinary tract bacterial infections (Acute) Medical History Allergic rhinitis Alopecia Anemia Anxiety Asthma Cluster headache Double vision GERD (gastroesophageal reflux disease) Idiopathic scoliosis Inflammatory dermatosis Low back pain Menorrhagia Non-suppurative otitis media Pediculosis capitis Right upper quadrant pain Temporomandibular joint disorder Surgical History H/O Spinal surgery Hx laparoscopic cholecystectomy 08/09/2021 Family History Mother Breast cancer Father Diabetes Social History Smoking/Tobacco Use Status: Never Smoking risk assessment performed?: Yes Alcohol Intake: never Drug use: Never Substance use type: does not use Do you feel safe at home: Yes Do you feel safe in your relationship?: Yes Exam Const General: cooperative, healthy appearing, comfortable and no acute distress HENMT Head: normal to inspection, no palpable skull fracture and normocephalic Eyes General: appearance normal, both eyes and all related structures Visual Manuel: normal visual manuel by confrontation Alignment and Position: alignment normal Neck Neck: normal visual inspection, full ROM and no lymphadenopathy Chest Chest: normal inspection of the chest and normal palpation of entire chest wall Resp Effort & Inspection: normal respiratory effort Cardio Jugular venous pressure: no JVD Palpation: normal PMI Rate: regular rate Rhythm: regular rhythm Back/Spine/Pelvis Back: no CVA tenderness Skin General skin exam: no rashes or lesions noted and elasticity normal Neuro General: patient alert, patient awake and patient oriented x3 Extrem General: normal to inspection, full ROM and no pedal edema Course Patient presented with urinary frequency urgency dysuria who had labs done and urinalysis which showed that she has a UTI she will be treated with antibiotics and discharged home Vital Signs Vital signs: Vital Signs Temperature 36.8 C 04/06/23 22:34 Pulse 86 04/06/23 22:34 Respiratory Rate 20 04/06/23 22:34 Blood Pressure 124/70 04/06/23 22:34 Pulse Oximetry 100 04/06/23 22:34 Temperature 36.8 C 04/06/23 22:34 Temperature Source Temporal Artery Scan 04/06/23 22:34 Pulse 86 04/06/23 22:34 Respiratory Rate 20 04/06/23 22:34 Respiratory Effort Normal 04/06/23 22:38 Respiratory Depth Normal 04/06/23 22:38 Respiratory Pattern Normal 04/06/23 22:38 Blood Pressure 124/70 04/06/23 22:34 Blood Pressure Position Sitting 04/06/23 22:34 Pulse Oximetry 100 04/06/23 22:34 Oxygen Delivery Method Room Air 04/06/23 22:34 Oxygen Flow Rate 0 04/06/23 22:34
[2023-04-06 23:39] LABS: Bilirubin Negative (Negative); Blood Negative (Negative); Clarity Clear (Clear); Glucose Negative (Negative); Ketones Negative (Negative); Leukocyte Esterase Trace (Negative); Nitrite Negative (Negative); Specific Gravity 1.025 (1.005-1.025)
[2023-04-06 23:55] LABS: Abs Immature Grans 0.02 10^3/uL (0.0-0.06); Absolute Basophil Count 0.03 10^3/uL (0.0-0.2); Absolute Eosinophil Count 0.13 10^3/uL (0.0-0.7); Absolute Monocyte Count 0.46 10^3/uL (0.1-0.8); Absolute Neutrophil Count 6.07 10^3/uL (1.2-6.7); Basophils % 0.3; Eosinophils % 1.4; HCT 40.2 % (36.0-46.0); HGB 12.7 g/dL (11.2-15.7); Immature Grans % 0.2; Lymphocytes % 28.7; MCH 27.3 pg (27.0-33.0); MCHC 31.6 % (32.0-36.0); MCV 87 fL (80-95); Monocytes % 4.9; Neutrophils % 64.5; Platelet Count 276 10^3/uL (130-400); RBC 4.65 10^6/uL (3.93-5.22); RDW 12.7 % (11.7-14.6); RDW-SD 39.6 fL; WBC 9.41 10^3/uL (4.4-10.8)
[2023-04-06 23:55] LABS: Bacteria Few HPF (Negative); C & S Indicated? No/Sq. Contamination; Casts Negative LPF (Negative); Crystals Negative HPF (Negative); Epithelial Cells Many HPF (Negative); Mucus Negative (Negative); RBC Negative HPF (0-2)
[2023-04-07 00:07] LABS: COVID-19 PCR Negative (Negative); Influenza A PCR Negative (Negative); Influenza B PCR Negative (Negative); RSV PCR Negative (Negative)
[2023-04-07 00:10] LABS: ALT 12 U/L (14-59); AST 14 U/L (15-37); Alkaline Phosphatase 89 U/L (46-116); Anion Gap 10.7 mmol/L (3-11); BUN 8 mg/dL (7-18); Bilirubin, Total 0.4 mg/dL (0.2-1.0); CO2 27.3 mmol/L (21.0-32.0); CREATININE 0.7 mg/dL (0.55-1.02); Calcium 8.9 mg/dL (8.5-10.1); Chloride 104 mmol/L (98-107); Glucose 93 mg/dL (74-106); Magnesium 1.8 mg/dL (1.8-2.4); Potassium 3.5 mmol/L (3.5-5.1); Sodium 142 mmol/L (136-145); Total Protein 7.9 g/dL (6.4-8.2)
[2023-04-07 00:13] LABS: Source Nasopharynx
[2023-04-07] MEDS: Amoxicillin 875/Clav. 125 TAB PO (00:59)
== END 2023-04-07 01:24 | disposition home or self-care (01) ==
PROVIDERS: Emergency Provider Emergency Medicine Emergency Medical Services; PCP Family Medicine
DX: N39.0 Urinary tract infection, site not specified (principal); B96.89 Other specified bacterial agents as the cause of diseases classified elsewhere
CPT/HCPCS: 36415; 80053; 87637; 99282; 81003; 81015; 83735; 85025; 87081; 99283

== ENCOUNTER 2023-04-14 21:55 | Emergency (ER) | payer MEDICARE, MEDICAID, SELFPAY ==
[2023-04-14 22:51] VITALS: BP 102/68; PULSE 83; RESP 16; TEMP 36.8; O2SAT 100
--- NOTE | 2023-04-15 | DI.CT_ITS ---
Exam(s) CT ABDOMEN PELVIS WO EXAM: CT ABDOMEN PELVIS WO CLINICAL HISTORY: left sciatic pain, urinary symptoms, eval forstone. TECHNIQUE: Imaging Protocol: Axial computed tomography images with coronal and sagittal reformatted images were created and reviewed CONTRAST MATERIAL: Intravenous: none Oral: None COMPARISON: No exams were available for comparison FINDINGS: VISUALIZED LUNG BASES: No nodules nor pleural effusions evident. There are multilevel Rogel rods in the thoracolumbar spine and there are multilevel intrapedicul ar screws. Lower most extent of the rods is at the L3 level. Multilevel fusion evident. ABDOMEN: There is no ascites. LIVER: There are no obvious focal hepatic lesions evident of this noninfused study. GALLBLADDER/BILIARY: Gallbladder surgically absent. CBD not dilated. PANCREAS: No evidence of pancreatic mass nor dilatation of the pancreatic duct. SPLEEN: Spleen is not enlarged. No obvious intrasplenic lesions. ADRENALS: There are no significant adrenal masses. KIDNEYS:No cysts evident. No solid renal masses. No calculi nor hydronephrosis. . ABDOMINAL AORTA: Abdominal aorta is not enlarged. LYMPH NODES: There is no retroperitoneal nor paraaortic adenopathy. ABDOMINAL WALL: No evidence of significant anterior abdominal wall nor inguinal hernia. GI: Moderate amount of fecal material in the colon and the colon is mildly distended. Possible const ipation. However, there is no evidence of bowel obstruction. There is no evidence of bowel obstruct ion, free air, nor abscess. PELVIS: LYMPH NODES: There is no intrapelvic nor inguinal adenopathy. GI: No evidence of appendicitis.No evidence of sigmoid diverticulitis. URINARY BLADDER: No calculi nor obvious masses evident. Bladder not distended. REPRODUCTIVE: There is an IUD in the endometrial canal. Uterus is anteverted. No abnormal adnexal m asses. OSSEOUS: No significant osseous lesions. No fractures. IMPRESSION: 1. Multilevel Rogel rods extending down to L3 level. Multilevel intrapedicular screws. Multile clive fusion evident. The uppermost aspect of the rods are above the field of view of this study. 2. Moderate amount of fecal material in the colon. No gross distention of the colon. No bowel obstr uction. 3. IUD is in satisfactory position in the uterus. RADIATION DOSE DELIVERED: 873.66mGy.cm Total DLP DATA REPOSITORY: All CT scans at this facility are submitted to the National Radiology Data Registry (NRDR) Dose Index Registry (DIR) with the [employer] (ACR). RADIATION OPTIMIZATION: All CT scans at this facility use at least one of these dose optimization te chniques: automated exposure control; mA and/or kV adjustment per patient size (includes targeted exa ms where dose is matched to clinical indication); or iterative reconstruction.
[2023-04-15 00:46] LABS: Bilirubin Small (Negative); Blood Negative (Negative); Clarity Clear (Clear); Glucose Negative (Negative); Ketones Negative (Negative); Leukocyte Esterase Negative (Negative); Nitrite Negative (Negative); Specific Gravity >= 1.030 (1.005-1.025); Urobilinogen 0.2 mg/dL (Up to 0.2); pH 5.5 (5-8)
[2023-04-15 00:48] LABS: Bacteria Rare HPF (Negative); C & S Indicated? No; Casts Negative LPF (Negative); Crystals Negative HPF (Negative); Epithelial Cells Moderate HPF (Negative); Mucus Negative (Negative); RBC Negative HPF (0-2); WBC Negative HPF (0-5)
--- NOTE | 2023-04-15 01:44 | DI.VRAD_ITS ---
PROCEDURE INFORMATION: Exam: CT Abdomen And Pelvis Without Contrast Exam date and time: 04/15/2023 1:03 AM Age: 23 years old Clinical indication: Abdominal pain; Flank; Left; Prior surgery; Surgery date: 6+ months; Surgery type: Spinal surgery, gallbladder removed; Additional info: Left sciatic pain, urinary symptoms, eval for stone TECHNIQUE: Imaging protocol: Computed tomography of the abdomen and pelvis without contrast. Radiation optimization: All CT scans at this facility use at least one of these dose optimization techniques: automated exposure control; mA and/or kV adjustment per patient size (includes targeted exams where dose is matched to clinical indication); or iterative reconstruction. COMPARISON: CR XR CHEST 2V PA LATERAL 02/02/2023 11:37 PM FINDINGS: Lungs: The lungs are normal. There is no evidence of focal pulmonary consolidation. Pleural spaces: There is no evidence of pneumothorax. There are no pleural effusions present. Heart: The cardiac structures are normal. Liver: There are no focal liver lesions present. There is no evidence of intrahepatic or extrahepatic biliary ductal dilation. There is no evidence of intrahepatic or extrahepatic biliary ductal dilation. Gallbladder and bile ducts: There has been a cholecystectomy. Pancreas: The pancreas is normal. Spleen: The spleen is normal. Adrenal glands: The adrenal glands are normal. Kidneys and ureters: The kidneys are normal. Stomach and bowel: There is moderate increased colonic fecal content. The colon is mildly distended. These findings suggest a moderate degree of constipation. Clinical correlation recommended. There is no evidence of intestinal obstruction. No diverticulitis is present. Appendix: A normal appendix is identified. There is no evidence of distention or periappendiceal inflammation to suggest appendicitis. Intraperitoneal space: There is no free intraperitoneal air. There is no evidence of free intraperitoneal or pelvic fluid. There are no soft tissue masses or fluid collections. Vasculature: The aorta is normal without evidence of significant atherosclerosis or aneurysmal disease. The peripheral arterial vascular system visualized is unremarkable. The portal venous system visualized is unremarkable. The venous system visualized is unremarkable. Lymph nodes: There is no evidence of lymphadenopathy. Urinary bladder: The bladder is normal. Reproductive: There is an IUD present. The uterus is normal. The ovaries are normal. Bones/joints: The skeletal structures show no evidence of fracture or other acute processes. There are postsurgical changes and Rogel rods present extending from the thoracolumbar region to the lumbar region traversing a scoliosis of the thoracolumbar spine. Soft tissues: The extra-abdominal soft tissues are normal. IMPRESSION: There are postsurgical changes and Rogel rods present extending from the thoracolumbar region to the lumbar region traversing a scoliosis of the thoracolumbar spine. Dictated and Authenticated by: Keyshawn Cesar MD. Ordering:KAROL Paz MD
--- NOTE | 2023-04-15 01:48 | W.ED.GENAD ---
Discharge Plan Disposition Patient Disposition: Home Condition: Good Discharge Details Clinical Impression: Tingling in extremities, Urinary urgency Primary Care Provider: Sandip Ko ED Provider: Jackson Serrano Home Meds and New Rx's Prescriptions: No Action clonazepam 0.5 mg tablet 0.25 mg BID Patient Comments: TAKE ONE-HALF TABLET BY MOUTH TWICE A DAY fluoxetine 10 mg tablet See Rx Instructions .ROUTE .COMPLEX Patient Comments: Take 1 tablet by mouth once a day take one tablet by for two weeks and then take two daily 20mg Rx Instructions: 10 mg folic acid 1 mg tablet 1 mg QDAY Patient Comments: TAKE ONE TABLET BY MOUTH EVERY DAY phenazopyridine 99.5 mg tablet 99.5 mg PO TID PRNQty: 7 0RF Discharge Instructions Instructions: Paresthesia (ED), Interstitial Cystitis (ED) Additional Instructions: At this time your CAT scan shows no evidence of significant abnormality thankfully. There is a chance that the tingling that you do have may be from the positioning of her spine from the scoliosis. Please follow-up closely with your spinal surgeon this coming month. Please follow-up closely with your neurologist that department/[facility]. Additionally the irritation that you are feeling in your bladder may be residual from the urinary tract infection as this has resolved though. There may be a condition called interstitial cystitis that could be causing some of your discomfort in your bladder as well. Please avoid any cranberry juice, stay well-hydrated and drink plenty of fluids. Please take the appropriate a.m. only as needed. If you notice any worsening of your symptoms, or any new symptoms such as vomiting, diarrhea, fever, chills, shortness of breath, chest pain, numbness, weakness, or fainting , please return immediately to the emergency department for reevaluation. Please follow up with your primary care provider as soon as possible for reassessment and reevaluation. As always, it was a pleasure participating in your medical care today. Referrals: Sandip Ko [Primary Care Provider] - Medical Decision Making 23-year-old female with a past medical history of scoliosis with multiple surgeries, migraines, anxiety, and depression, who presents today for evaluation of urinary frequency and tingling in her left lower extremity. In regards to the urinary frequency the patient states that she had a urinalysis about a week ago and was diagnosed with UTI. She was treated with an antibiotic but unfortunately developed a mild rash and stopped taking the antibiotic 2 to 3 days ago. She did go and visit the [facility] yesterday, where she had a urinalysis performed again and was negative for evidence of infection. She did discuss with them the tingling that she has in her left lower extremity as well, and they had no other additional recommendations. She does see a activities specialist in [facility], she did see a neurologist at [facility], but has recently transition to seeing one at the [facility] but does not yet have a new appointment. Patient denies any saddle anesthesia, numbness or tingling in the groin, change in sensation when wiping. Patient denies any change in sensation during sexual intercourse, bowel or bladder incontinence, leakage, or retention. Patient denies any weakness in the lower extremities, atypical falls or imbalance. She denies any other complaints at this time. No other modifying factors. Exam demonstrates no focal neurologic deficits, normal sensation throughout. No signs of cauda equina syndrome. Patient is concern for Guillain-Urena? with the numbness and tingling that she has had for the last few months, however clinical assessment at this time does not show any signs or symptoms consistent with Guillain-Urena? at this time. Patient seems to be quite frustrated with the medical system at this time, she states that she is concerned that she may go home and from Guillain-Urena? syndrome. I did reassure her that based on my exam there is no clinical evidence to suggest this currently. We did discuss the continued urinary sensation that she is having, differential does include kidney stone, interstitial cystitis, then with her tingling there is always concern for potential mass or change in her spinal pathology based on her previous surgeries. Weighing the risks and benefits patient did elect to go ahead with CT scan. CT scan was performed shows no evidence of acute process. Urinalysis is negative for infection. We did further to discuss symptoms of interstitial cystitis, need for potential urology follow-up if her symptoms persist. We will give 2 doses of Pyridium for home use. I also discussed the tools that we have available here and the lack of certain tools including urgent MRI, nerve conduction studies, amongst other further studies. I did recommend close follow-up with her neurologist at the [facility] for further diagnostic assessment if she feels indicated. Although at this time there is no other evidence for need for additional emergent imaging or work-up currently. I do feel that the tingling in her left lower extremity likely has a component of sciatica, especially with her tenderness over the piriformis muscle. Will recommend continued stretching ice and heating pad as indicated. Otherwise discussed red flags for which to return. Mother is at bedside. I have extensively reviewed the treatment plan and discharge instructions with the patient and their family. I have addressed all patient concerns at this time. The patient and family was made aware of what symptoms to monitor for that would warrant a return to the emergency department. Discussed the plan with the patient and family, they demonstrate verbal understanding and agreement with our assessment and plan at this time. The documentation in this chart was dictated using [employer] dictation software. Please excuse any dictation errors. FINDINGS: Lungs: The lungs are normal. There is no evidence of focal pulmonary consolidation. Pleural spaces: There is no evidence of pneumothorax. There are no pleural effusions present. Heart: The cardiac structures are normal. Liver: There are no focal liver lesions present. There is no evidence of intrahepatic or extrahepatic biliary ductal dilation. There is no evidence of intrahepatic or extrahepatic biliary ductal dilation. Gallbladder and bile ducts: There has been a cholecystectomy. Pancreas: The pancreas is normal. Spleen: The spleen is normal. Adrenal glands: The adrenal glands are normal. Kidneys and ureters: The kidneys are normal. Stomach and bowel: There is moderate increased colonic fecal content. The colon is mildly distended. These findings suggest a moderate degree of constipation. Clinical correlation recommended. There is no evidence of intestinal obstruction. No diverticulitis is present. Appendix: A normal appendix is identified. There is no evidence of distention or periappendiceal inflammation to suggest appendicitis. Intraperitoneal space: There is no free intraperitoneal air. There is no evidence of free intraperitoneal or pelvic fluid. There are no soft tissue masses or fluid collections. Vasculature: The aorta is normal without evidence of significant atherosclerosis or aneurysmal disease. The peripheral arterial vascular system visualized is unremarkable. The portal venous system visualized is unremarkable. The venous system visualized is unremarkable. Lymph nodes: There is no evidence of lymphadenopathy. Urinary bladder: The bladder is normal. Reproductive: There is an IUD present. The uterus is normal. The ovaries are normal. Bones/joints: The skeletal structures show no evidence of fracture or other acute processes. There are postsurgical changes and Rogel rods present extending from the thoracolumbar region to the lumbar region traversing a scoliosis of the thoracolumbar spine. Soft tissues: The extra-abdominal soft tissues are normal. IMPRESSION: There are postsurgical changes and Rogel rods present extending from the thoracolumbar region to the lumbar region traversing a scoliosis of the thoracolumbar spine. Thank you for allowing us to participate in the care of your patient. Dictated and Authenticated by: Keyshawn Cesar MD 04/15/2023 1:44 AM Eastern Time ([place] & [place]) HPI General Date/Time Provider Initiated Documentation: 04/14/23 22:29. HPI Narrative: 23-year-old female with a past medical history of scoliosis with multiple surgeries, migraines, anxiety, and depression, who presents today for evaluation of urinary frequency and tingling in her left lower extremity. In regards to the urinary frequency the patient states that she had a urinalysis about a week ago and was diagnosed with UTI. She was treated with an antibiotic but unfortunately developed a mild rash and stopped taking the antibiotic 2 to 3 days ago. She did go and visit the [facility] yesterday, where she had a urinalysis performed again and was negative for evidence of infection. She did discuss with them the tingling that she has in her left lower extremity as well, and they had no other additional recommendations. She does see a activities specialist in [facility], she did see a neurologist at [facility], but has recently transition to seeing one at the [facility] but does not yet have a new appointment. Patient denies any saddle anesthesia, numbness or tingling in the groin, change in sensation when wiping. Patient denies any change in sensation during sexual intercourse, bowel or bladder incontinence, leakage, or retention. Patient denies any weakness in the lower extremities, atypical falls or imbalance. She denies any other complaints at this time. No other modifying factors. Related Data Home Medications Medication Instructions Recorded Confirmed clonazepam 0.5 mg tablet 0.25 mg BID 04/06/23 04/14/23 fluoxetine 10 mg tablet See Rx Instructions .Route .COMPLEX 04/06/23 04/14/23 folic acid 1 mg tablet 1 mg QDAY 04/06/23 04/14/23 phenazopyridine 99.5 mg tablet 99.5 mg PO TID PRN 6 doses #7 tabs 04/07/23 04/14/23 Previous Rx's Medication Instructions Recorded phenazopyridine 99.5 mg tablet 99.5 mg PO TID PRN 6 doses #7 tabs 04/07/23 Allergies Allergy/AdvReac Type Severity Reaction Status Date / Time duloxetine [From Cymbalta] Allergy Severe Verified 04/14/23 22:55 grass pollen-perennial rye, Allergy Verified 04/14/23 22:55 standar pollen extracts Allergy Verified 04/14/23 22:55 Iodinated Contrast Media AdvReac Intermediate Skin Rash Unverified 04/14/23 22:55 General Stated Complaint: Urinary ALEXX: 3 Review of Systems All systems reviewed & are unremarkable except as noted in HPI and below PFSH All Active Problems Urinary tract bacterial infections (Acute) Tingling in extremities (Acute) Urinary urgency (Acute) Medical History Allergic rhinitis Alopecia Anemia Anxiety Asthma Cluster headache Double vision GERD (gastroesophageal reflux disease) Idiopathic scoliosis Inflammatory dermatosis Low back pain Menorrhagia Non-suppurative otitis media Pediculosis capitis Right upper quadrant pain Temporomandibular joint disorder Surgical History H/O Spinal surgery Hx laparoscopic cholecystectomy 08/09/2021 Family History Mother Breast cancer Father Diabetes Social History Smoking/Tobacco Use Status: Never Smoking risk assessment performed?: Yes Alcohol Intake: never Drug use: Never Substance use type: does not use Do you feel safe at home: Yes Do you feel safe in your relationship?: Yes Exam Narrative Exam Narrative: 1.Const: Well-nourished, Well-developed, appearing stated age 2.Eyes: PERRL, no conjunctival injection, and symmetrical lids. 3.ENT: Atraumatic external nose and ears. Moist MM. Neck: Symmetric, trachea midline, No thyromegaly. 4.CVS: +S1/S2, No murmurs or gallops. Peripheral pulses 2+ and equal in all extremities. Brisk capillary refill in all extremities. 5.RESP: Unlabored respiratory effort. Clear to auscultation bilaterally. No wheezes rales or rhonchi 6.GI: Soft, Nontender/Nondistended, No hepatosplenomegaly. No guarding or rebound. 7.MSK: Normocephalic/Atraumatic, Extremities w/o deformity or ttp No cyanosis or clubbing, Normal movement of all extremities No midline tenderness to palpation over the CTLS spine. Minimal tenderness pinpoint over the left piriformis muscle. Normal ROM in flexion, extension, side bend, and rotation. Patient has +5 out of 5 strength in the lower extremities in dorsiflexion and plantarflexion, knee flexion and extension, hip flexion and extension. Normal strength for dorsiflexion and plantar flexion of the great toe bilaterally. There is +2 over 2 dorsalis pedis pulses bilaterally. There is normal sensation to the skin with light touch at the foot, knee, and hip. Normal saddle sensation. Good sensation over the deep sural nerve area bilaterally. Rectal exam deferred. Reflexes are +2 over 4 in the patellar reflex bilaterally. +5 out of 5 strength in the medial, ulnar, radial nerve distribution bilaterally in the hands as well as intact light touch sensation to these dermatomes on the hands 8.Skin: Warm, Dry. No rashes or lesions. 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 Sensation grossly intact, no focal neurologic deficits. 10.Psych: (AAO) x3. Appropriate mood and affect Course Vital Signs Vital signs: Vital Signs Temperature 36.8 C 04/14/23 22:51 Pulse 83 04/14/23 22:51 Respiratory Rate 16 04/14/23 22:51 Blood Pressure 102/68 04/14/23 22:51 Pulse Oximetry 100 04/14/23 22:51 Temperature 36.8 C 04/14/23 22:51 Temperature Source Temporal Artery Scan 04/14/23 22:51 Pulse 83 04/14/23 22:51 Respiratory Rate 16 04/14/23 22:51 Respiratory Effort Normal 04/14/23 22:51 Blood Pressure 102/68 04/14/23 22:51 Blood Pressure Position Sitting 04/14/23 22:51 Pulse Oximetry 100 04/14/23 22:51 Oxygen Delivery Method Room Air 04/14/23 22:51 Oxygen Flow Rate 0 04/14/23 22:51 Pain Level 3 04/14/23 22:51 Lab/Test Results Lab/Test Results: Laboratory Tests Range/Units 04/15/23 00:34 Urine Color (Yellow) Yellow Urine Clarity (Clear) Clear Urine pH (5-8) 5.5 Ur Specific [place] (1.005-1.025) >= 1.030 H Urine Protein (Negative) mg/dL 30 H Urine Ketones (Negative) mg/dL Negative Urine Blood (Negative) Negative Urine Nitrite (Negative) Negative Urine Bilirubin (Negative) Small H Urine Urobilinogen (Up to 0.2) mg/dL 0.2 Ur Leukocyte Esterase (Negative) Negative Urine RBC (0-2) HPF Negative Urine WBC (0-5) HPF Negative Ur Epithelial Cells (Negative) HPF Moderate Urine Crystals (Negative) HPF Negative Urine Bacteria (Negative) HPF Rare Urine Casts (Negative) LPF Negative Urine Mucus (Negative) Negative Ur Culture Indicated? No Urine Glucose (Negative) mg/dL Negative
[2023-04-15] MEDS: Phenazopyridine 100 MG TAB, 2 TABS/BTL PO (02:15)
== END 2023-04-15 02:20 | disposition home or self-care (01) ==
PROVIDERS: Emergency Provider Student in an Organized Health Care Education/Training Program; PCP Family Medicine
DX: R39.15 Urgency of urination (principal); R20.0 Anesthesia of skin
CPT/HCPCS: 99284; 74176; 81003; 81015; 99283

== ENCOUNTER 2023-04-27 00:28 | Emergency (ER) | payer MEDICARE, MEDICAID, SELFPAY ==
[2023-04-27 00:33] VITALS: BP 107/79; PULSE 84; RESP 12; TEMP 36.8; O2SAT 98
--- NOTE | 2023-04-27 00:40 | ED.GENADUL_ITS ---
Discharge Plan Disposition Patient Disposition: Home Discharge Details Clinical Impression: Chest pain, unspecified, Acute exacerbation of chronic low back pain Primary Care Provider: Snadip Ko ED Provider: Unruly Morgan Home Meds and New Rx's Prescriptions: New lidocaine [Lidoderm] 5 % adhesive patch,medicated 1 patch topical DAILY Qty: 15 0RF Rx Instructions: leave on most painful area for up to 12 hrs Continued clonazepam 0.5 mg tablet 0.25 mg BID Patient Comments: TAKE ONE-HALF TABLET BY MOUTH TWICE A DAY fluoxetine 10 mg tablet See Rx Instructions .ROUTE .COMPLEX Patient Comments: Take 1 tablet by mouth once a day take one tablet by for two weeks and then take two daily 20mg Rx Instructions: 10 mg folic acid 1 mg tablet 1 mg QDAY Patient Comments: TAKE ONE TABLET BY MOUTH EVERY DAY phenazopyridine 99.5 mg tablet 99.5 mg PO TID PRNQty: 7 0RF Discharge Instructions Additional Instructions: Please read all of the information that accompanies these instructions. You were seen in the emergency department for your low back pain chills. The blood work showed no sign of any damage to your heart. Your urinalysis showed no sign of urinary tract infection. Please schedule an appointment with your primary care provider later this week. Please return to the emergency department if you lose control of your bowels or bladder or develop any fevers or worsening rash. For your pain please take medications as follows: 1. Take acetaminophen (Tylenol), 1,000 mg (two 500 mg tabs) every 6 hours 2. Take ibuprofen (Advil), 400 mg every 6 hours. A prescription for patches of numbing medicine which you should use as needed for your back has been sent to your pharmacy. Medical Decision Making This is an overall very well-appearing normothermic and not tachycardic 23-year-old female with multiple medical complaints. Concerning her chills and low back pain she is concerned that she could have a urinary tract infection so we will obtain a urinalysis and treat if positive based on symptoms. Concerning her 3-day history of aching chest pain she is low risk for ACS however will obtain ECG and a single troponin and if these are reassuring will be reassured against ACS. She has had no cough nor shortness of breath to suggest pneumonia. Chest pain is not positional to suggest pericarditis. Similarly no recent URI symptoms. She is PERC negative so I did not send a D-dimer. No tearing quality to suggest dissection. No rash to chest to suggest zoster. She has vomited twice but has no crepitance so my suspicion is low for esophageal rupture. Equal breath sounds so I am not concerned for pneumothorax. Concerning her low back pain she does have a history of scoliosis and tingling in her extremities. She has intact sensation and motor function in her bilateral lower extremities. She has no history of malignancy to suggest increased risk for pathological fracture. No ascending weakness to suggest Guillain-Urena?. No loss of bowel nor bladder control to suggest cauda equina. No history of IV drug use to suggest increased risk for spinal epidural abscess. No history of anticoagulation to suggest increased risk for spinal epidural hematoma. Similarly no recent spinal surgeries. Concerning her indolent onset headache I am not concerned for subarachnoid hemorrhage given slow onset. No history of trauma to suggest intracranial hemorrhage. No hormone use to suggest increased risk for cerebral venous sinus thrombosis. I completed a respiratory viral swab which was negative for COVID influenza and RSV. She does have very mild erythema to her palms and reports having had a rash earlier today. She is not sexually active so my suspicion is exceedingly low for syphilis. Her rash is not consistent with erythema migrans. No intraoral lesions to suggest coxsackie. No rash to wrists to suggest [place] spotted fever and patient is not toxic appearing. No history of endocarditis to suggest [place] lesions. Similarly patient is nontoxic so doubt toxic shock syndrome. No history of sexually transmitted infection to suggest reactive arthritis. Will attempt symptomatic treatment with 1 L of IV fluids, acetaminophen, ibuprofen, and ODT ondansetron. 2:45 AM CBC with no leukocytosis anemia nor thrombocytopenia. Basic metabolic panel with no anion gap and no JUAN JOSÉ. Negative troponin. Nitrite negative urine not consistent with UTI. Patient's risk factors for coronary artery disease is her elevated BMI. HEART SCORE Chest pain Diagnostic Protocol: - [History/Physical/Gestalt: Slightly Suspicious (0)] - [EKG: Nonspecific repolarization (+1)] - [AGE: less than 45 (0)] - [RISK FACTORS: 1 - 2 risk factors (+1)] - [TROPONIN: <= normal limit (0)] - TOTAL SCORE: 2 - Risk Factors: DM, current or recent smoker, HTN, HLD, family hx of CAD, obesity - INTERPRETATION: With a total score of 3 or less, risk of major cardiac event within six weeks 1.7%, likely lower with two negative troponins. [I explained to the patient that the risk of subsequent major cardiac event within 1 month is not 0, however risk predicted to be less than 2%. Patient verbalized understanding, accepts this risk and shared and the decision for discharge with PCP follow-up for further evaluation and management. They understand to return to the ED immediately with any worsening symptoms, new symptoms or other concerns.] 3:15 AM Patient's labs ECG and troponin were all reassuring. I sent a short course of Lidoderm patches into her pharmacy. I advised ED return for loss control of her bowels or bladder developed any fevers or any worsening rash. Otherwise advised PCP follow-up later this week. Patient's mother was with her throughout her entire encounter and was going to drive her home. Chronic conditions affecting the care of the patient: Low back pain and history of scoliosis History obtained from an outside historian: Patient's mother External record review: [facility] [place] EMR Diagnostic interpretations performed by me: [Per my independent interpretation chest x-ray shows:] Rods from scoliosis surgery intact. No acute cardiopulmonary process. Per my independent interpretation EKG shows: Narrow complex normal sinus rhythm at a rate of 68. Normal axis. Intervals within normal limits. T wave inversion in aVF and lead III similar to prior. Slightly more pronounced T wave inversion in V3 compared to prior. Prior dated earlier this year. No acute injury pattern. Medications: Acetaminophen & ibuprofen Social determinants of health affecting disposition: N/A Management discussed with: N/A Treatment/interventions considered: N/A Response to therapies provided: Mildly improved following acetaminophen and ibuprofen HPI General Date/Time Provider Initiated Documentation: 04/27/23 00:40 . HPI Narrative: This is a 23-year-old female with a history of scoliosis now in the emergency department in setting of multiple complaints. She has had 1 week of chills and low back pain and is concerned that she has a urinary tract infection. She denies dysuria and frequency. She is not sexually active has never had a sexually transmitted infection. She also says that 3 days ago her chest began aching. She describes a central nonradiating chest pain. She says that she did not fall or hit her chest. She has had no shortness of breath. She denies history of PE and DVT. No recent URI symptoms. She is not on any hormone replacement therapy. She has no history of diabetes hypertension or hyperlipidemia. There is no family history of any premature coronary artery disease. She also endorses acute on chronic low back pain. She says that her pain is on both sides of her low back. It does not extend into her legs. She has been generally fatigued and vomited twice. She endorses persistent nausea. She has not had any abdominal pain. She has not lost control of her bowels or bladder. She has no history of malignancy. She denies any trauma to her back. She is not anticoagulated. She has had no recent spinal surgeries. She also endorses a mild red rash that began to form on her hands earlier today. Related Data Home Medications Medication Instructions Recorded Confirmed clonazepam 0.5 mg tablet 0.25 mg BID 04/06/23 04/14/23 fluoxetine 10 mg tablet See Rx Instructions .Route .COMPLEX 04/06/23 04/14/23 folic acid 1 mg tablet 1 mg QDAY 04/06/23 04/14/23 phenazopyridine 99.5 mg tablet 99.5 mg PO TID PRN 6 doses #7 tabs 04/07/23 04/14/23 lidocaine 5 % topical patch 1 patch topical DAILY #15 ea 04/27/23 (Lidoderm) Previous Rx's Medication Instructions Recorded phenazopyridine 99.5 mg tablet 99.5 mg PO TID PRN 6 doses #7 tabs 04/07/23 lidocaine 5 % topical patch 1 patch topical DAILY #15 ea 04/27/23 (Lidoderm) Allergies Allergy/AdvReac Type Severity Reaction Status Date / Time duloxetine [From Cymbalta] Allergy Severe Verified 04/14/23 22:55 grass pollen-perennial rye, Allergy Verified 04/14/23 22:55 standar pollen extracts Allergy Verified 04/14/23 22:55 Iodinated Contrast Media AdvReac Intermediate Skin Rash Unverified 04/14/23 22:55 General Stated Complaint: GenMedical ALEXX: 3 PFSH All Active Problems (Updated 04/27/23 @ 02:50 by Unruly Morgan MD) Urinary tract bacterial infections (Acute) Tingling in extremities (Acute) Urinary urgency (Acute) Chest pain, unspecified (Acute) Acute exacerbation of chronic low back pain (Acute) Medical History Allergic rhinitis Alopecia Anemia Anxiety Asthma Cluster headache Double vision GERD (gastroesophageal reflux disease) Idiopathic scoliosis Inflammatory dermatosis Low back pain Menorrhagia Non-suppurative otitis media Pediculosis capitis Right upper quadrant pain Temporomandibular joint disorder Surgical History H/O Spinal surgery Hx laparoscopic cholecystectomy 08/09/2021 Family History Mother Breast cancer Father Diabetes Social History Smoking/Tobacco Use Status: Never Smoking risk assessment performed?: Yes Alcohol Intake: never Drug use: Never Substance use type: does not use Do you feel safe at home: Yes Do you feel safe in your relationship?: Yes Exam Narrative Exam Narrative: General: Well-appearing in no acute distress speaking in complete sentences. Head: Normocephalic, atraumatic. Eye: Extraocular eye movements intact. No conjunctival injection. No scleral icterus. Ear, nose, mouth, throat: Grossly normal inspection. Normal voice, handling secretions normally. Neck: Trachea midline. Cardiovascular: Well-perfused distal extremities. Regular rate and rhythm Respiratory: Nonlabored respiration. Clear lungs bilaterally Gastrointestinal: Nondistended abdomen. Soft nontender. Back: Well-healed midline thoracic lumbar spinal scar. Low back pain paraspinally left and right in the lumbar region. No signs of rash to back. Musculoskeletal: No edema. Moving all 4 extremities spontaneously. 5 out of 5 bilateral lower extremity strength in dorsi and plantarflexion. Skin: Several scattered mild small less than 1 cm faint lisa colored macules that appear around. Neurologic: Alert and appropriate, no apparent acute deficits. Psychiatric: Mood and manner are appropriate. Grooming and personal hygiene are appropriate. Course Vital Signs Vital signs: Vital Signs Temperature 36.8 C 04/27/23 00:33 Pulse 84 04/27/23 00:33 Respiratory Rate 12 04/27/23 00:33 Blood Pressure 107/79 04/27/23 00:33 Pulse Oximetry 98 04/27/23 00:33 Temperature 36.8 C 04/27/23 00:33 Temperature Source Temporal Artery Scan 04/27/23 00:33 Pulse 84 04/27/23 00:33 Respiratory Rate 12 04/27/23 00:33 Respiratory Effort Normal 04/27/23 00:36 Blood Pressure 107/79 04/27/23 00:33 Blood Pressure Position Sitting 04/27/23 00:33 Pulse Oximetry 98 04/27/23 00:33 Oxygen Delivery Method Room Air 04/27/23 00:33 Oxygen Flow Rate 0 04/27/23 00:33 Pain Level 4 04/27/23 00:33
--- NOTE | 2023-04-27 01:45 | DI.RAD_ITS ---
Exam(s) XR CHEST 2V PA LATERAL EXAM: XR CHEST 2V PA LATERAL CLINICAL HISTORY: Chest pain TECHNIQUE: 2D digital imaging was performed of the chest. Two images were obtained. PA and lateral views were obtained. COMPARISON: CR,XR XR CHEST 2V PA LATERAL from 02/02/2023 FINDINGS: MEDIASTINUM: Normal. HEART: Normal. PULMONARY VASCULATURE: Normal. LUNGS: Clear. PLEURAL SPACE: No pleural effusion or pneumothorax. BONE:Within normal limits for the patient's age. Prior spine surgery. OTHER FINDINGS:Normal. IMPRESSION: No acute pulmonary findings. DATA REPOSITORY: RADIATION DOSE DELIVERED:
--- NOTE | 2023-04-27 01:45 | RT.EKG_ITS ---
APPROVED REPORT Exam: Resting ECG Reason for Exam: Chest pain Patient Location: E HR:68 bpm ECG Measurements Heart Rate 68 AXIS TX 158 P 21 QRSd 78 QRS 22 QT 344 T -11 QTc 365 Conclusion Sinus arrhythmia...V-rate 52- 78, variation>10% Borderline T abnormalities, diffuse leads...T flat/neg Narrow complex normal sinus rhythm at a rate of 68. Normal axis. Intervals within normal limits. T wave inversion in aVF and lead III similar to prior. Slightly more pronounced T wave inversion in V 3 compared to prior. Prior dated earlier this year. No acute injury pattern.
[2023-04-27 02:18] LABS: Abs Immature Grans 0.02 10^3/uL (0.0-0.06); Absolute Basophil Count 0.04 10^3/uL (0.0-0.2); Absolute Lymphocyte Count 2.25 10^3/uL (1.2-3.4); Absolute Monocyte Count 0.56 10^3/uL (0.1-0.8); Absolute Neutrophil Count 7.78 10^3/uL (1.2-6.7); Basophils % 0.4; Eosinophils % 0.9; HCT 43.2 % (36.0-46.0); HGB 13.7 g/dL (11.2-15.7); Immature Grans % 0.2; Lymphocytes % 20.9; MCH 27.2 pg (27.0-33.0); MCHC 31.7 % (32.0-36.0); MCV 86 fL (80-95); Monocytes % 5.2; Neutrophils % 72.4; Platelet Count 305 10^3/uL (130-400); RBC 5.04 10^6/uL (3.93-5.22); RDW 12.1 % (11.7-14.6); RDW-SD 37.6 fL; WBC 10.75 10^3/uL (4.4-10.8)
[2023-04-27 02:19] LABS: Bilirubin Negative (Negative); Blood Negative (Negative); Clarity Sl Cloudy (Clear); Glucose Negative (Negative); Ketones Negative (Negative); Leukocyte Esterase Negative (Negative); Nitrite Negative (Negative); Specific Gravity >= 1.030 (1.005-1.025); pH 5.5 (5-8)
[2023-04-27] MEDS: Acetaminophen 500 MG TAB 1000 MG PO (02:19)
[2023-04-27] MEDS: Ibuprofen 600 MG TAB PO (02:20)
[2023-04-27] MEDS: Ondansetron O.D.T. 4 MG TABEF PO (02:20)
[2023-04-27 02:37] LABS: Anion Gap 7.7 mmol/L (3-11); BUN 11 mg/dL (7-18); CO2 28.3 mmol/L (21.0-32.0); CREATININE 0.8 mg/dL (0.55-1.02); Calcium 9.6 mg/dL (8.5-10.1); Chloride 104 mmol/L (98-107); Estimated GFR 107.44 (mL/min/1.73m2); Glucose 89 mg/dL (74-106); Potassium 3.5 mmol/L (3.5-5.1); Sodium 140 mmol/L (136-145); Troponin I < 50 ng/L (<or=60)
[2023-04-27 02:58] LABS: COVID-19 PCR Negative (Negative); Influenza A PCR Negative (Negative); Influenza B PCR Negative (Negative); RSV PCR Negative (Negative)
[2023-04-27 03:12] LABS: Source Nasopharynx
--- NOTE | 2023-04-27 04:44 | DI.VRAD_ITS ---
PROCEDURE INFORMATION: Exam: XR Chest Exam date and time: 04/27/2023 2:39 AM Age: 23 years old Clinical indication: Chest wall pain; Prior surgery; Surgery date: 6+ months; Surgery type: Spinal surgery; Additional info: Chest pain TECHNIQUE: Imaging protocol: Radiologic exam of the chest. Views: 2 views. COMPARISON: CR XR CHEST 2V PA LATERAL 02/02/2023 11:37 PM FINDINGS: Lungs: Unremarkable. No consolidation. Pleural spaces: Unremarkable. No pleural effusion. No pneumothorax. Heart/Mediastinum: Unremarkable. No cardiomegaly. Bones/joints: Prior spine surgery. IMPRESSION: No acute findings. Dictated and Authenticated by: Logan Anglin MD. Ordering:CLAY Tolliver MD
== END 2023-04-27 03:04 | disposition home or self-care (01) ==
PROVIDERS: Emergency Provider Emergency Medicine; PCP Family Medicine
DX: M54.59 Other low back pain (principal); R11.2 Nausea with vomiting, unspecified; R07.9 Chest pain, unspecified
CPT/HCPCS: 80048; 81025; 87637; 93005; 99284; 71046; 81003; 84484; 85025; 93010; 99283

== ENCOUNTER 2023-12-30 11:13 | Emergency (ER) | payer MEDICARE, MEDICAID, SELFPAY ==
[2023-12-30 11:14] VITALS: BP 119/88; PULSE 102; RESP 15; TEMP 36.7; O2SAT 98
[2023-12-30 11:23] VITALS: BP 119/88; PULSE 102; RESP 15; TEMP 36.7; O2SAT 98
[2023-12-30] MEDS: Ibuprofen 600 MG TAB PO (11:38)
[2023-12-30] MEDS: Acetaminophen 500 MG TAB 1000 MG PO (11:38)
--- NOTE | 2023-12-30 12:16 | ED.GENADUL_ITS ---
HPI General Date/Time Provider Initiated Documentation: 12/30/23 11:20 . HPI Narrative: This 23-year-old female presents with dental pain on the left upper gumline. States she had COVID 16 days ago 3 days ago developed some left-sided maxillary tenderness and left dental pain. Denies fever or chills. Denies any difficulty swallowing, chest pain, shortness of breath. Denies any neck pain. Does have a headache history of migraine headaches. Denies any vision change. Denies known exacerbating relieving factors. Related Data Home Medications Medication Instructions Recorded Confirmed acetaminophen 500 mg tablet 500 mg PO Q6H PRN 10/20/23 12/30/23 albuterol sulfate 90 mcg/actuation 2 puff inhalation 6XD 10/20/23 12/30/23 aerosol inhaler (ProAir HFA) fluticasone propionate 110 1 puff inhalation BID 10/20/23 12/30/23 mcg/actuation HFA aerosol inhaler (Flovent HFA) fluticasone propionate 50 2 spray intranasal DAILY 10/20/23 12/30/23 mcg/actuation nasal spray,suspension (Flonase Allergy Relief) hydroxyzine HCl 25 mg tablet 25 mg PO QHS PRN 10/20/23 12/30/23 levonorgestrel 21 mcg/24 hours (8 1 device intrauterine ONCE 10/20/23 12/30/23 yrs) 52 mg intrauterine device (Mirena) loratadine 10 mg tablet 10 mg PO DAILY 10/20/23 12/30/23 naproxen 375 mg tablet,delayed 375 mg PO BID PRN 10/20/23 12/30/23 release ondansetron HCl 4 mg tablet 4 mg PO Q8H PRN 10/20/23 12/30/23 Allergies Allergy/AdvReac Type Severity Reaction Status Date / Time duloxetine [From Cymbalta] Allergy Severe Other (See Verified 12/30/23 11:20 Comment) grass pollen-perennial rye, Allergy Other (See Verified 12/30/23 11:20 standar Comment) pollen extracts Allergy Other (See Verified 12/30/23 11:20 Comment) Iodinated Contrast Media AdvReac Intermediate Skin Rash Unverified 12/30/23 11:20 General Stated Complaint: DentalOral ALEXX: 4 Course Vital Signs Vital signs: Vital Signs Temperature 36.7 C 12/30/23 11:14 Pulse 102 H 12/30/23 11:14 Respiratory Rate 15 12/30/23 11:14 Blood Pressure 119/88 12/30/23 11:14 Pulse Oximetry 98 12/30/23 11:14 Temperature 36.7 C 12/30/23 11:23 Temperature Source Temporal Artery Scan 12/30/23 11:23 Pulse 102 H 12/30/23 11:23 Respiratory Rate 15 12/30/23 11:23 Respiratory Effort Normal 12/30/23 11:18 Blood Pressure 119/88 12/30/23 11:23 Blood Pressure Position Supine 12/30/23 11:23 Pulse Oximetry 98 12/30/23 11:23 Oxygen Delivery Method Room Air 12/30/23 11:23 Oxygen Flow Rate 0 12/30/23 11:23 Pain Level 8 12/30/23 11:40 Medical Decision Making 31-year-old female in no acute distress with left upper dental pain, specifically to #12 and 13, no evidence of deep space infection, no trismus, no evidence of Kody's Patient was prescribed Augmentin yesterday for sinus infection versus dental abscess Has not initiated antibiotics, encouraged to start your antibiotics Will take ibuprofen and Tylenol as needed for pain Specifically no evidence of meningitis, no maxillary tenderness, afebrile and nontoxic Return precautions reviewed and patient expressed understanding Quality:SDOH Health Related Social Needs: No Data to Display PFSH All Active Problems (Updated 12/30/23 @ 11:33 by HENOK Cevallos) Pain, dental (Acute) Facial pressure (Acute) Otalgia of both ears (Acute) Medical History (Updated 12/30/23 @ 11:33 by HENOK Cevallos) Dyspnea Dysphagia Depressive disorder Constipation Chronic sinusitis Otitis media, unspecified, right ear Pediculosis capitis Inflammatory dermatosis Temporomandibular joint disorder Right upper quadrant pain Menorrhagia Low back pain Idiopathic scoliosis GERD (gastroesophageal reflux disease) Double vision Cluster headache Asthma Anxiety Anemia Alopecia Allergic rhinitis Non-suppurative otitis media Surgical History H/O Spinal surgery Hx laparoscopic cholecystectomy 08/09/2021 Family History Mother Breast cancer Father Diabetes Social History Smoking/Tobacco Use Status: Never Smoking risk assessment performed?: Yes Alcohol Intake: never Drug use: Never Substance use type: does not use Do you feel safe at home: Yes Do you feel safe in your relationship?: Yes Discharge Plan Disposition Patient Disposition: Home Condition: Stable Discharge Details Clinical Impression: Pain, dental Primary Care Provider: Sandip Ko ED Provider: Aga Castaneda Home Meds and New Rx's Prescriptions: Continued acetaminophen 500 mg tablet 500 mg PO Q6H PRN fluticasone propionate [Flonase Allergy Relief] 50 mcg/actuation spray,suspen anny 2 spray intranasal DAILY Rx Instructions: administer into each nostril fluticasone propionate [Flovent HFA] 110 mcg/actuation HFA aerosol inhaler 1 puff inhalation BID hydroxyzine HCl 25 mg tablet 25 mg PO QHS PRN loratadine 10 mg tablet 10 mg PO DAILY Mirena 21 mcg/24 hours (8 yrs) 52 mg intrauterine device 1 device intrauterine ONCE Rx Instructions: as a single dose naproxen 375 mg tablet,delayed release (DR/EC) 375 mg PO BID PRN ondansetron HCl 4 mg tablet 4 mg PO Q8H PRN albuterol sulfate [ProAir HFA] 90 mcg/actuation HFA aerosol inhaler 2 puff inhalation 6XD Discharge Instructions Instructions: Toothache (ED) Additional Instructions: Take your antibiotic as prescribed Yogurt daily while on your antibiotic Take ibuprofen 600 mg every 8 hours with food you may take Tylenol 650 mg every 4-6 hours for breakthrough pain Follow-up with your dentist on Monday and return earlier should you have new or worsening complaints Referrals: Sandip Ko [Primary Care Provider] - Discharge Data Discharge Date/Time-TO BE ENTERED AT DEPARTURE: 12/30/23 11:45
== END 2023-12-30 11:45 | disposition home or self-care (01) ==
PROVIDERS: Emergency Provider Physician Assistant; PCP Family Medicine
DX: K08.89 Other specified disorders of teeth and supporting structures (principal)
CPT/HCPCS: 99283

== ENCOUNTER 2024-01-17 17:33 | Emergency (ER) | payer MEDICARE, MEDICAID, SELFPAY ==
[2024-01-17 17:37] VITALS: BP 133/84; PULSE 102; RESP 18; TEMP 36.6; O2SAT 98
--- NOTE | 2024-01-17 18:26 | W.ED.GENAD ---
Discharge Plan Disposition Patient Disposition: Home Condition: Stable Discharge Details Clinical Impression: Viral syndrome Primary Care Provider: Sandip Ko ED Provider: Jackson Romano Home Meds and New Rx's Prescriptions: Continued acetaminophen 500 mg tablet 500 mg PO Q6H PRN fluticasone propionate [Flonase Allergy Relief] 50 mcg/actuation spray,suspension 2 spray intranasal DAILY Rx Instructions: administer into each nostril fluticasone propionate [Flovent HFA] 110 mcg/actuation HFA aerosol inhaler 1 puff inhalation BID hydroxyzine HCl 25 mg tablet 25 mg PO QHS PRN loratadine 10 mg tablet 10 mg PO DAILY Mirena 21 mcg/24 hours (8 yrs) 52 mg intrauterine device 1 device intrauterine ONCE Rx Instructions: as a single dose naproxen 375 mg tablet,delayed release (DR/EC) 375 mg PO BID PRN ondansetron HCl 4 mg tablet 4 mg PO Q8H PRN albuterol sulfate [ProAir HFA] 90 mcg/actuation HFA aerosol inhaler 2 puff inhalation 6XD Discharge Instructions Instructions: Viral Syndrome (ED) Additional Instructions: You were seen in the emergency department for your chills with some mild flank pain as well as a sore throat, your rapid strep is negative, your CBC shows no signs of infection, your urine sample has a little bit of bacteria but I think we should await culture as it is not definitive for UTI at this time. There is no signs of kidney stone on your urinalysis, please take regular doses of Tylenol and ibuprofen, your throat swab will be cultured which should be available tomorrow, your urine culture should be available in the next 48 hours or so. Please use therapeutic dosing of Tylenol (acetamenophen) & Advil (ibuprofen) in an alternating fashion as follows: Take 1000mg of Tylenol every 6 hours without missing doses- that is 4 times per day. Detention in between the Tylenol dosings, take 400-600mg of Advil also on a 6 hour schedule, that is also 4 times per day. The daily maximum dosing of Tylenol is 4000mg, and the daily maximum dosing of Advil is 2400mg. This is safe to do for weeks. Please note that some common cold medications & prescription pain medications may contain acetamenophen and you need to read OTC drug labels and factor that in to maximum daily dosings. Please return to the emergency department for any shortness of breath, respiratory distress, fevers not responding to Tylenol and ibuprofen, severe increase in pain or symptoms concerning for emergencies Referrals: Sandip Ko [Primary Care Provider] - Discharge Data Discharge Date/Time-TO BE ENTERED AT DEPARTURE: 01/17/24 20:39 HPI General Date/Time Provider Initiated Documentation: 01/17/24 17:44. HPI Narrative: 23 year-old female presents to ED today by POV/ambulating with her mother with a chief complaint of sore throat, mild cough/congestion, body aches and fatigue, questions a UTI but had normal UA with onset starting when she left [place] days ago. Quality described as body aches, fatigue, no respiratory distress, some mild diarrhea in the setting of IBS, no radiation to shortness of breath, chest pain, difficulty swallowing, high fever, vocal changes, excessive drooling, intractable nausea/vomiting, black/bloody stools, dysuria. Severity is described as moderate. Palliating factors include nothing specific attempted- no APAP/NSAIDs on board. Provoking factors include nothing specific. Patient not anticoagulated. Related Data Home Medications Medication Instructions Recorded Confirmed acetaminophen 500 mg tablet 500 mg PO Q6H PRN 10/20/23 01/04/24 albuterol sulfate 90 mcg/actuation 2 puff inhalation 6XD 10/20/23 01/04/24 aerosol inhaler (ProAir HFA) fluticasone propionate 110 1 puff inhalation BID 10/20/23 01/04/24 mcg/actuation HFA aerosol inhaler (Flovent HFA) fluticasone propionate 50 2 spray intranasal DAILY 10/20/23 01/04/24 mcg/actuation nasal spray,suspension (Flonase Allergy Relief) hydroxyzine HCl 25 mg tablet 25 mg PO QHS PRN 10/20/23 01/04/24 levonorgestrel 21 mcg/24 hours (8 1 device intrauterine ONCE 10/20/23 01/04/24 yrs) 52 mg intrauterine device (Mirena) loratadine 10 mg tablet 10 mg PO DAILY 10/20/23 01/04/24 naproxen 375 mg tablet,delayed 375 mg PO BID PRN 10/20/23 01/04/24 release ondansetron HCl 4 mg tablet 4 mg PO Q8H PRN 10/20/23 01/04/24 Allergies Allergy/AdvReac Type Severity Reaction Status Date / Time duloxetine [From Cymbalta] Allergy Severe Other (See Verified 12/30/23 11:20 Comment) grass pollen-perennial rye, Allergy Other (See Verified 12/30/23 11:20 standar Comment) pollen extracts Allergy Other (See Verified 12/30/23 11:20 Comment) Iodinated Contrast Media AdvReac Intermediate Skin Rash Unverified 12/30/23 11:20 General Stated Complaint: Sorethroat ALEXX: 4 Review of Systems All systems reviewed & are unremarkable except as noted in HPI and below Exam Narrative Exam Narrative: GENERAL APPEARANCE: Well-nourished, non-toxic, awake and alert, atraumatic, no acute distress. SKIN: Warm, pink, dry, intact, without rashes/lesions/ulcerations. HEAD: Normocephalic, atraumatic, normal hair distribution for gender/age. EYES: Pupils PERRLA, EOMs intact without nystagmus, normal conjunctiva, no exudates on lids/lashes. ENT: Nares patent, no circumoral cyanosis, no facial swelling, benign posterior orpharynx without erythema or exudate, uvula midline, no vocal changes, no excessive drooling NECK: Supple, trachea midline, painless cervical ROM. LUNGS/CHEST: Lungs CTA bilaterally- no rhonchi/rales/wheezes diffusely, non-labored respirations, normal A/P diameter, symmetrical expansion, no chest wall deformity HEART (CV/PV): Regular rate and rhythm without murmur, no peripheral edema, no JVD. ABDOMEN: Soft, non-distended, no guarding. MSK: Normal ROM, no swelling/deformity to bilateral UEs or LEs, moving all extremities without weakness, no cyanosis, spine midline without tenderness, normal curvature. NEURO: Mental Status AAOx4 - alert to person, place, time, events No facial droop, no forehead involvement. Motor: No focal weakness - strength 5/5 in bilateral UEs and LEs, proximal and distal, symmetric. Sensory: sensation intact to light touch globally. Gait normal: patient ambulated without ataxia into ED room. PSYCH: euthymic, cooperative, pleasant, appropriate speech Course Vital Signs Vital signs: Vital Signs Temperature 36.6 C 01/17/24 17:37 Pulse 102 H 01/17/24 17:37 Respiratory Rate 18 01/17/24 17:37 Blood Pressure 133/84 01/17/24 17:37 Pulse Oximetry 98 01/17/24 17:37 Temperature 36.6 C 01/17/24 17:37 Temperature Source Tympanic 01/17/24 17:37 Pulse 102 H 01/17/24 17:37 Respiratory Rate 18 01/17/24 17:37 Blood Pressure 133/84 01/17/24 17:37 Blood Pressure Position Sitting 01/17/24 17:37 Pulse Oximetry 98 01/17/24 17:37 Oxygen Delivery Method Room Air 01/17/24 17:37 Oxygen Flow Rate 0 01/17/24 17:37 Pain Level 4 01/17/24 17:37 Comment No APAP/ibuprofen today 01/17/24 17:37 Lab/Test Results Lab/Test Results: 01/17/24 17:40 Pharynx Group A Streptococcus Culture - Pending POC Strep Test-LUDA(Rapid) Start: 01/17/24 17:47 Freq: .Rapid Strep Test Status: Active Protocol: Document 01/17/24 17:48 CB (Rec: 01/17/24 17:49 [id number]) Strep test-LUDA(Rapid)-POC POC-Strep test-LUDA (Rapid) Negative POC-Strep test-LUDA (Rapid) Negative Medical Decision Making This dictation utilizes [id number] dictation software and may contain unedited grammatical errors. 23 y/o F presents to ED today with a chief complaint of generalized viral syndrome for a few days- has not attempted any OTC meds, sore throat, body aches, fatigue, some diarrhea with chronic IBS. Patient had thought she had a UTI but had a normal UA days ago. Patients' medical history: negative, otherwise healthy. Family and social history: noncontributory. Pertinent exam findings / vital signs include benign cardiopulmonary exam, benign ABD, neuro intact, nontoxic. Differential / pathologies of concern include viral syndrome, enteritis, pharyngitis, URI. Diagnostic studies of: -Rapid Strep, Covid/Flu/RSV PCR, CBC, CMP, Lipase, Lactate, UA. -Rapid strep negative -Covid/Flu/RSV negative -CBC benign, no leukocytosis -CMP no electrolyte abnormality -Lipase wnl -Lactate negative -UA shows 5-10 WBCs, will await culture, possible skin contamination Interventions of: -refused IVF. ED Course/Assessment/Plan: 23-year-old female presents with URI/viral syndrome for couple days, is far too early for empiric antibiotics, negative for COVID and flu without any respiratory distress and stable vitals, has not attempted any [id number] analgesics I do recommend that they watchfully wait at home and give consistent dosing of Tylenol and ibuprofen, will await urine culture here with possible antibiotics, strict return criteria for any respiratory distress, intractable nausea or vomiting, dizziness or chest discomfort. Findings not consistent with sepsis, UTI, pancreatitis, electrolyte abnormality, not consistent with severe lower respiratory infection- avoided unnecessary radiation todays visit. Disposition of Viral Syndrome. Patient verbalized understanding of the plan and return to ED criteria and engaged in shared decision making. Medical Records Medical records reviewed: Yes I reviewed the patient's medical records. Lab Data Lab results reviewed: Yes I reviewed the patient's lab results. Labs: 01/17/24 17:40 Pharynx Group A Streptococcus Culture - Pending Laboratory Tests Range/Units 01/17/24 01/17/24 01/17/24 17:00 18:59 19:00 WBC (4.4-10.8) 10^3/uL RBC (3.93-5.22) 10^6/uL Hgb (11.2-15.7) g/dL Hct (36.0-46.0) % MCV (80-95) fL MCH (27.0-33.0) pg MCHC (32.0-36.0) % RDW (11.7-14.6) % Plt Count (130-400) 10^3/uL MPV (8.0-11.0) fL Immature Gran % Neutrophils % Lymphocytes % Monocytes % Eosinophils % Basophils % Nucleated RBC % (0.0-0.3) % Absolute Neutrophils (1.2-6.7) 10^3/uL Absolute Lymphocytes (1.2-3.4) 10^3/uL Absolute Monocytes (0.1-0.8) 10^3/uL Absolute Eosinophils (0.0-0.7) 10^3/uL Absolute Basophils (0.0-0.2) 10^3/uL VBG Lactate (0.6-1.4) mmol/L 0.7 Sodium (136-145) mmol/L 141 Potassium (3.5-5.1) mmol/L 3.6 Chloride (98-107) mmol/L 104 Carbon Dioxide (21.0-32.0) mmol/L 26.5 Anion Gap (3-11) mmol/L 10.5 BUN (7-18) mg/dL 5 L Creatinine (0.55-1.02) mg/dL 0.6 Est GFR (CKD-EPI 2020) (mL/min/1.73m2) 130.88 Glucose (74-106) mg/dL 89 Calcium (8.5-10.1) mg/dL 9.1 Total Bilirubin (0.2-1.0) mg/dL 0.9 AST (15-37) U/L 18 ALT (14-59) U/L 24 Alkaline Phosphatase (46-116) U/L 79 Total Protein (6.4-8.2) g/dL 8.0 Albumin (3.4-5.0) g/dL 3.9 Lipase (16-77) U/L 28 Urine Color (Yellow) Urine Clarity (Clear) Urine pH (5-8) Ur Specific [place] (1.005-1.025) Urine Protein (Neg-Trace) mg/dL Urine Ketones (Negative) mg/dL Urine Blood (Negative) Urine Nitrite (Negative) Urine Bilirubin (Negative) Urine Urobilinogen (Up to 0.2) mg/dL Ur Leukocyte Esterase (Negative) Urine RBC (0-2) HPF Urine WBC (0-5) HPF Ur Epithelial Cells (Negative) HPF Urine Crystals (Negative) HPF Urine Bacteria (Negative) HPF Urine Mucus (Negative) Ur Culture Indicated? Urine Glucose (Negative) mg/dL COVID-19 Source Nasopharynx SARS-CoV-2 (PCR) (Negative) Negative Influenza Type A (PCR) (Negative) Negative Influenza Type B (PCR) (Negative) Negative RSV (PCR) (Negative) Negative Range/Units 01/17/24 01/17/24 19:20 19:55 WBC (4.4-10.8) 10^3/uL 9.72 RBC (3.93-5.22) 10^6/uL 5.11 Hgb (11.2-15.7) g/dL 13.6 Hct (36.0-46.0) % 43.1 MCV (80-95) fL 84 MCH (27.0-33.0) pg 26.6 L MCHC (32.0-36.0) % 31.6 L RDW (11.7-14.6) % 12.8 Plt Count (130-400) 10^3/uL 292 MPV (8.0-11.0) fL 9.8 Immature Gran % 0.2 Neutrophils % 71.1 Lymphocytes % 21.1 Monocytes % 6.1 Eosinophils % 1.1 Basophils % 0.4 Nucleated RBC % (0.0-0.3) % 0.0 Absolute Neutrophils (1.2-6.7) 10^3/uL 6.91 H Absolute Lymphocytes (1.2-3.4) 10^3/uL 2.05 Absolute Monocytes (0.1-0.8) 10^3/uL 0.59 Absolute Eosinophils (0.0-0.7) 10^3/uL 0.11 Absolute Basophils (0.0-0.2) 10^3/uL 0.04 VBG Lactate (0.6-1.4) mmol/L Sodium (136-145) mmol/L Potassium (3.5-5.1) mmol/L Chloride (98-107) mmol/L Carbon Dioxide (21.0-32.0) mmol/L Anion Gap (3-11) mmol/L BUN (7-18) mg/dL Creatinine (0.55-1.02) mg/dL Est GFR (CKD-EPI 2020) (mL/min/1.73m2) Glucose (74-106) mg/dL Calcium (8.5-10.1) mg/dL Total Bilirubin (0.2-1.0) mg/dL AST (15-37) U/L ALT (14-59) U/L Alkaline Phosphatase (46-116) U/L Total Protein (6.4-8.2) g/dL Albumin (3.4-5.0) g/dL Lipase (16-77) U/L Urine Color (Yellow) Yellow Urine Clarity (Clear) Clear Urine pH (5-8) 5.5 Ur Specific [place] (1.005-1.025) 1.025 Urine Protein (Neg-Trace) mg/dL Negative Urine Ketones (Negative) mg/dL Negative Urine Blood (Negative) Negative Urine Nitrite (Negative) Negative Urine Bilirubin (Negative) Negative Urine Urobilinogen (Up to 0.2) mg/dL 2.0 H Ur Leukocyte Esterase (Negative) Small H Urine RBC (0-2) HPF 0-2 Urine WBC (0-5) HPF 5-10 Ur Epithelial Cells (Negative) HPF Few Urine Crystals (Negative) HPF Negative Urine Bacteria (Negative) HPF Negative Urine Mucus (Negative) Heavy Ur Culture Indicated? No Urine Glucose (Negative) mg/dL Negative COVID-19 Source SARS-CoV-2 (PCR) (Negative) Influenza Type A (PCR) (Negative) Influenza Type B (PCR) (Negative) RSV (PCR) (Negative) Quality:SDOH Health Related Social Needs: No Data to Display PFSH All Active Problems (Updated 01/17/24 @ 20:31 by HENOK Arzate) Viral syndrome (Acute) Pain, dental (Acute) Facial pressure (Acute) Otalgia of both ears (Acute) Medical History (Updated 01/17/24 @ 20:31 by HENOK Arzate) Dyspnea Dysphagia Depressive disorder Constipation Chronic sinusitis Otitis media, unspecified, right ear Pediculosis capitis Inflammatory dermatosis Temporomandibular joint disorder Right upper quadrant pain Menorrhagia Low back pain Idiopathic scoliosis GERD (gastroesophageal reflux disease) Double vision Cluster headache Asthma Anxiety Anemia Alopecia Allergic rhinitis Non-suppurative otitis media Surgical History H/O Spinal surgery Hx laparoscopic cholecystectomy 08/09/2021 Family History Mother Breast cancer Father Diabetes Social History Smoking/Tobacco Use Status: Never Smoking risk assessment performed?: Yes Alcohol Intake: never Drug use: Never Substance use type: does not use Do you feel safe at home: Yes Do you feel safe in your relationship?: Yes
[2024-01-17] MEDS: Ibuprofen 400 MG TAB PO (19:05)
[2024-01-17] MEDS: Acetaminophen 500 MG TAB 1000 MG PO (19:05)
[2024-01-17 19:09] LABS: Lactate 0.7 mmol/L (0.6-1.4)
[2024-01-17 19:24] LABS: Abs Immature Grans 0.02 10^3/uL (0.0-0.06); Absolute Basophil Count 0.04 10^3/uL (0.0-0.2); Absolute Eosinophil Count 0.11 10^3/uL (0.0-0.7); Absolute Lymphocyte Count 2.05 10^3/uL (1.2-3.4); Absolute Monocyte Count 0.59 10^3/uL (0.1-0.8); Absolute Neutrophil Count 6.91 10^3/uL (1.2-6.7); Basophils % 0.4; Eosinophils % 1.1; HCT 43.1 % (36.0-46.0); HGB 13.6 g/dL (11.2-15.7); Immature Grans % 0.2; Lymphocytes % 21.1; MCH 26.6 pg (27.0-33.0); MCHC 31.6 % (32.0-36.0); MCV 84 fL (80-95); MPV 9.8 fL (8.0-11.0); Monocytes % 6.1; Neutrophils % 71.1; Platelet Count 292 10^3/uL (130-400); RBC 5.11 10^6/uL (3.93-5.22); RDW 12.8 % (11.7-14.6); RDW-SD 39.6 fL; WBC 9.72 10^3/uL (4.4-10.8)
[2024-01-17 19:33] LABS: ALT 24 U/L (14-59); AST 18 U/L (15-37); Albumin 3.9 g/dL (3.4-5.0); Alkaline Phosphatase 79 U/L (46-116); Anion Gap 10.5 mmol/L (3-11); BUN 5 mg/dL (7-18); Bilirubin, Total 0.9 mg/dL (0.2-1.0); CO2 26.5 mmol/L (21.0-32.0); CREATININE 0.6 mg/dL (0.55-1.02); Calcium 9.1 mg/dL (8.5-10.1); Chloride 104 mmol/L (98-107); Estimated GFR 130.88 (mL/min/1.73m2); Glucose 89 mg/dL (74-106); Lipase 28 U/L (16-77); Potassium 3.6 mmol/L (3.5-5.1); Sodium 141 mmol/L (136-145)
[2024-01-17 19:40] LABS: COVID-19 PCR Negative (Negative); Influenza A PCR Negative (Negative); Influenza B PCR Negative (Negative); RSV PCR Negative (Negative); Source Nasopharynx
[2024-01-17 20:03] LABS: Bilirubin Negative (Negative); Blood Negative (Negative); Clarity Clear (Clear); Glucose Negative (Negative); Ketones Negative (Negative); Leukocyte Esterase Small (Negative); Nitrite Negative (Negative); Specific Gravity 1.025 (1.005-1.025); pH 5.5 (5-8)
[2024-01-17 20:19] LABS: Bacteria Negative HPF (Negative); C & S Indicated? No; Crystals Negative HPF (Negative); Epithelial Cells Few HPF (Negative); Mucus Heavy (Negative); RBC 0-2 HPF (0-2)
== END 2024-01-17 20:39 | disposition home or self-care (01) ==
PROVIDERS: Emergency Provider Physician Assistant; PCP Family Medicine
DX: B34.9 Viral infection, unspecified (principal); Z11.52 Encounter for screening for COVID-19
CPT/HCPCS: 36415; 80053; 83690; 87637; 87880; 96360; 99284; 81003; 81015; 83605; 85025; 87081; 99283

== ENCOUNTER 2025-04-09 17:21 | Emergency (ER) | payer MEDICARE, MEDICAID, SELFPAY ==
[2025-04-09 17:29] VITALS: BP 134/95; PULSE 99; RESP 20; TEMP 36.7; O2SAT 99
--- NOTE | 2025-04-09 18:16 | ED.GENADUL_ITS ---
Discharge Plan Disposition Patient Disposition: Home Condition: Stable Discharge Details Clinical Impression: Scintillating scotoma Primary Care Provider: Sandip Ko ED Provider: Jackson Romano Home Meds and New Rx's Prescriptions: Continued acetaminophen 500 mg tablet 500 mg PO Q6H PRN fluticasone propionate [Flonase Allergy Relief] 50 mcg/actuation spray,suspension 2 spray intranasal DAILY Rx Instructions: administer into each nostril fluticasone propionate [Flovent HFA] 110 mcg/actuation HFA aerosol inhaler 1 puff inhalation BID hydroxyzine HCl 25 mg tablet 25 mg PO QHS PRN loratadine 10 mg tablet 10 mg PO DAILY Mirena 21 mcg/24 hours (8 yrs) 52 mg intrauterine device 1 device intrauterine ONCE Rx Instructions: as a single dose naproxen 375 mg tablet,delayed release (DR/EC) 375 mg PO BID PRN ondansetron HCl 4 mg tablet 4 mg PO Q8H PRN albuterol sulfate [ProAir HFA] 90 mcg/actuation HFA aerosol inhaler 2 puff inhalation 6XD omeprazole 20 mg capsule,delayed release(DR/EC) 20 mg PO DAILY Patient Comments: TAKE ONE CAPSULE BY MOUTH EVERY DAY Discharge Instructions Additional Instructions: You were seen in the emergency department for the skin to leading scotoma of your vision today. It is likely that this is related to complex migraine. 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 Referrals: [facility] [Outside] Sandip oK [Primary Care Provider] - Discharge Data Discharge Date/Time-TO BE ENTERED AT DEPARTURE: 04/09/25 20:00 HPI General Date/Time Provider Initiated Documentation: 04/09/25 17:36 . HPI Narrative: 25 year-old female presents to ED today by POV/ambulating with a chief complaint of blurry vision, had a static-like visual aura earlier today that resolved. States resumed mild L eye peripheral blurry vision 25 minutes prior to arrival. Quality described as gets headaches, sometimes- cannot exactly state whether the static-like object was in both eyes, denies eye pain, no radiation to loss of vision, curtain sensation, vertigo, motor deficits, slurred speech, confusion, fever. Severity is described as mild. Palliating factors include nothing specific attempted. Provoking factors include nothing specific. Patient not anticoagulated. Related Data Home Medications ?Medication ?Instructions ?Recorded ?Confirmed acetaminophen 500 mg tablet 500 mg PO Q6H PRN 10/20/23 04/09/25 albuterol sulfate 90 mcg/actuation 2 puff inhalation 6XD 10/20/23 04/09/25 aerosol inhaler (ProAir HFA) fluticasone propionate 110 1 puff inhalation BID 10/20/23 04/09/25 mcg/actuation HFA aerosol inhaler (Flovent HFA) fluticasone propionate 50 2 spray intranasal DAILY 10/20/23 04/09/25 mcg/actuation nasal spray,suspension (Flonase Allergy Relief) hydroxyzine HCl 25 mg tablet 25 mg PO QHS PRN 10/20/23 04/09/25 levonorgestrel 21 mcg/24 hr (up to 1 device intrauterine ONCE 10/20/23 04/09/25 8 years) 52 mg intrauterine device (Mirena) loratadine 10 mg tablet 10 mg PO DAILY 10/20/23 04/09/25 naproxen 375 mg tablet,delayed 375 mg PO BID PRN 10/20/23 04/09/25 release ondansetron HCl 4 mg tablet 4 mg PO Q8H PRN 10/20/23 04/09/25 omeprazole 20 mg capsule,delayed 20 mg PO DAILY 04/09/25 04/09/25 release Allergies Allergy/AdvReac Type Severity Reaction Status Date / Time duloxetine (From Cymbalta) Allergy Severe Other (See Verified 04/09/25 17:35 Comment) grass pollen-perennial rye, Allergy Other (See Verified 04/09/25 17:35 standar Comment) pollen extracts Allergy Other (See Verified 04/09/25 17:35 Comment) Iodinated Contrast Media AdvReac Intermediate Skin Rash Unverified 04/09/25 17:35 General Stated Complaint: EyeProblem ALEXX: 4 Review of Systems All systems reviewed & are unremarkable except as noted in HPI and below Exam Narrative Exam Narrative: GENERAL APPEARANCE: Well-nourished, non-toxic, awake and alert, atraumatic, no acute distress. SKIN: Warm, pink, dry, intact, without rashes/lesions/ulcerations. HEAD: Normocephalic, atraumatic, normal hair distribution for gender/age. EYES: Normal conjunctiva, no exudates on lids/lashes, EOMs intact without nystagmus, hints exam negative, visual manuel grossly intact, pupils PERRLA ENT: Nares patent, no circumoral cyanosis, no facial swelling NECK: Supple, trachea midline, painless cervical ROM. LUNGS/CHEST: Lungs CTA bilaterally, non-labored respirations, normal A/P diameter, symmetrical expansion, no chest wall deformity HEART (CV/PV): Regular rate and rhythm without murmur, no peripheral edema, no JVD. ABDOMEN: Soft, non-distended, no guarding. MSK: Normal ROM, no swelling/deformity to bilateral UEs or LEs, moving all extremities without weakness, no cyanosis, spine midline without tenderness, normal curvature. NEURO: Mental Status AAOx4 - alert to person, place, time, events No facial droop, no forehead involvement, FNF normal Motor: No focal weakness - strength 5/5 in bilateral UEs and LEs, proximal and distal, symmetric. Sensory: sensation intact to light touch globally. Gait normal: patient ambulated without ataxia into ED room. PSYCH: euthymic, cooperative, pleasant, appropriate speech Course Vital Signs Vital signs: Vital Signs Temperature 36.7 C 04/09/25 17:29 Pulse 99 H 04/09/25 17:29 Respiratory Rate 20 04/09/25 17:29 Blood Pressure 134/95 H 04/09/25 17:29 Pulse Oximetry 99 04/09/25 17:29 Temperature 36.7 C 04/09/25 17:29 Temperature Source Oral 04/09/25 17:29 Pulse 99 H 04/09/25 17:29 Respiratory Rate 20 04/09/25 17:29 Blood Pressure 134/95 H 04/09/25 17:29 Pulse Oximetry 99 04/09/25 17:29 Pain Level 4 04/09/25 17:29 Medical Decision Making This dictation utilizes [id number] dictation software and may contain unedited grammatical errors. 25 year-old female presents to ED today by POV/ambulating with a chief complaint of blurry vision, had a static-like visual aura earlier today that resolved. States resumed mild L eye peripheral blurry vision 25 minutes prior to arrival. Quality described as gets headaches, sometimes- cannot exactly state whether the static-like object was in both eyes, denies eye pain, no radiation to loss of vision, curtain sensation, vertigo, motor deficits, slurred speech, confusion, fever. Severity is described as mild. Palliating factors include nothing specific attempted. Provoking factors include nothing specific. Patients' medical history: Dysphagia, depressive disorder, otitis media, GERD, history of cluster headache and double vision. Family and social history: Noncontributory. Pertinent exam findings / vital signs include visual manuel intact, vision grossly intact, no motor deficits, normal neuroexam, benign cardiopulmonary status, afebrile and nontoxic. Differential / pathologies of concern include migraine with aura, complex migraine, not likely retinal detachment, unlikely stroke. Diagnostic studies of: - CT head without contrast, CBC, CMP. - CT head without contrast shows no acute intracranial abnormality - CBC shows no acute abnormality save for nonspecific mild elevation of absolute neutrophil count - CMP completely unremarkable Interventions of: - None, headache had resolved and vision had improved by time of arrival. ED Course/Assessment/Plan: 24-year-old female presents with skin bleeding scotoma of the left peripheral lateral vision that was improved from onset earlier today, CT head shows no acute intracranial abnormality, I suspect this is complex migraine as patient has headache history, vision is grossly normal today, counseled her to follow-up with [facility] for an eye appointment, as well as possible MRI in the outpatient setting for primary care, stress strict return criteria for any severe vision changes that are persistent, any eye pain, any headache, any neurologic deficits. Findings not consistent with stroke, intracranial hemorrhage, visual loss, orbital cellulitis. Disposition of Scintillating Scotoma. Patient verbalized understanding of the plan and return to ED criteria and engaged in shared decision making. Medical Records Medical records reviewed: Yes I reviewed the patient's medical records. Imaging Data Radiologic Study: Attestation: I personally reviewed and interpreted this imaging study as follows: Imaging: CT Scan Radiologist's impression: Exam: CT Head Without Contrast Exam date and time: 04/09/2025 7:18 PM Age: 24 years old Clinical indication: Other: Scintillating scotoma TECHNIQUE: Imaging protocol: Computed tomography of the head without contrast. COMPARISON: MR BRAIN WO CONTRAST 08/23/2024 3:19 PM FINDINGS: Brain: Mild volume loss No hemorrhage. Unremarkable white matter. No mass effect. Cerebral ventricles: No ventriculomegaly. Paranasal sinuses: Visualized sinuses are unremarkable. No fluid levels. Mastoid air cells: Visualized mastoid air cells are well aerated. Bones: Unremarkable. No acute fracture. Soft tissues: Unremarkable. IMPRESSION: No acute intracranial abnormality. Dictated and Authenticated by: Luke Rivera MD. Lab Data Lab results reviewed: Yes I reviewed the patient's lab results. Labs: Laboratory Tests Range/Units 04/09/25 18:44 WBC (4.4-10.8) 10^3/uL 9.62 RBC (3.93-5.22) 10^6/uL 4.86 Hgb (11.2-15.7) g/dL 13.1 Hct (36.0-46.0) % 41.6 MCV (80-95) fL 86 MCH (27.0-33.0) pg 27.0 MCHC (32.0-36.0) % 31.5 L RDW (11.7-14.6) % 12.8 Plt Count (130-400) 10^3/uL 273 MPV (8.0-11.0) fL 10.0 Immature Gran % % 0.3 Neutrophils % % 76.6 Lymphocytes % % 17.0 Monocytes % % 5.0 Eosinophils % % 0.8 Basophils % % 0.3 Nucleated RBC % (0.0-0.3) % 0.0 Absolute Neutrophils (1.2-6.7) 10^3/uL 7.36 H Absolute Lymphocytes (1.2-3.4) 10^3/uL 1.64 Absolute Monocytes (0.1-0.8) 10^3/uL 0.48 Absolute Eosinophils (0.0-0.7) 10^3/uL 0.08 Absolute Basophils (0.0-0.2) 10^3/uL 0.03 Sodium (136-145) mmol/L 140 Potassium (3.5-5.1) mmol/L 3.6 Chloride (98-107) mmol/L 103 Carbon Dioxide (21.0-32.0) mmol/L 29.1 Anion Gap (3-11) mmol/L 7.9 BUN (7-18) mg/dL 9 Creatinine (0.55-1.02) mg/dL 0.7 Est GFR (CKD-EPI 2020) (mL/min/1.73m2) 125.33 Glucose (74-106) mg/dL 99 Calcium (8.5-10.1) mg/dL 9.2 Total Bilirubin (0.2-1.0) mg/dL 0.5 AST (15-37) U/L 14 L ALT (14-59) U/L 15 Alkaline Phosphatase (46-116) U/L 100 Total Protein (6.4-8.2) g/dL 8.0 Albumin (3.4-5.0) g/dL 4.0 Quality:SDOH Health Related Social Needs: No Data to Display PFSH All Active Problems (Updated 04/09/25 @ 19:49 by HENOK Arzate) Scintillating scotoma (Acute) Recurrent viral infection (Acute) Chronic nasal congestion (Acute) Nasal congestion (Acute) Acute otitis media with effusion of left ear (Acute) Facial pressure (Acute) Otalgia of both ears (Acute) Medical History (Updated 04/09/25 @ 19:49 by HENOK Arzate) Dyspnea Dysphagia Depressive disorder Constipation Chronic sinusitis Otitis media, unspecified, right ear Pediculosis capitis Inflammatory dermatosis Temporomandibular joint disorder Right upper quadrant pain Menorrhagia Low back pain Idiopathic scoliosis GERD (gastroesophageal reflux disease) Double vision Cluster headache Asthma Anxiety Anemia Alopecia Allergic rhinitis Non-suppurative otitis media Surgical History H/O Spinal surgery Hx laparoscopic cholecystectomy 08/09/2021 Family History Mother Breast cancer Father Diabetes Social History Smoking/Tobacco Use Status: Never Smoking risk assessment performed?: Yes Alcohol Intake: never Drug use: Never Substance use type: does not use Housing: house Do you feel safe at home: Yes Do you feel safe in your relationship?: Yes
--- NOTE | 2025-04-09 18:30 | DI.CT_ITS ---
Exam(s) CT HEAD WO EXAM: CT HEAD WO CLINICAL HISTORY: scintillating scotoma. TECHNIQUE: Imaging Protocol: Axial computed tomography images with coronal and sagittal reformatted images were created and reviewed COMPARISON: CT CT HEAD/BRAIN WO CONTRAST from 07/02/2024 FINDINGS: Ventricles and Extra axial spaces: Normal in size and morphology for the patient's age. Hemorrhage: None. Cerebral parenchyma: No evidence of acute infarct or mass. Midline shift: None. Brainstem/Cerebellum: Normal. Calvarium: Normal. Visualized Paranasal sinuses:Clear. Mastoids: Clear. Soft Tissues: Unremarkable. ORBITS: Unremarkable. PITUITARY: Not enlarged. IMPRESSION: No acute intracranial process. RADIATION DOSE DELIVERED: 883.59mGy.cm Total DLP DATA REPOSITORY: All CT scans at this facility are submitted to the National Radiology Data Registry (NRDR) Dose Index Registry (DIR) with the [employer] ([employer]). RADIATION OPTIMIZATION: All CT scans at this facility use at least one of these dose optimization te chniques: automated exposure control; mA and/or kV adjustment per patient size (includes targeted exa ms where dose is matched to clinical indication); or iterative reconstruction.
[2025-04-09 18:55] LABS: Abs Immature Grans 0.03 10^3/uL (0.0-0.06); Absolute Basophil Count 0.03 10^3/uL (0.0-0.2); Absolute Eosinophil Count 0.08 10^3/uL (0.0-0.7); Absolute Lymphocyte Count 1.64 10^3/uL (1.2-3.4); Absolute Monocyte Count 0.48 10^3/uL (0.1-0.8); Absolute Neutrophil Count 7.36 10^3/uL (1.2-6.7); Basophils % 0.3 %; Eosinophils % 0.8 %; HCT 41.6 % (36.0-46.0); HGB 13.1 g/dL (11.2-15.7); Immature Grans % 0.3 %; MCHC 31.5 % (32.0-36.0); MCV 86 fL (80-95); Neutrophils % 76.6 %; Platelet Count 273 10^3/uL (130-400); RBC 4.86 10^6/uL (3.93-5.22); RDW 12.8 % (11.7-14.6); RDW-SD 39.7 fL; WBC 9.62 10^3/uL (4.4-10.8)
[2025-04-09 19:10] LABS: ALT 15 U/L (14-59); AST 14 U/L (15-37); Alkaline Phosphatase 100 U/L (46-116); Anion Gap 7.9 mmol/L (3-11); BUN 9 mg/dL (7-18); Bilirubin, Total 0.5 mg/dL (0.2-1.0); CO2 29.1 mmol/L (21.0-32.0); CREATININE 0.7 mg/dL (0.55-1.02); Calcium 9.2 mg/dL (8.5-10.1); Chloride 103 mmol/L (98-107); Estimated GFR 125.33 (mL/min/1.73m2); Glucose 99 mg/dL (74-106); Potassium 3.6 mmol/L (3.5-5.1); Sodium 140 mmol/L (136-145)
--- NOTE | 2025-04-09 19:29 | DI.VRAD_ITS ---
PROCEDURE INFORMATION: Exam: CT Head Without Contrast Exam date and time: 04/09/2025 7:18 PM Age: 24 years old Clinical indication: Other: Scintillating scotoma TECHNIQUE: Imaging protocol: Computed tomography of the head without contrast. COMPARISON: MR BRAIN WO CONTRAST 08/23/2024 3:19 PM FINDINGS: Brain: Mild volume loss No hemorrhage. Unremarkable white matter. No mass effect. Cerebral ventricles: No ventriculomegaly. Paranasal sinuses: Visualized sinuses are unremarkable. No fluid levels. Mastoid air cells: Visualized mastoid air cells are well aerated. Bones: Unremarkable. No acute fracture. Soft tissues: Unremarkable. IMPRESSION: No acute intracranial abnormality. Dictated and Authenticated by: Luke Rivera MD. Orderin Juan Antonio Paz MD
[2025-04-09 19:50] VITALS: BP 123/67; PULSE 88; RESP 18; O2SAT 98
== END 2025-04-09 20:00 | disposition home or self-care (01) ==
PROVIDERS: Emergency Provider Physician Assistant; PCP Family Medicine
DX: H53.121 Transient visual loss, right eye (principal)
CPT/HCPCS: 99283; 99284; 36415; 80053; 70450; 85025